=== PATIENT | female | born 1950 | race Caucasian/White ===

== ENCOUNTER 2016-08-08 13:45 | Outpatient (RCR) | payer MEDICARE, BC ==
--- OUTSIDE RECORDS SUMMARY | 2016-07-18 13:26 | XMS REPORT | Continuity of Care Document ---
Author Author [facility] Organization [facility] Address Unknown Phone Unavailable Care Team Providers [facility] Volunteer Name Role Phone MIQUEL WISEMAN DO PCP Insurance Providers Payer Name Policy Number Subscriber Name Relationship [facility] [id number] Ruel Collazo Advance Directives Directive Response Recorded Date/Time Advance Directives Yes 05/20/14 5:57pm Health Care Power of Body Engineer Farshad COLLAZO 05/20/14 5:57pm Organ Donor No 05/20/14 5:57pm Resuscitation Status Full Code 05/20/14 5:57pm Problems No known problems or medical conditions. Medications Medication Dose Route Sig Days/Qty Instructions Order Date Discontinued Date Status Sotalol Hcl 200 Mg PO 05/20/14 Active Digoxin 1 Each PO DAILY 05/20/14 Active Potassium Chloride 10 Meq PO DAILY 05/20/14 Active Diltiazem Hcl 240 Mg PO 05/20/14 Active Metformin HCl (Glucophage Xr) 1 Each PO DAILY WITH MEAL 05/20/14 Active Simvastatin 10 Mg PO DAILY 05/20/14 Active Furosemide (Lasix) 1 Each PO DAILY 05/20/14 Active Enalapril Maleate 20 Mg PO DAILY 05/20/14 Active Hydrocodone Bit/Acetaminophen 1 Tab PO EVERY 6 HOURS PRN PAIN 10 Qty Active Social History Social History Problem Response Recorded Date/Time Alcohol Use Rarely Uses 05/20/2014 5:57pm Recreational Drug Use No 05/20/2014 5:57pm Recent Foreign Travel No 05/20/2014 5:53pm Smoking Status Former Smoker 05/20/2014 5:57pm Query Response Start Date Stop Date Smoking Status Former Smoker Hospital Discharge Instructions No hospital discharge instructions. Plan of Care No plan of care. Functional Status No functional status results. Allergies, Adverse Reactions, Alerts Allergen Type Severity Reaction Status Last Updated Penicillins ([id number]) Allergy Unknown Active 10/15/08 Sulfa (Sulfonamide Antibiotics) ([id number]) Allergy Unknown Active 17/04 Immunizations No immunization records. Vital Signs Acute Vital Signs Vital Response Date/Time Temperature (Fahrenheit) 97.3 degrees F (97.6 - 99.5) Temperature (Calculated Celsius) 36.81413 degrees C (36.4 - 37.5) Pulse Rate (adult) 78 bpm (60 - 90) Respiratory Rate 16 bpm (12 - 24) O2 Sat by Pulse Oximetry 98 % (88 - 100) Blood Pressure 179/80 mm Hg Pain Pain Intensity 3 Height (Feet) 5 feet Height (Inches) 4 inches Height (Calculated Centimeters) 162.405868 cm Weight (Pounds) 155 pounds Weight (Calculated Kilograms) 70.813670 kilograms Calculated BMI 26.60 Results Test Source Date Result Interp. Ref. Range Comments Activated Partial Thromboplast Time October 15, 2008 2:10pm 28 SEC N 24- 35 Comments to Wool Dyer: USE BLOOD IN LAB IF POSSIBLE Alanine Aminotransferase (ALT/SGPT) October 17, 2008 5:18am 24 U/L L 30- 65 Albumin October 17, 2008 5:18am 2.3 G/DL L 3.4-5.0 Alkaline Phosphatase October 17, 2008 5:18am 91 U/L N 50-136 Aspartate Amino Transf (AST/SGOT) October 17, 2008 5:18am 9 U/L L 15-37 B-Type Natriuretic Peptide October 15, 2008 2:10pm 160.0 PG/ML H 5.0- 100.0 Has specimen been collected/obtained? Y BUN/Creatinine Ratio October 17, 2008 5:18am 8 - Basophils # (Auto) October 17, 2008 5:18am 0.0 10^3/uL N 0.0-0.1 Basophils (%) (Auto) October 17, 2008 5:18am 0 % N 0-10 Blood Urea Nitrogen October 17, 2008 5:18am 6 MG/DL L 7-18 Calcium Level October 17, 2008 5:18am 8.0 MG/DL L 8.5-10.1 Carbon Dioxide Level October 17, 2008 5:18am 24 MMOL/L N 21-32 Chloride Level October 17, 2008 5:18am 107 MMOL/L N 101-110 Creatinine October 17, 2008 5:18am 0.8 MG/DL N 0.6-1.3 Digoxin Level October 16, 2008 2:32am 1.1 NG/ML N 0.9-2.0 Direct Bilirubin October 15, 2008 2:10pm 0.2 MG/DL N 0.0-0.30 Has specimen been collected/obtained? Y Eosinophils # (Auto) October 17, 2008 5:18am 0.4 10^3/uL H 0.0-0.3 Eosinophils (%) (Auto) October 17, 2008 5:18am 6 % N 0-10 Glucose Level October 17, 2008 5:18am 100 MG/DL N 70-126 Hematocrit October 17, 2008 5:18am 34 % L 35-52 Hemoglobin October 17, 2008 5:18am 11.4 G/DL DL 11.5-16.0 Indirect Bilirubin October 15, 2008 2:10pm 0.3 MG/DL - Has specimen been collected/obtained? Y Lymphocytes # (Auto) October 17, 2008 5:18am 1.7 X 10^3 N 1.0-4.0 Lymphocytes % (Manual) October 15, 2008 2:10pm 19 % - Has specimen been collected/obtained? Y Lymphocytes (%) (Auto) October 17, 2008 5:18am 21 % N 12-44 Magnesium Level October 15, 2008 2:10pm 1.9 MG/DL N 1.8-2.4 Has specimen been collected/obtained? Y Mean Corpuscular Hemoglobin October 17, 2008 5:18am 32 PG N 25-34 Mean Corpuscular Hemoglobin Concent October 17, 2008 5:18am 33 G/DL N 32- 36 Mean Corpuscular Volume October 17, 2008 5:18am 96 FL N 80-99 Mean Platelet Volume October 17, 2008 5:18am 9.7 FL N 7.4-10.4 Monocytes # (Auto) October 17, 2008 5:18am 0.7 X 10^3 N 0.0-1.0 Monocytes % (Manual) October 15, 2008 2:10pm 14 % - Has specimen been collected/obtained? Y Monocytes (%) (Auto) October 17, 2008 5:18am 8 % N 0-12 Myoglobin October 17, 2008 5:18am 36 UG/L N 10-92 Neutrophils # (Auto) October 17, 2008 5:18am 5.1 X 10^3 N 1.8-7.8 Neutrophils % (Manual) October 15, 2008 2:10pm 67 % - Has specimen been collected/obtained? Y Neutrophils (%) (Auto) October 17, 2008 5:18am 65 % N 42-75 Platelet Count October 17, 2008 5:18am 271 10^3/uL N 130-400 Potassium Level October 17, 2008 5:18am 3.0 MMOL/L L 3.6-5.0 Prothromb Time International Ratio October 15, 2008 2:10pm 1.0 N 0.8-1.4 INTERPRETIVE DATASUGGESTED THERAPEUTIC RANGE FOR INR'S: VENOUS THROMBOSIS, PULMONARY EMBOLISM, OR PREVENTION OF SYSTEMIC EMBOLISM (EG. IN ATRIAL FIBRILLATION): 2.0 - 3.0 MECHANICAL PROSTHETIC HEART VALVES: 2.5 - 3.5* *NOTE: INR'S UP TO 4.5 MAY BE NECESSARY IN SELECTED GROUPS OF HIGH RISK PATIENTS. [employer] CONSENSUS CONFERENCE ON ANTITHROMBOTIC THERAPY (2000). Prothrombin Time October 15, 2008 2:10pm 13.6 SEC N 12.2-14.7 Comments to Wool Dyer: USE BLOOD IN LAB IF POSSIBLE Red Blood Count October 17, 2008 5:18am 3.60 10^6/uL L 4.35-5.85 Red Cell Distribution Width October 17, 2008 5:18am 13.0 % N 10.0-14.5 Sodium Level October 17, 2008 5:18am 138 MMOL/L N 135-145 Thyroid Stimulating Hormone (TSH) October 15, 2008 2:10pm 1.48 UIU/ML N 0.34-5.60 Comments to Wool Dyer: USE BLOOD IN LAB IF POSSIBLE Total Bilirubin October 17, 2008 5:18am 0.4 MG/DL N 0.0-1.0 Total Protein October 17, 2008 5:18am 5.9 G/DL L 6.4-8.2 Troponin I October 17, 2008 5:18am 0.24 NG/ML H 0.00-0.10 Urine Bacteria October 16, 2008 11:50am NEGATIVE - Specimen Description CLEAN CATCH Urine Bilirubin October 16, 2008 11:50am NEGATIVE - Specimen Description CLEAN CATCH Urine Casts October 16, 2008 11:50am NONE - Specimen Description CLEAN CATCH Urine Clarity October 16, 2008 11:50am CLEAR - Specimen Description CLEAN CATCH Urine Color October 16, 2008 11:50am YELLOW - Specimen Description CLEAN CATCH Urine Crystals October 16, 2008 11:50am NONE - Specimen Description CLEAN CATCH Urine Culture Indicated October 16, 2008 11:50am NO - Specimen Description CLEAN CATCH Urine Glucose (UA) October 16, 2008 11:50am NEGATIVE - Specimen Description CLEAN CATCH Urine Ketones October 16, 2008 11:50am NEGATIVE - Specimen Description CLEAN CATCH Urine Leukocyte Esterase October 16, 2008 11:50am NEGATIVE - Specimen Description CLEAN CATCH Urine Mucus October 16, 2008 11:50am NEGATIVE - Specimen Description CLEAN CATCH Urine Nitrite October 16, 2008 11:50am NEGATIVE - Specimen Description CLEAN CATCH Urine Protein October 16, 2008 11:50am NEGATIVE - Specimen Description CLEAN CATCH Urine RBC October 16, 2008 11:50am NONE /HPF - Specimen Description CLEAN CATCH Urine Specific Marshall October 16, 2008 11:50am 1.010 L - Specimen Description CLEAN CATCH Urine Squamous Epithelial Cells October 16, 2008 11:50am 2-5 - Specimen Description CLEAN CATCH Urine Urobilinogen October 16, 2008 11:50am NORMAL MG/DL - Specimen Description CLEAN CATCH Urine WBC October 16, 2008 11:50am NONE /HPF - Specimen Description CLEAN CATCH Urine pH October 16, 2008 11:50am 6.5 - Specimen Description CLEAN CATCH White Blood Count October 17, 2008 5:18am 7.8 10^3/uL N 4.3-11.0 Whole Blood Chloride October 15, 2008 2:30pm 106 MMOL/L N 98-109 Has specimen been collected/obtained? Y Whole Blood Glucose October 15, 2008 2:30pm 166 MG/DL H 70-105 Has specimen been collected/obtained? Y Whole Blood Potassium October 15, 2008 2:30pm 3.1 MMOL/L L 3.5-4.9 Has specimen been collected/obtained? Y Whole Blood Sodium October 15, 2008 2:30pm 140 MMOL/L N 138-146 Has specimen been collected/obtained? Y Whole Blood Ionized Calcium October 15, 2008 2:30pm 1.18 MMOL/L N 1.12- 1.32 Has specimen been collected/obtained? Y Glucometer October 17, 2008 10:52am 114 MG/DL H 70-110 Factor V Leiden Mutation October 15, 2008 8:30pm NEG - FACTOR 5 LEIDEN INTERPNegative study, Normal Wild Type (no mutant alleles detected) for the factor V Leiden gene mutation (see comment). This test is approximately 99% accurate. However, a negative result for any genetic test does not entirely rule out the possibility that this individual could be a carrier of a mutation not detected by this test. Genotypic false negative results may arise from trace contamination of reactions and from rare genetic variants that interfere with analysis. We encourage the physician to consider genetic counseling if deemed clinically necessary. A clincal pathologist has reviewed these results prior to their release. FACTOR 5 LEIDEN INTERPRETIVE DATA The factor V Leiden gene mutation (FVL) is a single base pair G to A missense point mutation involving exon 10 of chromosome 1 at nucleotide 1691 of the factor V gene. Genomic DNA was prepared from submitted whole blood. Using [employer] Exon 10 of the factor V gene localized on chromosome 1 was analyzed using a non-PCR signal amplification method utilizing an enzymatic hybridization mismatch recognition step with a fluorescent allele-specific probe for the point mutation at nucleotide position 1691 in the factor V gene. Analyte-specific reagents (ASRs) are used in certain laboratory tests necessary for standard medical care and generally do not require FDA approval. This test was developed and its performance determined by [facility]. It has not been cleared or approved by the U.S. Food and Drug Administration. It is the responsibility of the ordereing physician to explain the risks, benefits, and implications of this test. [facility]) assume no responsibility in the consenting and counseling of patients before and after testing. Whole Blood Creatinine October 15, 2008 2:30pm 0.9 MG/DL N 0.6-1.3 Has specimen been collected/obtained? Y Total Carbon Dioxide October 15, 2008 2:30pm 25 MMOL/L N 24-29 Has specimen been collected/obtained? Y Blood Morphology Comment October 15, 2008 2:10pm NORMAL - Has specimen been collected/obtained? Y Creatine Kinase October 16, 2008 2:32am 64 mg/dl N 21-140 Cardiac Panel Pathologist Review October 15, 2008 2:10pm SEE CARDIAC PATH REV - Has specimen been collected/obtained? Y Urine RBC (Auto) October 16, 2008 11:50am NEGATIVE - Specimen Description CLEAN CATCH Blood Culture Peripheral-Right Wrist October 16, 2008 11:15am No growth MRSA Screen Nasal October 15, 2008 6:30pm MRSA not isolated Urine Culture Urine-Clean Catch October 16, 2008 11:50am Gram Stain Incision-Back October 16, 2008 11:00am Procedures No known history of procedures. Encounters Encounter Location Date/Time Departed Emergency Room [facility] 05/20/14 5:45pm Recent Diagnosis
[~2016-08-08 13:45] MED LIST: DIGO125T PO; DILT120C PO; ENAL20TA PO; FURO40TA4 PO; HYDR-1231 PO; KCL10CCR PO; METF500T8 PO; SIMV10TA3 PO; SOTA160T16 PO
== END 2016-09-01 13:57 | disposition home or self-care (01) ==
PROVIDERS: ATTEND Otolaryngology Otolaryngology/Facial Plastic Surgery
DX: R49.0 Dysphonia (principal); I10 Essential (primary) hypertension; R12 Heartburn

== ENCOUNTER → 2017-05-11 | Outpatient (CLI) | payer MEDICARE, BC ==
--- NOTE | 2017-05-11 18:41 | Diagnostic Imaging Report ---
Three views of the right foot. INDICATION: Patient stepped on a nail along the base of the second toe. FINDINGS: There is no fracture, dislocation or radiopaque foreign body seen. Joint alignment is satisfactory. Small calcaneal spurs are noted. IMPRESSION: No fracture seen. Dictated by: Dictated on workstation # [id number]
== END ==
LOC: RAD 15:41
PROVIDERS: ATTEND Internal Medicine
DX: S91.331A Puncture wound without foreign body, right foot, initial encounter (principal); W45.0XXA Nail entering through skin, initial encounter; Y99.8 Other external cause status
CPT/HCPCS: 73630

== ENCOUNTER 2018-03-26 10:25 | Inpatient (IN) | payer MEDICARE, BC ==
[~2018-03-26] VITALS: Ht 162.6 cm; Wt 72.8 kg
[2018-03-26 18:45] VITALS: BP 120/68
--- OUTSIDE RECORDS SUMMARY | 2018-03-26 19:09 | XMS REPORT | Continuity of Care Document ---
Author Author [facility] Organization [facility] Address Unknown Phone Unavailable Allergies Active Description Code Type Severity Reaction Onset Reported/Identified Relationship to Patient Clinical Status Yes Penicillins [id number] Drug Allergy Unknown N/A 10/15/2008 Yes Sulfa (Sulfonamide Antibiotics) [id number] Drug Allergy Unknown N/A 2008 Medications There is no data. Problems Date Dx Coded Attending Type Code Diagnosis Diagnosed By 06/18/1356 ISELA JAMIL, SAVITA Dorado Ot I10 ESSENTIAL (PRIMARY) HYPERTENSION 06/18/1356 ISELA JAMIL, SAVITA Dorado Ot R12 HEARTBURN 06/18/1356 ISELA JAMIL, SAVTIA Dorado Ot R49.0 DYSPHONIA 05/20/2014 JENNIFFER CASTRO MEDICAL ASSOCIATE Ot 729.5 PAIN IN LIMB 05/20/2014 JENNIFFER CASTRO MEDICAL ASSOCIATE Ot 825.25 FX METATARSAL-CLOSED 05/20/2014 JENNIFFER CASTRO MEDICAL ASSOCIATE Ot E000.8 OTHER EXTERNAL CAUSE STATUS 05/20/2014 JENNIFFER CASTRO MEDICAL ASSOCIATE Ot E001.0 ACTIVITIES INVOLVING WALKING, MARCHING A 05/20/2014 JENNIFFER CASTRO MEDICAL ASSOCIATE Ot E927.0 OVEREXERTION FROM SUDDEN STRENUOUS MOVEM 06/30/2014 MIQUEL WISEMAN DO Ot V54.19 07/10/2014 MIQUEL WISEMAN DO Ot V54.19 08/02/2014 Ot 401.9 08/02/2014 Ot 427.31 08/02/2014 Ot 427.89 08/02/2014 Ot 722.52 08/02/2014 Ot V49.81 08/02/2014 Ot V82.81 08/02/2014 MIQUEL WISEMAN DO Ot 457.1 08/02/2014 MIQUEL WISEMAN DO Ot V54.19 08/02/2014 Ot 401.9 08/02/2014 Ot 427.31 08/02/2014 Ot 427.89 08/02/2014 Ot 722.52 08/02/2014 Ot V49.81 08/02/2014 Ot V82.81 08/02/2014 MIQUEL WISEMAN DO Ot 457.1 08/02/2014 MIQUEL WISEMAN DO Ot V54.19 02/13/2015 IVONE MARTINEZ MIQUEL Amarilys Ot 240.9 02/15/2015 MIQUEL WISEMAN DO Ot 240.9 05/21/2015 Ot 401.9 05/21/2015 Ot 427.31 05/21/2015 Ot 427.89 05/21/2015 Ot 722.52 05/21/2015 Ot V49.81 05/21/2015 Ot V82.81 05/21/2015 MIQUEL WISEMAN DO Ot 457.1 05/21/2015 MIQUEL WISEMAN DO Ot V54.19 05/21/2015 MIQUEL WISEMAN DO Ot 240.9 06/18/2015 MIQUEL WISEMAN DO Ot E04.1 06/20/2015 MIQUEL WISEMAN DO Ot E04.1 08/22/2015 Ot 401.9 08/22/2015 Ot 427.31 08/22/2015 Ot 427.89 08/22/2015 Ot 722.52 08/22/2015 Ot V49.81 08/22/2015 Ot V82.81 08/22/2015 MIQUEL WISEMAN DO Ot 457.1 08/22/2015 MIQUEL WISEMAN DO Ot V54.19 08/22/2015 MIQUEL WISEMAN DO Ot 240.9 08/22/2015 MIQUEL WISEMAN DO Ot E04.1 10/12/2015 Ot 722.52 10/12/2015 Ot V49.81 10/12/2015 Ot V82.81 10/12/2015 IMQUEL WISEMAN DO Ot 457.1 10/12/2015 MIQUEL WISEMAN DO Ot V54.19 10/12/2015 MIQUEL WISEMAN DO Ot 240.9 10/12/2015 MIQUEL WISEMAN DO Ot E04.1 04/15/2016 Ot 722.52 LUMB/ LUMBOSAC DISC DEGEN 04/15/2016 Ot V49.81 ASYMPT POSTMENOPAUSAL STATUS (AGE-RELATE 04/15/2016 Ot V82.81 SCREENING FOR OSTEOPOROSIS 04/15/2016 MIQUEL WISEMAN DO Ot 457.1 OTHER LYMPHEDEMA 04/15/2016 MIQUEL WISEMAN DO Ot V54.19 AFTERCARE HEALING TRAUMATIC FX OTHER BON 04/15/2016 MIQUEL WISEMAN DO Ot 240.9 GOITER NOS 04/15/2016 MIQUEL WISEMAN DO Ot E04.1 NONTOXIC SINGLE THYROID NODULE 07/10/2016 MIQUEL WISEMAN DO Ot 240.9 GOITER NOS 07/10/2016 MIQUEL WISEMAN DO, Ot E04.1 NONTOXIC SINGLE THYROID NODULE 09/01/2016 SAVITA WEISS MD Ot I10 ESSENTIAL (PRIMARY) HYPERTENSION 09/01/2016 SAVITA WEISS MD Ot R12 HEARTBURN 09/01/2016 SAVITA WEISS MD Ot R49.0 DYSPHONIA 05/13/2017 MIQUEL WISEMAN DO, Ot S91.331A PUNCTURE WOUND WITHOUT FOREIGN BODY, RIG 05/13/2017 MIQUEL WISEMAN DO Ot W45.0XXA NAIL ENTERING THROUGH SKIN, INITIAL ENCO 05/13/2017 MIQUEL WISEMAN DO Ot Y99.8 OTHER EXTERNAL CAUSE STATUS 06/02/2017 MIQUEL WISEMAN DO, Ot S91.331A PUNCTURE WOUND WITHOUT FOREIGN BODY, RIG 06/02/2017 MIQUEL WISEMAN DO, Ot W45.0XXA NAIL ENTERING THROUGH SKIN, INITIAL ENCO 06/02/2017 MIQUEL WISEMAN DO Ot Y99.8 OTHER EXTERNAL CAUSE STATUS 06/03/2017 MIQUEL WISEMAN DO, Ot S91.331A PUNCTURE WOUND WITHOUT FOREIGN BODY, RIG 06/03/2017 MIQUEL WISEMAN DO, Ot W45.0XXA NAIL ENTERING THROUGH SKIN, INITIAL ENCO 06/03/2017 MIQUEL WISEMAN DO, Ot Y99.8 OTHER EXTERNAL CAUSE STATUS Procedures There is no data. Results There is no data. Encounters ACCT No. Visit Date/Time Discharge Status Pt. Type Provider Facility Loc./Unit Complaint [id number] 05/11/2017 15:41:00 05/11/2017 23:59:59 CLS Outpatient MIQUEL WISEMAN DO [facility] RAD PUNCTURE WOUND [id number] 08/08/2016 13:45:00 09/01/2016 13:57:00 DIS Outpatient SAVITA WEISS MD [facility] REHAB HORASENESS; SPASMATIC DYSPHONIA [id number] 05/21/2015 09:23:00 05/21/2015 23:59:59 CLS Outpatient MIQUEL WISEMAN DO [facility] RAD F/U THYROID NODULE [id number] 01/10/2015 09:35:00 01/10/2015 23:59:59 CLS Outpatient MIQUEL WISEMAN DO [facility] RAD THYROIDMEGALLY [id number] 06/19/2014 13:10:00 06/19/2014 23:59:59 CLS Outpatient MIQUEL WISEMAN DO [facility] RAD F/U FX 5TH [id number] 05/20/2014 17:45:00 05/20/2014 18:58:00 DIS Emergency JENNIFFER CASTRO APRN [facility] ER R FOOT PAIN [id number] 11/29/2012 13:47:00 11/29/2012 23:59:59 CLS Outpatient MIQUEL WISEMAN DO [facility] RAD RT UPPER EXTREMITY LYMPHEDEMA [id number] 12/03/2010 13:12:00 Document Registration [id number] 03/06/2010 07:34:00 Document Registration [email or web address] 01/10/2015 09:35:46 ACT Document Registration
[2018-03-26] MEDS ORDERED: chlordiazePOXIDE 25 MG (LIBRIUM) CAP NON-FORMULARY PO PRN (19:15)
--- NOTE | 2018-03-26 19:30 | PM&R Post Admission Assessment ---
Post Admission Physician Asses Date seen by provider: Mar 26, 2018 Time seen by provider: 19:00 The preadmission screen agrees with the post admission assessment that the patient is a good candidate for inpatient rehabilitation. The patient will have a comprehensive program of inpatient rehabilitation with a goal of maximizing level of functional independence prior to discharge home with family and HHC. The patient will have PT/OT ninety minutes per day, each discipline, five days a week for 7 days for gait, strengthening, conditioning, balance, ADLs, any patient/family/caregiver training as necessary. Speech therapy to do cognitive assessment and treat as indicated. Rehabilitation nursing to assist with bowel, bladder, skin, wound care, medication administration, pain management. Long Term to assist with discharge planning, community reentry. SCD's for DVT prophylaxis. She appears to be well motivated to participate in three hours of therapy a day. She should be able to tolerate three hours of therapy a day from a medical and surgical standpoint. She should benefit from the three hours of therapy a day. She has a reasonable discharge plan, reasonable discharge rehabilitation goals and a supportive family. She has various comorbidities that need to be closely monitored with medications and treatments adjusted on a daily basis as needed. These include: DM HTN Cardiac arrhythmia Barriers to discharge for this patient who had been independent prior to this are for her to be modified independent to supervision for ADLs and mobility skills prior to discharge home with family and, so as to lessen the burden of the caregivers. Risks for this patient include: 1. Fall 2. Fracture 3. DVT 4. Pulmonary embolism 5. Wound infection 6. Skin breakdown 7. Contractures 8. Poorly controlled pain 9. Urinary retention 10. UTI 11. Respiratory infection 12. Aspiration 13. poorly controlled Dm 14. Poorly controlled HTN 15. Cardiac arrhythmia Estimated Length of Stay: 7 days Prognosis: Rehab prognosis appears good for goal of discharge home with family and HHC modified independent to supervision for ADLs and mobility skills. General: Alert, Oriented X3, Cooperative, No Acute Distress HEENT: Atraumatic, PERRLA, EOMI, Mucous Memb Moist/[place] Neck: Supple, No JVD Lungs: Other (decreased breath sounds at base) Heart: Regular Rate Abdomen: Normal Bowel Sounds, Soft, No Tenderness Extremities: No Edema Skin: Other (sternotomy site healing well) Neuro: Normal Speech, Other (Generalized weakness) Psych/Mental Status: Mood NL MARY UPTON MD Mar 26, 2018 19:30
--- NOTE | 2018-03-26 20:52 | HISTORY AND PHYSICAL ---
DATE OF SERVICE: CHIEF COMPLAINT: Difficulty with walking. HISTORY OF PRESENT ILLNESS: The patient is a 67-year-old female with coronary artery disease, who underwent a CABG at [facility]. She had a resulting decline in her functional independence and was referred to inpatient rehabilitation unit. Case was discussed by referring physician with Dr. Palomino by phone today. PCP is Dr. Estrella and Hospitalist Service will be consulted for assisting with medical management. The patient has multiple comorbidities, but doing quite well postoperatively. She had been independent prior to this and living with her family in [place]. Her has Parkinson disease and had been a patient on this unit approximately 3 years ago. Currently, she is min assist to contact guard for transfers and gait for short distances. She has sternal precautions. She is utilizing generic Lortab for pain control. She is on metformin b.i.d. and a diabetic diet PAST MEDICAL HISTORY: Coronary artery disease, hypertension, diabetes mellitus, and cardiac arrhythmia. PAST SURGICAL HISTORY: CABG. ALLERGIES: PENICILLIN, SULFA, AND KEFLEX. FAMILY HISTORY: Noncontributory. SOCIAL HISTORY: Essentially as per above. REVIEW OF SYSTEMS: A 10-point review of systems significant for some incisions, no sternal pain. MEDICATIONS: KCl 10 mEq p.o. daily, Zantac 150 mg p.o. b.i.d., simvastatin 10 mg p.o. daily, Betapace mg p.o. q.12 hour, Victoza 2-pack 0.6 mg subcutaneous daily, diltiazem 240 mg p.o. daily, and enalapril 20 mg p.o. daily. Susanne 180 mg p.o. every Thursday, Thursday, Thursday and . Flonase nasal spray 2 sprays each nostril daily at bedtime, furosemide 40 mg p.o. daily, hydrocodone and acetaminophen 5/325 one tablet p.o. q.4 hours as needed for pain, lutein 20 mg p.o. daily, metformin 500 mg p.o. b.i.d. with meals, amiodarone 200 mg p.o. b.i.d., vitamin C 5000 mg p.o. b.i.d., ASA 81 mg p.o. daily, Lipitor 10 mg p.o. each day at bedtime, Librium 10 mg p.o. b.i.d. p.r.n. anxiety, Plavix 75 mg p.o. daily, and digoxin 125 mcg p.o. daily. PHYSICAL EXAMINATION: GENERAL: Significant for a pleasant female, appearing her stated age, alert and oriented, no acute distress. VITAL SIGNS: Blood pressure is 110/60, pulse 78. She is afebrile. Respirations 16, and O2 sat 93% on room air. HEENT: Vision, speech, hearing grossly intact. No oral lesion is noted. NECK: Supple without mass. HEART: Regular rhythm. LUNGS: Decreased breath sounds at base. CHEST: Sternotomy incision site healing well, no drainage noted. ABDOMEN: Soft, nontender, bowel sounds present. EXTREMITIES: No limb edema. No calf tenderness. MUSCULOSKELETAL: The patient has functional active range of motion in all 4 limbs. NEUROLOGIC: Sensation is grossly intact to touch. Cognition grossly intact. Strength generalized weakness. IMPRESSION: 1. General debilitation status post CABG for coronary artery disease Yenny Cardenas. 2. Diabetes mellitus, controlled with medication. 3. Hypertension, controlled with medication. 4. Cardiac arrhythmia controlled with medication. PLAN: The patient will have a comprehensive program of inpatient rehabilitation with a goal of maximizing level of functional independence prior to discharge home with home health care and family. The patient will have PT, OT 90 minutes per day each discipline 5 days a week for 7 days with the above goals in mind. Speech Therapy to do cognitive assessment and treat as indicated. Rehabilitation nursing to assist with bowel, bladder, skin, wound care, medication administration, pain management and social worker assistant with discharge planning, community reentry. Consult hospitalist in lieu of Dr. Estrella for any postoperative medical management. Accu-Cheks b.i.d. Adjust medications as necessary. Sternotomy precautions. Follow up with her cardiac surgeon upon discharge from rehabilitation.Please see PT and OT assessments for Details of current functional status. ESTIMATED LENGTH OF STAY: 7 days. PROGNOSIS: Rehab prognosis appears good for goal of discharging home with home health care and family modified independence tosupervision for ADLs and mobility skills. DIET: Carb consistent. CODE STATUS: Full code. Job ID: [id number] DocumentID: [id number] Dictated Date: 03/26/2018 19:24:06 Bag Printer Date: 03/26/2018 20:51:31 Dictated By: MARY PALOMINO MD [facility]
[2018-03-26] MEDS ORDERED: SIMvastatin 10 MG (ZOCOR) TAB PO SCH (21:00)
[2018-03-26] MEDS ORDERED: ATORVASTATIN 40 MG (LIPITOR) TABLET PO SCH (21:00)
[2018-03-26] MEDS: FAMOTIDINE 20 MG (PEPCID) TABLET PO SCH (21:02)
[2018-03-26] MEDS: ATORVASTATIN 10 MG (LIPITOR) TABLET PO SCH (21:02)
[2018-03-26] MEDS: AMIODARONE 200 MG (CORDARONE) TAB PO SCH (21:02)
[2018-03-26] MEDS: SOTALOL 80 MG (BETAPACE) TAB PO SCH (21:02)
[2018-03-26] MEDS: FLUTICASONE NASAL SPRAY (FLONASE) 16 GM BTL NS SCH (21:02)
[2018-03-26] MEDS: HYDROcodone/APAP 5 MG/325 MG (LORTAB) TAB PO PRN (21:07)
[2018-03-27 05:47] VITALS: BP 136/69
[2018-03-27] MEDS: metFORMIN 500 MG (GLUCOPHAGE) TAB PO SCH ×2 (06:27→16:43)
[2018-03-27] MEDS: ASCORBIC ACID (VIT C) 500 MG TABLET PO SCH ×2 (06:27→16:43)
[2018-03-27] MEDS: KCL 10 MEQ TAB (MICRO K) PO SCH (06:27)
[2018-03-27] MEDS: HYDROcodone/APAP 5 MG/325 MG (LORTAB) TAB PO PRN ×3 (06:28→22:03)
--- NOTE | 2018-03-27 08:02 | PM & R (SOAP) Progress Note ---
Subjective This was a face to face visit with the patient. Date Seen by Provider: Mar 27, 2018 Time Seen by Provider: 07:30 Subjective/Events-last exam Patient was seen in her room this AM Doing quite well and adjusting to unit Cares for at home prior to surgery as he is w/c bound from [facility] noted .Patient min assist for transfers Review of Systems Neurological: Weakness Objective Physician Exam Last Set of Vital Signs Vital Signs Date Time Temp Pulse Resp B/P (MAP) Pulse Ox O2 Delivery O2 Flow Rate FiO2 03/27/18 05:47 98.1 77 18 136/69 (91) 95 Room Air Capillary Refill : I&O Intake and Output 03/27/18 00:00 Daily Weight Change No General: Alert, Oriented X3, Cooperative, No Acute Distress HEENT: Atraumatic, PERRLA, EOMI, Mucous Memb Moist/[place] Neck: Supple, No JVD Lungs: Other (decreased breath sounds at base) Heart: Regular Rate Abdomen: Normal Bowel Sounds, Soft, No Tenderness Extremities: No Edema Skin: Other (sternotomy site healing well) Neuro: Normal Speech, Other (Generalized weakness) Psych/Mental Status: Mood NL Results Lab Data Laboratory Tests 03/26/18 22:04: Glucometer 271H 03/27/18 05:15: Glucometer 139H Assessment/Plan Assessment and Plan general debil s/p CABG for CAD Cardiac arrhythmia controlled with med DM controlled HTN controlled Plan PT/OT/ST evals pending as patient late arrival last evening See if Cardiology available to review current meds teharpise with Sternotomy precautions See orders. Co-Morbidities that are continuing to impact the rehab process: (include details ) MARY UPTON MD Mar 27, 2018 08:02
--- NOTE | 2018-03-27 08:27 | Occupational Therapy Eval ---
OT Evaluation-General/PLF Medical Diagnosis Admission Date Mar 26, 2018 at 18:56 Medical Diagnosis: CABG Onset Date: Mar 23, 2018 Therapy Diagnosis Therapy Diagnosis: decreased self care skills Height/Weight Height (Feet): 5 Height (Inches): 4.00 Weight (Pounds): 158 Weight (Ounces): 0.4 Precautions Precautions/Isolations: Fall Prevention, Standard Precautions Safety Interventions: None Comments Sternal precautions Referral Physician: Candelario Medical History Pertinent Medical History: Atrial Fib, DM, HTN Additional Medical History PE, hyperlipidemia, sinal surgery, IVC filter, lipid disorder, Current History Pt s/p CABGx2 Social History Home: Single Level Entry Into Home: Ramp ADL-Prior Level of Function ADL PLOF Comments Pt reports being independent with self care and mobility. Cares for spouse who has Parkinson's. Pt states she will have assistance providing care for her at d/c. DME/Equipment: Bath Chair, Grab Bars, Shower, Tall Toilet Drive Self: Yes OT Current Status Subjective Pt in bed, agrees to therapy. Pt reports 4/10 pain in right leg and sternal incisions Mental Status/Objective Patient Orientation: Person, Place, Time, Situation Current Glasses/Contacts: Yes Hearing Aids: No Dentures/Partials: No Hand Dominance: Right Upper Extremity Sensation Intact per pt report Upper Extremity Strength Not formally assessed secondary to sternal precautions. ADL-Treatment ADL-Current Pt supine to sit with minimal assistance for trunk. Sit to stand with supervision. Gait to restroom without LOB. Pt stood at sink to wash face, brush teeth, and comb hair with SBA. Transfer to chair with supervision. Care transferred to BETANCOURT at this time. Functional [place] Measure 0=Not Assessed/NA 4=Minimal Assistance 1=Total Assistance 5=Supervision or Setup 2=Maximal Assistance 6=Modified [place] 3=Moderate Assistance 7=Complete IndependenceIRFPAI Quality Coding Scale 6 Independent with activity with or without an assistive device 5 Patient requires set up or clean up by helper. Patient completes activity by themselves 4 Supervision or touching assist (CGA). [place] provide cues , steadying assist 3 The helper provides less than half the effort to complete the activity 2 The helper provides more than half the effort to complete the activity 1 Dependent. The helper does all the effort to complete an activity 7 Patient refused to complete or attempt activity 9 The patient did not perform the activity before the current illness or injury 88 Not attempted due to Medical conditions or safety concerns Eating (FIM): 7 (Pt reports feeding self, managing containers, and cutting food without assistance) Eating (QC): 6 Grooming (FIM): 5 Oral Hygiene (QC): 4 Education OT Patient Education: Rehab process Teaching Recipient: Patient Teaching Methods: Discussion Response to Teaching: Verbalize Understanding OT Short Term Goals Short Term Goals Time Frame: Apr 03, 2018 Bathing(FIM): 5 Upper Body Dressing(FIM): 5 Lower Body Dressing(FIM): 5 Toileting(FIM): 5 Additional Short Term Goals: 1-Demonstrate ADL Tasks, 2-Verbalize Understanding , 3-ImproveStrength/Donald 1=Demonstrate adherence to instructed precautions during ADL tasks. 2=Patient will verbalize/demonstrate understanding of assistive devices/ modifications for ADL. 3=Patient will improve strength/tolerance for activity to enable patient to perform ADL's. OT Diesel Service Journeyman Goals Usp Goals Time Frame: Apr 17, 2018 Eating (FIM): 7 Eating (QC): 6 Groomin Oral Hygiene (QC): 6 Bathing(FIM): 6 Shower/Bathe Self (QC): 6 Upper Body Dressing(FIM): 6 Upper Body Dressing (QC): 6 Lower Body Dressing(FIM): 6 Lower Body Dressing (QC): 6 On/Off Footwear (QC): 6 Toileting(FIM): 6 Toileting Hygiene (QC): 6 Toilet/Commode Transfer(FIM): 6 Toilet/Commode Transfer (QC): 6 Shower Transfer(FIM): 6 Additional Goals: 1-Demonstrate ADL Tasks, 2-Verbalize Understanding, 3- ImproveStrength/Donald 1=Demonstrate adherence to instructed precautions during ADL tasks. 2=Patient will verbalize/demonstrate understanding of assistive devices/ modifications for ADL. 3=Patient will improve strength/tolerance for activity to enable patient to perform ADL's. Goals established to promote increased functional independence and allow safe discharge home. OT Education/Plan Problem List/Assessment Assessment: Decreased Activ Tolerance, Decreased UE Strength, Dependent Transfers, Impaired Self-Care Skills Pt s/p CABG with decreased ADL functioning, mobility, activity tolerance, and strength. Pt to benefit from skilled OT intervention for ADL training, transfers , and home safety education to increase level of independence and allow safe discharge. Discharge Recommendations Plan/Recommendations: Continue POC Treatment Plan/Plan of Care Treatment,Training & Education: Yes Patient would benefit from OT for education, treatment and training to promote independence in ADL's, mobility, safety and/or upper extremity function for ADL' s. Plan of Care: ADL Retraining, Functional Mobility, Group Exercise/Act as Ind, UE Funct Exercise/Act Treatment Duration: Apr 17, 2018 Frequency: At least 5 of 7 days/Wk (IRF) Estimated Hrs Per Day: 1.5 hours per day Agreement: Yes Rehab Potential: Good Time/GCodes Start Time: 07:10 Stop Time: 07:40 Total Time Billed (hr/min): 30 Billed Treatment Time 1 visit, EVM(15minutes), ADL(15minutes) JESS ALEXANDER OT Mar 27, 2018 08:27
--- NOTE | 2018-03-27 08:59 | Occupational Ther Daily Note ---
OT Current Status-Daily Note Subjective Pt alert, standing in bathroom with OTR/L. OTR/L transferred care to BETANCOURT/L. Pt agrees to therapy. Mental Status/Objective Patient Orientation: Person, Place, Time, Situation Functional [place] Measure 0=Not Assessed/NA 4=Minimal Assistance 1=Total Assistance 5=Supervision or Setup 2=Maximal Assistance 6=Modified [place] 3=Moderate Assistance 7=Complete [place] ADL-Treatment Pt took increased time due to intermittent pain at incision site on chest and decreased activity tolerance. Pt sat in chair to shampoo hair. Pt able to comb hair standing at sink. Pt ambulated to room and sat in recliner to complete dressing. Pt able to slip hospital gown over head. Doffed pants/ underwear with CGA. Assist to don pants/underwear over feet then hike over hips. Max A to don/doff socks. Pt able to complete sponge bath prior to donning clothing, assist for lower legs. Unsure if pt is allowed to take shower at this time. Will have older adult social work specialist check with physician on Thursday. Mod A with lower body when transferring back into bed. After therapy, pt lying in bed with call light/phone in reach. All needs met in room. Functional [place] Measure 0=Not Assessed/NA 4=Minimal Assistance 1=Total Assistance 5=Supervision or Setup 2=Maximal Assistance 6=Modified [place] 3=Moderate Assistance 7=Complete IndependenceIRFPAI Quality Coding Scale 6 Independent with activity with or without an assistive device 5 Patient requires set up or clean up by helper. Patient completes activity by themselves 4 Supervision or touching assist (CGA). [place] provide cues , steadying assist 3 The helper provides less than half the effort to complete the activity 2 The helper provides more than half the effort to complete the activity 1 Dependent. The helper does all the effort to complete an activity 7 Patient refused to complete or attempt activity 9 The patient did not perform the activity before the current illness or injury 88 Not attempted due to Medical conditions or safety concerns Bathing (FIM): 4 Bathing Location: L Arm, R Arm, L Upper Leg, R Upper Leg, Chest, Abdomen, Buttocks, Perineal Area Shower/Bathe Self (QC): 3 Lower Body Dressing (FIM): 2 Lower Body Dressing (QC): 2 On/Off Footwear (QC): 2 Transfers (B, C, W/C) (FIM): 4 (CGA for sit to stand then close SBA when ambulating.) OT Short Term Goals Short Term Goals Time Frame: Apr 03, 2018 Bathing(FIM): 5 Upper Body Dressing(FIM): 5 Lower Body Dressing(FIM): 5 Toileting(FIM): 5 Additional Short Term Goals: 1-Demonstrate ADL Tasks, 2-Verbalize Understanding , 3-ImproveStrength/Donald 1=Demonstrate adherence to instructed precautions during ADL tasks. 2=Patient will verbalize/demonstrate understanding of assistive devices/ modifications for ADL. 3=Patient will improve strength/tolerance for activity to enable patient to perform ADL's. OT Penitentiary Goals Penitentiary Goals Time Frame: Apr 17, 2018 Eating (FIM): 7 Eating (QC): 6 Groomin Oral Hygiene (QC): 6 Bathing(FIM): 6 Shower/Bathe Self (QC): 6 Upper Body Dressing(FIM): 6 Upper Body Dressing (QC): 6 Lower Body Dressing(FIM): 6 Lower Body Dressing (QC): 6 On/Off Footwear (QC): 6 Toileting(FIM): 6 Toileting Hygiene (QC): 6 Toilet/Commode Transfer(FIM): 6 Toilet/Commode Transfer (QC): 6 Shower Transfer(FIM): 6 Additional Goals: 1-Demonstrate ADL Tasks, 2-Verbalize Understanding, 3- ImproveStrength/Donald 1=Demonstrate adherence to instructed precautions during ADL tasks. 2=Patient will verbalize/demonstrate understanding of assistive devices/ modifications for ADL. 3=Patient will improve strength/tolerance for activity to enable patient to perform ADL's. OT Education/Plan Problem List/Assessment Pt s/p CABG with decreased ADL functioning, mobility, activity tolerance, and strength. Pt to benefit from skilled OT intervention for ADL training, transfers , and home safety education to increase level of independence and allow safe discharge. Discharge Recommendations Plan/Recommendations: Continue POC Treatment Plan/Plan of Care Patient would benefit from OT for education, treatment and training to promote independence in ADL's, mobility, safety and/or upper extremity function for ADL' s. Plan of Care: ADL Retraining, Functional Mobility, Group Exercise/Act as Ind, UE Funct Exercise/Act Treatment Duration: Apr 17, 2018 Frequency: At least 5 of 7 days/Wk (IRF) Estimated Hrs Per Day: 1.5 hours per day Agreement: Yes Rehab Potential: Good Time/GCodes Start Time: 07:40 Stop Time: 08:40 Total Time Billed (hr/min): 60 Billed Treatment Time 1 visit-ADL 4 (60 min) JHONY MCKEON Mar 27, 2018 08:59
[2018-03-27 09:17] VITALS: BP 110/63
[2018-03-27] MEDS: FAMOTIDINE 20 MG (PEPCID) TABLET PO SCH ×2 (09:32→20:20)
[2018-03-27] MEDS: CLOPIDOGREL 75 MG (PLAVIX) TABLET PO SCH (09:32)
[2018-03-27] MEDS: LORATADINE (CLARITIN) 10 MG TAB PO SCH (09:33)
[2018-03-27] MEDS: AMIODARONE 200 MG (CORDARONE) TAB PO SCH (09:33)
[2018-03-27] MEDS: DILTIAZEM 240 MG (CARDIZEM CD) CAP PO SCH (09:33)
[2018-03-27] MEDS: ASPIRIN E.C. 81 MG (ECOTRIN) TAB PO SCH (09:33)
[2018-03-27] MEDS: ENALAPRIL 10 MG (VASOTEC) TAB PO SCH (09:33)
[2018-03-27] MEDS: DIGOXIN 0.125 MG (LANOXIN) TAB PO SCH (09:33)
[2018-03-27] MEDS: FUROSEMIDE 40 MG (LASIX) TAB PO SCH (09:33)
[2018-03-27] MEDS: SOTALOL 80 MG (BETAPACE) TAB PO SCH (09:39)
--- NOTE | 2018-03-27 10:22 | Consultation-Cardiology ---
HPI-Cardiology Cardiology Consultation Date of Consultation 03/27/18 Date of Admission Time Seen by Provider: 10:17 Indication: coronary artery disease HPI 67-year-old lady with history of coronary artery disease, paroxysmal atrial fibrillation, transferred from [facility] after CABG 2, receiving physical therapy, has been doing well. Denied any chest pain other than the surgical wound pain. No significant dyspnea. No palpitation or syncope. Patient reported having 2 episodes of atrial fibrillation one after her back surgery in the past and recent episode of atrial fibrillation after her bypass surgery. She denied any syncope or near syncopal episodes Home Medications & Allergies Allergies: Coded Allergies: Penicillins (Verified Allergy, Unknown, 10/15/08) Sulfa (Sulfonamide Antibiotics) (Verified Allergy, Unknown, 10/15/08) Home Medication List Reviewed: Yes SHL-[id number]-Clkoyl Hx Patient Social History Marital Status: Employed/Student: retired Alcohol Use: Denies Use Recreational Drug Use: No Smoking Status: Former Smoker Type Used: Cigarettes Recent Foreign Travel: No Recent Infectious Disease Expo: No Recent Hopitalizations: Yes (CABG) Physical Abuse Screen: No Sexual Abuse: No Past Medical History Past medical history as described below Family Medical History Family History: Cardiovascular disease 19 FATHER 19 MOTHER Myocardial infarction 19 FATHER Review of Systems Constitutional: see HPI, malaise EENTM: see HPI, no symptoms reported Respiratory: see HPI; No cough; dyspnea on exertion; No hemoptysis, No orthopnea, No phlegm, No short of breath, No stridor, No wheezing, No other Cardiovascular: see HPI, chest pain; No edema, No Hx of Intervention, No palpitations, No syncope, No vascular heart diseas, No other Gastrointestinal: see HPI Genitourinary: no symptoms reported, see HPI Musculoskeletal: no symptoms reported, see HPI Skin: no symptoms reported, see HPI Psychiatric/Neurological: No Symptoms Reported, See HPI Reviewed Test Results Reviewed Test Results Lab Laboratory Tests Test 03/26/18 22:04 03/27/18 05:15 Range/Units Glucometer 271 H 139 H 70-110 MG/DL Physical Exam Vital Signs Vital Signs - First Documented 03/26/18 18:45 Temp 96.9 Pulse 83 Resp 16 B/P (MAP) 120/68 (85) Pulse Ox 96 O2 Delivery Room Air Capillary Refill : Height, Weight, BMI Height: 5'4.00" Weight: 158lbs. 0.4oz. [id number]; 27.1 BMI Method: General Appearance: No Apparent Distress, WD/WN Eyes: Bilateral Eye Normal Inspection, Bilateral Eye PERRL, Bilateral Eye EOMI HEENT: PERRL/EOMI, TMs Normal, Normal ENT Inspection, Pharynx Normal Neck: Full Range of Motion, Normal Inspection, Non Tender, Supple, Carotid Bruit Respiratory: Chest Non Tender, Lungs Clear, Normal Breath Sounds, No Accessory Muscle Use, No Respiratory Distress Cardiovascular: Regular Rate, Rhythm, No Edema, No Gallop, No JVD, No Murmur, Normal Peripheral Pulses Gastrointestinal: Normal Bowel Sounds, No Organomegaly, No Pulsatile Mass, Non Tender, Soft Back: Normal Inspection, No CVA Tenderness, No Vertebral Tenderness Extremity: Normal Capillary Refill, Normal Inspection, Normal Range of Motion, Non Tender, No Calf Tenderness, No Pedal Edema Neurologic/Psychiatric: Alert, Oriented x3, No Motor/Sensory Deficits, Normal Mood/Affect Skin: Normal Color, Warm/Dry Lymphatic: No Adenopathy A/P-Cardiology Admission Diagnosis Coronary artery disease Paroxysmal atrial fibrillation Hypertension Hyperlipidemia Assessment/Plan Coronary artery disease status post non-ST elevation myocardial infarction, had a cardiac catheterization done at [facility] and reported to have complex lesion in the LAD, had CABG [address] Luther Palmer using HUMPHREYS to LAD and vein graft to the diagonal artery and recovering well. Doing well at this time. Paroxysmal atrial fibrillation, patient reporting history of atrial fibrillation in the past and had another episode of atrial fibrillation, she has been maintained on sotalol 200 mg twice daily as an outpatient and continue on that medication. Not on oral anticoagulation. I will discontinue amiodarone at this time, patient expressed that she has been receiving it since her episode of atrial fibrillation after the bypass surgery. I will evaluate digoxin level and her electrolyte and place the patient on telemetry and monitor her EKG closely and monitor the QT interval Hypertension, continue on current medication and monitor blood pressure Hyperlipidemia, monitor lipids Degenerative joint disease History of back surgery History of pulmonary embolism, not maintained on oral anticoagulation Clinical Quality Measures DVT/VTE Risk/Contraindication: Risk Factor Score Per Nursin RFS Level Per Nursing on Admit: 4+=Very High LAW MELO MD Mar 27, 2018 10:22
--- NOTE | 2018-03-27 11:16 | Physical Therapy Evaluation ---
PT Evaluation-General Medical Diagnosis Admission Date Mar 26, 2018 at 18:56 Medical Diagnosis: CABG Onset Date: Mar 23, 2018 Therapy Diagnosis Therapy Diagnosis: debility Height/Weight Height (Feet): 5 Height (Inches): 4.00 Weight (Pounds): 158 Weight (Ounces): 0.4 Precautions Precautions/Isolations: Fall Prevention, Standard Precautions Weight Bear Status Right Lower Extremity: Right Full Weight Bearing Left Lower Extremity: Left Full Weight Bearing Referral Physician: Candelario Reason for Referral: Evaluation/Treatment Medical History Pertinent Medical History: Atrial Fib, DM, HTN Current History s/p double bypass Reviewed History: Yes Social History Home: Single Level Entry Into Home: Ramp Prior/Core FIM Prior Level of Function Functional Dolores Measure 0=Not Assessed/NA 4=Minimal Assistance 1=Total Assistance 5=Supervision or Setup 2=Maximal Assistance 6=Modified Dolores 3=Moderate Assistance 7=Complete Dolores Bed Mobility: 7 Transfers (B,C,W/C) (FIM): 7 Gait: 7 Locomotion: 7 primary caregiver for spouse with Parkinson's PT Evaluation-Current Subjective Patient agrees to PT. C/o fatigue Pain Numeric Pain Scale: 5-Moderate Pain Location: Anterior Location Body Site: Chest Pain Description: Acute Objective Patient Orientation: Normal For Age Problem Solving: Good ROM/Strength ROM Lower Extremities bilateral LE WNL Strenght Lower Extremities 4+/5 grossly bilaterally Integumentary/Posture Integumentary refer to nursing notes ( noted chest incision) Bowel Incontinence: No Bladder Incontinence: No Posture WFL Neuromuscular (Tone, Coordination, Reflexes) grossly intact Sensory Vision: Wears Glasses Hearing: Functional Hand Dominance: Right Sensation Right Lower Extremit: Intact Sensation Left Lower Extremity: Intact Transfers Functional Dolores Measure 0=Not Assessed/NA 4=Minimal Assistance 1=Total Assistance 5=Supervision or Setup 2=Maximal Assistance 6=Modified [place] 3=Moderate Assistance 7=Complete IndependenceIRFPAI Quality Coding Scale 6 Independent with activity with or without an assistive device 5 Patient requires set up or clean up by helper. Patient completes activity by themselves 4 Supervision or touching assist (CGA). [place] provide cues , steadying assist 3 The helper provides less than half the effort to complete the activity 2 The helper provides more than half the effort to complete the activity 1 Dependent. The helper does all the effort to complete an activity 7 Patient refused to complete or attempt activity 9 The patient did not perform the activity before the current illness or injury 88 Not attempted due to Medical conditions or safety concerns Transfers (B, C, W/C) (FIM): 5 Scootin Rollin Roll Left to Right (QC): 5 Supine to/from Sit: 5 Sit to/from Stand: 5 Sit to Lying (QC): 5 Lying to Sitting/Side of Bed(Q: 5 Sit to Stand (QC): 5 Chair/Xra-dw-Tvfgp Xfer(QC): 5 Car Transfer (QC): 5 Gait Does the Patient Walk?: Yes Mode of Locomotion: Walk Anticipated Mode of Locomotion: Walk Gait (FIM): 5 Distance (FIM): 3=150 ft Walk 10 feet (QC): 5 Walk 50 ft with 2 Turns(QC): 5 Walk 150 ft (QC): 5 Walking 10ft/uneven surface-QC: 5 Distance: 200' x 4 Gait Level of Assist: 5 Gait Assistive Device: None Comments/Gait Description very slow, functional gait sequence Stairs Stairs (FIM): 5 #of Steps: 8 Level of Assist: 5 1 Step (curb) (QC): 5 4 Steps (QC): 5 12 Steps (QC): 88 Balance Sitting Static: Normal Sitting Dynamic: Normal Standing Static: Normal Standing Dynamic: Normal Picking up an Object (QC): 4 Treatment Bilateral LE exercises 15 reps each LAQ, AP, hip flexion (seated)/NuStep 12 min WL 1) all to improve cardiopulmonary function Assessment/Needs 67 y.o. female, will benefit from short term skilled PT to address cardiopulmonary function to ensure safe return to home with spouse. Patient is aware of sternal precautions and is compliant with all. Rehab Potential: Good PT Short Term Goals Short Term Goals Wheelchair Distance: SEE PT GOALS PT Division Roadmaster Goals Division Roadmaster Goals PT Senior Living Goals Time Frame: Apr 10, 2018 Transfers (B,C,W/C) (FIM): 7 Sit to Lying (QC): 6 Lying-Sitting on Side/Bed(QC): 6 Sit to Stand (QC): 6 Rollin Roll Left to Right (QC): 6 Chair/Pht-qb-Huwjz Xfer(QC): 6 Car Transfer (QC): 6 Does the Patient Walk: Yes Gait (FIM): 7 Gait distance (FIM): 3=150 ft Distance: 300' Walk 10 feet (QC): 6 Walk 10ft-Uneven Surface(QC): 6 Walk 50ft with 2 Turns (QC): 6 Walk 150 ft (QC): 6 Gait Level of Assist: 7 Gait Assistive Device: None Stairs (FIM): 7 # of Steps: 12 1 Step (curb) (QC): 6 4 Steps (QC): 6 12 Steps (QC): 6 Stairs Level Of Assist: 7 Picking up an Object (QC): 6 PT Plan Problem List Problem List: Activity Tolerance, Functional Strength, Bed Mobility Treatment/Plan Treatment Plan: Continue Plan of Care Treatment Plan: Bed Mobility, Education, Functional Activity Donald, Functional Strength, Group Therapy, Gait, Safety, Therapeutic Exercise, Transfers Treatment Duration: Apr 10, 2018 Frequency: At least 5 of 7 days/Wk (IRF) Estimated Hrs Per Day: 1.5 hours per day Patient and/or Family Agrees t: Yes Discharge Recommendations Therapy D/C Recommendations: Home w/ Family Support, Physical Therapy Home Care Time/GCodes Time In: 935 Time Out: 1035 Total Billed Treatment Time: 60 Total Billed Treatment 1 visit EVHighC 32 min EX 16 min FA 12 min YEIMI WESTFALL PT Mar 27, 2018 11:16
--- NOTE | 2018-03-27 12:41 | Physical Therapy Daily Note ---
PT Daily Note-Current Subjective Pt. agreeable to Rx. Shares her recent history of CABG etc Pain Numeric Pain Scale: 0-No Pain Mental Status Patient Orientation: Normal For Age Transfers Functional [place] Measure 0=Not Assessed/NA 4=Minimal Assistance 1=Total Assistance 5=Supervision or Setup 2=Maximal Assistance 6=Modified [place] 3=Moderate Assistance 7=Complete IndependenceIRFPAI Quality Coding Scale 6 Independent with activity with or without an assistive device 5 Patient requires set up or clean up by helper. Patient completes activity by themselves 4 Supervision or touching assist (CGA). [place] provide cues , steadying assist 3 The helper provides less than half the effort to complete the activity 2 The helper provides more than half the effort to complete the activity 1 Dependent. The helper does all the effort to complete an activity 7 Patient refused to complete or attempt activity 9 The patient did not perform the activity before the current illness or injury 88 Not attempted due to Medical conditions or safety concerns Rollin Supine to/from Sit: 6 Weight Bearing Right Lower Extremity: Right Full Weight Bearing Left Lower Extremity: Left Full Weight Bearing Exercises Supine Ex: Ankle pumps, Quad Set, Rolling, Glut sets, Heel Slides, Short Arc Quads, Scooting, Straight leg raise, Hip abd/add Supine Reps: 15 Assessment Current Status: Good Progress good progress all phases of Rx PT Short Term Goals Short Term Goals Wheelchair Distance: SEE PT GOALS PT Alf Goals Alf Goals PT Manager Of Radiology Goals Time Frame: Apr 10, 2018 Transfers (B,C,W/C) (FIM): 7 Sit to Lying (QC): 6 Lying-Sitting on Side/Bed(QC): 6 Sit to Stand (QC): 6 Rollin Roll Left to Right (QC): 6 Chair/Csb-jh-Dbjct Xfer(QC): 6 Car Transfer (QC): 6 Does the Patient Walk: Yes Gait (FIM): 7 Gait distance (FIM): 3=150 ft Distance: 300' Walk 10 feet (QC): 6 Walk 10ft-Uneven Surface(QC): 6 Walk 50ft with 2 Turns (QC): 6 Walk 150 ft (QC): 6 Gait Level of Assist: 7 Gait Assistive Device: None Stairs (FIM): 7 # of Steps: 12 1 Step (curb) (QC): 6 4 Steps (QC): 6 12 Steps (QC): 6 Stairs Level Of Assist: 7 Picking up an Object (QC): 6 PT Plan Treatment/Plan Treatment Plan: Continue Plan of Care Treatment Plan: Bed Mobility, Education, Functional Activity Donald, Functional Strength, Group Therapy, Gait, Safety, Therapeutic Exercise, Transfers Treatment Duration: Apr 10, 2018 Frequency: At least 5 of 7 days/Wk (IRF) Estimated Hrs Per Day: 1.5 hours per day Patient and/or Family Agrees t: Yes Safety Risks/Education Patient Education: Transfer Techniques, Correct Positioning, Disease Process, Safety Issues Teaching Recipient: Patient Teaching Methods: Demonstration, Discussion Response to Teaching: Verbalize Understanding, Return Demonstration, Reinforcement Needed Time/GCodes Time In: 1155 Time Out: 1230 Total Billed Treatment Time: 35 Total Billed Treatment 1,FA10m,EX25m G Codes Necessary: BANG Beltran ADDING MACHINE OPERATOR Mar 27, 2018 12:41
[2018-03-27 18:04] VITALS: BP 131/73
[2018-03-27] MEDS: ATORVASTATIN 10 MG (LIPITOR) TABLET PO SCH (20:20)
[2018-03-27] MEDS: SENNA W/DOCUSATE (SENOKOT S) TABLET PO SCH (20:20)
[2018-03-27] MEDS: POLYETHYLENE GLYCOL 17 GM (MIRALAX) PACK PO SCH (20:20)
[2018-03-27] MEDS: FLUTICASONE NASAL SPRAY (FLONASE) 16 GM BTL NS SCH (20:22)
[2018-03-28 05:53] LABS: MEAN PLATELET VOLUME 9.1 FL (7.4-10.4); RED BLOOD COUNT 3.41 10^6/uL (4.35-5.85)
[2018-03-28 06:00] VITALS: BP 150/76
[2018-03-28 06:28] LABS: ALANINE AMINOTRANSFERASE 38 U/L (0-55); ALBUMIN 2.7 GM/DL (3.2-4.5); ALKALINE PHOSPHATASE 83 U/L (40-136); BILIRUBIN,TOTAL 0.4 MG/DL (0.1-1.0); BUN/CREATININE RATIO 17; CALCIUM 8.8 MG/DL (8.5-10.1); CARBON DIOXIDE 20 MMOL/L (21-32); CHLORIDE 111 MMOL/L (98-107); GFR ESTIMATED > 60; GLUCOSE 130 MG/DL (70-105); POTASSIUM 3.8 MMOL/L (3.6-5.0); SODIUM 142 MMOL/L (135-145); TOTAL PROTEIN 5.4 GM/DL (6.4-8.2)
[2018-03-28 06:35] LABS: DIGOXIN < 0.30 NG/ML (0.80-2.00)
[2018-03-28] MEDS: metFORMIN 500 MG (GLUCOPHAGE) TAB PO SCH ×2 (06:52→17:15)
[2018-03-28] MEDS: KCL 10 MEQ TAB (MICRO K) PO SCH (06:52)
[2018-03-28] MEDS: ASCORBIC ACID (VIT C) 500 MG TABLET PO SCH ×2 (06:52→17:15)
--- NOTE | 2018-03-28 08:28 | Cardiology Progress Note ---
Subjective Date Seen by Provider: Mar 28, 2018 Time Seen by Provider: 08:25 Subjective/Events-last exam Patient is laying down in bed, feeling better. Reporting improvement. Denied any palpitation, no dizziness Review of Systems General: No Chills, No Night Sweats, No Fatigue, No Malaise, No Appetite, No Other HEENT: No Head Aches, No Visual Changes, No Eye Pain, No Ear Pain, No Dysphasia , No Sinus Congestion, No Post Nasal Drip, No Sore Throat, No Other Pulmonary: No Dyspnea, No Cough, No Pleuritic Chest Pain, No Other Cardiovascular: Chest Pain; No: Palpitations, Orthopnea, Paroxysmal Noc. Dyspnea, Edema, Lt Headedness, Other Objective-Cardiology Exam Last Set of Vital Signs Vital Signs 03/28/18 03/28/18 06:00 07:00 Temp 98.0 Pulse 79 Resp 16 B/P (MAP) 150/76 (100) Pulse Ox 95 O2 Delivery Room Air Capillary Refill : I&O Intake and Output 03/28/18 00:00 Intake Total 1490 ml Balance 1490 ml Intake Oral 1490 ml # Voids 7 General: Alert, Oriented X3, Cooperative, No Acute Distress HEENT: Atraumatic, PERRLA, EOMI, Mucous Memb Moist/[place] Neck: Supple, No JVD Lungs: Other (decreased breath sounds at base) Heart: Regular Rate, Normal S1, Normal S2 Abdomen: Normal Bowel Sounds, Soft, No Tenderness Extremities: No Clubbing, No Cyanosis, No Edema Skin: No Breakdown, Other (sternotomy site healing well) Neuro: Normal Gait, Normal Speech, Strength at 5/5 X4 Ext, Other (Generalized weakness) Psych/Mental Status: Mental Status NL, Mood NL Results Lab Laboratory Tests 03/28/18 05:44 A/P-Cardiology Admission Diagnosis Coronary artery disease Paroxysmal atrial fibrillation Hypertension Hyperlipidemia Assessment/Plan Coronary artery disease status post non-ST elevation myocardial infarction, had a cardiac catheterization done at [facility] and reported to have complex lesion in the LAD, had CABG [address] Luther Palmer using HUMPHREYS to LAD and vein graft to the diagonal artery and recovering well. Doing well at this time. Paroxysmal atrial fibrillation, patient reporting history of atrial fibrillation in the past and had another episode of atrial fibrillation, she has been maintained on sotalol 200 mg twice daily as an outpatient and continue on that medication. Not on oral anticoagulation. I stopped amiodarone and held sotalol yesterday due to borderline QT prolongation, her EKG today is better. Continue to monitor [id number] score of 4, yearly risk of stroke without oral anticoagulation is 4 percent, patient has been maintained without oral anticoagulation, I will continue monitoring her on telemetry for now and will decide on the oral anticoagulation at a later point Hypertension, continue on current medication and monitor blood pressure Hyperlipidemia, monitor lipids Degenerative joint disease History of back surgery History of pulmonary embolism, not maintained on oral anticoagulation Clinical Quality Measures DVT/VTE Risk/Contraindication: Risk Factor Score Per Nursin RFS Level Per Nursing on Admit: 4+=Very High LAW MELO MD Mar 28, 2018 08:28
[2018-03-28] MEDS: DILTIAZEM 240 MG (CARDIZEM CD) CAP PO SCH (09:52)
[2018-03-28] MEDS: FUROSEMIDE 40 MG (LASIX) TAB PO SCH (09:52)
[2018-03-28] MEDS: LORATADINE (CLARITIN) 10 MG TAB PO SCH (09:52)
[2018-03-28] MEDS: SENNA W/DOCUSATE (SENOKOT S) TABLET PO SCH ×2 (09:52→20:56)
[2018-03-28] MEDS: DIGOXIN 0.125 MG (LANOXIN) TAB PO SCH (09:52)
[2018-03-28] MEDS: ASPIRIN E.C. 81 MG (ECOTRIN) TAB PO SCH (09:52)
[2018-03-28] MEDS: CLOPIDOGREL 75 MG (PLAVIX) TABLET PO SCH (09:52)
[2018-03-28] MEDS: ENALAPRIL 10 MG (VASOTEC) TAB PO SCH (09:52)
[2018-03-28] MEDS: FAMOTIDINE 20 MG (PEPCID) TABLET PO SCH ×2 (09:52→20:51)
[2018-03-28] MEDS: HYDROcodone/APAP 5 MG/325 MG (LORTAB) TAB PO PRN ×2 (09:53→20:55)
[2018-03-28] MEDS: SOTALOL 80 MG (BETAPACE) TAB PO SCH ×2 (09:57→20:51)
[2018-03-28 17:53] VITALS: BP 145/72
[2018-03-28] MEDS: FLUTICASONE NASAL SPRAY (FLONASE) 16 GM BTL NS SCH (20:48)
[2018-03-28] MEDS: ATORVASTATIN 10 MG (LIPITOR) TABLET PO SCH (20:55)
[2018-03-28] MEDS: POLYETHYLENE GLYCOL 17 GM (MIRALAX) PACK PO SCH (20:56)
[2018-03-29] MEDS: HYDROcodone/APAP 5 MG/325 MG (LORTAB) TAB PO PRN ×4 (02:12→21:30)
[2018-03-29 06:00] VITALS: BP 152/78
[2018-03-29] MEDS: KCL 10 MEQ TAB (MICRO K) PO SCH (06:30)
[2018-03-29] MEDS: metFORMIN 500 MG (GLUCOPHAGE) TAB PO SCH ×2 (06:30→16:40)
[2018-03-29] MEDS: ASCORBIC ACID (VIT C) 500 MG TABLET PO SCH ×2 (06:31→16:40)
[2018-03-29] MEDS: DILTIAZEM 240 MG (CARDIZEM CD) CAP PO SCH (08:14)
[2018-03-29] MEDS: ASPIRIN E.C. 81 MG (ECOTRIN) TAB PO SCH (08:14)
[2018-03-29] MEDS: FAMOTIDINE 20 MG (PEPCID) TABLET PO SCH ×2 (08:14→21:29)
[2018-03-29] MEDS: LORATADINE (CLARITIN) 10 MG TAB PO SCH (08:14)
[2018-03-29] MEDS: CLOPIDOGREL 75 MG (PLAVIX) TABLET PO SCH (08:14)
[2018-03-29] MEDS: DIGOXIN 0.125 MG (LANOXIN) TAB PO SCH (08:14)
[2018-03-29] MEDS: ENALAPRIL 10 MG (VASOTEC) TAB PO SCH (08:14)
[2018-03-29] MEDS: SOTALOL 80 MG (BETAPACE) TAB PO SCH ×2 (08:15→21:30)
[2018-03-29] MEDS: FUROSEMIDE 40 MG (LASIX) TAB PO SCH (08:15)
[2018-03-29] MEDS: SENNA W/DOCUSATE (SENOKOT S) TABLET PO SCH ×2 (08:17→21:00)
--- NOTE | 2018-03-29 08:32 | Cardiology Progress Note ---
Subjective Date Seen by Provider: Mar 29, 2018 Time Seen by Provider: 08:10 Subjective/Events-last exam Patient is sitting up in bed, no new complaints. Denies any CP or dyspnea. Review of Systems General: No Night Sweats, No Fatigue, No Malaise HEENT: No Visual Changes, No Dysphasia, No Sore Throat Pulmonary: No Dyspnea, No Cough Cardiovascular: Edema; No: Chest Pain, Palpitations, Paroxysmal Noc. Dyspnea Gastrointestinal: No: Nausea, Vomiting, Abdominal Pain Genitourinary: No Dysuria, No Frequency Musculoskeletal: No: neck pain, back pain Neurological: Weakness; No: Numbness, Change in speech, Confusion Objective-Cardiology Exam Last Set of Vital Signs Vital Signs 03/29/18 03/29/18 06:00 07:00 Temp 97.5 Pulse 72 Resp 18 B/P (MAP) 152/78 (102) Pulse Ox 96 O2 Delivery Room Air Capillary Refill : I&O Intake and Output 03/29/18 00:00 Intake Total 1010 ml Balance 1010 ml Intake Oral 1010 ml # Voids 4 # Bowel Movements 2 General: Alert, Oriented X3, Cooperative, No Acute Distress HEENT: Atraumatic, PERRLA, EOMI, Mucous Memb Moist/[place] Neck: Supple, No JVD Lungs: Other (decreased breath sounds at base) Heart: Regular Rate, Normal S1, Normal S2 Abdomen: Normal Bowel Sounds, Soft, No Tenderness Extremities: No Clubbing, No Cyanosis, No Edema Skin: No Breakdown, Other (sternotomy site healing well) Neuro: Normal Gait, Normal Speech, Strength at 5/5 X4 Ext, Other (Generalized weakness) Psych/Mental Status: Mental Status NL, Mood NL A/P-Cardiology Admission Diagnosis Coronary artery disease Paroxysmal atrial fibrillation Hypertension Hyperlipidemia Assessment/Plan Coronary artery disease status post non-ST elevation myocardial infarction, had a cardiac catheterization done at [facility] and reported to have complex lesion in the LAD, had CABG [address] Luther Palmer using HUMPHREYS to LAD and vein graft to the diagonal artery and recovering well. Doing well at this time. CT sutures and delmy to leg still in place. Plan to d/c later this week. Paroxysmal atrial fibrillation, patient reporting history of atrial fibrillation in the past and had another episode of atrial fibrillation, she has been maintained on sotalol 200 mg twice daily as an outpatient and continue on that medication. Not on oral anticoagulation. Amiodarone was discontinued and held sotalol thursday due to borderline QT prolongation, EKG is improved. Continue to monitor. [id number] score of 4, yearly risk of stroke without oral anticoagulation is 4 percent, patient has been maintained without oral anticoagulation, I will continue monitoring her on telemetry for now and will decide on the oral anticoagulation at a later point Hypertension, continue on current medication and monitor blood pressure Hyperlipidemia, monitor lipids Degenerative joint disease History of back surgery History of pulmonary embolism, not maintained on oral anticoagulation Clinical Quality Measures DVT/VTE Risk/Contraindication: Risk Factor Score Per Nursin RFS Level Per Nursing on Admit: 4+=Very High KATIE PÉREZ Mar 29, 2018 08:32
--- NOTE | 2018-03-29 10:41 | Cardiology Progress Note ---
Subjective Date Seen by Provider: Mar 29, 2018 Time Seen by Provider: 10:37 Subjective/Events-last exam Patient is in bed, feeling well, no new complaint, we discussed her history of atrial fibrillation and the increased risk of stroke and the need for oral anticoagulation Review of Systems General: No Chills, No Night Sweats, No Fatigue, No Malaise, No Appetite, No Other HEENT: No Head Aches, No Visual Changes, No Eye Pain, No Ear Pain, No Dysphasia , No Sinus Congestion, No Post Nasal Drip, No Sore Throat, No Other Pulmonary: Dyspnea; No Cough, No Pleuritic Chest Pain, No Other Cardiovascular: No: Chest Pain, Palpitations, Orthopnea, Paroxysmal Noc. Dyspnea, Edema, Lt Headedness, Other Objective-Cardiology Exam Last Set of Vital Signs Vital Signs 03/29/18 03/29/18 03/29/18 06:00 07:00 08:37 Temp 97.5 Pulse 72 Resp 18 B/P (MAP) 152/78 (102) Pulse Ox 97 O2 Delivery Room Air Capillary Refill : I&O Intake and Output 03/29/18 00:00 Intake Total 1010 ml Balance 1010 ml Intake Oral 1010 ml # Voids 4 # Bowel Movements 2 General: Alert, Oriented X3, Cooperative, No Acute Distress HEENT: Atraumatic, PERRLA, EOMI, Mucous Memb Moist/[place] Neck: Supple, No JVD Lungs: Other (decreased breath sounds at base) Heart: Regular Rate, Normal S1, Normal S2 Abdomen: Normal Bowel Sounds, Soft, No Tenderness Extremities: No Clubbing, No Cyanosis, No Edema Skin: No Breakdown, Other (sternotomy site healing well) Neuro: Normal Gait, Normal Speech, Strength at 5/5 X4 Ext, Other (Generalized weakness) Psych/Mental Status: Mental Status NL, Mood NL Results Lab Laboratory Tests Test 03/28/18 18:02 03/29/18 06:21 Range/Units Glucometer 103 116 H 70-110 MG/DL A/P-Cardiology Admission Diagnosis Coronary artery disease Paroxysmal atrial fibrillation Hypertension Hyperlipidemia Assessment/Plan Coronary artery disease status post non-ST elevation myocardial infarction, had a cardiac catheterization done at [facility] and reported to have complex lesion in the LAD, had CABG [address] Luther Palmer using HUMPHREYS to LAD and vein graft to the diagonal artery and recovering well. Doing well at this time. CT sutures and delmy to leg still in place. Plan to d/c later this week. Paroxysmal atrial fibrillation, patient reporting history of atrial fibrillation in the past and had another episode of atrial fibrillation, she has been maintained on sotalol 200 mg twice daily as an outpatient and continue on that medication. Not on oral anticoagulation. Amiodarone was discontinued and continue on Sotalol and continue to monitor QTc [id number] score of 4, yearly risk of stroke without oral anticoagulation is 4 percent, patient has been maintained without oral anticoagulation, I will continue monitoring her on telemetry, had a long discussion regarding the increased risk of stroke Hypertension, continue on current medication and monitor blood pressure Hyperlipidemia, monitor lipids Degenerative joint disease History of back surgery History of pulmonary embolism, not maintained on oral anticoagulation Clinical Quality Measures DVT/VTE Risk/Contraindication: Risk Factor Score Per Nursin RFS Level Per Nursing on Admit: 4+=Very High LAW MELO MD Mar 29, 2018 10:41
--- NOTE | 2018-03-29 10:43 | ST Cognitive Linguistic Eval ---
Speech Evaluation-General Medical Diagnosis CABG Onset Date: Mar 23, 2018 Therapy Diagnosis Therapy Diagnosis: Cognition Precautions Precautions/Isolations: Fall Prevention, Standard Precautions Referral Referring Physician: Dr. Palomino Reason for Referral: Evaluation/Treatment Medical History Pertinent Medical History: Atrial Fib, DM, HTN Reviewed History: Yes Speech PLF-Current Status Prior Level of Function Independent Subjective Pt in bed. Pleasant and cooperative. Pain Numeric Pain Scale: 0-No Pain Language Eval: Auditory Comprehends Simple Yes/No Ques: Functional Follows 1-Step Commands: Functional Follows Complex Directions: Functional Follows General Conversations: Functional Language Eval: Verbal Language Completes Spontaneous Greeting: Functional Produces Auto, Serial Info: Functional Word Finding: Functional Requests Basic Needs: Functional States Basic Personal Info: Functional Expresses Complex Ideas: Functional Language Evaluation: Reading NT Objective Cognitive Domain Attention: WNL Memory: WNL Problem Solving: Functional Objective Results [facility] Cognitive/Communication Screen was administered to assess cognitive- linguistic functioning. Results are as follows: Memory - 3 word recall for immediate, delayed and remotely delayed was 3/3 for each one. Sequencing - 4/4 correct. Problem Solving - Simple: 4/4; Math 3/3; Abstract 2/2 and Comparisons 3/5. Speech/language - WNL Oral Motor/Speech Production WNL Impression Functional cognitive-linguistic skills. Communication/Social Cognition Comprehension: 7 Expression: 7 Social Interaction: 7 Problem Solvin Memory: 7 Speech Patient Assess Expression of Ideas/Wants: Expression (4) Understanding Verbal Content: Understands (4) Brief Interview-Mental Status: Yes Repetition of Three Words: Three (3) Temporal Orientation: Year: Correct (3) Temporal Orientation: Month: Accurate within 5 days(2) Temporal Orientation: Day: Correct (1) Recall : Wear to say "Sock": Yes, no cue required (2) Recall : Color: Yes, no cue required (2) Recall : Bed: Yes, no cue required (2) Speech Short Term Goals Short Term Goals Short Term Goals no goals established as skilled ST not indicated at this time. Speech Claim Benefit Specialist Goals Senior Living Goals No LTGs established as skilled ST not indicated at this time. Speech-Plan Patient/Family Goals Patient/Family Goals: to return to home Treatment Plan Speech Therapy Treatment Plan: Discontinue ST skilled ST not indicated due to results of the assessment. Frequency: Modified Program (IRF) (0) Estimated Hrs Per Day: Other (0) Rehab Potential: Good Barriers to Learning: None Identified Pt/Family Agrees to Plan: Yes Safety Risks/Education Teaching Recipient: Patient Teaching Methods: Discussion Response to Teaching: Verbalize Understanding Time Speech Therapy Time In: 09:00 Speech Therapy Time Out: 09:30 Total Billed Time: 30 Billed Treatment Time 1, SPSNDCOMP WESLEY Leal Mar 29, 2018 10:43
--- NOTE | 2018-03-29 12:56 | Physical Therapy Daily Note ---
PT Daily Note-Current Subjective Pt. states she feels she is doing better and is anxious to know when she can go home. Pain Numeric Pain Scale: 0-No Pain Appearance pt. clings to heart pillow during activity Mental Status Patient Orientation: Normal For Age Transfers Functional [place] Measure 0=Not Assessed/NA 4=Minimal Assistance 1=Total Assistance 5=Supervision or Setup 2=Maximal Assistance 6=Modified [place] 3=Moderate Assistance 7=Complete IndependenceIRFPAI Quality Coding Scale 6 Independent with activity with or without an assistive device 5 Patient requires set up or clean up by helper. Patient completes activity by themselves 4 Supervision or touching assist (CGA). [place] provide cues , steadying assist 3 The helper provides less than half the effort to complete the activity 2 The helper provides more than half the effort to complete the activity 1 Dependent. The helper does all the effort to complete an activity 7 Patient refused to complete or attempt activity 9 The patient did not perform the activity before the current illness or injury 88 Not attempted due to Medical conditions or safety concerns Transfers (B, C, W/C) (FIM): 5 Scootin Rollin Supine to/from Sit: 5 (needs instruction for sup to side to sit) Sit to/from Stand: 6 Bed to/from Chair: 6 Weight Bearing Right Lower Extremity: Right Full Weight Bearing Left Lower Extremity: Left Full Weight Bearing Gait Training Does the Patient Walk?: Yes Gait (FIM): 6 Distance (FIM): 3=150 ft (175x3) Gait Level of Assist: 6 Gait Persons Needed: 0 Gait Assistive Device: None Stair Training Stair Training: Handrails/: No handrail Stairs (FIM): 5 Stairs: Pattern: Reciprocal Level of Assist: 5 household exception Exercises Supine Ex: Bridging, Ankle pumps, Quad Set, Rolling, Glut sets, Heel Slides, Short Arc Quads, Scooting, Straight leg raise, Hip abd/add Supine Reps: 15 NuStep Minutes: 10 NuStep Workload: 2 Assessment Current Status: Good Progress PT Short Term Goals Short Term Goals Wheelchair Distance: SEE PT GOALS PT Care Home Goals Care Home Goals PT Care Home Goals Time Frame: Apr 10, 2018 Transfers (B,C,W/C) (FIM): 7 Sit to Lying (QC): 6 Lying-Sitting on Side/Bed(QC): 6 Sit to Stand (QC): 6 Rollin Roll Left to Right (QC): 6 Chair/Yfw-fv-Jopic Xfer(QC): 6 Car Transfer (QC): 6 Does the Patient Walk: Yes Gait (FIM): 7 Gait distance (FIM): 3=150 ft Distance: 300' Walk 10 feet (QC): 6 Walk 10ft-Uneven Surface(QC): 6 Walk 50ft with 2 Turns (QC): 6 Walk 150 ft (QC): 6 Gait Level of Assist: 7 Gait Assistive Device: None Stairs (FIM): 7 # of Steps: 12 1 Step (curb) (QC): 6 4 Steps (QC): 6 12 Steps (QC): 6 Stairs Level Of Assist: 7 Picking up an Object (QC): 6 PT Plan Treatment/Plan Treatment Plan: Continue Plan of Care Treatment Plan: Bed Mobility, Education, Functional Activity Donald, Functional Strength, Group Therapy, Gait, Safety, Therapeutic Exercise, Transfers Treatment Duration: Apr 10, 2018 Frequency: At least 5 of 7 days/Wk (IRF) Estimated Hrs Per Day: 1.5 hours per day Patient and/or Family Agrees t: Yes Safety Risks/Education Patient Education: Gait Training, Transfer Techniques, Steps, Correct Positioning, Safety Issues Teaching Recipient: Patient Teaching Methods: Demonstration, Discussion Response to Teaching: Verbalize Understanding, Return Demonstration, Reinforcement Needed Time/GCodes Time In: 1110 Time Out: 1210 Total Billed Treatment Time: 60 Total Billed Treatment 1,EX25m,FA15m,GT20m G Codes Necessary: BANG Beltran PICKER AND PACKER Mar 29, 2018 12:56
[2018-03-29] MEDS ORDERED: FLUT16SP22 NS (13:41)
[2018-03-29] MEDS ORDERED: FURO40TA4 PO (13:41)
[2018-03-29] MEDS ORDERED: ENAL20TA PO (13:41)
[2018-03-29] MEDS ORDERED: DILT240C PO (13:41)
[2018-03-29] MEDS ORDERED: ATOR10TA66 PO (13:41)
[2018-03-29] MEDS ORDERED: ASPI-983 PO (13:41)
[2018-03-29] MEDS ORDERED: SOTA160T PO (13:41)
[2018-03-29] MEDS ORDERED: DIGO125T PO (13:41)
[2018-03-29] MEDS ORDERED: ASCO10006 PO (13:41)
[2018-03-29] MEDS ORDERED: POTA10TA10 PO (13:41)
[2018-03-29] MEDS ORDERED: SOTA80TA PO (13:41)
[2018-03-29] MEDS ORDERED: FEXO-46 PO (13:41)
[2018-03-29] MEDS ORDERED: SIMV10TA3 PO (13:41)
[2018-03-29] MEDS ORDERED: METF-397 PO (13:41)
[2018-03-29] MEDS ORDERED: RANI150T11 PO (13:41)
[2018-03-29] MEDS ORDERED: ONDA4TAB10 PO (13:41)
[2018-03-29] MEDS ORDERED: LIRA0.6P3 SC (13:41)
[2018-03-29] MEDS ORDERED: CHLO10CA6 PO (13:41)
[2018-03-29] MEDS ORDERED: LUTE20CA2 PO (13:41)
--- NOTE | 2018-03-29 14:17 | Occupational Ther Daily Note ---
OT Current Status-Daily Note Subjective No pain reported. Appearance Pt. is up in room. States that she is excited to shower. Mental Status/Objective Patient Orientation: Person, Place, Time, Situation Functional [place] Measure 0=Not Assessed/NA 4=Minimal Assistance 1=Total Assistance 5=Supervision or Setup 2=Maximal Assistance 6=Modified [place] 3=Moderate Assistance 7=Complete [place] ADL-Treatment Functional [place] Measure 0=Not Assessed/NA 4=Minimal Assistance 1=Total Assistance 5=Supervision or Setup 2=Maximal Assistance 6=Modified [place] 3=Moderate Assistance 7=Complete IndependenceIRFPAI Quality Coding Scale 6 Independent with activity with or without an assistive device 5 Patient requires set up or clean up by helper. Patient completes activity by themselves 4 Supervision or touching assist (CGA). [place] provide cues , steadying assist 3 The helper provides less than half the effort to complete the activity 2 The helper provides more than half the effort to complete the activity 1 Dependent. The helper does all the effort to complete an activity 7 Patient refused to complete or attempt activity 9 The patient did not perform the activity before the current illness or injury 88 Not attempted due to Medical conditions or safety concerns Grooming (FIM): 5 (SBA in stance to brush teeth and hair.) Oral Hygiene (QC): 4 Bathing (FIM): 4 (Pt. requires min assist to wash her rear [place] area in stance. ) Shower/Bathe Self (QC): 4 Upper Body (FIM): 5 Upper Body Dressing (QC): 4 Lower Body Dressing (FIM): 5 (SBA to don socks, pants, and underwear.) Lower Body Dressing (QC): 4 On/Off Footwear (QC): 4 Toileting (FIM): 5 Toileting Hygiene (QC): 4 Transfers (B, C, W/C) (FIM): 4 Toilet/Commode Transfer (FIM): 5 Toilet Transfer (QC): 4 Shower Transfer(FIM): 5 Other Treatment Pt. is able to complete most ADLs with SBA, with min assist needed to wash rear [place] area. Pt. is very careful due to sternal precautions. All needs met up in chair after showering task. Education OT Patient Education: Correct positioning, Modified ADL techniques, Progress toward Goal/Update tx plan, Purpose of tx/functional activities, Reviewed precautions, Rehab process, Transfer techniques Teaching Recipient: Patient Teaching Methods: Demonstration, Discussion Response to Teaching: Verbalize Understanding, Return Demonstration OT Short Term Goals Short Term Goals Time Frame: Apr 03, 2018 Bathing(FIM): 5 Upper Body Dressing(FIM): 5 Lower Body Dressing(FIM): 5 Toileting(FIM): 5 Additional Short Term Goals: 1-Demonstrate ADL Tasks, 2-Verbalize Understanding , 3-ImproveStrength/Donald 1=Demonstrate adherence to instructed precautions during ADL tasks. 2=Patient will verbalize/demonstrate understanding of assistive devices/ modifications for ADL. 3=Patient will improve strength/tolerance for activity to enable patient to perform ADL's. OT Flight Crew Time Clerk Goals Flight Crew Time Clerk Goals Time Frame: Apr 17, 2018 Eating (FIM): 7 Eating (QC): 6 Groomin Oral Hygiene (QC): 6 Bathing(FIM): 6 Shower/Bathe Self (QC): 6 Upper Body Dressing(FIM): 6 Upper Body Dressing (QC): 6 Lower Body Dressing(FIM): 6 Lower Body Dressing (QC): 6 On/Off Footwear (QC): 6 Toileting(FIM): 6 Toileting Hygiene (QC): 6 Toilet/Commode Transfer(FIM): 6 Toilet/Commode Transfer (QC): 6 Shower Transfer(FIM): 6 Additional Goals: 1-Demonstrate ADL Tasks, 2-Verbalize Understanding, 3- ImproveStrength/Donald 1=Demonstrate adherence to instructed precautions during ADL tasks. 2=Patient will verbalize/demonstrate understanding of assistive devices/ modifications for ADL. 3=Patient will improve strength/tolerance for activity to enable patient to perform ADL's. OT Education/Plan Problem List/Assessment Assessment: Decreased Activ Tolerance, Decreased UE Strength, Impaired I ADL's , Impaired Self-Care Skills, Restricted Funct UE ROM Pt s/p CABG with decreased ADL functioning, mobility, activity tolerance, and strength. Pt to benefit from skilled OT intervention for ADL training, transfers , and home safety education to increase level of independence and allow safe discharge. Discharge Recommendations Plan/Recommendations: Continue POC Therapy D/C Recommendations: Home w/ Family Support, Occupational Therapy Home Care Treatment Plan/Plan of Care Treatment,Training & Education: Yes Patient would benefit from OT for education, treatment and training to promote independence in ADL's, mobility, safety and/or upper extremity function for ADL' s. Plan of Care: ADL Retraining, Functional Mobility, Group Exercise/Act as Ind, UE Funct Exercise/Act Treatment Duration: Apr 17, 2018 Frequency: At least 5 of 7 days/Wk (IRF) Estimated Hrs Per Day: 1.5 hours per day Agreement: Yes Rehab Potential: Good Time/GCodes Start Time: 10:25 Stop Time: 11:10 Total Time Billed (hr/min): 45 Billed Treatment Time 1, ADL x 3 ERNESTINA ROBERTS OT Mar 29, 2018 14:17
--- NOTE | 2018-03-29 14:27 | Occupational Ther Daily Note ---
OT Current Status-Daily Note Subjective No pain reported. Appearance Pt. up in chair. Agrees to work with OT. Mental Status/Objective Patient Orientation: Person, Place, Time, Situation Functional [place] Measure 0=Not Assessed/NA 4=Minimal Assistance 1=Total Assistance 5=Supervision or Setup 2=Maximal Assistance 6=Modified [place] 3=Moderate Assistance 7=Complete [place] ADL-Treatment Functional [place] Measure 0=Not Assessed/NA 4=Minimal Assistance 1=Total Assistance 5=Supervision or Setup 2=Maximal Assistance 6=Modified [place] 3=Moderate Assistance 7=Complete IndependenceIRFPAI Quality Coding Scale 6 Independent with activity with or without an assistive device 5 Patient requires set up or clean up by helper. Patient completes activity by themselves 4 Supervision or touching assist (CGA). [place] provide cues , steadying assist 3 The helper provides less than half the effort to complete the activity 2 The helper provides more than half the effort to complete the activity 1 Dependent. The helper does all the effort to complete an activity 7 Patient refused to complete or attempt activity 9 The patient did not perform the activity before the current illness or injury 88 Not attempted due to Medical conditions or safety concerns Toileting (FIM): 5 Toileting Hygiene (QC): 5 Transfers (B, C, W/C) (FIM): 5 Toilet/Commode Transfer (FIM): 5 Toilet Transfer (QC): 5 Other Treatment Pt. ambulated to therapy gym after toileting in room. Pt. completed armbike x 5 minutes with several rest breaks, at low endurance and slow pace. Tolerated treatment well. OT monitored oxygen, which stayed at 96%. HR at 70. Pt. then completed therapy clothespins for hand resistance. Pt. is very careful and aware of not lifting arms above 90 degrees, and not pulling/pushing on heavy items. Ambulated back to room with all needs met. Education OT Patient Education: Correct positioning, Exercise program, Modified ADL techniques, Progress toward Goal/Update tx plan, Purpose of tx/functional activities, Reviewed precautions, Rehab process, Transfer techniques Teaching Recipient: Patient Teaching Methods: Demonstration, Discussion Response to Teaching: Verbalize Understanding, Return Demonstration OT Short Term Goals Short Term Goals Time Frame: Apr 03, 2018 Bathing(FIM): 5 Upper Body Dressing(FIM): 5 Lower Body Dressing(FIM): 5 Toileting(FIM): 5 Additional Short Term Goals: 1-Demonstrate ADL Tasks, 2-Verbalize Understanding , 3-ImproveStrength/Donald 1=Demonstrate adherence to instructed precautions during ADL tasks. 2=Patient will verbalize/demonstrate understanding of assistive devices/ modifications for ADL. 3=Patient will improve strength/tolerance for activity to enable patient to perform ADL's. OT Correction Goals Digital Performance Analyst Goals Time Frame: Apr 17, 2018 Eating (FIM): 7 Eating (QC): 6 Groomin Oral Hygiene (QC): 6 Bathing(FIM): 6 Shower/Bathe Self (QC): 6 Upper Body Dressing(FIM): 6 Upper Body Dressing (QC): 6 Lower Body Dressing(FIM): 6 Lower Body Dressing (QC): 6 On/Off Footwear (QC): 6 Toileting(FIM): 6 Toileting Hygiene (QC): 6 Toilet/Commode Transfer(FIM): 6 Toilet/Commode Transfer (QC): 6 Shower Transfer(FIM): 6 Additional Goals: 1-Demonstrate ADL Tasks, 2-Verbalize Understanding, 3- ImproveStrength/Donald 1=Demonstrate adherence to instructed precautions during ADL tasks. 2=Patient will verbalize/demonstrate understanding of assistive devices/ modifications for ADL. 3=Patient will improve strength/tolerance for activity to enable patient to perform ADL's. OT Education/Plan Problem List/Assessment Assessment: Decreased Activ Tolerance, Impaired I ADL's, Impaired Self-Care Skills Pt s/p CABG with decreased ADL functioning, mobility, activity tolerance, and strength. Pt to benefit from skilled OT intervention for ADL training, transfers , and home safety education to increase level of independence and allow safe discharge. Discharge Recommendations Plan/Recommendations: Continue POC Therapy D/C Recommendations: Home w/ Family Support, Occupational Therapy Home Care Treatment Plan/Plan of Care Treatment,Training & Education: Yes Patient would benefit from OT for education, treatment and training to promote independence in ADL's, mobility, safety and/or upper extremity function for ADL' s. Plan of Care: ADL Retraining, Functional Mobility, Group Exercise/Act as Ind, UE Funct Exercise/Act Treatment Duration: Apr 17, 2018 Frequency: At least 5 of 7 days/Wk (IRF) Estimated Hrs Per Day: 1.5 hours per day Agreement: Yes Rehab Potential: Good Time/GCodes Start Time: 13:30 Stop Time: 14:00 Total Time Billed (hr/min): 30 Billed Treatment Time 1, Ex x 15minutes, FA x 15minutes ERNESTINA ROBERTS OT Mar 29, 2018 14:27
--- NOTE | 2018-03-29 14:39 | Physical Therapy Daily Note ---
PT Daily Note-Current Subjective Pt. states she is a little tired. Agrees to Rx. Mental Status Patient Orientation: Normal For Age Transfers Functional [place] Measure 0=Not Assessed/NA 4=Minimal Assistance 1=Total Assistance 5=Supervision or Setup 2=Maximal Assistance 6=Modified [place] 3=Moderate Assistance 7=Complete IndependenceIRFPAI Quality Coding Scale 6 Independent with activity with or without an assistive device 5 Patient requires set up or clean up by helper. Patient completes activity by themselves 4 Supervision or touching assist (CGA). [place] provide cues , steadying assist 3 The helper provides less than half the effort to complete the activity 2 The helper provides more than half the effort to complete the activity 1 Dependent. The helper does all the effort to complete an activity 7 Patient refused to complete or attempt activity 9 The patient did not perform the activity before the current illness or injury 88 Not attempted due to Medical conditions or safety concerns all TRFs mod I except sup to sit and sit to sup needing some assist with LEs Weight Bearing Right Lower Extremity: Right Full Weight Bearing Left Lower Extremity: Left Full Weight Bearing Gait Training 175ft x 3 no AD, clutches heart pillow Exercises Supine Ex: Rolling, Heel Slides, Hip abd/add Supine Reps: 12 Seated Therapy Exercises: Ankle pumps, Sit to stand, Long arc quads, Hip flexion, Hip abd/add Seated Reps: 12 Treatments breathing exercises sitting Assessment Current Status: Good Progress PT Short Term Goals Short Term Goals Wheelchair Distance: SEE PT GOALS PT Long-Term Goals Ton Container Shipper Goals PT Long-Term Goals Time Frame: Apr 10, 2018 Transfers (B,C,W/C) (FIM): 7 Sit to Lying (QC): 6 Lying-Sitting on Side/Bed(QC): 6 Sit to Stand (QC): 6 Rollin Roll Left to Right (QC): 6 Chair/[id number]-[id number] Xfer(QC): 6 Car Transfer (QC): 6 Does the Patient Walk: Yes Gait (FIM): 7 Gait distance (FIM): 3=150 ft Distance: 300' Walk 10 feet (QC): 6 Walk 10ft-Uneven Surface(QC): 6 Walk 50ft with 2 Turns (QC): 6 Walk 150 ft (QC): 6 Gait Level of Assist: 7 Gait Assistive Device: None Stairs (FIM): 7 # of Steps: 12 1 Step (curb) (QC): 6 4 Steps (QC): 6 12 Steps (QC): 6 Stairs Level Of Assist: 7 Picking up an Object (QC): 6 PT Plan Treatment/Plan Treatment Plan: Continue Plan of Care Treatment Plan: Bed Mobility, Education, Functional Activity Donald, Functional Strength, Group Therapy, Gait, Safety, Therapeutic Exercise, Transfers Treatment Duration: Apr 10, 2018 Frequency: At least 5 of 7 days/Wk (IRF) Estimated Hrs Per Day: 1.5 hours per day Patient and/or Family Agrees t: Yes Safety Risks/Education Patient Education: Gait Training, Transfer Techniques, Correct Positioning, Disease Process, Safety Issues Teaching Recipient: Patient Teaching Methods: Demonstration, Discussion Response to Teaching: Verbalize Understanding, Return Demonstration, Reinforcement Needed Time/GCodes Time In: 1405 Time Out: 1435 Total Billed Treatment Time: 30 Total Billed Treatment 1,EX13,GT17 G Codes Necessary: BANG Beltran WINDOWS SECURITY ENGINEER Mar 29, 2018 14:39
[2018-03-29 15:43] VITALS: BP 126/67
--- NOTE | 2018-03-29 18:41 | PM & R (SOAP) Progress Note ---
Subjective This was a face to face visit with the patient. Date Seen by Provider: Mar 29, 2018 Time Seen by Provider: 18:20 Subjective/Events-last exam Patient was seen in her room this evening Patient SBA for transfersProgressing well with therapies Appreciate Cardiology consult and orders Objective Physician Exam Last Set of Vital Signs Vital Signs Date Time Temp Pulse Resp B/P (MAP) Pulse Ox O2 Delivery O2 Flow Rate FiO2 03/29/18 18:07 Room Air 03/29/18 15:43 97.5 72 16 126/67 (86) 94 Capillary Refill : I&O Intake and Output 03/29/18 00:00 Intake Total 1010 ml Balance 1010 ml Intake Oral 1010 ml # Voids 4 # Bowel Movements 2 General: Alert, Oriented X3, Cooperative, No Acute Distress HEENT: Atraumatic, PERRLA, EOMI, Mucous Memb Moist/[place] Neck: Supple, No JVD Lungs: Other (decreased breath sounds at base) Heart: Regular Rate, Normal S1, Normal S2 Abdomen: Normal Bowel Sounds, Soft, No Tenderness Extremities: No Clubbing, No Cyanosis, No Edema Skin: No Breakdown, Other (sternotomy site healing well) Neuro: Normal Gait, Normal Speech, Strength at 5/5 X4 Ext, Other (Generalized weakness) Psych/Mental Status: Mental Status NL, Mood NL Results Lab Data Laboratory Tests 03/26/18 22:04: Glucometer 271H 03/27/18 05:15: Glucometer 139H 03/27/18 15:03: Glucometer 127H 03/28/18 05:44: White Blood Count 7.0, Red Blood Count 3.41L, Hemoglobin 11.0L, Hematocrit 34L, Mean Corpuscular Volume 99, Mean Corpuscular Hemoglobin 32, Mean Corpuscular Hemoglobin Concent 33, Red Cell Distribution Width 14.0, Platelet Count 244, Mean Platelet Volume 9.1, Sodium Level 142, Potassium Level 3.8, Chloride Level 111H, Carbon Dioxide Level 20L, Anion Gap 11, Blood Urea Nitrogen 12, Creatinine 0.70, Estimat Glomerular Filtration Rate > 60, BUN/Creatinine Ratio 17, Glucose Level 130H, Calcium Level 8.8, Corrected Calcium 9.8, Total Bilirubin 0.4, Aspartate Amino Transf (AST/SGOT) 20, Alanine Aminotransferase ( ALT/SGPT) 38, Alkaline Phosphatase 83, Total Protein 5.4L, Albumin 2.7L, Digoxin Level < 0.30L 03/28/18 06:19: Glucometer 122H 03/28/18 18:02: Glucometer 103 03/29/18 06:21: Glucometer 116H 03/29/18 15:48: Glucometer 172H Assessment/Plan Assessment and Plan General debil s/p Cabg for CAD Cardiac arrhythmia controlled with med DM controlled HTN controlled Plan Continue PT/OT F/U with Cardiology Team Conference 03-31-18 Probable discharge by end of week Co-Morbidities that are continuing to impact the rehab process: (include details ) MARY UPTON MD Mar 29, 2018 18:41
[2018-03-29] MEDS: POLYETHYLENE GLYCOL 17 GM (MIRALAX) PACK PO SCH (21:00)
[2018-03-29] MEDS: ATORVASTATIN 10 MG (LIPITOR) TABLET PO SCH (21:29)
[2018-03-29] MEDS: FLUTICASONE NASAL SPRAY (FLONASE) 16 GM BTL NS SCH (21:36)
[2018-03-30 05:29] VITALS: BP 146/75
[2018-03-30] MEDS: KCL 10 MEQ TAB (MICRO K) PO SCH (06:39)
[2018-03-30] MEDS: metFORMIN 500 MG (GLUCOPHAGE) TAB PO SCH ×2 (06:39→16:42)
[2018-03-30] MEDS: ASCORBIC ACID (VIT C) 500 MG TABLET PO SCH ×2 (06:39→16:42)
--- NOTE | 2018-03-30 07:45 | Cardiology Progress Note ---
Subjective Date Seen by Provider: Mar 30, 2018 Time Seen by Provider: 07:44 Subjective/Events-last exam She is having mild chest pain at the incisional site Review of Systems General: No Chills, No Night Sweats, No Fatigue, No Malaise, No Appetite, No Other HEENT: No Head Aches, No Visual Changes, No Eye Pain, No Ear Pain, No Dysphasia , No Sinus Congestion, No Post Nasal Drip, No Sore Throat, No Other Pulmonary: No Dyspnea, No Cough, No Pleuritic Chest Pain, No Other Cardiovascular: No: Chest Pain, Palpitations, Orthopnea, Paroxysmal Noc. Dyspnea, Edema, Lt Headedness, Other Objective-Cardiology Exam Last Set of Vital Signs Vital Signs 03/30/18 05:29 Temp 98.2 Pulse 73 Resp 18 B/P (MAP) 146/75 (98) Pulse Ox 95 O2 Delivery Room Air Capillary Refill : I&O Intake and Output 03/30/18 00:00 Intake Total 1300 ml Balance 1300 ml Intake Oral 1300 ml # Voids 5 # Bowel Movements 1 General: Alert, Oriented X3, Cooperative, No Acute Distress HEENT: Atraumatic, PERRLA, EOMI, Mucous Memb Moist/[place] Neck: Supple, No JVD Lungs: Other (decreased breath sounds at base) Heart: Regular Rate, Normal S1, Normal S2 Abdomen: Normal Bowel Sounds, Soft, No Tenderness Extremities: No Clubbing, No Cyanosis, No Edema Skin: No Breakdown, Other (sternotomy site healing well) Neuro: Normal Gait, Normal Speech, Strength at 5/5 X4 Ext, Other (Generalized weakness) Psych/Mental Status: Mental Status NL, Mood NL Results Lab Laboratory Tests Test 03/29/18 15:48 03/30/18 04:59 Range/Units Glucometer 172 H 133 H 70-110 MG/DL A/P-Cardiology Admission Diagnosis Coronary artery disease Paroxysmal atrial fibrillation Hypertension Hyperlipidemia Assessment/Plan Coronary artery disease status post non-ST elevation myocardial infarction, had a cardiac catheterization done at [facility] and reported to have complex lesion in the LAD, had CABG [address] Luther Palmer using HUMPHREYS to LAD and vein graft to the diagonal artery and recovering well. Doing well at this time. CT sutures and delmy to leg still in place. Plan to d/c later this week. Paroxysmal atrial fibrillation, patient reporting history of atrial fibrillation in the past and had another episode of atrial fibrillation, she has been maintained on sotalol 200 mg twice daily as an outpatient and continue on that medication. Not on oral anticoagulation. Amiodarone was discontinued and continue on Sotalol and continue to monitor QTc, evaluate EKG today [id number] score of 4, yearly risk of stroke without oral anticoagulation is 4 percent, patient has been maintained without oral anticoagulation, I will continue monitoring her on telemetry, had a long discussion regarding the increased risk of stroke Hypertension, continue on current medication and monitor blood pressure Hyperlipidemia, monitor lipids Degenerative joint disease History of back surgery History of pulmonary embolism, not maintained on oral anticoagulation Clinical Quality Measures DVT/VTE Risk/Contraindication: Risk Factor Score Per Nursin RFS Level Per Nursing on Admit: 4+=Very High LAW MELO MD Mar 30, 2018 07:45
--- NOTE | 2018-03-30 08:08 | PM & R (SOAP) Progress Note ---
Subjective This was a face to face visit with the patient. Date Seen by Provider: Mar 30, 2018 Time Seen by Provider: 07:30 Subjective/Events-last exam Patient was seen in her room this AM Patient SBA to [facility] [facility] for transfers Appreciate DR Middleton note Objective Physician Exam Last Set of Vital Signs Vital Signs Date Time Temp Pulse Resp B/P (MAP) Pulse Ox O2 Delivery O2 Flow Rate FiO2 03/30/18 05:29 98.2 73 18 146/75 (98) 95 Room Air Capillary Refill : I&O Intake and Output 03/30/18 00:00 Intake Total 1300 ml Balance 1300 ml Intake Oral 1300 ml # Voids 5 # Bowel Movements 1 General: Alert, Oriented X3, Cooperative, No Acute Distress HEENT: Atraumatic, PERRLA, EOMI, Mucous Memb Moist/[place] Neck: Supple, No JVD Lungs: Other (decreased breath sounds at base) Heart: Regular Rate, Normal S1, Normal S2 Abdomen: Normal Bowel Sounds, Soft, No Tenderness Extremities: No Clubbing, No Cyanosis, No Edema Skin: No Breakdown, Other (sternotomy site healing well) Neuro: Normal Gait, Normal Speech, Strength at 5/5 X4 Ext, Other (Generalized weakness) Psych/Mental Status: Mental Status NL, Mood NL Results Lab Data Laboratory Tests 03/27/18 15:03: Glucometer 127H 03/28/18 05:44: White Blood Count 7.0, Red Blood Count 3.41L, Hemoglobin 11.0L, Hematocrit 34L, Mean Corpuscular Volume 99, Mean Corpuscular Hemoglobin 32, Mean Corpuscular Hemoglobin Concent 33, Red Cell Distribution Width 14.0, Platelet Count 244, Mean Platelet Volume 9.1, Sodium Level 142, Potassium Level 3.8, Chloride Level 111H, Carbon Dioxide Level 20L, Anion Gap 11, Blood Urea Nitrogen 12, Creatinine 0.70, Estimat Glomerular Filtration Rate > 60, BUN/Creatinine Ratio 17, Glucose Level 130H, Calcium Level 8.8, Corrected Calcium 9.8, Total Bilirubin 0.4, Aspartate Amino Transf (AST/SGOT) 20, Alanine Aminotransferase ( ALT/SGPT) 38, Alkaline Phosphatase 83, Total Protein 5.4L, Albumin 2.7L, Digoxin Level < 0.30L 03/28/18 06:19: Glucometer 122H 03/28/18 18:02: Glucometer 103 03/29/18 06:21: Glucometer 116H 03/29/18 15:48: Glucometer 172H 03/30/18 04:59: Glucometer 133H Assessment/Plan Assessment and Plan General debil s/p cabg for CAD Cardiac arrhythmia DM controlled HTN controlled Plan Continue Pt/OT Team Conference tomorrow Probable discharge by end of week Co-Morbidities that are continuing to impact the rehab process: (include details ) MARY UPTON MD Mar 30, 2018 08:08
--- NOTE | 2018-03-30 08:31 | Individualized Plan of Care ---
Individualized Plan of Care Rehab Nursing IPOC Order Admission Date Mar 26, 2018 at 18:56 Current Orders Orders Pt Evaluate/Treat Request (03/26/18 10:25) Request Ot Evaluate & Treat (03/26/18 10:25) Request For Cognitive Services (03/26/18 10:25) Admission Arrival Bed Request (03/26/18 18:56) Admission Order(Inpt,Obs,Sdc) (03/26/18 18:56) Vital Signs: Routine (Order) 08,16,00 (03/26/18 18:56) Sequential Compression Device 08,20 (03/26/18 18:56) Labor Delivery Rn-Inpt Rehab Con (03/26/18 18:56) Rehab Nursing Orders-Ipoc (03/26/18 18:56) Cho 60g/M 1snack (16-2000 Ron) (03/27/18 Breakfast) Turn And Reposition Q2HR (03/26/18 18:56) Intake & Output 06,14,22 (03/26/18 18:56) Accucheck Daily DBID (03/26/18 18:56) Weekly Weight (Lbs) WEEK (03/26/18 18:56) Code/Resuscitation (03/26/18 18:56) Consult Physician (03/26/18 19:00) Amiodarone Tablet (Cordarone Tablet) (03/26/18 21:00) Aspirin Enteric Coated Tablet (Ecotrin T (03/27/18 09:00) Atorvastatin Tablet (Lipitor) (03/26/18 21:00) Chlordiazepoxide Capsule (Nf) (Librium C (03/26/18 19:15) Clopidogrel Tablet (Plavix Tablet) (03/27/18 09:00) Digoxin Tablet (Lanoxin Tablet) (03/27/18 09:00) Diltiazem Cd 24 Hr Capsule (Cardizem Cd (03/27/18 09:00) Enalapril Tablet (Vasotec Tablet) (03/27/18 09:00) Loratadine Tablet (Claritin Tablet) (03/27/18 09:00) Fluticasone Nasal [place] (Flonase Nasal S (03/26/18 21:00) Furosemide Tablet (Lasix Tablet) (03/27/18 09:00) Hydrocodone/Apap 5/325 Tablet (Lortab 5 (03/26/18 19:15) Metformin Tablet (Glucophage Tablet) (03/27/18 07:00) Potassium Chloride (Tablet) (Klor Con Ta (03/27/18 07:00) Famotidine Tablet (Pepcid Tablet) (03/26/18 21:00) Simvastatin Tablet (Zocor Tablet) (03/26/18 21:00) Sotalol Tablet (Betapace Tablet) (03/26/18 21:00) Pharmacy Communication (Pharmacy Communi (03/26/18 19:15) Ascorbic Acid Tablet (Vitamin C Tablet) (03/27/18 07:00) Cho 60g/M 1snack (16-2000 Ron) (03/26/18 Dinner) Atorvastatin Tablet (Lipitor Tablet) (03/26/18 21:00) Ambulate 08,12,20 (03/26/18 22:02) Sequential Compression Device 08,20 (03/26/18 22:02) Dvt/Vte Risk - Notifiy Physici 08 (03/26/18 22:02) Consult Physician (03/27/18 07:55) Ekg Tracing (03/28/18 06:00) Ekg Tracing (03/27/18 10:05) Cbc No Diff (03/28/18 05:00) Comprehensive Metabolic Panel (03/28/18 05:00) Digoxin (03/28/18 05:00) Telemetry (03/27/18 10:05) Telemetry Nursing Assessment ( (03/27/18 10:05) Patient Visit (03/27/18 ) Pt Eval High Complexity (03/27/18 ) Exercise Therap, Ea 15 Min (03/27/18 ) Functional Activities, Ea 15 (03/27/18 ) Patient Visit (03/27/18 12:40) Functional Activities, Ea 15 (03/27/18 12:40) Exercise Therap, Ea 15 Min (03/27/18 12:40) Senna S Tablet (Senokot S Tablet) (03/27/18 21:00) Polyethylene Glycol Powder Pkt (Miralax (03/27/18 21:00) Sotalol Tablet (Betapace Tablet) (03/28/18 09:00) Ekg Tracing (03/29/18 10:15) Patient Visit (03/29/18 ) Exercise Therap, Ea 15 Min (03/29/18 ) Gait Training, Ea 15 Min (03/29/18 ) Functional Activities, Ea 15 (03/29/18 ) Patient Visit (03/29/18 ) Speech Sound Lang Comp (03/29/18 ) Ekg Tracing (03/30/18 08:03) Ekg Tracing (03/31/18 06:00) Rehab Nursing Orders: Ongoing Assess. of Cognitive Status, Ongoing Assess. of Function Status, Disease Management & Educaiton, DVT Prophylaxis, Fall Prevention, Fluid/Electrolyte/Nutrition Mgmt, Infection Prevention, Medication Management & Education, Management of Risks & Complications, Management of Skin Intergrity, Nutrition Management, Pain Management, Patient/Family Support PT IPOC Problem List: Activity Tolerance, Functional Strength, Bed Mobility Treatment Plan: Continue Plan of Care Bed Mobility, Education, Functional Activity Donald, Functional Strength, Group Therapy, Gait, Safety, Therapeutic Exercise, Transfers Treatment Duration: Apr 10, 2018 Frequency: At least 5 of 7 days/Wk (IRF) Estimated Hrs Per Day: 1.5 hours per day OT IPOC Problems: Decreased Activ Tolerance, Impaired I ADL's, Impaired Self-Care Skills OT Treatment, Training and Edu: Yes OT Problems Pt s/p CABG with decreased ADL functioning, mobility, activity tolerance, and strength. Pt to benefit from skilled OT intervention for ADL training, transfers , and home safety education to increase level of independence and allow safe discharge. Plan of Care: ADL Retraining, Functional Mobility, Group Exercise/Act as Ind, UE Funct Exercise/Act Treatment Duration: Apr 17, 2018 Frequency: At least 5 of 7 days/Wk (IRF) Estimated Hrs Per Day: 1.[address] IPOC Speech Therapy Treatment Plan: Discontinue ST Treatment Duration: Mar 30, 2018 Frequency: Modified Program (IRF) (0) Estimated Hrs Per Day: Other (0) Labor Delivery Rn/Case Mgmt Labor Delivery Rn/Case Managemen: Discharge Planning, Patient/Family Counseling Dietitian/Silver Spray Worker Dietitian/Silver Spray Worker to monitor nutritional status and make changes and/or recommendations as needed and work with speech pathology on dietary upgrades as the occur. Physician IPOC Medical Issues being managed closely and that require the 24 hour availability of a physician: DM HTN Cardiac arrhythmia Medical Issues: Bowel/Bladder Function, DVT Prophylaxis, Falls Precautions, Fluid/Electrolyte/Nutrition Balance, Infection Protection, Pain Management, Weight Bearing Precautions, Wound Care, Other (List) Brief Synthesis of Preadmission Screen, Post-Admission Evaluation, and Therapy Evaluations: 67 yo female who had a CABG at OSH for CAD referred to IRU for ongoing care and therapies prior to discharge to home .Had been Independent prior to this and caring for her who is w/c bound due to Parkinsons d PMH HTN DM Cardiac arrhythmia Medical Prognosis: good Anticipated Length of Stay: 7 days Modified Independent for adls and mobility skills Anticipated d/c Destination: Home with family and [facility] MARY UPTON MD Mar 30, 2018 08:31
[2018-03-30] MEDS: SENNA W/DOCUSATE (SENOKOT S) TABLET PO SCH ×2 (09:00→21:00)
--- NOTE | 2018-03-30 09:08 | Physical Therapy Daily Note ---
PT Daily Note-Current Subjective Patient is very agreeable to participate with PT. Patient voices desire to return to home tomorrow. Pain Numeric Pain Scale: 3 Location: Anterior Location Body Site: Chest Pain Description: Acute Mental Status Patient Orientation: Normal For Age Transfers Functional [place] Measure 0=Not Assessed/NA 4=Minimal Assistance 1=Total Assistance 5=Supervision or Setup 2=Maximal Assistance 6=Modified [place] 3=Moderate Assistance 7=Complete IndependenceIRFPAI Quality Coding Scale 6 Independent with activity with or without an assistive device 5 Patient requires set up or clean up by helper. Patient completes activity by themselves 4 Supervision or touching assist (CGA). [place] provide cues , steadying assist 3 The helper provides less than half the effort to complete the activity 2 The helper provides more than half the effort to complete the activity 1 Dependent. The helper does all the effort to complete an activity 7 Patient refused to complete or attempt activity 9 The patient did not perform the activity before the current illness or injury 88 Not attempted due to Medical conditions or safety concerns Transfers (B, C, W/C) (FIM): 6 Scootin Rollin Roll Left to Right (QC): 6 Supine to/from Sit: 6 Sit to/from Stand: 7 Sit to Lying (QC): 6 Sit to Stand (QC): 6 Chair/Rmb-lk-Qrngu Xfer(QC): 6 Bed to/from Chair: 7 Car Transfer (QC): 6 Patient continues to modify bed mobility secondary to sternal precautions. Weight Bearing Right Lower Extremity: Right Full Weight Bearing Left Lower Extremity: Left Full Weight Bearing Gait Training Does the Patient Walk?: Yes Gait (FIM): 7 Distance (FIM): 3=150 ft Distance: 500' x 3/200' x 3 Walk 10 feet (QC): 6 Walk 50 ft with 2 Turns(QC): 6 Walk 150 ft (QC): 6 Walking 10ft/uneven surface-QC: 6 Gait Level of Assist: 7 Gait Assistive Device: None slow, steady, functional Stair Training Stair Training: Handrails/: 1 handrail Stairs (FIM): 6 #of Steps: 12 1 Step (curb) (QC): 6 4 Steps (QC): 6 12 Steps (QC): 6 Stairs: Pattern: Step to Level of Assist: 6 Balance Picking up an Object (QC): 6 Assessment Patient ambulated on all terrains inside and outside without deviation. Patient is currently at OF with all gross motor skills and from a PT standpoint, is safe to return to home. PT Short Term Goals Short Term Goals Wheelchair Distance: SEE PT GOALS PT Handle Machine Operator Goals Handle Machine Operator Goals PT Handle Machine Operator Goals Time Frame: Apr 10, 2018 Transfers (B,C,W/C) (FIM): 7 Sit to Lying (QC): 6 Lying-Sitting on Side/Bed(QC): 6 Sit to Stand (QC): 6 Rollin Roll Left to Right (QC): 6 Chair/Oxl-gy-Bemsy Xfer(QC): 6 Car Transfer (QC): 6 Does the Patient Walk: Yes Gait (FIM): 7 Gait distance (FIM): 3=150 ft Distance: 300' Walk 10 feet (QC): 6 Walk 10ft-Uneven Surface(QC): 6 Walk 50ft with 2 Turns (QC): 6 Walk 150 ft (QC): 6 Gait Level of Assist: 7 Gait Assistive Device: None Stairs (FIM): 7 # of Steps: 12 1 Step (curb) (QC): 6 4 Steps (QC): 6 12 Steps (QC): 6 Stairs Level Of Assist: 7 Picking up an Object (QC): 6 PT Plan Treatment/Plan Treatment Plan: Continue Plan of Care Treatment Plan: Bed Mobility, Education, Functional Activity Donald, Functional Strength, Group Therapy, Gait, Safety, Therapeutic Exercise, Transfers Treatment Duration: Apr 10, 2018 Frequency: At least 5 of 7 days/Wk (IRF) Estimated Hrs Per Day: 1.5 hours per day Patient and/or Family Agrees t: Yes Time/GCodes Time In: 800 Time Out: 900 Total Billed Treatment Time: 60 Total Billed Treatment 1 visit FA x 4 60 min YEIMI WESTFALL PT Mar 30, 2018 09:08
[2018-03-30] MEDS: LORATADINE (CLARITIN) 10 MG TAB PO SCH (09:50)
[2018-03-30] MEDS: ASPIRIN E.C. 81 MG (ECOTRIN) TAB PO SCH (09:51)
[2018-03-30] MEDS: DIGOXIN 0.125 MG (LANOXIN) TAB PO SCH (09:51)
[2018-03-30] MEDS: FAMOTIDINE 20 MG (PEPCID) TABLET PO SCH ×2 (09:51→21:08)
[2018-03-30] MEDS: CLOPIDOGREL 75 MG (PLAVIX) TABLET PO SCH (09:51)
[2018-03-30] MEDS: FUROSEMIDE 40 MG (LASIX) TAB PO SCH (09:51)
[2018-03-30] MEDS: ENALAPRIL 10 MG (VASOTEC) TAB PO SCH (09:51)
[2018-03-30] MEDS: SOTALOL 80 MG (BETAPACE) TAB PO SCH ×2 (09:52→21:05)
[2018-03-30] MEDS: DILTIAZEM 240 MG (CARDIZEM CD) CAP PO SCH (09:53)
--- NOTE | 2018-03-30 13:19 | Physical Therapy Daily Note ---
PT Daily Note-Current Subjective Patient agrees to PT. She c/o fatigue. Pain Numeric Pain Scale: 4 Location: Anterior Location Body Site: Chest Pain Description: Acute Mental Status Patient Orientation: Normal For Age Transfers Functional [place] Measure 0=Not Assessed/NA 4=Minimal Assistance 1=Total Assistance 5=Supervision or Setup 2=Maximal Assistance 6=Modified [place] 3=Moderate Assistance 7=Complete IndependenceIRFPAI Quality Coding Scale 6 Independent with activity with or without an assistive device 5 Patient requires set up or clean up by helper. Patient completes activity by themselves 4 Supervision or touching assist (CGA). [place] provide cues , steadying assist 3 The helper provides less than half the effort to complete the activity 2 The helper provides more than half the effort to complete the activity 1 Dependent. The helper does all the effort to complete an activity 7 Patient refused to complete or attempt activity 9 The patient did not perform the activity before the current illness or injury 88 Not attempted due to Medical conditions or safety concerns Transfers (B, C, W/C) (FIM): 7 Scootin Rollin Roll Left to Right (QC): 6 Supine to/from Sit: 7 Sit to/from Stand: 7 Sit to Lying (QC): 6 Sit to Stand (QC): 6 Chair/Srs-bp-Korge Xfer(QC): 6 Bed to/from Chair: 7 Car Transfer (QC): 6 Weight Bearing Right Lower Extremity: Right Full Weight Bearing Left Lower Extremity: Left Full Weight Bearing Gait Training Does the Patient Walk?: Yes Gait (FIM): 7 Distance (FIM): 3=150 ft Distance: 200' x 2 Walk 10 feet (QC): 6 Walk 50 ft with 2 Turns(QC): 6 Walk 150 ft (QC): 6 Gait Level of Assist: 7 Gait Assistive Device: None normal, reciprocal pattern Exercises NuStep Minutes: 16 (to increase cardiopulmonary function) NuStep Workload: 1 Assessment Patient progressing with will possibly dismiss to home tomorrow with family and home health intervention. PT Short Term Goals Short Term Goals Wheelchair Distance: SEE PT GOALS PT Batterboard Setter Goals Alf Goals PT Batterboard Setter Goals Time Frame: Apr 10, 2018 Transfers (B,C,W/C) (FIM): 7 Sit to Lying (QC): 6 Lying-Sitting on Side/Bed(QC): 6 Sit to Stand (QC): 6 Rollin Roll Left to Right (QC): 6 Chair/Hnj-vc-Sxgbb Xfer(QC): 6 Car Transfer (QC): 6 Does the Patient Walk: Yes Gait (FIM): 7 Gait distance (FIM): 3=150 ft Distance: 300' Walk 10 feet (QC): 6 Walk 10ft-Uneven Surface(QC): 6 Walk 50ft with 2 Turns (QC): 6 Walk 150 ft (QC): 6 Gait Level of Assist: 7 Gait Assistive Device: None Stairs (FIM): 7 # of Steps: 12 1 Step (curb) (QC): 6 4 Steps (QC): 6 12 Steps (QC): 6 Stairs Level Of Assist: 7 Picking up an Object (QC): 6 PT Plan Treatment/Plan Treatment Plan: Continue Plan of Care Treatment Plan: Bed Mobility, Education, Functional Activity Donald, Functional Strength, Group Therapy, Gait, Safety, Therapeutic Exercise, Transfers Treatment Duration: Apr 10, 2018 Frequency: At least 5 of 7 days/Wk (IRF) Estimated Hrs Per Day: 1.5 hours per day Patient and/or Family Agrees t: Yes Time/GCodes Time In: 1225 Time Out: 1255 Total Billed Treatment Time: 30 Total Billed Treatment 1 visit FA 14 min EX 16 min YEIMI WESTFALL PT Mar 30, 2018 13:19
--- NOTE | 2018-03-30 14:10 | Occupational Ther Daily Note ---
OT Current Status-Daily Note Subjective Pt. states that she is sore, but does not report a pain level. Appearance Pt. is in bed. Agrees to shower this a.m. Mental Status/Objective Patient Orientation: Person, Place, Time, Situation Functional [place] Measure 0=Not Assessed/NA 4=Minimal Assistance 1=Total Assistance 5=Supervision or Setup 2=Maximal Assistance 6=Modified [place] 3=Moderate Assistance 7=Complete [place] ADL-Treatment Functional [place] Measure 0=Not Assessed/NA 4=Minimal Assistance 1=Total Assistance 5=Supervision or Setup 2=Maximal Assistance 6=Modified [place] 3=Moderate Assistance 7=Complete IndependenceIRFPAI Quality Coding Scale 6 Independent with activity with or without an assistive device 5 Patient requires set up or clean up by helper. Patient completes activity by themselves 4 Supervision or touching assist (CGA). [place] provide cues , steadying assist 3 The helper provides less than half the effort to complete the activity 2 The helper provides more than half the effort to complete the activity 1 Dependent. The helper does all the effort to complete an activity 7 Patient refused to complete or attempt activity 9 The patient did not perform the activity before the current illness or injury 88 Not attempted due to Medical conditions or safety concerns Grooming (FIM): 7 Oral Hygiene (QC): 6 Bathing (FIM): 6 (With shower seat) Shower/Bathe Self (QC): 6 Upper Body (FIM): 7 Upper Body Dressing (QC): 6 Lower Body Dressing (FIM): 7 Lower Body Dressing (QC): 6 On/Off Footwear (QC): 6 Toileting (FIM): 7 Toileting Hygiene (QC): 6 Transfers (B, C, W/C) (FIM): 7 Toilet/Commode Transfer (FIM): 7 Toilet Transfer (QC): 6 Shower Transfer(FIM): 6 Other Treatment Pt. showered and dressed self with independence. Pt. utilized shower chair in shower, but otherwise completed tasks with independence in room. Pt. states that she feels ready to go home. Pt. is educated about sternal precautions, but also energy conservation techniques. Pt. verbalizes understanding and is eager to regain strength/activity tolerance. Pt. plans to possibly discharge tomorrow. No equipment needs at this time. Education OT Patient Education: Correct positioning, Energy conservation, Modified ADL techniques, Progress toward Goal/Update tx plan, Purpose of tx/functional activities, Reviewed precautions, Rehab process Teaching Recipient: Patient Teaching Methods: Demonstration, Discussion Response to Teaching: Verbalize Understanding, Return Demonstration OT Short Term Goals Short Term Goals Time Frame: Apr 03, 2018 Bathing(FIM): 5 Upper Body Dressing(FIM): 5 Lower Body Dressing(FIM): 5 Toileting(FIM): 5 Additional Short Term Goals: 1-Demonstrate ADL Tasks, 2-Verbalize Understanding , 3-ImproveStrength/Donald 1=Demonstrate adherence to instructed precautions during ADL tasks. 2=Patient will verbalize/demonstrate understanding of assistive devices/ modifications for ADL. 3=Patient will improve strength/tolerance for activity to enable patient to perform ADL's. OT Licensed Practical Nurse Instructor Goals Licensed Practical Nurse Instructor Goals Time Frame: Apr 17, 2018 Eating (FIM): 7 Eating (QC): 6 Groomin Oral Hygiene (QC): 6 Bathing(FIM): 6 Shower/Bathe Self (QC): 6 Upper Body Dressing(FIM): 6 Upper Body Dressing (QC): 6 Lower Body Dressing(FIM): 6 Lower Body Dressing (QC): 6 On/Off Footwear (QC): 6 Toileting(FIM): 6 Toileting Hygiene (QC): 6 Toilet/Commode Transfer(FIM): 6 Toilet/Commode Transfer (QC): 6 Shower Transfer(FIM): 6 Additional Goals: 1-Demonstrate ADL Tasks, 2-Verbalize Understanding, 3- ImproveStrength/Donald 1=Demonstrate adherence to instructed precautions during ADL tasks. 2=Patient will verbalize/demonstrate understanding of assistive devices/ modifications for ADL. 3=Patient will improve strength/tolerance for activity to enable patient to perform ADL's. OT Education/Plan Problem List/Assessment Assessment: Decreased Activ Tolerance Pt s/p CABG with decreased ADL functioning, mobility, activity tolerance, and strength. Pt to benefit from skilled OT intervention for ADL training, transfers , and home safety education to increase level of independence and allow safe discharge. Discharge Recommendations Plan/Recommendations: Continue POC Therapy D/C Recommendations: Home Independently Treatment Plan/Plan of Care Treatment,Training & Education: Yes Patient would benefit from OT for education, treatment and training to promote independence in ADL's, mobility, safety and/or upper extremity function for ADL' s. Plan of Care: ADL Retraining, Functional Mobility, Group Exercise/Act as Ind, UE Funct Exercise/Act Treatment Duration: Apr 17, 2018 Frequency: At least 5 of 7 days/Wk (IRF) Estimated Hrs Per Day: 1.5 hours per day Agreement: Yes Rehab Potential: Good Time/GCodes Start Time: 10:00 Stop Time: 11:00 Total Time Billed (hr/min): 60 Billed Treatment Time 1, ADL x 4 ERNESTINA ROBERTS OT Mar 30, 2018 14:10
--- NOTE | 2018-03-30 14:18 | Occupational Ther Daily Note ---
OT Current Status-Daily Note Subjective No pain reported. Appearance Pt. up in chair. Mental Status/Objective Patient Orientation: Person, Place, Time, Situation Functional [place] Measure 0=Not Assessed/NA 4=Minimal Assistance 1=Total Assistance 5=Supervision or Setup 2=Maximal Assistance 6=Modified [place] 3=Moderate Assistance 7=Complete [place] ADL-Treatment Functional [place] Measure 0=Not Assessed/NA 4=Minimal Assistance 1=Total Assistance 5=Supervision or Setup 2=Maximal Assistance 6=Modified [place] 3=Moderate Assistance 7=Complete IndependenceIRFPAI Quality Coding Scale 6 Independent with activity with or without an assistive device 5 Patient requires set up or clean up by helper. Patient completes activity by themselves 4 Supervision or touching assist (CGA). [place] provide cues , steadying assist 3 The helper provides less than half the effort to complete the activity 2 The helper provides more than half the effort to complete the activity 1 Dependent. The helper does all the effort to complete an activity 7 Patient refused to complete or attempt activity 9 The patient did not perform the activity before the current illness or injury 88 Not attempted due to Medical conditions or safety concerns OT and pt. talked in depth regarding any needs for home, discharge planning, activity tolerance, and equipment needs. Energy conservation and kitchen safety were also discussed. Pt. verbalizes all understanding. Educated on how to make tasks simple in kitchen, such as keeping heavily used items at arm length, using smaller items such as half gallon milk vs. full gallon. Spoke with her about having family look at kitchen and have things prepped for her. Pt. verbalizes understanding of all of this. Pt. does not need OT services at home at this time. lawn maintenance worker came in to discuss pt's discharge goals, and so OT, social security assessor, and pt. all discussed together. Pt. eager to return home and states that due to her spouse's medical needs, she will have 24/7 caregiving assistance for him, (and her if needed) for several weeks. Pt. reports having a good support system in place. Education OT Patient Education: Energy conservation, Reviewed precautions, Rehab process , Safety issues Teaching Recipient: Patient Teaching Methods: Demonstration, Discussion Response to Teaching: Verbalize Understanding OT Short Term Goals Short Term Goals Time Frame: Apr 03, 2018 Bathing(FIM): 5 Upper Body Dressing(FIM): 5 Lower Body Dressing(FIM): 5 Toileting(FIM): 5 Additional Short Term Goals: 1-Demonstrate ADL Tasks, 2-Verbalize Understanding , 3-ImproveStrength/Donald 1=Demonstrate adherence to instructed precautions during ADL tasks. 2=Patient will verbalize/demonstrate understanding of assistive devices/ modifications for ADL. 3=Patient will improve strength/tolerance for activity to enable patient to perform ADL's. OT Guest Services Goals Guest Services Goals Time Frame: Apr 17, 2018 Eating (FIM): 7 Eating (QC): 6 Groomin Oral Hygiene (QC): 6 Bathing(FIM): 6 Shower/Bathe Self (QC): 6 Upper Body Dressing(FIM): 6 Upper Body Dressing (QC): 6 Lower Body Dressing(FIM): 6 Lower Body Dressing (QC): 6 On/Off Footwear (QC): 6 Toileting(FIM): 6 Toileting Hygiene (QC): 6 Toilet/Commode Transfer(FIM): 6 Toilet/Commode Transfer (QC): 6 Shower Transfer(FIM): 6 Additional Goals: 1-Demonstrate ADL Tasks, 2-Verbalize Understanding, 3- ImproveStrength/Donald 1=Demonstrate adherence to instructed precautions during ADL tasks. 2=Patient will verbalize/demonstrate understanding of assistive devices/ modifications for ADL. 3=Patient will improve strength/tolerance for activity to enable patient to perform ADL's. OT Education/Plan Problem List/Assessment Assessment: Decreased Activ Tolerance Pt s/p CABG with decreased ADL functioning, mobility, activity tolerance, and strength. Pt to benefit from skilled OT intervention for ADL training, transfers , and home safety education to increase level of independence and allow safe discharge. Discharge Recommendations Plan/Recommendations: Continue POC Therapy D/C Recommendations: Home w/ Family Support Treatment Plan/Plan of Care Treatment,Training & Education: Yes Patient would benefit from OT for education, treatment and training to promote independence in ADL's, mobility, safety and/or upper extremity function for ADL' s. Plan of Care: ADL Retraining, Functional Mobility, Group Exercise/Act as Ind, UE Funct Exercise/Act Treatment Duration: Apr 17, 2018 Frequency: At least 5 of 7 days/Wk (IRF) Estimated Hrs Per Day: 1.5 hours per day Agreement: Yes Rehab Potential: Good Time/GCodes Start Time: 13:30 Stop Time: 14:00 Total Time Billed (hr/min): 30 Billed Treatment Time 1, FA x 2 ERNESTINA ROBERTS OT Mar 30, 2018 14:18
[2018-03-30] MEDS: HYDROcodone/APAP 5 MG/325 MG (LORTAB) TAB PO PRN ×2 (14:53→21:08)
[2018-03-30 16:19] VITALS: BP 146/73
[2018-03-30] MEDS ORDERED: CLOP75TA28 PO (20:20)
[2018-03-30] MEDS ORDERED: ACHD5005 PO (20:20)
[2018-03-30] MEDS: POLYETHYLENE GLYCOL 17 GM (MIRALAX) PACK PO SCH (21:00)
[2018-03-30] MEDS: FLUTICASONE NASAL SPRAY (FLONASE) 16 GM BTL NS SCH (21:03)
[2018-03-30] MEDS: ATORVASTATIN 10 MG (LIPITOR) TABLET PO SCH (21:08)
[2018-03-31 05:40] VITALS: BP 148/79
[2018-03-31] MEDS: ASCORBIC ACID (VIT C) 500 MG TABLET PO SCH (06:00)
[2018-03-31] MEDS: HYDROcodone/APAP 5 MG/325 MG (LORTAB) TAB PO PRN ×2 (06:01→15:02)
[2018-03-31] MEDS: metFORMIN 500 MG (GLUCOPHAGE) TAB PO SCH (06:01)
[2018-03-31] MEDS: KCL 10 MEQ TAB (MICRO K) PO SCH (06:01)
--- NOTE | 2018-03-31 07:54 | Cardiology Progress Note ---
Subjective Date Seen by Provider: Mar 31, 2018 Time Seen by Provider: 07:52 Subjective/Events-last exam Patient is in bed, feeling well, no new complaint, no chest pain Review of Systems General: No Chills, No Night Sweats, No Fatigue, No Malaise, No Appetite, No Other HEENT: No Head Aches, No Visual Changes, No Eye Pain, No Ear Pain, No Dysphasia , No Sinus Congestion, No Post Nasal Drip, No Sore Throat, No Other Pulmonary: No Dyspnea, No Cough, No Pleuritic Chest Pain, No Other Cardiovascular: No: Chest Pain, Palpitations, Orthopnea, Paroxysmal Noc. Dyspnea, Edema, Lt Headedness, Other Objective-Cardiology Exam Last Set of Vital Signs Vital Signs 03/31/18 05:40 Temp 97.2 Pulse 71 Resp 18 B/P (MAP) 148/79 (102) Pulse Ox 95 O2 Delivery Room Air Capillary Refill : I&O Intake and Output 03/31/18 00:00 Intake Total 1140 ml Balance 1140 ml Intake Oral 1140 ml # Voids 5 General: Alert, Oriented X3, Cooperative, No Acute Distress HEENT: Atraumatic, PERRLA, EOMI, Mucous Memb Moist/[place] Neck: Supple, No JVD Lungs: Other (decreased breath sounds at base) Heart: Regular Rate, Normal S1, Normal S2 Abdomen: Normal Bowel Sounds, Soft, No Tenderness Extremities: No Clubbing, No Cyanosis, No Edema Skin: No Breakdown, Other (sternotomy site healing well) Neuro: Normal Gait, Normal Speech, Strength at 5/5 X4 Ext, Other (Generalized weakness) Psych/Mental Status: Mental Status NL, Mood NL Results Lab Laboratory Tests Test 03/30/18 16:17 03/31/18 05:33 Range/Units Glucometer 128 H 129 H 70-110 MG/DL A/P-Cardiology Admission Diagnosis Coronary artery disease Paroxysmal atrial fibrillation Hypertension Hyperlipidemia Assessment/Plan Coronary artery disease status post non-ST elevation myocardial infarction, had a cardiac catheterization done at [facility] and reported to have complex lesion in the LAD, had CABG [address] Luther Palmer using HUMPHREYS to LAD and vein graft to the diagonal artery and recovering well. Doing well at this time. CT sutures and delmy to leg still in place. Ok for discharge from cardiology standpoint Paroxysmal atrial fibrillation, patient reporting history of atrial fibrillation in the past and had another episode of atrial fibrillation, she has been maintained on sotalol 200 mg twice daily as an outpatient and continue on that medication. Not on oral anticoagulation. Amiodarone was discontinued and continue on Sotalol and continue to monitor QTc. [id number] score of 4, yearly risk of stroke without oral anticoagulation is 4 percent, patient has been maintained without oral anticoagulation, she will discuss it with her primary fence installer upon discharge Hypertension, continue on current medication and monitor blood pressure Hyperlipidemia, monitor lipids Degenerative joint disease History of back surgery History of pulmonary embolism, not maintained on oral anticoagulation Clinical Quality Measures DVT/VTE Risk/Contraindication: Risk Factor Score Per Nursin RFS Level Per Nursing on Admit: 4+=Very High LAW MELO MD Mar 31, 2018 07:54
[2018-03-31] MEDS: CLOPIDOGREL 75 MG (PLAVIX) TABLET PO SCH (08:45)
[2018-03-31] MEDS: SENNA W/DOCUSATE (SENOKOT S) TABLET PO SCH (08:45)
[2018-03-31] MEDS: FAMOTIDINE 20 MG (PEPCID) TABLET PO SCH (08:45)
[2018-03-31] MEDS: DIGOXIN 0.125 MG (LANOXIN) TAB PO SCH (08:45)
[2018-03-31] MEDS: ASPIRIN E.C. 81 MG (ECOTRIN) TAB PO SCH (08:45)
[2018-03-31] MEDS: ENALAPRIL 10 MG (VASOTEC) TAB PO SCH (08:46)
[2018-03-31] MEDS: LORATADINE (CLARITIN) 10 MG TAB PO SCH (08:46)
[2018-03-31] MEDS: DILTIAZEM 240 MG (CARDIZEM CD) CAP PO SCH (08:46)
[2018-03-31] MEDS: FUROSEMIDE 40 MG (LASIX) TAB PO SCH (08:46)
[2018-03-31] MEDS: SOTALOL 80 MG (BETAPACE) TAB PO SCH (08:46)
--- NOTE | 2018-03-31 08:54 | PM & R (SOAP) Progress Note ---
Subjective This was a face to face visit with the patient. Date Seen by Provider: Mar 31, 2018 Time Seen by Provider: 07:40 Subjective/Events-last exam Patient was seen in her room this Am Patient Modified Independent for transfers All set for discharge today to home with family Has progressed well Appreciate Dr padilla note.Current meds reviewed Objective Physician Exam Last Set of Vital Signs Vital Signs Date Time Temp Pulse Resp B/P (MAP) Pulse Ox O2 Delivery O2 Flow Rate FiO2 03/31/18 07:00 74 03/31/18 05:40 97.2 18 148/79 (102) 95 Room Air Capillary Refill : I&O Intake and Output 03/31/18 00:00 Intake Total 1140 ml Balance 1140 ml Intake Oral 1140 ml # Voids 5 General: Alert, Oriented X3, Cooperative, No Acute Distress HEENT: Atraumatic, PERRLA, EOMI, Mucous Memb Moist/[place] Neck: Supple, No JVD Lungs: Other (decreased breath sounds at base) Heart: Regular Rate, Normal S1, Normal S2 Abdomen: Normal Bowel Sounds, Soft, No Tenderness Extremities: No Clubbing, No Cyanosis, No Edema Skin: No Breakdown, Other (sternotomy site healing well) Neuro: Normal Gait, Normal Speech, Strength at 5/5 X4 Ext, Other (Generalized weakness) Psych/Mental Status: Mental Status NL, Mood NL Results Lab Data Laboratory Tests 03/28/18 18:02: Glucometer 103 03/29/18 06:21: Glucometer 116H 03/29/18 15:48: Glucometer 172H 03/30/18 04:59: Glucometer 133H 03/30/18 16:17: Glucometer 128H 03/31/18 05:33: Glucometer 129H Assessment/Plan Assessment and Plan Home today with family F/U with CTS and PCP See orders Current labs noted Co-Morbidities that are continuing to impact the rehab process: (include details ) MARY UPTON MD Mar 31, 2018 08:54
--- NOTE | 2018-03-31 09:17 | Physical Therapy Daily Note ---
PT Daily Note-Current Subjective Pt ready to go home today. Reports she has a caregiver for her that will also care for her. At this time, she has no questions or concerns. Transfers Functional [place] Measure 0=Not Assessed/NA 4=Minimal Assistance 1=Total Assistance 5=Supervision or Setup 2=Maximal Assistance 6=Modified [place] 3=Moderate Assistance 7=Complete IndependenceIRFPAI Quality Coding Scale 6 Independent with activity with or without an assistive device 5 Patient requires set up or clean up by helper. Patient completes activity by themselves 4 Supervision or touching assist (CGA). [place] provide cues , steadying assist 3 The helper provides less than half the effort to complete the activity 2 The helper provides more than half the effort to complete the activity 1 Dependent. The helper does all the effort to complete an activity 7 Patient refused to complete or attempt activity 9 The patient did not perform the activity before the current illness or injury 88 Not attempted due to Medical conditions or safety concerns Weight Bearing Right Lower Extremity: Right Full Weight Bearing Left Lower Extremity: Left Full Weight Bearing Treatments Treatment consisted of education on progression of activity at home and perceived exertion levels to moderate her activity. Instructed her to start activity with supervision and progress as she felt able. Pt voiced understanding. Also discussed post hospital progression of cardiac rehab with transisiton to Wellness. Voiced understanding. Assessment Current Status: Good Progress Pt ready to discharge this date. PT Short Term Goals Short Term Goals Wheelchair Distance: SEE PT GOALS PT Scaler Goals Jail Goals PT Scaler Goals Time Frame: Apr 10, 2018 Transfers (B,C,W/C) (FIM): 7 Sit to Lying (QC): 6 Lying-Sitting on Side/Bed(QC): 6 Sit to Stand (QC): 6 Rollin Roll Left to Right (QC): 6 Chair/Elq-xd-Ocbit Xfer(QC): 6 Car Transfer (QC): 6 Does the Patient Walk: Yes Gait (FIM): 7 Gait distance (FIM): 3=150 ft Distance: 300' Walk 10 feet (QC): 6 Walk 10ft-Uneven Surface(QC): 6 Walk 50ft with 2 Turns (QC): 6 Walk 150 ft (QC): 6 Gait Level of Assist: 7 Gait Assistive Device: None Stairs (FIM): 7 # of Steps: 12 1 Step (curb) (QC): 6 4 Steps (QC): 6 12 Steps (QC): 6 Stairs Level Of Assist: 7 Picking up an Object (QC): 6 PT Plan Problem List Problem List: Activity Tolerance Treatment/Plan Treatment Plan: Discontinue PT Treatment Plan: Bed Mobility, Education, Functional Activity Donald, Functional Strength, Group Therapy, Gait, Safety, Therapeutic Exercise, Transfers Treatment Duration: Apr 10, 2018 Frequency: At least 5 of 7 days/Wk (IRF) Estimated Hrs Per Day: 1.5 hours per day Patient and/or Family Agrees t: Yes Safety Risks/Education Patient Education: Disease Process, Safety Issues Teaching Recipient: Patient Teaching Methods: Discussion Response to Teaching: Verbalize Understanding Time/GCodes Time In: 900 Time Out: 915 Total Billed Treatment Time: 15 Total Billed Treatment visit FA 15 JHONY SAAVEDRA PT Mar 31, 2018 09:17
--- NOTE | 2018-03-31 09:20 | Therapy Team Discharge Summary ---
Therapy Discharge Summary Discharge Recommendations Date of Discharge Therapy D/C Recommendations: Home w/ Family Support Physical Therapy This patient was seen on this unit post acute stay due to CABG x 2. 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 Upon admit to this unit, she was grossly min assit with functional mobility. Treatment has consisted of strengthening for transfers and gait progression with safety education. At ga, she is mod indep with transfers, indep with gait and stairs. She had met all PT goals and is ready to discharge home. Pt has caregiver that will assist as needed. Pt to follow with cardiac rehab as ordered by the physician. DC PT at this time. Occupational Therapy Decreased Activ Tolerance PT Care Home Goals Business Intelligence Etl Developer Goals PT Business Intelligence Etl Developer Goals Time Frame: Apr 10, 2018 Transfers (B,C,W/C) (FIM): 7 (score a 6--uses bedrails) Roll Left to Right (QC): 6 (met) Sit to Lying (QC): 6 (met) Lying-Sitting on Side/Bed(QC): 6 (met) Sit to Stand (QC): 6 (met) Chair/Fbu-ln-Fwkep Xfer(QC): 6 (metmt) Car Transfer (QC): 6 (met) Does the Patient Walk: Yes Gait (FIM): 7 (met) Gait distance (FIM): 3=150 ft Distance: 300' Walk 10 feet (QC): 6 (met) Walk 10ft-Uneven Surface(QC): 6 (met) Walk 50ft with 2 Turns (QC): 6 (met) Walk 150 ft (QC): 6 (met) Gait Level of Assist: 7 Gait Assistive Device: None Stairs (FIM): 7 (met) # of Steps: 12 1 Step (curb) (QC): 6 4 Steps (QC): 6 12 Steps (QC): 6 Stairs Level Of Assist: 7 Picking up an Object (QC): 6 (met) All goals met to a satisfactory level. Pt is mod indep to indep with all functional mobility. OT Business Intelligence Etl Developer Goals Care Home Goals Time Frame: Apr 17, 2018 Eating (FIM): 7 Eating (QC): 6 Oral Hygiene (QC): 6 Grooming(FIM): 6 Bathing(FIM): 6 Shower/Bathe Self (QC): 6 Upper Body Dressing(FIM): 6 Upper Body Dressing (QC): 6 Lower Body Dressing(FIM): 6 Lower Body Dressing (QC): 6 On/Off Footwear (QC): 6 Toileting(FIM): 6 Toileting Hygiene (QC): 6 Toilet/Commode Transfer(FIM): 6 Toilet/Commode Transfer (QC): 6 Shower Transfer(FIM): 6 Additional Goals: 1-Demonstrate ADL Tasks, 2-Verbalize Understanding, 3- ImproveStrength/Donald 1=Demonstrate adherence to instructed precautions during ADL tasks. 2=Patient will verbalize/demonstrate understanding of assistive devices/ modifications for ADL. 3=Patient will improve strength/tolerance for activity to enable patient to perform ADL's. Speech Care Home Goals Business Intelligence Etl Developer Goals No LTGs established as skilled ST not indicated at this time. JHONY SAAVEDRA PT Mar 31, 2018 09:20
--- NOTE | 2018-03-31 12:03 | Therapy Team Discharge Summary ---
Therapy Discharge Summary Discharge Recommendations Date of Discharge 03-31-18 Therapy D/C Recommendations: Home w/ Family Support Occupational Therapy Pt. has met all goals. Pt. is able to complete all ADLs with Mod I and independence. No further OT needed. Decreased Activ Tolerance PT Release Of Information Clerk Goals Release Of Information Clerk Goals PT Usp Goals Time Frame: Apr 10, 2018 Transfers (B,C,W/C) (FIM): 7 (score a 6--uses bedrails) Roll Left to Right (QC): 6 (met) Sit to Lying (QC): 6 (met) Lying-Sitting on Side/Bed(QC): 6 (met) Sit to Stand (QC): 6 (met) Chair/Bol-sr-Emrel Xfer(QC): 6 (metmt) Car Transfer (QC): 6 (met) Does the Patient Walk: Yes Gait (FIM): 7 (met) Gait distance (FIM): 3=150 ft Distance: 300' Walk 10 feet (QC): 6 (met) Walk 10ft-Uneven Surface(QC): 6 (met) Walk 50ft with 2 Turns (QC): 6 (met) Walk 150 ft (QC): 6 (met) Gait Level of Assist: 7 Gait Assistive Device: None Stairs (FIM): 7 (met) # of Steps: 12 1 Step (curb) (QC): 6 4 Steps (QC): 6 12 Steps (QC): 6 Stairs Level Of Assist: 7 Picking up an Object (QC): 6 (met) OT Usp Goals Usp Goals Time Frame: Apr 17, 2018 Eating (FIM): 7 (met) Eating (QC): 6 (met) Oral Hygiene (QC): 6 (met) Grooming(FIM): 6 (met) Bathing(FIM): 6 (met) Shower/Bathe Self (QC): 6 (met) Upper Body Dressing(FIM): 6 (met) Upper Body Dressing (QC): 6 (met) Lower Body Dressing(FIM): 6 (met) Lower Body Dressing (QC): 6 (met) On/Off Footwear (QC): 6 (met) Toileting(FIM): 6 (met) Toileting Hygiene (QC): 6 (met) Toilet/Commode Transfer(FIM): 6 (met) Toilet/Commode Transfer (QC): 6 (met) Shower Transfer(FIM): 6 (met) Additional Goals: 1-Demonstrate ADL Tasks, 2-Verbalize Understanding, 3- ImproveStrength/Donald 1=Demonstrate adherence to instructed precautions during ADL tasks. 2=Patient will verbalize/demonstrate understanding of assistive devices/ modifications for ADL. 3=Patient will improve strength/tolerance for activity to enable patient to perform ADL's. Speech Release Of Information Clerk Goals Release Of Information Clerk Goals No LTGs established as skilled ST not indicated at this time. ERNESTINA ROBERTS OT Mar 31, 2018 12:03
[2018-03-31 16:30] VITALS: BP 148/79
--- NOTE | 2018-04-13 22:45 | DISCHARGE SUMMARY ---
DATE OF SERVICE: 03/31/2018 HISTORY OF PRESENT ILLNESS: The patient is a 67-year-old female with coronary artery disease, underwent a CABG at [facility]. She had a resulting decline in her functional independence and was referred to inpatient rehabilitation unit. Her has Parkinson's disease and has been a patient at this unit approximately 3 years ago and she assists with his care at home. She has sternal precautions. PAST MEDICAL HISTORY: Coronary artery disease, hypertension, diabetes mellitus, cardiac arrhythmia, CABG. MEDICAL COURSE: The patient was followed by Dr. Palomino and Dr. Rick while on rehab unit. Labs including glucometer readings were monitored. She was afebrile during her stay. CBC on 03/28/2018 showed WBC 7.0, H and H 11/, platelet count 244,000. Chemistry on 03/28/2018 showed chloride 111, CO2 of 20, glucose 130, total protein 5.4, albumin 2.7. Glucometer readings from 03/29/2018 to 03/30/2018 were 103 to 172. Digoxin level was less than 0.30 on 03/28/2018. Blood pressure on 03/31/2018 was 148/79, respirations 18, pulse 71, O2 sat 95% on room air. REHABILITATION COURSE: The patient progressed well with therapy. She had increased strength and endurance, decreased pain. Her incision site was healing well. She was assessed by speech therapy, found to be cognitively intact. They signed off. PHYSICAL THERAPY NOTES: She was min assist with functional mobility upon admission. At discharge, she is modified independent with transfers, independent with gait and stairs. OCCUPATIONAL THERAPY NOTES: Upon admission, she was set up for grooming, min assist for oral hygiene and dressing. Upon discharge, she is modified independent to independent for basic ADLs. No further OT needed. DISCHARGE INSTRUCTIONS: The patient will follow up with PCP and her cardiothoracic surgeon. She is discharged to home. Continue current diet. DISCHARGE MEDICATIONS: Plavix 75 mg p.o. daily, hydrocodone/APAP 5/325 one tablet p.o. q.4 hours p.r.n. moderate pain, vitamin C 1000 mg p.o. b.i.d., ASA 81 mg p.o. daily, Lipitor 10 mg p.o. each day at bedtime, digoxin 125 mcg p.o. daily, diltiazem 240 mg p.o. daily, enalapril 20 mg p.o. daily, fexofenadine 180 mg p.o. on Thursday, Thursday, and Thursday, Flonase spray 2 sprays nasally at bedtime, furosemide 40 mg p.o. daily, Lutein 20 mg p.o. daily, metformin 500 mg p.o. b.i.d. with meals, Zofran 4 mg p.o. q.8 hours p.r.n. nausea, vomiting, KCl 10 mEq p.o. daily, Zantac 150 mg p.o. b.i.d., simvastatin 10 mg p.o. each day at bedtime, sotalol 160 mg p.o. q.12 hours and 40 mg p.o. b.i.d. for a total of 200 mg p.o. b.i.d. DISCHARGE DIAGNOSES: 1. Rehabilitation, general debilitation, status post CABG. 2. Coronary artery disease. 3. History and non-ST elevation myocardial infarction. 4. Hypertension. 5. Paroxysmal atrial fibrillation. 6. Diabetes mellitus. 7. Hyperlipidemia. 8. Osteoarthritis. 9. Long-term use of metformin. 10. History of PE. 11. History of smoking. CONDITION AT DISCHARGE: Improved and stable. PROGNOSIS: Rehab prognosis appears good for continued improvement at home and return to independent living. Job ID: [id number] DocumentID: [id number] Dictated Date: 04/13/2018 10:08:30 Physician Office Nurse Date: 04/13/2018 22:44:03 Dictated By: MARY PALOMINO MD
== END 2018-03-31 16:20 | disposition home or self-care (01) | DRG 950 ==
PROVIDERS: ADMIT Physical Medicine & Rehabilitation; ATTEND Physical Medicine & Rehabilitation
DX: Z48.812 Encounter for surgical aftercare following surgery on the circulatory system (principal); I25.10 Atherosclerotic heart disease of native coronary artery without angina pectoris; Z95.1 Presence of aortocoronary bypass graft; I25.2 Old myocardial infarction; I10 Essential (primary) hypertension; I48.0 Paroxysmal atrial fibrillation; E11.9 Type 2 diabetes mellitus without complications; E78.5 Hyperlipidemia, unspecified; M19.90 Unspecified osteoarthritis, unspecified site; Z79.84 Long term (current) use of oral hypoglycemic drugs; Z86.711 Personal history of pulmonary embolism; Z87.891 Personal history of nicotine dependence
CPT/HCPCS: 36415; 80053; 80162; 82962; 85027; 93005

== ENCOUNTER 2018-07-23 13:21 | Outpatient (RCR) | payer MEDICARE, BC ==
[~2018-07-23 13:21] MED LIST changes: +ACHD5005 PO; +ASCO10006 PO; +ASPI-983 PO; +ATOR10TA66 PO; +CHLO10CA6 PO; +CLOP75TA28 PO; +DILT240C PO; +FEXO-46 PO; +FLUT16SP22 NS; +LIRA0.6P3 SC; +LUTE20CA2 PO; +METF-397 PO; +ONDA4TAB10 PO; +POTA10TA10 PO; +RANI150T11 PO; +SOTA160T PO; +SOTA80TA PO
== END 2018-08-04 | disposition home or self-care (01) ==
LOC: CR3 13:21
PROVIDERS: ATTEND Thoracic Surgery (Cardiothoracic Vascular Surgery)
DX: Z29.8 Encounter for other specified prophylactic measures (principal)

== ENCOUNTER 2018-08-30 14:00 | Outpatient (RCR) | payer MEDICARE, BC | END 2018-09-15 | disposition home or self-care (01) | LOC: CR3 14:00 | PROVIDERS: ATTEND Thoracic Surgery (Cardiothoracic Vascular Surgery) | DX: Z29.8 Encounter for other specified prophylactic measures (principal) ==

== ENCOUNTER 2018-10-13 13:15 | Outpatient (RCR) | payer MEDICARE, BC | END 2018-10-17 | disposition home or self-care (01) | LOC: CR3 13:15 | PROVIDERS: ATTEND Thoracic Surgery (Cardiothoracic Vascular Surgery) | DX: Z29.8 Encounter for other specified prophylactic measures (principal) ==

== ENCOUNTER → 2018-11-19 | Outpatient (RCR) | payer MEDICARE, BC ==
[~2018-11-19] MED LIST changes: -SOTA80TA PO; +STL80T PO
== END | disposition home or self-care (01) ==
LOC: CR3 10-20 13:00
PROVIDERS: ATTEND Internal Medicine Interventional Cardiology
DX: Z29.8 Encounter for other specified prophylactic measures (principal)

== ENCOUNTER → 2018-12-22 | Outpatient (RCR) | payer MEDICARE, BC | END | disposition home or self-care (01) | LOC: CR3 11-22 13:00 | PROVIDERS: ATTEND Internal Medicine Interventional Cardiology | DX: Z29.8 Encounter for other specified prophylactic measures (principal) ==

== ENCOUNTER 2019-01-21 06:17 | Outpatient (RCR) | payer MEDICARE, BC | END 2019-01-23 | disposition home or self-care (01) | LOC: CR3 06:17 | PROVIDERS: ATTEND Internal Medicine Interventional Cardiology | DX: Z29.8 Encounter for other specified prophylactic measures (principal) ==

== ENCOUNTER → 2019-02-23 | Outpatient (RCR) | payer MEDICARE, BC | END | disposition home or self-care (01) | LOC: CR3 01-24 06:00 | PROVIDERS: ATTEND Internal Medicine Interventional Cardiology | DX: Z01.818 Encounter for other preprocedural examination (principal) ==

== ENCOUNTER 2019-03-23 07:21 | Outpatient (RCR) | payer MEDICARE, BC | END 2019-03-27 | disposition home or self-care (01) | LOC: CR3 07:21 | PROVIDERS: ATTEND Internal Medicine Interventional Cardiology | DX: Z29.8 Encounter for other specified prophylactic measures (principal) ==

== ENCOUNTER → 2019-05-04 | Outpatient (RCR) | payer MEDICARE, BC | END | disposition home or self-care (01) | LOC: CR3 04-04 06:00 | PROVIDERS: ATTEND Internal Medicine Interventional Cardiology | DX: Z29.8 Encounter for other specified prophylactic measures (principal) ==

== ENCOUNTER 2019-06-03 06:10 | Outpatient (RCR) | payer MEDICARE, BC | END 2019-06-05 | disposition home or self-care (01) | LOC: CR3 06:10 | PROVIDERS: ATTEND Internal Medicine Interventional Cardiology | DX: Z29.8 Encounter for other specified prophylactic measures (principal) ==

== ENCOUNTER → 2019-07-06 | Outpatient (RCR) | payer MEDICARE, BC | END | disposition home or self-care (01) | LOC: CR3 06-06 06:00 | PROVIDERS: ATTEND Internal Medicine Interventional Cardiology | DX: Z29.8 Encounter for other specified prophylactic measures (principal) ==

== ENCOUNTER 2019-08-08 06:22 | Outpatient (RCR) | payer MEDICARE, BC ==
[~2019-08-08 06:22] MED LIST changes: +DIGO125T3 PO; -DILT240C PO; +DILT240C91 PO; +SIMV10TA26 PO
== END 2019-08-10 | disposition home or self-care (01) ==
LOC: CR3 06:22
PROVIDERS: ATTEND Internal Medicine Interventional Cardiology
DX: Z29.8 Encounter for other specified prophylactic measures (principal)

== ENCOUNTER 2019-09-09 06:34 | Outpatient (RCR) | payer MEDICARE, BC | END 2019-09-11 | disposition home or self-care (01) | LOC: CR3 06:34 | PROVIDERS: ATTEND Internal Medicine Interventional Cardiology | DX: Z29.8 Encounter for other specified prophylactic measures (principal) ==

== ENCOUNTER 2019-10-03 06:42 | Outpatient (RCR) | payer MEDICARE, BC ==
[~2019-10-03 06:42] MED LIST changes: +ONDA-105 PO; -ONDA4TAB10 PO
== END 2019-10-12 | disposition home or self-care (01) ==
LOC: CR3 06:42
PROVIDERS: ATTEND Internal Medicine Interventional Cardiology
DX: Z29.8 Encounter for other specified prophylactic measures (principal)

== ENCOUNTER 2020-02-25 05:55 | Inpatient (IN) | payer MEDICARE, BC ==
[2020-02-25] VITALS (15 sets, daily range): BP systolic 90–137; BP diastolic 59–98
[~2020-02-25] VITALS: Ht 162.6 cm; Wt 66.8 kg
[2020-02-25] MEDS ORDERED: NS IV 1000 ML 1,000 ML IV SCH ×3 (06:17→17:30)
[2020-02-25] MEDS ORDERED: ONDANSETRON 4 MG/2 ML (SDV) Z0FRAN IVP ONE (06:30)
[2020-02-25] MEDS ORDERED: ACETAMINOPHEN 500 MG TAB (TYLENOL) PO ONE (06:30)
[2020-02-25 06:36] LABS: BASOPHILS % (AUTO) 0 % (0-10); EOSINOPHILS # (AUTO) 0.1 10^3/uL (0.0-0.3); EOSINOPHILS % (AUTO) 2 % (0-10); HEMATOCRIT 43 % (35-52); HEMOGLOBIN 14.2 G/DL (11.5-16.0); LYMPHOCYTES # (AUTO) 0.5 X 10^3 (1.0-4.0); LYMPHOCYTES % (AUTO) 11 % (12-44); MEAN CORPUSCULAR HEMOGLOBIN 32 PG (25-34); MEAN CORPUSCULAR HGB CONC 33 G/DL (32-36); MEAN CORPUSCULAR VOLUME 96 FL (80-99); MEAN PLATELET VOLUME 9.6 FL (7.4-10.4); MONOCYTES # (AUTO) 0.1 X 10^3 (0.0-1.0); MONOCYTES % (AUTO) 1 % (0-12); NEUTROPHILS # (AUTO) 3.9 X 10^3 (1.8-7.8); NEUTROPHILS % (AUTO) 86 % (42-75); PLATELET COUNT 237 10^3/uL (130-400); RED CELL DISTRIBUTION WIDTH 13.3 % (10.0-14.5); WHITE BLOOD COUNT 4.6 10^3/uL (4.3-11.0)
[2020-02-25 06:44] LABS: BILIRUBIN,URINE NEGATIVE (NEGATIVE); CLARITY,URINE CLEAR; COLOR,URINE YELLOW; GLUCOSE, URINE (UA) 1+ (NEGATIVE); KETONES,URINE 1+ (NEGATIVE); LEUKOCYTE ESTERASE ,URINE 1+ (NEGATIVE); NITRITE,URINE POSITIVE (NEGATIVE); PROTEIN,URINE 1+ (NEGATIVE)
--- NOTE | 2020-02-25 06:49 | ED General ---
General Chief Complaint: Fever-Adult/Adol Stated Complaint: FEVER Nursing Triage Note: PT TO ROOM 10 WITH C/O FEVER, CHILLS, VOMITING SINCE THURSDAY. Nursing Sepsis Screen: Possible Severe Sepsis Risk Source of Information: Patient, EMS Exam Limitations: No Limitations History of Present Illness Date Seen by Provider: Feb 25, 2020 Time Seen by Provider: 06:00 Initial Comments This 69-year-old woman presents to the emergency room via EMS with febrile illness, vomiting, diarrhea, chills, headache, mild cough, and shortness of breath. Symptoms started on February 21 with diarrhea. Nausea soon followed. Over the past few days she has developed fever, chills, vomiting, and headache. Temperature is 100.2 on arrival. Heart rate is 140 and appears to be sinus tachycardia. She has no known exposures to coronavirus, persons under investigation, or ill persons. She has had no travel. She denies any chest pain. She has history of diabetes with recent hyperglycemia with blood sugars in the 200s. She has history of coronary artery disease and bypass. She had two prior episodes of A. fib which were associated with surgeries and have not occurred again since then. Patient also received to the maze procedure. She is not presently anticoagulated. She reports abdominal pain with the diarrhea but no pain now except for headache. Her primary care provider is Dr. Orantes and her set up worker is Dr. Dixon. Allergies and Home Medications Allergies Coded Allergies: Cephalosporins (Verified Allergy, Unknown, 02/25/20) Penicillins (Verified Allergy, Unknown, 10/15/08) Sulfa (Sulfonamide Antibiotics) (Verified Allergy, Unknown, 10/15/08) amlodipine (Verified Allergy, Unknown, 02/25/20) Home Medications Ascorbic Acid 1,000 Mg Tablet, 1,000 MG PO BID, (Reported) Aspirin 81 Mg Tablet.dr, 81 MG PO DAILY, (Reported) Atorvastatin Calcium 10 Mg Tablet, 10 MG PO HS, (Reported) Clopidogrel Bisulfate 75 Mg Tablet, 75 MG PO DAILY Prescribed by: MARY UPTON on 03/30/182019 Digoxin 125 Mcg Tablet, 125 MCG PO DAILY, (Reported) Diltiazem HCl 240 Mg Cap.er.24h, 240 MG PO DAILY, (Reported) Enalapril Maleate 20 Mg Tablet, 20 MG PO DAILY, (Reported) Fexofenadine HCl 180 Mg Tablet, 180 MG PO SuTuThSa, (Reported) Fluticasone Propionate 16 Gm [place].susp, 2 SPRAYS NS HS, (Reported) Furosemide 40 Mg Tablet, 40 MG PO DAILY, (Reported) Hydrocodone Bit/Acetaminophen 1 Tab Tab, 1 TAB PO Q4H PRN for PAIN-MODERATE Prescribed by: MARY UPTON on 03/30/182019 Lutein 20 Mg Capsule, 20 MG PO DAILY, (Reported) Metformin HCl 500 Mg Tablet, 500 MG PO BID WITH MEALS, (Reported) Ondansetron HCl 4 Mg Tablet, 4 MG PO Q8H PRN for NAUSEA/VOMITING-1ST LINE, (Reported) Potassium Chloride 10 Meq Tablet.er, 10 MEQ PO DAILY, (Reported) Ranitidine HCl 150 Mg Tablet, 150 MG PO BID, (Reported) Simvastatin 10 Mg Tablet, 10 MG PO HS, (Reported) Sotalol HCl 160 Mg Tablet, 160 MG PO Q12H, (Reported) Sotalol HCl 80 Mg Tablet, 40 MG PO BID, (Reported) Patient Home Medication List Home Medication List Reviewed: Yes Review of Systems Review of Systems Constitutional: see HPI EENTM: no symptoms reported Respiratory: see HPI Cardiovascular: see HPI Gastrointestinal: see HPI Genitourinary: no symptoms reported : No Musculoskeletal: no symptoms reported Skin: no symptoms reported Psychiatric/Neurological: See HPI Hematologic/Lymphatic: No Symptoms Reported Immunological/Allergic: no symptoms reported Past Vpxrizh-Bpteqy-Zyqbgv Hx Past Med/Social Hx: Reviewed and Corrections made Patient Social History Alcohol Use: Denies Use Recreational Drug Use: No Smoking Status: Former Smoker Type Used: Cigarettes Former Smoker, Quit: Mar 26, 1985 2nd Hand Smoke Exposure: No Recent Foreign Travel: No Contact w/Someone Who Travel: No Recent Infectious Disease Expo: No Recent Hopitalizations: Yes (CABG) Physical Abuse: No Sexual Abuse: No Mistreated: No Fear: No Seasonal Allergies Seasonal Allergies: Yes Past Medical History Surgeries: Yes (D&C) Cardiac (MAZE), CABG, Section, Gallbladder, Orthopedic Respiratory: Yes (PE AT 22YRS) Pulmonary Embolism Currently Using CPAP: No Currently Using BIPAP: No Cardiac: Yes Atrial Fibrillation (one prior episode), Heart Attack, High Cholesterol, Hypertension Neurological: No Reproductive Disorders: Yes (D&C IN EARLY ) Female Reproductive Disorders: Denies Sexually Transmitted Disease: No HIV/AIDS: No Genitourinary: No Gastrointestinal: Yes Gastroesophageal Reflux, Diverticulosis, Pancreatitis, Chronic Diarrhea, Gall Bladder Disease Musculoskeletal: Yes Arthritis, Back Injury, Chronic Back Pain Endocrine: Yes Diabetes, Non-Insulin dep HEENT: No Cancer: No Psychosocial: No Integumentary: Yes Eczema Blood Disorders: No Adverse Reaction/Blood Tranf: No Family Medical History Reviewed Nursing Family Hx Cardiovascular disease 19 FATHER 19 MOTHER Myocardial infarction 19 FATHER Physical Exam-Suspected Sepsis Physical Exam Vital Signs Vital Signs - First Documented 02/25/20 06:04 Temp 39.1 Pulse 138 Resp 20 B/P (MAP) 141/79 (99) O2 Delivery Room Air Capillary Refill : Less Than 3 Seconds Blood Pressure Mean: 99 Height, Weight, BMI Height: 5'4.00" Weight: 160lbs. 6.4oz. [id number]; 23.00 BMI Method: General Appearance: WD/WN, Mild Distress (mildly short of breath, vomiting and ambulance) HEENT: PERRL/EOMI, Normal ENT Inspection, Other (mucous membranes dry) Neck: Normal Inspection Respiratory: Lungs Clear, Normal Breath Sounds, No Accessory Muscle Use, No Respiratory Distress Cardiovascular: No Edema, No Murmur, Tachycardia (regular) Gastrointestinal: Normal Bowel Sounds, Non Tender, Soft Extremity: Normal Inspection, No Pedal Edema Neurologic/Psychiatric: Alert, Oriented x3, No Motor/Sensory Deficits, Normal Mood/Affect, supervisor lamp shades II-XII Norm as Tested Skin: normal color, warm/dry Focused Exam Sepsis Stage: Septic Shock Possible Source: Genitouriary Lactate Level 02/25/20 06:13: Lactic Acid Level 5.64*H Time of Focused Exam: 07:39 Respiratory: Lungs Clear, Normal Breath Sounds, No Respiratory Distress Cardiovascular: No Edema, Tachycardia (regular) Capillary Refill: Less Than 3 Seconds Skin: normal color, warm/dry Lactic Acid Level Laboratory Tests Test 02/25/20 06:13 Lactic Acid Level 5.64 MMOL/L (0.50-2.00) *H Within 3hrs of presentation: Admin fluids, Admin 30ml/kg IBW due to BMI>30, Admin ABX, Blood cultures prior to ABX's, Focus exam, Lactate level Progress/Results/Core Measures Suspected Sepsis Recent Fever Within 48 Hours: Yes Infection Criteria Present: Suspected New Infection New/Unexplained Altered Menta: No Sepsis Screen: Possible Severe Sepsis Risk SIRS Temperature: Pulse: 138 Respiratory Rate: 20 Laboratory Tests 02/25/20 06:13: White Blood Count 4.6 Blood Pressure 141 /79 Mean: 99 02/25/20 06:13: Lactic Acid Level 5.64*H Laboratory Tests 02/25/20 06:13: Creatinine 1.23, INR Comment 0.9, Platelet Count 237, Total Bilirubin 0.6 Results/Orders Lab Results Laboratory Tests Test 02/25/20 06:13 02/25/20 06:35 Range/Units White Blood Count 4.6 4.3-11.0 10^3/uL Red Blood Count 4.49 4.35-5.85 10^6/uL Hemoglobin 14.2 11.5-16.0 G/DL Hematocrit 43 35-52 % Mean Corpuscular Volume 96 80-99 FL Mean Corpuscular Hemoglobin 32 25-34 PG Mean Corpuscular Hemoglobin Concent 33 32-36 G/DL Red Cell Distribution Width 13.3 10.0-14.5 % Platelet Count 237 130-400 10^3/uL Mean Platelet Volume 9.6 7.4-10.4 FL Neutrophils (%) (Auto) 86 H 42-75 % Lymphocytes (%) (Auto) 11 L 12-44 % Monocytes (%) (Auto) 1 0-12 % Eosinophils (%) (Auto) 2 0-10 % Basophils (%) (Auto) 0 0-10 % Neutrophils # (Auto) 3.9 1.8-7.8 X 10^3 Lymphocytes # (Auto) 0.5 L 1.0-4.0 X 10^3 Monocytes # (Auto) 0.1 0.0-1.0 X 10^3 Eosinophils # (Auto) 0.1 0.0-0.3 10^3/uL Basophils # (Auto) 0.0 0.0-0.1 10^3/uL Prothrombin Time 12.9 12.2-14.7 SEC INR Comment 0.9 0.8-1.4 Activated Partial Thromboplast Time 27 24-35 SEC Sodium Level 139 135-145 MMOL/L Potassium Level 4.3 3.6-5.0 MMOL/L Chloride Level 106 98-107 MMOL/L Carbon Dioxide Level 18 L 21-32 MMOL/L Anion Gap 15 H 5-14 MMOL/L Blood Urea Nitrogen 18 7-18 MG/DL Creatinine 1.23 0.60-1.30 MG/DL Estimat Glomerular Filtration Rate 43 BUN/Creatinine Ratio 15 Glucose Level 225 H 70-105 MG/DL Lactic Acid Level 5.64 *H 0.50-2.00 MMOL/L Calcium Level 9.7 8.5-10.1 MG/DL Corrected Calcium 9.9 8.5-10.1 MG/DL Total Bilirubin 0.6 0.1-1.0 MG/DL Aspartate Amino Transf (AST/SGOT) 19 5-34 U/L Alanine Aminotransferase (ALT/SGPT) 29 0-55 U/L Alkaline Phosphatase 101 40-136 U/L Lactate Dehydrogenase 208 125-220 U/L Troponin I < 0.028 <0.028 NG/ML C-Reactive Protein High Sensitivity 4.60 H 0.00-0.50 MG/DL Total Protein 7.3 6.4-8.2 GM/DL Albumin 3.8 3.2-4.5 GM/DL Procalcitonin 0.10 H <0.10 NG/ML Digoxin Level 0.41 L 0.80-2.00 NG/ML Urine Color YELLOW Urine Clarity CLEAR Urine pH 6.0 5-9 Urine Specific [place] 1.020 1.016-1.022 Urine Protein 1+ H NEGATIVE Urine Glucose (UA) 1+ H NEGATIVE Urine Ketones 1+ H NEGATIVE Urine Nitrite POSITIVE H NEGATIVE Urine Bilirubin NEGATIVE NEGATIVE Urine Urobilinogen 0.2 < = 1.0 MG/DL Urine Leukocyte Esterase 1+ H NEGATIVE Urine RBC (Auto) NEGATIVE NEGATIVE Urine RBC NONE /HPF Urine WBC 50-100 H /HPF Urine Squamous Epithelial Cells 2-5 /HPF Urine Crystals NONE /LPF Urine Bacteria LARGE H /HPF Urine Casts NONE /LPF Urine Mucus NEGATIVE /LPF Urine Culture Indicated CULTURE PENDING My Orders Orders - SHAI LAM MD Cbc With Automated Diff (02/25/20 06:17) Comprehensive Metabolic Panel (02/25/20 06:17) Blood Culture (02/25/20 06:17) Sputum Culture (02/25/20 06:17) Urinalysis (02/25/20 06:17) Urine Culture (02/25/20 06:17) Protime With Inr (02/25/20 06:17) Partial Thromboplastin Time (02/25/20 06:17) Chest 1 View, Ap/Pa Only (02/25/20 06:17) Ed Iv/Invasive Line Start (02/25/20 06:17) Ed Iv/Invasive Line Start (02/25/20 06:17) Ekg Tracing (02/25/20 06:17) Vital Signs Adult Sepsis Patie Q15M (02/25/20 06:17) O2 (02/25/20 06:17) Remove Rings In Anticipation O (02/25/20 06:17) Lactic Acid Analyzer (02/25/20 06:17) Hs C Reactive Protein (02/25/20 06:17) Troponin I (02/25/20 06:17) Ns Iv 1000 Ml (Sodium Chloride 0.9%) (02/25/20 06:17) Procalcitonin (Pct) (02/25/20 06:17) LDH (02/25/20 06:17) Coronavirus Sars-Cov-2 So 2018 (02/25/20 06:17) Ondansetron Injection (Zofran Injectio (02/25/20 06:30) Acetaminophen Tablet (Tylenol Tablet) (02/25/20 06:30) Ns Iv 1000 Ml (Sodium Chloride 0.9%) (02/25/20 06:55) Meropenem (Merrem 1000 Mg) (02/25/20 07:00) Digoxin (02/25/20 07:32) Diltiazem Cd 24 Hr Capsule (Cardizem Cd (02/25/20 07:45) Sotalol Tablet (Betapace Tablet) (02/25/20 07:45) Digoxin Tablet (Lanoxin Tablet) (02/25/20 08:15) Aspirin Enteric Coated Tablet (Ecotrin T (02/25/20 08:15) Aspirin Chewable Tablet (Baby Aspirin Ch (02/25/20 08:28) Medications Given in ED Current Medications Medications Dose Ordered Sig/Tanner Route Start Time Stop Time Status Last Admin Dose Admin Acetaminophen 1,000 mg ONCE ONCE PO 02/25/20 06:30 02/25/20 06:31 DC 02/25/20 06:26 1,000 MG Aspirin 81 mg ONCE ONCE PO 02/25/20 08:15 02/25/20 08:16 DC 02/25/20 08:25 81 MG Digoxin 0.125 mg ONCE ONCE PO 02/25/20 08:15 02/25/20 08:16 DC 02/25/20 08:25 0.125 MG Diltiazem HCl 240 mg ONCE ONCE PO 02/25/20 07:45 02/25/20 07:47 DC 02/25/20 08:13 240 MG Meropenem 1000 mg/ Sterile Water 20 ml @ 240 mls/hr ONCE ONCE IV 02/25/20 07:00 02/25/20 07:04 DC 02/25/20 07:28 240 MLS/HR Ondansetron HCl 8 mg ONCE ONCE IVP 02/25/20 06:30 02/25/20 06:31 DC 02/25/20 06:26 8 MG Sotalol HCl 60 mg ONCE ONCE PO 02/25/20 07:45 02/25/20 07:47 DC 02/25/20 08:07 60 MG Vital Signs/I&O 02/25/20 02/25/20 02/25/20 06:04 06:26 08:07 Temp 39.1 39.1 Pulse 138 125 Resp 20 B/P (MAP) 141/79 (99) O2 Delivery Room Air Capillary Refill : Less Than 3 Seconds Blood Pressure Mean: 99 Progress Note #1: Time: 06:51 Progress Note Patient seen and examined. A liter of IV fluids is infusing. Nausea was treated with Zofran. Fevers being treated with Tylenol. COVID-19 nasal swab was obtained. Further treatment is pending lab results. Progress Note #2: Time: 07:41 Progress Note Patient's heart rate is still in the 120s. She is currently receiving her second liter fluid. 2 L satisfies 30 mL/kg bolus requirements for septic shock. Patient does meet criteria for septic shock because of lactic acid greater than 4 and acute kidney injury impaired to baseline. Prior creatinine was 0.7 and current creatinine is 1.23 with a GFR of 43. Meropenem is being administered for treatment of urinary tract infection. I discussed the tachycardia and EKG with Dr. Liz who also reviewed the EKG. EKG likely represents left anterior fascicular block which is chronic compared with prior and changes associated with CABG. ECG Initial ECG Impression Date: Feb 25, 2020 Initial ECG Impression Time: 06:09 Initial ECG Rate: 139 Initial ECG Rhythm: S.Tach Comment Sinus tachycardia with early repolarization. No ischemic ST elevation or depression. Diagnostic Imaging Diagonstic Imaging: Xray Plain Films/CT/US/NM/MRI: chest Comments Chest x-ray viewed by me and report reviewed. See report below: NAME: BAKARI AVILA [facility] REC#: [id number] PT STATUS: REG ER : 1950 PHYSICIAN: HSAI LAM MD ADMIT DATE: 02/25/20/ER Draft Date of Exam:02/25/20 CHEST 1 VIEW, AP/PA ONLY EXAMINATION: Chest 1 view HISTORY: Cough, shortness of breath COMPARISON: 11/29/2012 FINDINGS: Median sternotomy wires are aligned. There are coronary artery bypass graft markers. Vague airspace opacities are seen in the right lung. No pleural effusion or pneumothorax. Heart size is normal. IMPRESSION: 1. Vague airspace opacities in the right lung concerning for pneumonia. Dictated on workstation # [id number] Dict: 02/25/20 0756 Trans: 02/25/20 0757 CV [id number] Interpreted by: URIEL ROJAS MD Departure Communication (Admissions) Time/Spoke to Admitting Phy: 08:20 Dr. Sarabia Time/Spoke to Consulting Phy: 07:30 Dr. Liz Impression Primary Impression: Septic shock Additional Impressions: Urinary tract infection Qualified Codes: N39.0 - Urinary tract infection, site not specified Person under investigation for COVID-19 Tachycardia Opacity of lung on imaging study Nausea vomiting and diarrhea Disposition: ADMITTED INPATIENT Condition: Improved Admissions Decision to Admit Reason: Admit from ER (General) Decision to Admit/Date: Feb 25, 2020 Time/Decision to Admit Time: 06:10 Departure-Patient Inst. Referrals: MIQUEL WISEMAN DO (PCP/Family) Primary Care Physician SHAI LAM MD Feb 25, 2020 06:49
[2020-02-25 06:50] LABS: INR 0.9 (0.8-1.4); PROTHROMBIN TIME PATIENT 12.9 SEC (12.2-14.7)
--- NOTE | 2020-02-25 06:50 | NUR ---
PER PT REQUEST, PT'S FAMILY CALLED AND GIVEN UPDATE ON PT.
[2020-02-25 06:51] LABS: BACTERIA,URINE LARGE /HPF; WBC,URINE 50-100 /HPF
[2020-02-25 06:58] LABS: CARBON DIOXIDE 18 MMOL/L (21-32); CHLORIDE 106 MMOL/L (98-107); CREATININE SERUM 1.23 MG/DL (0.60-1.30); POTASSIUM 4.3 MMOL/L (3.6-5.0); SODIUM 139 MMOL/L (135-145)
[2020-02-25 06:59] LABS: ALANINE AMINOTRANSFERASE 29 U/L (0-55); ALBUMIN 3.8 GM/DL (3.2-4.5); ALKALINE PHOSPHATASE 101 U/L (40-136); BILIRUBIN,TOTAL 0.6 MG/DL (0.1-1.0); BUN/CREATININE RATIO 15; CALCIUM 9.7 MG/DL (8.5-10.1); GFR ESTIMATED 43; GLUCOSE 225 MG/DL (70-105); TOTAL PROTEIN 7.3 GM/DL (6.4-8.2)
[2020-02-25] MEDS ORDERED: MEROPENEM 1,000 MG in WATER (STERILE) FOR INJECTION 20 ML IV ONE (07:00)
[2020-02-25] MEDS ORDERED: SOTALOL 80 MG (BETAPACE) TAB PO ONE (07:45)
--- NOTE | 2020-02-25 07:58 | Diagnostic Imaging Report ---
EXAMINATION: Chest 1 view HISTORY: Cough, shortness of breath COMPARISON: 11/29/2012 FINDINGS: Median sternotomy wires are aligned. There are coronary artery bypass graft markers. Vague airspace opacities are seen in the right lung. No pleural effusion or pneumothorax. Heart size is normal. IMPRESSION: 1. Vague airspace opacities in the right lung concerning for pneumonia. Dictated by: Dictated on workstation # [id number]
[2020-02-25] MEDS ORDERED: ASPIRIN E.C. 81 MG (ECOTRIN) TAB PO ONE (08:15)
[2020-02-25] MEDS ORDERED: DIGOXIN 0.125 MG (LANOXIN) TAB PO ONE (08:15)
[2020-02-25] MEDS ORDERED: ASPIRIN 81 MG CHEW (CHILDREN'S ASA) ONE (08:28)
--- OUTSIDE RECORDS SUMMARY | 2020-02-25 08:53 | XMS REPORT | Encounter Summary ---
Author Author [facility] Organization [facility] Address Unknown Phone Unavailable Care Team Providers Care Wrapping Machine Operator Name Role Phone Eric Alamo PCP Reason for Referral * US Procedures (Routine) Referred By Contact Referred To Contact Status Reason Specialty Diagnoses / Procedures Dany Ramirez MD [address] [place] [address] [facility] [address] [address] Closed Endocrinology Diagnoses Non-toxic multinodular goiter P rocedures Ultrasound Thyroid CHG US, HEAD/NECK TISSUES,REAL TIME Reason for Visit * Reason Onset Date Comments thyroid US 06/09/2019 Encounter Details Care Team Description Date Type Department Tyree Hartman RN thyroid US 06/09/2019 Telephone [facility] [address] [place] [address] Social History Date Tobacco Use Types Packs/Day Years Used Never Assessed Sex Assigned at Date Recorded Not on file documented as of this encounter Miscellaneous Notes * Addendum Note - Delfina Marquis RN - 06/10/2019 9:51 AM CHROME PLATER HELPER Addended by: DELFINA MARQUIS on: 06/10/2019 09:51 AM Modules accepted: Orders ME PLATER HELPER * Telephone Encounter - Delfina Marquis RN - 06/10/2019 9:47 AM CHROME PLATER HELPER Noted in [facility] pt last seen 07/24/17 with recs for f/u US 2-3 years with [facility]. Ne w US order placed for authorization and will schedule. LM advising message was r [email or web address] and new order placed for authorization. Once authorized our office will call to schedule. Advised pt to call office if she hasn't heard from our office in 2 weeks. Megan RN ME PLATER HELPER * Telephone Encounter - Tyree Hartman, LEMUEL - 06/09/2019 3:56 PM CHROME PLATER HELPER Triage Dr. Ramirez Needs thyroid us Spoke to pt and they told her after last thyroid US she could wait 2 years. Pt c alling to schedule. Tyree HDEZ ME PLATER HELPER documented in this encounter Plan of Treatment Care Team Description Date Type Specialty 07/23/2021 Procedure visit Endocrinology Order Schedule Name Type Priority Associated Diag noses Expected: 07/25/2019, Expires: 1 Ultrasound Thyroid Imaging Routine Non-toxic m ultinodular goiter documented as of this encounter Visit Diagnoses Diagnosis Non-toxic multinodular goiter - Primary documented in this encounter
--- OUTSIDE RECORDS SUMMARY | 2020-02-25 08:53 | XMS REPORT | Clinical Summary ---
Author Author Franklin Hernandez Organization [facility] Address Unknown Phone Unavailable Care Team Providers Care Radius Corner Machine Operator Name Role Phone Eric Alamo PP Allergies Not on File Medications Not on file Active Problems Not on file Social History Date Tobacco Use Types Packs/Day Years Used Never Assessed Sex Assigned at Date Recorded Not on file Plan of Treatment Care Team Description Date Type Specialty 07/23/2021 Procedure visit Health Maintenance Due Date Last Done Comments Colon Cancer Screening 1950 Cologuard Colonoscopy 1950 Hemoglobin A1C 1950 Lipid Panel 1950 Mammogram 1950 Medicare Wellness 1950 MMR Vaccines (1 of 1 - 1951 Standard series) Varicella Vaccines (1 of 1950 2 - 2-dose childhood series) Foot Exam 1959 Ophthalmology Exam 1959 Urine Microalbumin 1959 Depression Screening 1961 DTaP,Tdap,and Td Vaccines 1968 (1 - Tdap) Hepatitis B Vaccines (1 1968 of 3 - Risk 3-dose series) Colon Cancer Screening 1999 Annual FOBT/FIT Colon Cancer Screening 1999 Year Sigmoidoscopy Colorectal Cancer 1999 Screening Osteoporosis Screening 1999 Zoster Vaccines (1 of 2) 1999 Glaucoma Screening 65+ Yr 2014 Pneumococcal 65+ Yr (1 of 2014 1 - PPSV23) Influenza Vaccine (#1) 2020 HIB Vaccines Aged Out No longer eligible based on patient's age to complete this topic HPV Vaccines Aged Out No longer eligible based on patient's age to complete this topic Hepatitis A Vaccines Aged Out No longer eligibl e based on patient's age to complete this topic IPV Vaccines Aged Out No longer eligible based on patient's age to complete this topic Meningococcal Vaccine Aged Out No longer eligib le based on patient's age to complete this topic Pneumococcal Aged Out No longer eligible based on patient's age to complete this topic Results Not on filefrom Last 3 Months Insurance Type Payer Benefit Subscriber ID Effective Phone Address Plan / Dates Group MEDICARE MEDICARE [id number] 2014-P PART A AND resent B BCBS BLUE CROSS [id number] 2018-P FEDERAL resent PLAN Advance Directives Patient Acid Changer Explanation Type Date Recorded Advance Directives and Living Will Power of Machine Precision Engraver
--- OUTSIDE RECORDS SUMMARY | 2020-02-25 08:53 | XMS REPORT | Encounter Summary ---
Author Author [facility] Organization [facility] Address Unknown Phone Unavailable Care Team Providers Care Kennel Staff Member Name Role Phone Eric Alamo PCP Reason for Referral * US Procedures (Routine) Referred By Contact Referred To Contact Status Reason Specialty Diagnoses / Procedures Dany Ramirez MD [address] [place] [address] [facility] [address] [address] Authorized Endocrinology Diagnoses Non-toxic multinodular goiter P rocedures Ultrasound Thyroid CHG US, HEAD/NECK TISSUES,REAL TIME Reason for Visit * US Procedures (Routine) Referred By Contact Referred To Contact Status Reason Specialty Diagnoses / Procedures Dany Ramirez MD [address] [place] [address] [facility] [address] [facility] [address] [place] [address] Closed Endocrinology Diagnoses Non-toxic multinodular goiter P rocedures Ultrasound Thyroid CHG US, HEAD/NECK TISSUES,REAL TIME Encounter Details Care Team Description Date Type Department Dany Ramirez MD [address] [place] [address] [phone] Non-toxic multinodular goiter 07/21/2019 Procedure visit [facility] [address] [address] Social History Date Tobacco Use Types Packs/Day Years Used Never Assessed Sex Assigned at Date Recorded Not on file documented as of this encounter Progress Notes * Dany Ramirez MD - 07/21/2019 1:30 PM FORMING PROCESS LINE WORKER THYROID ULTRASOUND [facility] PATIENT ID: Jenae Collazo : 1950 DATE: 07/21/19 PROCEDURE: THYROID ULTRASOUND INDICATION: monitor HISTORY: MNG with benign biopsy of left inferior nodule in 2014 TECHNIQUE: Multiple real time images were obtained of both thyroid lobes and is thmus. FINDINGS: Right lobe dimensions (long x AP x trans): 4.7 x 1.7 x 1.25 cm Left lobe dimensions (long x AP x trans): 4.15 x 1.6 x 1.15 cm Isthmus (depth): 1.1 mm Echogenicity: Homogeneous and isoechoic Nodules: #1 The right lobe contained multiple small colloid cysts from the superior to i nferior pole numbering up to 4 the largest was in the upper pole less than 4 mm #2 In the left upper and midpole there a couple small colloid cyst appearing no dules less than 3.5 mm #3 Left midpole posterior primarily cystic nodule 7.7 x 5.3 x 6.5 mm #4 Left inferior pole solid mildly hypoechoic nodule with smooth margins 13.2 x 9.3 x 10.8 mm. IMPRESSION: Multinodular goiter stable with past benign biopsy of the left infer ior nodule in 2014 PLAN: Follow-up ultrasound in 2 years with our microbiology quality control technician follow-up in clinic ab out 1 week later. If stable at that time we will likely extend interval follow- up to 3 years. ING PROCESS LINE WORKER documented in this encounter Plan of Treatment Care Team Description Date Type Specialty 07/23/2021 Procedure visit Endocrinology Order Schedule Name Type Priority Associated Diag noses Expected: 07/21/2021 (Approximate), Expi res: 06/22/2022 Ultrasound Thyroid Imaging Routine Non-toxic m ultinodular goiter documented as of this encounter Visit Diagnoses Diagnosis Non-toxic multinodular goiter documented in this encounter
--- OUTSIDE RECORDS SUMMARY | 2020-02-25 08:54 | XMS REPORT | Continuity of Care Document ---
Author Organization Unknown Address Unknown Phone Unavailable Allergies Active Description Code Type Severity Reaction Onset Reported/Identified Relationship to Patient Clinical Status Yes Penicillins [id number] Drug Aller gy Unknown N/A 10/15/2008 Yes Sulfa (Sulfonamide Antibiotics) [id number] Drug Allergy Unknown N/A 009 Medications There is no data. Problems Date Dx Coded Attending Type Code Diagnosis Diagnosed By 06/18/1356 ISELA JAMIL, SAVITA Dorado Ot I10 ESSENTIAL (PRIMARY) HYPERTENSION 06/18/1356 ISELA JAMIL, SAVITA Dorado Ot R12 HEARTBURN 06/18/1356 ISELA JAMIL, SAVITA Dorado Ot R49 .0 DYSPHONIA 05/20/2014 JENNIFFER CASTRO APRN Ot 729 .5 PAIN IN LIMB 05/20/2014 JENNIFFER CASTRO APRN Ot 825.25 FX METATARSAL-CLOSED 05/20/2014 JENNIFFER CASTRO UNIVERSITY LIBRARIAN Ot E000.8 OTHER EXTERNAL CAUSE STATUS 05/20/2014 JENNIFFER CASTRO UNIVERSITY LIBRARIAN Ot E001.0 ACTIVITIES INVOLVING WALKING, MARCHING A 05/20/2014 JENNIFFER CASTRO UNIVERSITY LIBRARIAN Ot E927.0 OVEREXERTION FROM SUDDEN STRENUOUS MOVEM [...] 08/02/2014 Ot V49.81 08/02/2014 Ot V82.81 08/02/2014 IVONE MATRINEZ MIQUEL Amarilys Ot 457.1 08/02/2014 IVONE MARTINEZ MIQUEL Amarilys Ot V54.19 02/13/2015 IVONE MARTINEZ MIQUEL Amarilys Ot 240.9 02/15/2015 IVONE MARTINEZ MIQUEL Amarilys Ot 240.9 05/21/2015 Ot 401.9 05/21/2015 Ot 427.31 05/21/2015 Ot 427.89 05/21/2015 Ot 722.52 05/21/2015 Ot V49.81 05/21/2015 Ot V82.81 05/21/2015 IVONE MARTINEZ MIQUEL Amarilys Ot 457.1 05/21/2015 IVONE MARTINEZ MIQUEL Amarilys Ot V54.19 05/21/2015 IVONE MARTINEZ MIQUEL Amarilys Ot 240.9 06/18/2015 IVONE MARTINEZ MIQUEL Amarilys Ot E04.1 06/20/2015 IVONE MARTINEZ MIQUEL Amarilys Ot E04.1 08/22/2015 Ot 401.9 08/22/2015 Ot 427.31 08/22/2015 Ot 427.89 08/22/2015 Ot 722.52 08/22/2015 Ot V49.81 08/22/2015 Ot V82.81 08/22/2015 IVONE MARTINEZ MIQUEL Amarilys Ot 457.1 08/22/2015 MIQUEL WISEMAN DO Ot V54.19 08/22/2015 IVONE MARTINEZ MIQUEL Amarilys Ot 240.9 08/22/2015 IVONE MARTINEZ MIQUEL Amarilys Ot E04.1 10/12/2015 Ot 722.52 10/12/2015 Ot V49.81 10/12/2015 Ot V82.81 10/12/2015 IVONE MARTINEZ MIQUEL Amarilys Ot 457.1 10/12/2015 IVONE MARTINEZ MIQUEL Amarilys Ot V54.19 10/12/2015 IVONE MARTINEZ MIQUEL Amarilsy Ot 240.9 10/12/2015 MIQUEL WISEMAN DO Ot E04.1 04/15/2016 Ot 722.52 LUM B/LUMBOSAC DISC DEGEN 04/15/2016 Ot V49.81 ASY MPT POSTMENOPAUSAL STATUS (AGE-RELATE 04/15/2016 Ot V82.81 SCR EENING FOR OSTEOPOROSIS 04/15/2016 MIQUEL WISEMAN DO Ot 457.1 OTHER LYMPHEDEMA 04/15/2016 MIQUEL WISEMAN DO, Ot V54.19 AFTERCARE HEALING TRAUMATIC FX OTHER BON 04/15/2016 MIQUEL WISEMAN DO Ot 240.9 GOITER NOS 04/15/2016 MIQUEL WISEMAN DO, Ot E04.1 NONTOXIC SINGLE THYROID NODULE 07/10/2016 MIQUEL WISEMAN DO Ot 240.9 GOITER NOS 07/10/2016 MIQUEL WISEMAN DO, Ot E04.1 NONTOXIC SINGLE THYROID NODULE 09/01/2016 SAVITA WEISS MD, Ot I10 ESSENTIAL (PRIMARY) HYPERTENSION 09/01/2016 SAVITA WEISS MD Ot R12 HEARTBURN 09/01/2016 SAVITA WEISS MD, Ot R49 .0 DYSPHONIA 05/13/2017 MIQUEL WISEMAN DO, Ot S91.331A PUNCTURE WOUND WITHOUT FOREIGN BODY, RIG 05/13/2017 MIQUEL WISEMAN DO, Ot W45.0XXA NAIL ENTERING THROUGH SKIN, INITIAL ENCO 05/13/2017 MIQUEL WISEMAN DO Ot Y99.8 OTHER EXTERNAL CAUSE STATUS 06/02/2017 MIQUEL WISEMAN DO, Ot S91.331A PUNCTURE WOUND WITHOUT FOREIGN BODY, RIG 06/02/2017 MIQUEL WISEMAN DO, Ot W45.0XXA NAIL ENTERING THROUGH SKIN, INITIAL ENCO 06/02/2017 MIQUEL WISEMAN DO, Ot Y99.8 OTHER EXTERNAL CAUSE STATUS 06/03/2017 MIQUEL WISEMAN DO, Ot S91.331A PUNCTURE WOUND WITHOUT FOREIGN BODY, RIG 06/03/2017 MIQUEL WISEMAN DO, Ot W45.0XXA NAIL ENTERING THROUGH SKIN, INITIAL ENCO 06/03/2017 MIQUEL WISEMAN DO, Ot Y99.8 OTHER EXTERNAL CAUSE STATUS 03/31/2018 MARY UPTON MD Ot E11.9 TYPE 2 DIABETES MELLITUS WITHOUT COMPLIC 03/31/2018 MARY UPTON MD Ot E78.5 HYPERLIPIDEMIA, UNSPECIFIED 03/31/2018 MARY UPTON MD Ot I10 ESSENTIAL (PRIMARY) HYPERTENSION 03/31/2018 MARY UPTON MD Ot I25.1 0 ATHSCL HEART DISEASE OF [place] CORONARY 03/31/2018 MARY UPTON MD Ot I25.2 OLD MYOCARDIAL INFARCTION 03/31/2018 MARY UPTON MD Ot I48.0 PAROXYSMAL ATRIAL FIBRILLATION 03/31/2018 MARY UPTON MD, Ot M19.9 0 UNSPECIFIED OSTEOARTHRITIS, UNSPECIFIED 03/31/2018 MARY UPTON MD, Ot Z48.8 12 ENCNTR FOR SURGICAL AFTCR FOLLOWING SURG 03/31/2018 MARY UPTON MD Ot 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 03/31/2018 MARY UPTON MD Ot Z86.7 11 PERSONAL HISTORY OF PULMONARY EMBOLISM 03/31/2018 MARY UPTON MD Ot Z87.8 91 PERSONAL HISTORY OF NICOTINE DEPENDENCE 03/31/2018 MARY UPTON MD, Ot Z95.1 PRESENCE OF AORTOCORONARY BYPASS GRAFT 04/26/2018 MIQUEL WISEMAN DO Ot 240.9 GOITER NOS 04/26/2018 MIQUEL WISEMAN DO Ot E04.1 NONTOXIC SINGLE THYROID NODULE 04/26/2018 MIQUEL WISEMAN DO Ot S91.331A PUNCTURE WOUND WITHOUT FOREIGN BODY, RIG 04/26/2018 MIQUEL WISEMAN DO Ot W45.0XXA NAIL ENTERING THROUGH SKIN, INITIAL ENCO 04/26/2018 MIQUEL WISEMAN DO Ot Y99.8 OTHER EXTERNAL CAUSE STATUS 04/27/2018 STEPHON KRISHNA MD Ot Z48.812 ENCNTR FOR SURGICAL AFTCR FOLLOWING SURG 04/27/2018 STEPHON KRISHNA MD Ot Z95 .1 PRESENCE OF AORTOCORONARY BYPASS GRAFT 06/14/2018 STEPHON KRISHNA MD Ot Z48.812 ENCNTR FOR SURGICAL AFTCR FOLLOWING SURG 06/14/2018 STEPHON KRISHNA MD Ot Z95 .1 PRESENCE OF AORTOCORONARY BYPASS GRAFT 06/17/2018 STEPHON KRISHNA MD Ot Z48.812 ENCNTR FOR SURGICAL AFTCR FOLLOWING SURG 06/17/2018 STEPHON KRISHNA MD Ot Z95 .1 PRESENCE OF AORTOCORONARY BYPASS GRAFT 07/05/2018 STEPHON KRISHNA MD Ot Z48.812 ENCNTR FOR SURGICAL AFTCR FOLLOWING SURG 07/05/2018 STEPHON KRISHNA MD Ot Z95 .1 PRESENCE OF AORTOCORONARY BYPASS GRAFT 07/25/2018 STEPHON KRISHNA MD Ot Z48.812 ENCNTR FOR SURGICAL AFTCR FOLLOWING SURG 07/25/2018 STEPHON KRISHNA MD Ot Z95 .1 PRESENCE OF AORTOCORONARY BYPASS GRAFT 07/26/2018 TOMI JAMIL, STEPHON Nguyen Ot Z48.812 ENCNTR FOR SURGICAL AFTCR FOLLOWING SURG 07/26/2018 STEPHON KRISHNA MD Ot Z95 .1 PRESENCE OF AORTOCORONARY BYPASS GRAFT 08/04/2018 STEPHON KRISHNA MD Ot Z29 .8 ENCOUNTER FOR OTHER SPECIFIED PROPHYLACT 09/15/2018 STEPHON KRISHNA MD Ot Z29 .8 ENCOUNTER FOR OTHER SPECIFIED PROPHYLACT 09/20/2018 STEPHON KRISHNA MD Ot Z29 .8 ENCOUNTER FOR OTHER SPECIFIED PROPHYLACT 10/17/2018 STEPHON KRISHNA MD Ot Z29 .8 ENCOUNTER FOR OTHER SPECIFIED PROPHYLACT 10/18/2018 STEPHON KRISHNA MD Ot Z29 .8 ENCOUNTER FOR OTHER SPECIFIED PROPHYLACT 11/19/2018 PERICO EPPERSON MD Ot Z01.818 ENCOUNTER FOR OTHER PREPROCEDURAL EXAMIN 11/19/2018 PERICO EPPERSON MD Ot Z29 .8 ENCOUNTER FOR OTHER SPECIFIED PROPHYLACT 11/22/2018 PERICO EPPERSON MD Ot Z29 .8 ENCOUNTER FOR OTHER SPECIFIED PROPHYLACT 12/22/2018 PERICO EPPERSON MD Ot Z29 .8 ENCOUNTER FOR OTHER SPECIFIED PROPHYLACT 12/23/2018 PERICO EPPERSON MD Ot Z29 .8 ENCOUNTER FOR OTHER SPECIFIED PROPHYLACT 01/23/2019 PERICO EPPERSON MD Ot Z29 .8 ENCOUNTER FOR OTHER SPECIFIED PROPHYLACT 01/25/2019 PERICO EPPERSON MD Ot Z29 .8 ENCOUNTER FOR OTHER SPECIFIED PROPHYLACT 02/23/2019 PERICO EPPERSON MD Ot Z01.818 ENCOUNTER FOR OTHER PREPROCEDURAL EXAMIN 02/24/2019 PERICO EPPERSON MD Ot Z01.818 ENCOUNTER FOR OTHER PREPROCEDURAL EXAMIN 03/27/2019 PERICO EPPERSON MD Ot Z29 .8 ENCOUNTER FOR OTHER SPECIFIED PROPHYLACT 03/28/2019 PERICO EPPERSON MD Ot Z29 .8 ENCOUNTER FOR OTHER SPECIFIED PROPHYLACT 05/04/2019 PERICO EPPERSON MD Ot Z29 .8 ENCOUNTER FOR OTHER SPECIFIED PROPHYLACT 05/06/2019 PERICO EPPERSON MD Ot Z29 .8 ENCOUNTER FOR OTHER SPECIFIED PROPHYLACT 05/27/2019 PERICO EPPERSON MD Ot Z29 .8 ENCOUNTER FOR OTHER SPECIFIED PROPHYLACT 06/05/2019 ZHOUPERICO SANDOVAL MD Ot Z29 .8 ENCOUNTER FOR OTHER SPECIFIED PROPHYLACT 06/24/2019 ZHOUPERICO SANDOVAL MD Ot Z29 .8 ENCOUNTER FOR OTHER SPECIFIED PROPHYLACT 07/06/2019 ZHOUPERICO SANDOVAL MD Ot Z29 .8 ENCOUNTER FOR OTHER SPECIFIED PROPHYLACT 07/07/2019 ZHOUPERICO SANDOVAL MD Ot Z29 .8 ENCOUNTER FOR OTHER SPECIFIED PROPHYLACT 07/27/2019 ZHOUPERICO SANDOVAL MD Ot Z29 .8 ENCOUNTER FOR OTHER SPECIFIED PROPHYLACT 08/10/2019 ZHOUPERICO SANDOVAL MD Ot Z29 .8 ENCOUNTER FOR OTHER SPECIFIED PROPHYLACT 08/11/2019 ZHOUPERICO SANDOVAL MD Ot Z29 .8 ENCOUNTER FOR OTHER SPECIFIED PROPHYLACT 08/26/2019 ZHOUPERICO SANDOVAL MD Ot Z29 .8 ENCOUNTER FOR OTHER SPECIFIED PROPHYLACT 09/11/2019 ZHOUPERICO SANDOVAL MD Ot Z29 .8 ENCOUNTER FOR OTHER SPECIFIED PROPHYLACT 09/12/2019 ZHOUPERICO SANDOVAL MD Ot Z29 .8 ENCOUNTER FOR OTHER SPECIFIED PROPHYLACT 09/12/2019 ZHOUPERICO SANDOVAL MD Ot Z29 .8 ENCOUNTER FOR OTHER SPECIFIED PROPHYLACT 09/17/2019 ZHOUPERICO SANDOVAL MD Ot Z29 .8 ENCOUNTER FOR OTHER SPECIFIED PROPHYLACT 10/03/2019 ZHOUPERICO SANDOVAL MD Ot Z29 .8 ENCOUNTER FOR OTHER SPECIFIED PROPHYLACT 10/12/2019 ZHOUPERICO SANDOVAL MD Ot Z29 .8 ENCOUNTER FOR OTHER SPECIFIED PROPHYLACT 10/18/2019 PERICO EPPERSON MD Ot Z29 .8 ENCOUNTER FOR OTHER SPECIFIED PROPHYLACT 02/25/2020 MIQEUL WISEMAN DO Ot 240.9 GOITER NOS 02/25/2020 MIQUEL WISEMAN DO Ot E04.1 NONTOXIC SINGLE THYROID NODULE 02/25/2020 MIQUEL WISEMAN DO Ot S91.331A PUNCTURE WOUND WITHOUT FOREIGN BODY, RIG 02/25/2020 MIQUEL WISEMAN DO Ot W45.0XXA NAIL ENTERING THROUGH SKIN, INITIAL ENCO 02/25/2020 MIQUEL WISEMAN DO Ot Y99.8 OTHER EXTERNAL CAUSE STATUS 02/25/2020 STEPHON KRISHNA MD Ot Z48.812 ENCNTR FOR SURGICAL AFTCR FOLLOWING SURG 02/25/2020 STEPHON KRISHNA MD Ot Z95 .1 PRESENCE OF AORTOCORONARY BYPASS GRAFT 02/25/2020 Ot Z29.8 ENCO UNTER FOR OTHER SPECIFIED PROPHYLACT 02/25/2020 STEPHON KRISHNA MD Ot Z48.812 ENCNTR FOR SURGICAL AFTCR FOLLOWING SURG 02/25/2020 STEPHON KRISHNA MD Ot Z95 .1 PRESENCE OF AORTOCORONARY BYPASS GRAFT 02/25/2020 Ot Z29.8 ENCO UNTER FOR OTHER SPECIFIED PROPHYLACT Procedures There is no data. Results Test Result Range Capillary blood glucose measurement by g lucometer (mass/volume) - 03/26/18 22:04 Capillary blood glucose measurement by glucometer (mas s/volume) 271 mg/dL 70-110 Capillary blood glucose measurement by g lucometer (mass/volume) - 03/27/18 05:15 Capillary blood glucose measurement by glucometer (mas s/volume) 139 mg/dL 70-110 Capillary blood glucose measurement by g lucometer (mass/volume) - 03/27/18 15:03 Capillary blood glucose measurement by glucometer (mas s/volume) 127 mg/dL 70-110 Automated blood complete blood count (he mogram) panel - 03/28/18 05:44 Blood leukocytes automated count (number/volume) 7.0 10*3/uL 4.3-11.0 Blood erythrocytes automated count (number/volume) 3.41 10*6/uL 4.35-5.85 Venous blood hemoglobin measurement (mass/volume) 11.0 g/dL 11.5-16.0 Blood hematocrit (volume fraction) 34 % 35-52 Automated erythrocyte mean corpuscular volume 99 [ foz_us] 80-99 Automated erythrocyte mean corpuscular h emoglobin (mass per erythrocyte) 32 pg 25-34 Automated erythrocyte mean corpuscular h emoglobin concentration measurement (mass/volume) 33 g/dL 32-36 Automated erythrocyte distribution width ratio 14. 0 % 10.0- 14.5 Automated blood platelet count (count/volume) 244 10*3/uL 130-400 Automated blood platelet mean volume measurement 9.1 [foz_us] 7.4-10.4 Comprehensive metabolic panel - 03/28/18 05:44 Serum or plasma sodium measurement (moles/volume) 142 mmol/L 135-145 Serum or plasma potassium measurement (moles/volume) 3.8 mmol/L 3.6-5.0 Serum or plasma chloride measurement (moles/volume) 111 mmol/L 98-107 Carbon dioxide 20 mmol/L 21-32 Serum or plasma anion gap determination (moles/volume) 11 mmol/L 5-14 Serum or plasma urea nitrogen measurement (mass/volume ) 12 mg/dL 7-18 Serum or plasma creatinine measurement (mass/volume) 0.70 mg/dL 0.60-1.30 Serum or plasma urea nitrogen/creatinine mass ratio 17 NRG Serum or plasma creatinine measurement w ith calculation of estimated glomerular filtration rate > NRG Serum or plasma glucose measurement (mass/volume) 130 mg/dL 70-105 Serum or plasma calcium measurement (mass/volume) 8.8 mg/dL 8.5-10.1 Serum or plasma total bilirubin measurement (mass/volu me) 0.4 mg/dL 0.1-1.0 Serum or plasma alkaline phosphatase henna surement (enzymatic activity/volume) 83 U/L 40-136 Serum or plasma aspartate aminotransfera se measurement (enzymatic activity/volume) 20 U/L 5-34 Serum or plasma alanine aminotransferase measurement (enzymatic activity/volume) 38 U/L 0-55 Serum or plasma protein measurement (mass/volume) 5.4 g/dL 6.4-8.2 Serum or plasma albumin measurement (mass/volume) 2.7 g/dL 3.2-4.5 CALCIUM CORRECTED 9.8 mg/dL 8.5-10.1 Digoxin - 03/28/18 05:44 Digoxin < ng/mL 0.80-2.00 Capillary blood glucose measurement by g lucometer (mass/volume) - 03/28/18 06:19 Capillary blood glucose measurement by glucometer (mas s/volume) 122 mg/dL 70-110 Capillary blood glucose measurement by g lucometer (mass/volume) - 03/28/18 18:02 Capillary blood glucose measurement by glucometer (mas s/volume) 103 mg/dL 70-110 Capillary blood glucose measurement by g lucometer (mass/volume) - 03/29/18 06:21 Capillary blood glucose measurement by glucometer (mas s/volume) 116 mg/dL 70-110 Capillary blood glucose measurement by g lucometer (mass/volume) - 03/29/18 15:48 Capillary blood glucose measurement by glucometer (mas s/volume) 172 mg/dL 70-110 Capillary blood glucose measurement by g lucometer (mass/volume) - 03/30/18 04:59 Capillary blood glucose measurement by glucometer (mas s/volume) 133 mg/dL 70-110 Capillary blood glucose measurement by g lucometer (mass/volume) - 03/30/18 16:17 Capillary blood glucose measurement by glucometer (mas s/volume) 128 mg/dL 70-110 Capillary blood glucose measurement by g lucometer (mass/volume) - 03/31/18 05:33 Capillary blood glucose measurement by glucometer (mas s/volume) 129 mg/dL 70-110 Complete blood count (CBC) with automate d white blood cell (WBC) differential - 02/25/20 06:13 Blood leukocytes automated count (number/volume) 4.6 10*3/uL 4.3-11.0 Blood erythrocytes automated count (number/volume) 4.49 10*6/uL 4.35-5.85 Venous blood hemoglobin measurement (mass/volume) 14.2 g/dL 11.5-16.0 Blood hematocrit (volume fraction) 43 % 35-52 Automated erythrocyte mean corpuscular volume 96 [ foz_us] 80-99 Automated erythrocyte mean corpuscular h emoglobin (mass per erythrocyte) 32 pg 25-34 Automated erythrocyte mean corpuscular h emoglobin concentration measurement (mass/volume) 33 g/dL 32-36 Automated erythrocyte distribution width ratio 13. 3 % 10.0- 14.5 Automated blood platelet count (count/volume) 237 10*3/uL 130-400 Automated blood platelet mean volume measurement 9.6 [foz_us] 7.4-10.4 Automated blood neutrophils/100 leukocytes 86 % 42-75 Automated blood lymphocytes/100 leukocytes 11 % 12-44 Blood monocytes/100 leukocytes 1 % 0-12 Automated blood eosinophils/100 leukocytes 2 % 0-10 Automated blood basophils/100 leukocytes 0 % 0-10 Blood neutrophils automated count (number/volume) 3.9 10*3 1.8-7.8 Blood lymphocytes automated count (number/volume) 0.5 10*3 1.0-4.0 Blood monocytes automated count (number/volume) 0. 1 10*3 0.0-1.0 Automated eosinophil count 0.1 10*3/uL 0 .0-0.3 Automated blood basophil count (count/volume) 0.0 10*3/uL 0.0-0.1 PT panel in platelet poor plasma by coag ulation assay - 02/25/20 06:13 Prothrombin time (PT) in platelet poor plasma by coagu lation assay 12.9 s 12.2-14.7 INR in platelet poor plasma or blood by coagulation as say 0.9 0.8-1.4 Activated partial thromboplastin time (a PTT) in platelet poor plasma bycoagulation assay - 02/25/20 06:13 Activated partial thromboplastin time (a PTT) in platelet poor plasma bycoagulation assay 27 s 24-35 Comprehensive metabolic panel - 02/25/20 06:13 Serum or plasma sodium measurement (moles/volume) 139 mmol/L 135-145 Serum or plasma potassium measurement (moles/volume) 4.3 mmol/L 3.6-5.0 Serum or plasma chloride measurement (moles/volume) 106 mmol/L 98-107 Carbon dioxide 18 mmol/L 21-32 Serum or plasma anion gap determination (moles/volume) 15 mmol/L 5-14 Serum or plasma urea nitrogen measurement (mass/volume ) 18 mg/dL 7-18 Serum or plasma creatinine measurement (mass/volume) 1.23 mg/dL 0.60-1.30 Serum or plasma urea nitrogen/creatinine mass ratio 15 NRG Serum or plasma creatinine measurement w ith calculation of estimated glomerular filtration rate 43 NRG Serum or plasma glucose measurement (mass/volume) 225 mg/dL 70-105 Serum or plasma calcium measurement (mass/volume) 9.7 mg/dL 8.5-10.1 Serum or plasma total bilirubin measurement (mass/volu me) 0.6 mg/dL 0.1-1.0 Serum or plasma alkaline phosphatase henna surement (enzymatic activity/volume) 101 U/L 40-136 Serum or plasma aspartate aminotransfera se measurement (enzymatic activity/volume) 19 U/L 5-34 Serum or plasma alanine aminotransferase measurement (enzymatic activity/volume) 29 U/L 0-55 Serum or plasma protein measurement (mass/volume) 7.3 g/dL 6.4-8.2 Serum or plasma albumin measurement (mass/volume) 3.8 g/dL 3.2-4.5 CALCIUM CORRECTED 9.9 mg/dL 8.5-10.1 Serum ragweed IgE antibody assay - 02/24 06:13 Serum ragweed IgE antibody assay 208 U/L 125-220 PROCALCITONIN (PCT) - 02/25/20 06:13 PROCALCITONIN (PCT) 0.10 ng/mL <0.10 Blood lactic acid measurement (moles/vol ume) - 02/25/20 06:13 Blood lactic acid measurement (moles/volume) 5.64 mmol/L 0.50-2.00 Serum or plasma troponin i.cardiac measu rement (mass/volume) - 02/25/20 06:13 Serum or plasma troponin i.cardiac measurement (mass/v olume) < ng/mL <0.028 Serum or plasma C reactive protein measu rement (mass/volume) - 02/25/20 06:13 Serum or plasma C reactive protein measurement (mass/v olume) 4.60 mg/dL 0.00-0.50 [id number] - 02/25/20 06:13 [id number] 0.41 ng/mL 0.80-2.00 Complete urinalysis with reflex to cultu re - 02/25/20 06:35 Urine color determination YELLOW NRG Urine clarity determination CLEAR NR G Urine pH measurement by test strip 6.0 5-9 Specific gravity of urine by test strip 1.020 1.016-1.022 Urine protein assay by test strip, semi-quantitative 1+ NEGATIVE Urine glucose detection by automated test strip 1+ NEGATIVE Erythrocytes detection in urine sediment by light micr oscopy NEGATIVE NEGATIVE Urine ketones detection by automated test strip 1+ NEGATIVE Urine nitrite detection by test strip POSITIVE NEGATIVE Urine total bilirubin detection by test strip NEGA TIVE NEGATIVE Urine urobilinogen measurement by automated test strip (mass/volume) 0.2 mg/dL < = 1.0 Urine leukocyte esterase detection by dipstick 1+ NEGATIVE Automated urine sediment erythrocyte cou nt by microscopy (number/high power field) NONE NRG Automated urine sediment leukocyte count by microscopy (number/high power field) [HPF] NRG Bacteria detection in urine sediment by light microsco py LARGE NRG Squamous epithelial cells detection in u rine sediment by light microscopy 2-5 NRG Crystals detection in urine sediment by light microsco py NONE NRG Casts detection in urine sediment by light microscopy NONE NRG Mucus detection in urine sediment by light microscopy NEGATIVE NRG Complete urinalysis with reflex to culture CULTURE PENDING NRG Encounters ACCT No. Visit Date/Time Discharge Status Pt. Type Provider Facility Loc./Unit Complaint [id number] 01/10/2015 09:35:46 ACT Document Registration [id number] 10/03/2019 06:42:00 00:01:00 DIS Outpatient PERICO EPPERSON MD [facility] [place] [address] CARDIAC REHAB PHASE III [id number] 09/09/2019 06:34:00 00:01:00 DIS Outpatient PERICO EPPERSON MD [facility] [place] [address] CARDIAC REHAB PHASE III [id number] 08/08/2019 06:22:00 00:01:00 DIS Outpatient PERICO EPPERSON MD [facility] [place] [address] CARDIAC REHAB PHASE III [id number] 07/06/2019 14:53:00 00:01:00 DIS Outpatient PERICO EPPERSON MD [facility] [place] [address] CARDIAC REHAB PHASE III [id number] 06/03/2019 06:10:00 00:01:00 DIS Outpatient PERICO EPPERSON MD [facility] [place] [address] CARDIAC REHAB PHASE III [id number] 05/04/2019 06:36:00 00:01:00 DIS Outpatient PERICO EPPERSON MD [facility] [place] [address] CARDIAC REHAB PHASE III [id number] 03/23/2019 07:21:00 00:01:00 DIS Outpatient PERICO EPPERSON MD [facility] [place] [address] CARDIAC REHAB PHASE III [id number] 02/23/2019 06:25:00 019 00:01:00 DIS Outpatient PERICO EPPERSON MD [facility] [place] [address] CARDIAC REHAB PHASE III [id number] 01/21/2019 06:17:00 00:01:00 DIS Outpatient PERICO EPPERSON MD [facility] [place] [address] CARDIAC REHAB PHASE III [id number] 12/22/2018 13:14:00 00:01:00 DIS Outpatient PERICO EPPERSON MD [facility] [place] [address] CARDIAC REHAB PHASE III [id number] 11/19/2018 13:22:00 00:01:00 DIS Outpatient PERICO EPPERSON MD [facility] [place] [address] CARDIAC REHAB PHASE III [id number] 10/13/2018 13:15:00 00:01:00 DIS Outpatient STEPHON KRISHNA MD [facility] [place] [address] CARDIAC REHAB PHASE III [id number] 08/30/2018 14:00:00 00:01:00 DIS Outpatient STEPHON KRISHNA MD [facility] [place] [address] CARDIAC REHAB PHASE III [id number] 07/23/2018 13:21:00 00:01:00 DIS Outpatient STEPHON KRISHNA MD [facility] [place] [address] CARDIAC REHAB [facility] III [id number] 07/26/2018 11:00:00 23:59:59 CLS Preadmit STEPHON KRISHNA MD [facility] CR POST ACB [id number] 06/25/2018 10:22:00 00:01:00 DIS Outpatient STEPHON KRISHNA MD [facility] CR POST ACB [id number] 05/11/2017 15:41:00 23:59:59 CLS Outpatient MIQUEL WISEMAN DO [facility] RAD PUNCTURE WOUND [id number] 08/08/2016 13:45:00 13:57:00 DIS Outpatient SAVITA WEISS MD [facility] REHAB HORASENESS; SPASMATIC D YSPHONIA [id number] 05/21/2015 09:23:00 11/02/2 015 23:59:59 CLS Outpatient MIQUEL WISEMAN DO [facility] RAD F/U THYROID NOD ULE [id number] 01/10/2015 09:35:00 015 23:59:59 CLS Outpatient MIQUEL WISEMAN DO [facility] RAD THYROIDMEGALLY [id number] 06/19/2014 13:10:00 014 23:59:59 CLS Outpatient MIQUEL WISEMAN DO [facility] RAD F/U FX 5TH [id number] 05/20/2014 17:45:00 014 18:58:00 DIS Emergency JENNIFFER CASTRO [employer] [facility] ER R FOOT PAIN [id number] 11/29/2012 13:47:00 013 23:59:59 CLS Outpatient MIQUEL WISEMAN DO [facility] RAD RT UPPER EXTREM ITY LYMPHEDEMA [id number] 02/25/2020 08:20:[address] Inpatient TOOTIE JAMIL, AMAIRANI Luther [facility] ICU SEPTIC SHOCK [id number] 10/13/2019 00:00:00 Document Registration [id number] 03/26/2018 18:56:[address] Inpatient MARY UPTON MD [facility] IRF [place]G, [place] [id number] 12/03/2010 13:12:00 Document Registration [id number] 03/06/2010 07:34:00 Document Registration
--- OUTSIDE RECORDS SUMMARY | 2020-02-25 08:54 | XMS REPORT ---
Author Author [employer] [facility] Relive [facility] [employer] [place] [facility] Address [address] [place] [address] Care Team Providers Care Patient Account Liaison Name Role Phone SAVITA WEISS Unavailable MIQUEL WISEMAN Unavailable MIQUEL WISEMAN Unavailable SAVITA WEISS MD Unavailable Unavailable MIQUEL WISEMAN Unavailable MIQUEL WISEMAN PCP PERICO EPPERSON MD Unavailable Unavailable MIQUEL WISEMAN PCP LORENA JAMIL, PEPE Sandy Unavailable Unavailable PERICO EPPERSON MD Unavailable Unavailable STEPHON PALMER MD Unavailable Unavailable MARY UPTON MD Unavailable Unavailable MARY UPTON MD Unavailable Unavailable MIQUEL WISEMAN DO Unavailable Unavailable SAVITA WEISS MD Unavailable Unavailable Unavailable Unavailable Unavailable Unavailable Unavailable Unavailable Unavailable Unavailable Allergies Allergy Reported Allergen(s) Allergy Type Date of Reaction(s) Care Facility Classificati Onset Provider on amLODIPine amLODIPine Drug Allergy 02-25-2020 [facility] Vi a (2 sources) TOMI JAMIL [facility] ([id number]) Cephalospori Cephalosporins Drug Allergy 02-25-2020 [facility] Via (Antibiotic) TOMI JAMIL [facility] (antibiotic) [facility] (2 sources) [facility] ([id number]) Encounters Encounter Date Encounter Type Encounter Diagnosis Care Provider Facility Start: Emergency department PEPE CARRILLO MD [facility] Via [facility] 02-25-2020 patient visit [facility] Start: Patient encounter PERICO EPPERSON MD [facility] Via [facility] 10-13-2019 procedure [facility] Start: Patient encounter PERICO EPPERSON MD [facility] Via [facility] 10-03-2019 [facility] End: 10-11-2019 Start: Patient encounter PERICO EPPERSON MD [facility] 09-28-2019 [facility] Start: Patient encounter PERICO EPPERSON MD [facility] 09-23-2019 [facility] Start: Patient encounter PERICO EPPERSON MD [facility] 09-21-2019 [facility] Start: Patient encounter PERICO EPPERSON MD [facility] 09-19-2019 [facility] Start: Patient encounter PERICO EPPERSON MD [facility] 09-16-2019 [facility] Start: Patient encounter PERICO EPPERSON MD [facility] 09-12-2019 [facility] Start: Patient encounter PERICO EPPERSON MD [facility] 09-09-2019 [facility] End: 09-10-2019 Start: Patient encounter PERICO EPPERSON MD [facility] 09-07-2019 [facility] Start: Patient encounter PERICO EPPERSON MD [facility] 09-05-2019 [facility] Start: Patient encounter PERICO EPPERSON MD [facility] 08-31-2019 [facility] Start: Patient encounter PERICO EPPERSON MD [facility] 08-29-2019 [facility] Start: Patient encounter PERICO EPPERSON MD [facility] 08-26-2019 [facility] Start: Patient encounter PERICO EPPERSON MD [facility] 08-19-2019 [facility] ([id number]) Start: Patient encounter PERICO EPPERSON MD [facility] 08-17-2019 [facility] ([id number]) Start: Patient encounter PERICO EPPERSON MD [facility] 08-15-2019 [facility] ([id number]) Start: Patient encounter PERICO EPPERSON MD [facility] 08-12-2019 [facility] ([id number]) Start: Patient encounter PERICO EPPERSON MD [facility] 08-08-2019 [facility] ([id number]) End: 08-09-2019 Start: Patient encounter PERICO EPPERSON MD [facility] 08-03-2019 [facility] ([id number]) Start: Patient encounter PERICO EPPERSON MD [facility] 08-01-2019 [facility] ([id number]) Start: Patient encounter PERICO EPPERSON MD [facility] 07-29-2019 [facility] ([id number]) Start: Patient encounter PERICO EPPERSON MD [facility] 07-25-2019 [facility] ([id number]) Start: Patient encounter PERICO EPPERSON MD [facility] 07-22-2019 [facility] ([id number]) Start: Patient encounter PERICO EPPERSON MD [facility] 07-18-2019 [facility] ([id number]) Start: Patient encounter PERICO EPPERSON MD [facility] 07-15-2019 [facility] ([id number]) Start: Patient encounter PERICO EPPERSON MD [facility] 07-11-2019 [facility] ([id number]) Start: Patient encounter PERICO EPPERSON MD [facility] 07-06-2019 [facility] End: 07-05-2019 Start: Patient encounter PERICO EPPERSON MD [facility] 07-01-2019 [facility] ([id number]) Start: Patient encounter PERICO EPPERSON MD [facility] 06-29-2019 [facility] ([id number]) Start: Patient encounter PERICO EPPERSON MD [facility] 06-27-2019 [facility] ([id number]) Start: Patient encounter PERICO EPPERSON MD [facility] 06-24-2019 [facility] ([id number]) Start: Patient encounter PERICO EPPERSON MD [facility] 06-20-2019 [facility] ([id number]) Start: Patient encounter PERICO EPPERSON MD [facility] 06-15-2019 [facility] ([id number]) Start: Patient encounter PERICO EPEPRSON MD [facility] 06-10-2019 [facility] ([id number]) Start: Patient encounter PERICO EPPERSON MD [facility] 06-08-2019 [facility] ([id number]) Start: Patient encounter PERICO EPPERSON MD [facility] 06-05-2019 [facility] ([id number]) Start: Discharged Recurring MIQUEL Dillard ion Via [facility] 06-03-2019 Hospital End: 06-06-2019 Start: Patient encounter PERICO EPPERSON MD [facility] 06-03-2019 [facility] End: 06-04-2019 Start: Patient encounter PERICO EPPERSON MD [facility] 06-01-2019 [facility] ([id number]) Start: Patient encounter PERICO EPPERSON MD [facility] 05-30-2019 [facility] ([id number]) Start: Patient encounter PERICO EPPERSON MD [facility] 05-27-2019 [facility] ([id number]) Start: Patient encounter PERICO EPPERSON MD [facility] 05-25-2019 [facility] ([id number]) Start: Patient encounter PERICO EPPERSON MD [facility] 05-23-2019 [facility] ([id number]) Start: Patient encounter PERICO EPPERSON MD [facility] 05-20-2019 [facility] ([id number]) Start: Patient encounter PERICO EPPERSON MD [facility] 05-18-2019 [facility] ([id number]) Start: Patient encounter PERICO EPPERSON MD [facility] 05-11-2019 [facility] ([id number]) Start: Patient encounter PERICO EPPERSON MD [facility] 05-06-2019 [facility] ([id number]) Start: Patient encounter PERICO EPPERSON MD [facility] 05-04-2019 [facility] ([id number]) Start: Discharged Recurring MIQUEL Dillard ion [facility] 05-04-2019 Hospital End: 05-05-2019 Start: Patient encounter PERICO EPPERSON MD [facility] 05-04-2019 [facility] End: 05-03-2019 Start: Patient encounter PERICO EPPERSON MD [facility] 05-02-2019 [facility] ([id number]) Start: Patient encounter PERICO EPPERSON MD [facility] 04-29-2019 [facility] ([id number]) Start: Patient encounter PERICO EPPERSON MD [facility] 04-22-2019 [facility] ([id number]) Start: Patient encounter PERICO EPPERSON MD [facility] 04-20-2019 [facility] ([id number]) Start: Patient encounter PERICO EPPERSON MD [facility] 04-13-2019 [facility] ([id number]) Start: Patient encounter PERICO EPPERSON MD [facility] 04-11-2019 [facility] ([id number]) Start: Patient encounter PERICO EPPERSON MD [facility] 04-08-2019 [facility] ([id number]) Start: Patient encounter PERICO EPPERSON MD [facility] 04-06-2019 [facility] ([id number]) Start: Patient encounter PERICO EPPERSON MD [facility] 04-04-2019 [facility] ([id number]) Start: Discharged Recurring PERICO Ocampo on [address] 03-23-2019 Work Phone: [facility] [phone]) End: 03-28-2019 Start: Patient encounter PERICO EPPERSON MD [facility] 03-23-2019 [facility] ([id number]) End: 03-26-2019 Start: Patient encounter PERICO EPPERSON MD [facility] 03-16-2019 [facility] ([id number]) Start: Patient encounter PERICO EPPERSON MD [facility] 03-11-2019 [facility] ([id number]) Start: Patient encounter PERICO EPPERSON MD [facility] 03-09-2019 [facility] ([id number]) Start: Patient encounter PERICO EPPERSON MD [facility] 03-07-2019 [facility] ([id number]) Start: Patient encounter PERICO EPPERSON MD [facility] 03-02-2019 [facility] ([id number]) Start: Patient encounter PERICO EPPERSON MD [facility] 02-28-2019 [facility] ([id number]) Start: Patient encounter PERICO EPPERSON MD [facility] 02-25-2019 [facility] ([id number]) Start: Patient encounter PERICO EPPERSON MD [facility] 02-23-2019 [facility] ([id number]) End: 02-23-2019 Start: Patient encounter PERICO EPPERSON MD [facility] 02-23-2019 [facility] End: 02-22-2019 Start: Patient encounter PERICO EPPERSON MD [facility] 02-21-2019 [facility] ([id number]) Start: Patient encounter PERICO EPPERSON MD [facility] 02-18-2019 [facility] ([id number]) Start: Patient encounter PERICO EPPERSON MD [facility] 02-16-2019 [facility] ([id number]) Start: Patient encounter PERICO EPPERSON MD [facility] 02-14-2019 [facility] ([id number]) Start: Patient encounter PERICO EPPERSON MD [facility] 02-11-2019 [facility] ([id number]) Start: Patient encounter PERICO EPPERSON MD [facility] 02-09-2019 [facility] ([id number]) Start: Patient encounter PERICO EPPERSON MD [facility] 02-07-2019 [facility] ([id number]) Start: Patient encounter PERICO EPPERSON MD [facility] 02-04-2019 [facility] ([id number]) Start: Patient encounter PERICO EPPERSON MD [facility] 02-02-2019 [facility] ([id number]) Start: Patient encounter PERICO EPPERSON MD [facility] 01-31-2019 [facility] ([id number]) Start: Patient encounter PERICO EPPERSON MD [facility] 01-28-2019 [facility] ([id number]) Start: Patient encounter PERICO EPPERSON MD [facility] 01-26-2019 [facility] ([id number]) Start: Patient encounter PERICO EPPERSON MD [facility] 01-24-2019 [facility] ([id number]) Start: Patient encounter PERICO EPPERSON MD [facility] 01-21-2019 [facility] ([id number]) End: 01-23-2019 Start: Patient encounter PERICO EPPERSON MD [facility] 01-21-2019 [facility] End: 01-22-2019 Start: Patient encounter PERICO EPPERSON MD [facility] 01-19-2019 [facility] ([id number]) Start: Patient encounter PERICO EPPERSON MD [facility] 01-14-2019 [facility] ([id number]) Start: Patient encounter PERICO EPPERSON MD [facility] 01-10-2019 [facility] ([id number]) Start: Patient encounter PERICO EPPERSON MD [facility] 01-07-2019 [facility] ([id number]) Start: Patient encounter PERICO EPPERSON MD [facility] 01-03-2019 [facility] ([id number]) Start: Patient encounter PERICO EPPERSON MD [facility] 12-31-2018 [facility] ([id number]) Start: Patient encounter PERICO EPPERSON MD [facility] 12-29-2018 [facility] ([id number]) Start: Patient encounter PERICO EPPERSON MD [facility] 12-27-2018 [facility] ([id number]) Start: Patient encounter PERICO EPPERSON MD [facility] 12-24-2018 [facility] ([id number]) Start: Patient encounter PERICO EPPERSON MD [facility] [address] 12-22-2018 [facility] End: 12-21-2018 Start: Patient encounter PERICO EPPERSON MD [facility] 12-20-2018 [facility] ([id number]) Start: Patient encounter PERICO EPPERSON MD [facility] 12-17-2018 [facility] ([id number]) Start: Patient encounter PERICO EPPERSON MD [facility] [address] [facility] 12-10-2018 [facility] ([id number]) Start: Patient encounter PERICO EPPERSON MD [facility] 12-08-2018 [facility] ([id number]) Start: Patient encounter PERICO EPPERSON MD [facility] [address] [facility] 12-03-2018 [facility] ([id number]) Start: Patient encounter PERICO EPPERSON MD [facility] [address] [facility] 11-29-2018 [facility] ([id number]) Start: Patient encounter PERICO EPPERSON MD [facility] 11-26-2018 [facility] ([id number]) Start: Patient encounter PERICO EPPERSON MD [facility] [address] [facility] 11-24-2018 [facility] ([id number]) Start: Patient encounter PERICO EPPERSON MD [facility] 11-22-2018 [facility] ([id number]) Start: Discharged Recurring PERICO Ocampo on Via 11-19-2018 Work Phone: [facility] [phone]) End: 11-20-2018 Start: Patient encounter PERICO EPPERSON MD [facility] 11-19-2018 [facility] ([id number]) End: 11-19-2018 Start: Patient encounter PERICO EPPERSON MD [facility] [address] 11-19-2018 [facility] End: 11-18-2018 Start: Patient encounter PERICO EPPERSON MD [facility] 11-17-2018 [facility] ([id number]) Start: Patient encounter PERICO EPPERSON MD [facility] [address] [facility] 11-15-2018 [facility] ([id number]) Start: Patient encounter PERICO EPPERSON MD [facility] [address] [facility] 11-12-2018 [facility] ([id number]) Start: Patient encounter PERICO EPPERSON MD Not Avail able ([id number]) 11-10-2018 procedure Start: Patient encounter PERICO EPPERSON MD Not Avail able ([id number]) 11-03-2018 procedure Start: Patient encounter PERICO EPPERSON MD Not Avail able ([id number]) 11-01-2018 procedure Start: Patient encounter PERICO EPPERSON MD Not Avail able ([id number]) 10-29-2018 procedure Start: Patient encounter PERICO EPPERSON MD Not Avail able ([id number]) 10-22-2018 procedure Start: Patient encounter PERICO EPPERSON MD Not Avail able ([id number]) 10-20-2018 procedure Start: Discharged Recurring SETPHON Dillardi on [address] 10-13-2018 Work Phone: [facility] [phone]) End: 10-18-2018 Start: Patient encounter STEPHON PALMER MD Not Avail able ([id number]) 10-13-2018 procedure Start: Patient encounter STEPHON PALMER MD Not Avail able ([id number]) 10-11-2018 procedure Start: Patient encounter STEPHON PALMER MD Not Avail able ([id number]) 10-08-2018 procedure Start: Patient encounter STEPHON PALMER MD Not Avail able ([id number]) 10-06-2018 procedure Start: Patient encounter STEPHON PALMER MD Not Avail able ([id number]) 10-01-2018 procedure Start: Patient encounter STEPHON PALMER MD Not Avail able ([id number]) 09-29-2018 procedure Start: Patient encounter STEPHON PALMER MD Not Avail able ([id number]) 09-24-2018 procedure Start: Patient encounter STEPHON PALMER MD Not Avail able ([id number]) 09-22-2018 procedure Start: Patient encounter STEPHON PALMER MD Not Avail able ([id number]) 09-17-2018 procedure Start: Discharged Recurring STEPHON PALMER Alvinoi on Via 08-30-2018 Work Phone: [facility] [phone]) End: 09-16-2018 Start: Patient encounter STEPHON PALMER MD [facility] Via 08-30-2018 procedure [facility] End: 09-15-2018 Start: Patient encounter STEPHON PALMER MD Not Avail able ([id number]) 08-27-2018 procedure Start: Patient encounter STEPHON PALMER MD Not Avail able ([id number]) 08-25-2018 procedure Start: Patient encounter STEPHON PALMER MD Not Avail able ([id number]) 08-25-2018 procedure Start: Patient encounter STEPHON PALMER MD Not Avail able ([id number]) 08-23-2018 procedure Start: Patient encounter STEPHON PALMER MD Not Avail able ([id number]) 08-18-2018 procedure Start: Patient encounter STEPHON PALMER MD Not Avail able ([id number]) 08-16-2018 procedure Start: Patient encounter STEPHON PALMER MD Not Avail able ([id number]) 08-16-2018 procedure Start: Patient encounter STEPHON PALMER MD [facility] [address] 07-26-2018 procedure [facility] Start: Discharged Recurring STEPHON PALMER Gilmai on [address] 07-23-2018 Work Phone: [facility] ([phone]) End: 08-05-2018 Start: Patient encounter STEPHON PALMER MD Not Avail able ([id number]) 07-23-2018 procedure End: 08-04-2018 Start: Registered Recurring STEPHON PALMER Gilmai on [address] 07-23-2018 Work Phone: [facility] [phone]) Start: Patient encounter STEPHON PALMER MD [facility] [address] 07-23-2018 procedure [facility] End: 08-03-2018 Start: Patient encounter STEPHON PALMER MD Not Avail able ([id number]) 07-21-2018 procedure Start: Patient encounter STEPHON PALMER MD Not Avail able ([id number]) 07-09-2018 procedure Start: Patient encounter STEPHON PALMER MD Not Avail able ([id number]) 07-07-2018 procedure Start: Patient encounter STEPHON PALMER MD Not Avail able ([id number]) 07-05-2018 procedure Start: Discharged Recurring STEPHON PALMER Alvinoi on [address] 06-25-2018 Work Phone: [facility] ([phone]) End: 07-26-2018 Start: Patient encounter STEPHON PALMER MD Not Avail able ([id number]) 06-25-2018 procedure End: 07-25-2018 Start: Patient encounter STEPHON PALMER MD [facility] [address] 06-25-2018 procedure [facility] End: 07-24-2018 Start: Patient encounter STEPHON PALMER MD Not Avail able ([id number]) 06-23-2018 procedure Start: Patient encounter STEPHON PALMER MD Not Avail able ([id number]) 06-21-2018 procedure Start: Patient encounter STEPHON PALMER MD Not Avail able ([id number]) 06-14-2018 procedure Start: Patient encounter STEPHON PALMER MD Not Avail able ([id number]) 06-09-2018 procedure Start: Patient encounter STEPHON PALMER MD Not Avail able ([id number]) 06-07-2018 procedure Start: Patient encounter STEPHON PALMER MD Not Avail able ([id number]) 06-04-2018 procedure Start: Patient encounter STEPHON PALMER MD Not Avail able ([id number]) 05-26-2018 Start: Patient encounter STEPHON PALMER MD Not Avail able ([id number]) 05-24-2018 Start: Patient encounter STEPHON PALMER MD Not Avail able ([id number]) 05-21-2018 Start: Patient encounter STEPHONROSE PALMER MD Not Avail able ([id number]) 05-19-2018 Start: Patient encounter STEPHON PALMER MD Not Avail able ([id number]) 05-17-2018 Start: Patient encounter STEPHON PALMER MD Not Avail able ([id number]) 05-14-2018 Start: Patient encounter STEPHON PALMER MD Not Avail able ([id number]) 05-12-2018 Start: Patient encounter STEPHON PALMER MD Not Avail able ([id number]) 05-05-2018 Start: Patient encounter STEPHON PALMER MD Not Avail able ([id number]) 05-03-2018 Start: Patient encounter STEPHON PALMER MD Not Avail able ([id number]) 04-30-2018 Start: Patient encounter STEPHON PALMER MD Not Avail able ([id number]) 04-28-2018 Start: Discharged Recurring STEPHON Nguyen TOMI Ellington on [address] 04-26-2018 Work Phone: [facility] ([phone]) End: 07-26-2018 Start: Patient encounter 04-26-2018 Start: Evaluation and MARY UPTON [address] Randall bush 03-26-2018 management of Work Phone: [facility] ([phone]) inpatient End: 03-31-2018 Start: Patient encounter 03-26-2018 End: 03-31-2018 Start: Evaluation and MARY UPTON MD [facility] Via [facility] 03-26-2018 management of [facility] inpatient End: 03-31-2018 Start: Patient encounter MIQUEL WISEMAN DO Not Av ailable ([id number]) 05-11-2017 Start: Patient encounter SAVITA WEISS MD Not Avail able ([id number]) 08-08-2016 End: 09-01-2016 Start: Patient encounter SAVITA WEISS MD [facility] [address] 08-08-2016 procedure [facility] End: 09-01-2016 Start: Patient encounter SAVITA WEISS MD Not Avail able ([id number]) 07-25-2016 procedure Start: Patient encounter MIQUEL WISEMAN DO Not Av ailable ([id number]) 05-21-2015 Start: Patient encounter MIQUEL WISEMAN DO Not Av ailable ([id number]) 01-10-2015 Start: Patient encounter MIQUEL WISEMAN DO [facility] Via [facility] 01-10-2015 procedure [facility] Encounter for other PERICO EPPERSON MD [facility] Via [facility] preprocedural [facility] examination ([id number]) Medical Equipment The data below is from unstructured sourcesNo Medical Equipment Information availableNo Medical Equipment Information availableNo Medical Equipment Information available Goals Date Patient Goal Desired Activity/St ate Immunizations Immunizatio Immunization Notes Care Provider Facility n Date vaccine ; MIQUEL FRAGOSOVAN [facility] Translations: [facility] ([id number]) [vaccine] Interventions No Information Medications Medication Drug Dates Sig Sig (Original) Class(es) (Normalized) ascorbic acid 1000 mg Ascorbic Acid Active 1000 O RAL Twice A oral tablet Day (9 sources) aspirin 81 mg delayed Nonsteroid Aspirin Active 8 1 ORAL Daily release oral tablet al (9 sources) Anti-infla mmatory Drug atorvastatin 10 mg oral HMG-CoA Atorvastatin C alcium Active 10 ORAL tablet Reductase Bedtime (9 sources) Inhibitor take 1 Atorvastatin tablet by Calcium 10 Mg mouth at Tablet 10 Mg bedtime ORAL Bedtime chlordiazePOXIDE Benzodiaze End: Chlordiazepox dedrick Hcl Discontinued 10 hydrochloride 10 mg oral pine 03-30-2018 ORAL Twice A Day as needed for Anxiety capsule March 30, 2018 (9 sources) clopidogrel 75 mg oral P2Y12 Start: Clopido grel Bisulfate Discontinued 75 tablet Platelet 03-30-2018 ORAL Daily 30 3 0 March 30, 2018 (9 sources) Inhibitor 8:20pm April 29, 2018 End: 04-29-2018 fexofenadine Histamine- Fexofenadine Hcl Ac tive 180 ORAL Every hydrochloride 180 mg 1 Receptor Thursday, Thursday, , And Thursday oral tablet Antagonist (9 sources) take 1 Fexofenadine tablet by Hcl 180 Mg mouth once Tablet 180 Mg ORAL Every Thursday, Thursday, , And Thursday fluticasone propionate Corticoste Fluticasone Pro pionate Active 2 NOT 0.05 mg/actuat metered roid APPLICABLE Bedt salvador dose nasal spray (9 sources) Fluticasone Propionate [address] [place].susp 2 Sprays NOT APPLICABLE Bedtime Hydrocodone Start: Hydrocodone Bit/Hernan taminophen Bit/Acetaminophen 05-20-2014 Discontinued 1 ORAL Every 6 Hours as (2 sources) needed for Pain May 20, 2014 End: 6:21pm March 29, 2018 03-29-2018 Start: 05-20-2014 Hydrocodone End: 03-29-2018 Bit/Acetaminop hen Discontinued 1 ORAL Every 6 Hours as needed for Pain May 20, 2014 6:21pm March 29, 2018 3 ml liraglutide 6 mg/ml GLP-1 End: Lirag lutide Discontinued 0.6 pen injector Receptor 03-30-2018 SUBCUTANEOUS Da maco March 30, 2018 (9 sources) Agonist lutein Lutein Active 20 ORAL Daily (9 sources) take 1 Lutein 20 Mg capsule by Capsule 20 Mg mouth once ORAL Daily daily take 1 Lutein 20 Mg capsule by Capsule 20 Mg mouth once ORAL Daily daily ondansetron 4 mg oral Serotonin- Ondansetron Hcl Active 4 ORAL Every 8HRS tablet 3 Receptor as needed for Nause a/Vomiting-1ST Line (9 sources) Antagonist raNITIdine 150 mg oral Histamine- Ranitidine Hcl Active 150 ORAL Twice A tablet 2 Receptor Day (9 sources) Antagonist Payers Date Payer Normalized Payer [id number] Plan of Treatment The data below is from unstructured sources Prescriptions See Medication Section Discharge Date 03/31/18 4:20pm Disposition 01 HOME, SELF-CARE Instructions/Education Provided Ster nal Precautions After Heart Bypass Surgery Forms Provided Rehab Team Conference Summary Prescriptions See Medication Section Additional Instructions/Education Dr Jordyn Palmer-04/14 at 2pm ([place] office) Care Plan and Goals F/U with PCP and CTS Problems Active Problems Problem Problem Date Last Documented Episodic/Chr Provider Classificati Recorded Date onic on Cardiac Paroxysmal atrial fibrillation 02-25-2020 Chronic MARY UPTON dysrhythmias (7 sources) Coronary Coronary arteriosclerosis ; 02-25-2020 Chronic MARY UPTON atherosclero Translations: [Atherosclerotic MD sis and heart disease of [place] cor onary other heart artery without angina pecto ris] disease (4 sources) 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 ; Translations: [Old sis and myocardial infarction] other heart disease (6 sources) Coronary Presence of aortocoronary bypass 02-25-2020 Episod ic STEPHON atherosclero graft TOMI JAMIL sis and other heart disease (20 sources) Diabetes Type 2 diabetes mellitus without 02-25-2020 Chroni c MARY UPTON mellitus complications MD without complication (7 sources) Disorders of Hyperlipidemia, unspecified 02-25-2020 Chronic MARY ALEXSANDRA lipid metabolism (7 sources) Essential Essential (primary) hypertension 02-25-2020 Chronfede BARNEY hypertension ISELA JAMIL (15 sources) Open wounds Puncture wound without foreign Episodic MIQUEL of body, right foot, initial encounter WISEMAN DO extremities (3 sources) Osteoarthrit Unspecified osteoarthritis, 02-25-2020 Chronic MARY UPTON is unspecified site (7 sources) Other Encounter for surgical aftercare 02-25-2020 Episodic aftercare following surgery on the (20 sources) circulatory system 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-25-2020 Episodi c MARY UPTON aftercare hypoglycemic drugs (1 source) Other Heartburn 02-25-2020 Episodic SAVITA gastrointest ISELA JAMIL inal disorders (8 sources) Other upper Dysphonia 02-25-2020 Episodic SAVITA respiratory ISELA JAMIL disease (8 sources) Pulmonary Personal history of pulmonary 02-25-2020 Episodic MARY UPTON heart embolism disease (7 sources) Residual Encounter for other specified 02-25-2020 Episodic PERICO DE codes; prophylactic measures JAIME JAMIL unclassified (21 sources) Screening Personal history of nicotine 02-25-2020 Episodic MARY UPTON and history dependence MD of mental health and substance abuse codes (7 sources) Thyroid Nontoxic single thyroid nodule ; 02-25-2020 Chronfede nguyen MIQUEL disorders Translations: [Goiter, unspecified] WISEMAN DO (3 sources) Past or Other Problems Problem Problem Date Last Documented Episodic/Chr Provider Classificati Recorded Date onic on External Nail entering through skin, initial MIQUEL Injury - Cut encounter WISEMAN DO / Rao (3 sources) External Other external cause status MIQUEL Injury - WISEMAN DO Unspecified (3 sources) Residual Encounter for other specified STARLA EN codes; prophylactic measures TOMI JAMIL unclassified (6 sources) NEGATED shelter (current) use of oral RONNIE UPTON (6 sources) hypoglycemic drugs MD Procedures Date Procedure Procedure Detail Performing Cl inician Start: Electrocardiograph LAW Panda [facility] 03-31-2018 ic procedure Work Phone: Start: Electrocardiograph LAW Panda [facility] 03-30-2018 ic procedure Work Phone: Start: Electrocardiograph LAW Panda [facility] 03-29-2018 ic procedure Work Phone: Start: Electrocardiograph LAW Panda [facility] 03-28-2018 ic procedure Work Phone: Start: Electrocardiograph LAW Panda [facility] 03-27-2018 ic procedure Work Phone: Results Test Name Value Interpreta Reference Facilit Date tion Range y Time not yet categorized on 2020-02-25 PROCALCITONIN (PCT) 0.10 High <0.10 PENDING 02-18 ng/mL [address] 02:13-0 ([id number]) 400 laboratory on 2020-02-25 Albumin [Mass/Vol] 3.8 g/dL Negative 3.2-4.5 PENDING 08- 8-2 g/dL [facility] [address] [place] [address] 02:13-0 ([id number]) 400 ALP [Catalytic 101 U/L Negative 40-136 U/L PENDING activity/Vol] [facility] [address] [place] [address] 02:13-0 ([id number]) 400 ALT [Catalytic 29 U/L Negative 0-55 U/L PENDING activity/Vol] [facility] [address] [place] [address] 02:13-0 ([id number]) 400 Anion gap 15 mmol/L High 5-14 PENDING [Moles/Vol] mmol/L [facility] [address] [place] [address] 02:13-0 ([id number]) 400 aPTT Coag (PPP) 27 s Negative 24-35 s PENDING [Time] [facility] [address] [place] [address] 02:13-0 ([id number]) 400 AST [Catalytic 19 U/L Negative 5-34 U/L PENDING activity/Vol] [facility] [address] [place] [address] 02:13-0 ([id number]) 400 Bacteria LM Ql LARGE Abnormal PENDING (Urine sed) [facility] 02:35-0 ([id number]) 400 Basophils (Bld) 0.0 10*3/uL Negative 0.0-0.1 PENDING 02-24 [#/Vol] 10*3/uL [facility] 02:13-0 ([id number]) 400 Basophils/100 WBC 0 % Negative 0-10 % PENDING 02-24 (Bld) [facility] 02:13-0 ([id number]) 400 Bilirubin [Mass/Vol] 0.6 mg/dL Negative 0.1-1.0 PENDING -2 mg/dL [facility] 02:13-0 ([id number]) 400 Bilirubin Ql (U) Negative Invalid NEGATIVE PENDING Interpreta [facility] 020 tion Code N [facility] 02:35-0 ([id number]) 400 Calcium [Mass/Vol] 9.7 mg/dL Negative 8.5-10.1 PENDING 08-0 8-2 mg/dL [facility] 02:13-0 ([id number]) 400 Calcium [Mass/Vol] 9.9 mg/dL Negative 8.5-10.1 PENDING 08-0 8-2 mg/dL [facility] 02:13-0 ([id number]) 400 Casts LM Ql (Urine NONE Invalid PENDING sed) Interpreta [facility] 020 tion Code N [facility] 02:35-0 ([id number]) 400 Chloride [Moles/Vol] 106 mmol/L Negative 98-107 PENDING 0 8-08-2 mmol/L [facility] 02:13-0 ([id number]) 400 Clarity (U) CLEAR Invalid PENDING Interpreta [facility] 020 tion Code [facility] 02:35-0 ([id number]) 400 CO2 [Moles/Vol] 18 mmol/L Low 21-32 PENDING 02-24-2 mmol/L [facility] 02:13-0 ([id number]) 400 Color (U) YELLOW Invalid PENDING Interpreta [facility] 020 tion Code [facility] 02:35-0 ([id number]) 400 Creatinine 1.23 mg/dL Negative 0.60-1.30 PENDING [Mass/Vol] mg/dL [facility] 02:13-0 ([id number]) 400 Creatinine and 43 Invalid PENDING Glomerular Interpreta [facility] 020 filtration tion Code N [facility] 02:13-0 rate.predicted panel ([id number]) 400 - Serum, Plasma or Blood CRP [Mass/Vol] 4.60 High 0.00-0.50 PENDING mg/dL [facility] 02:13-0 ([id number]) 400 Crystals LM Ql NONE Invalid PENDING (Urine sed) Interpreta [facility] 020 tion Code N [facility] 02:35-0 ([id number]) 400 Digoxin [Mass/Vol] 0.41 ng/mL Low 0.80-2.00 PENDING 02-18 ng/mL [facility] 02:13-0 ([id number]) 400 Eosinophils (Bld) 0.1 10*3/uL Negative 0.0-0.3 PENDING 02-18 [#/Vol] 10*3/uL [facility] 02:13-0 ([id number]) 400 Eosinophils/100 WBC 2 % Negative 0-10 % PENDING 02-18 (Bld) [facility] 02:13-0 ([id number]) 400 Epithelial 2-5 Invalid PENDING cells.squamous LM Ql Interpreta [facility] 020 (Urine sed) tion Code N [facility] 02:35-0 ([id number]) 400 Erythrocyte 13.3 % Negative 10.0-14.5 PENDING distribution width % [facility] 020 (RBC) [Ratio] [facility] 02:13-0 ([id number]) 400 Glucose [Mass/Vol] 225 mg/dL High 70-105 PENDING 08-0 8-2 mg/dL [facility] 02:13-0 ([id number]) 400 Glucose Auto test 1+ Abnormal NEGATIVE PENDING 02-24 strip Ql (U) [facility] 02:35-0 ([id number]) 400 Hematocrit (Bld) 43 % Negative 35-52 % PENDING [Volume fraction] [facility] [address] [place] [address] 02:13-0 ([id number]) 400 Hemoglobin (Bld) 14.2 g/dL Negative 11.5-16.0 PENDING [Mass/Vol] g/dL [address] 02:13-0 ([id number]) 400 INR Coag (Platelet 0.9 Negative 0.8-1.4 PENDING 2 poor plasma or [facility] 020 blood) [Relative N [facility] 02:13-0 time] ([id number]) 400 Ketones Auto test 1+ Abnormal NEGATIVE PENDING 02-24 strip Ql (U) [address] 02:35-0 ([id number]) 400 Lactate [Moles/Vol] 5.64 mmol/L Critically 0.50-2.00 PENDING high mmol/L [address] 02:13-0 (12963) 400 LDH [Catalytic 208 U/L Negative 125-220 PENDING activity/Vol] U/L [address] 02:13-0 ([id number]) 400 Leukocyte esterase 1+ Abnormal NEGATIVE PENDING 02-18 Test strip Ql (U) [address] 02:35-0 (03570) 400 Lymphocytes (Bld) 0.5 10*3/uL Low 1.0-4.0 PENDING 02-18 [#/Vol] 10*[address] 02:13-0 ([id number]) 400 Lymphocytes/100 WBC 11 % Low 12-44 % PENDING 02-18 (Bld) [address] 02:13-0 ([id number]) 400 MCH (RBC) [Entitic 32 pg Negative 25-34 pg PENDING 8-2 mass] [address] 02:13-0 ([id number]) 400 MCHC (RBC) 33 g/dL Negative 32-36 g/dL PENDING [Mass/Vol] [address] 02:13-0 (50434) 400 MCV (RBC) [Entitic 96 Negative 80-99 PENDING 8-2 vol] [foz_us] [facility] 02:13-0 ([id number]) 400 Monocytes (Bld) 0.1 10*3/uL Negative 0.0-1.0 PENDING 02-24 [#/Vol] 10*3 [facility] 02:13-0 ([id number]) 400 Monocytes/100 WBC 1 % Negative 0-12 % PENDING 02-24 (Bld) [facility] 020 [facility] 02:13-0 ([id number]) 400 Mucus Ql (Urine sed) Negative Invalid PENDING 02-24 Interpreta [facility] 020 tion Code N [facility] 02:35-0 ([id number]) 400 Neutrophils (Bld) 3.9 10*3/uL Negative 1.8-7.8 PENDING 02-18 [#/Vol] 10*3 [facility] 020 [facility] 02:13-0 ([id number]) 400 Neutrophils/100 WBC 86 % High 42-75 % PENDING 02-18 (Bld) [facility] 020 [facility] 02:13-0 ([id number]) 400 Nitrite Ql (U) Positive Abnormal NEGATIVE PENDING [facility] 020 [facility] 02:35-0 ([id number]) 400 pH (U) 6.0 [pH] Invalid 5-9 PENDING Interpreta [facility] 020 tion Code N [facility] 02:35-0 (18089) 400 Platelet mean volume 9.6 Negative 7.4-10.4 PENDING (Bld) [Entitic vol] [foz_us] [facility] 020 [facility] 02:13-0 (25902) 400 Platelets (Bld) 237 10*3/uL Negative 130-400 PENDING 02-24 [#/Vol] 10*3/uL [facility] 020 [facility] 02:13-0 (40498) 400 Potassium 4.3 mmol/L Negative 3.6-5.0 PENDING [Moles/Vol] mmol/L [facility] 020 [facility] 02:13-0 ([id number]) 400 Protein [Mass/Vol] 7.3 g/dL Negative 6.4-8.2 PENDING 08- 8-2 g/dL [facility] 020 [facility] 02:13-0 (65962) 400 Protein Ql (U) 1+ Abnormal NEGATIVE PENDING [facility] 020 [facility] 02:35-0 ([id number]) 400 PT Coag (PPP) [Time] 12.9 s Negative 12.2-14.7 PENDING s [facility] 020 [facility] 02:13-0 ([id number]) 400 RBC (Bld) [#/Vol] 4.49 10*6/uL Negative 4.35-5.85 PENDING 10*6/uL [facility] 020 [facility] 02:13-0 (35817) 400 RBC LM.HPF (Urine NONE Invalid PENDING sed) [#/Area] Interpreta [facility] 020 tion Code [facility] 02:35-0 (76802) 400 RBC Ql (U) Negative Invalid NEGATIVE PENDING Interpreta [facility] 020 tion Code [facility] 02:35-0 (89315) 400 Sodium [Moles/Vol] 139 mmol/L Negative 135-145 PENDING 02-18 mmol/L [facility] 020 [facility] 02:13-0 ([id number]) 400 Specific gravity (U) 1.020 Invalid 1.016-1.02 PENDING 0 [Rel density] Interpreta 2 [facility] 020 tion Code [facility] 02:35-0 ([id number]) 400 Troponin I.cardiac ng/mL Negative <0.028 PENDING 08-0 8-2 [Mass/Vol] ng/mL [facility] 020 [facility] 02:13-0 (41885) 400 Urea nitrogen 18 mg/dL Negative 7-18 mg/dL PENDING [Mass/Vol] [facility] 020 [facility] 02:13-0 (02580) 400 Urea 15 mg/mg Invalid PENDING nitrogen/Creatinine Interpreta [facility] 020 [Mass ratio] tion Code [facility] 02:13-0 (77029) 400 Urobilinogen (U) 0.2 mg/dL Invalid < = 1.0 PENDING [Mass/Vol] Interpreta mg/dL [facility] 020 tion Code [facility] 02:35-0 (90063) 400 WBC (Bld) [#/Vol] 4.6 10*3/uL Negative 4.3-11.0 PENDING 02-18 10*3/uL [facility] 02:13-0 ([id number]) 400 WBC LM.HPF (Urine Abnormal [HPF] PENDING sed) [#/Area] [facility] 020 N S 02:35-0 ([id number]) 400 capillary blood glucose measurement by glucometer (mass/volume) on 2018-03-31 Glucose mass conc 129 mg/dL High 70-110 [facility] [place] [facility] (57950) venous blood hemoglobin measurement (mass/volume) on 2018-03-28 Hemoglobin mass conc 11.0 g/dL Low 11.5-16.0 Via (Bld) [facility] (69911) serum or plasma urea nitrogen/creatinine mass ratio on 2018-03-28 Urea 17 mg/mg Invalid Via nitrogen/Creatinine Interpreta Kala mass ratio tion Code [facility] (92373) serum or plasma urea nitrogen measurement (mass/volume) on 2018-03-28 Urea nitrogen mass 12 mg/dL Invalid 7-18 Via conc Interpreta Kala tion Code [facility] [place] (72385) serum or plasma total bilirubin measurement (mass/volume) on 2018-03-28 Bilirubin mass conc 0.4 mg/dL Invalid 0.1-1.0 Via Interpreta Kala tion Code [facility] [place] (71757) serum or plasma sodium measurement (moles/volume) on 2018-03-28 Sodium molar conc 142 mmol/L Invalid 135-145 Via Interpreta Kala tion Code [facility] [place] (24351) serum or plasma protein measurement (mass/volume) on 2018-03-28 Protein mass conc 5.4 g/dL Low 6.4-8.2 [facility] [place] (20182) serum or plasma potassium measurement (moles/volume) on 2018-03-28 Potassium molar conc 3.8 mmol/L Invalid 3.6-5.0 Via Interpreta Kala tion Code [facility] [place] (49136) serum or plasma glucose measurement (mass/volume) on 2018-03-28 Glucose mass conc 130 mg/dL High 70-105 Via [facility] (70387) serum or plasma creatinine measurement with calculation of estimated glomerular filtration rate on 2018-03-28 GFR/1.73 sq M Invalid Via predicted among Interpreta Kala non-blacks MDRD vol tion Code [facility] rate/area (S/P/Bld) [facility] (04257) serum or plasma creatinine measurement (mass/volume) on 2018-03-28 Creatinine mass conc 0.70 mg/dL Invalid 0.60-1.30 Via Interpreta [facility]ala tion [facility] (23995) serum or plasma chloride measurement (moles/volume) on 2018-03-28 Chloride molar conc 111 mmol/L High 98-107 Via [facility] (44662) serum or plasma calcium measurement (mass/volume) on 2018-03-28 Calcium mass conc 8.8 mg/dL Invalid 8.5-10.1 Via Interpreta Kala tion [facility] (62838) serum or plasma aspartate aminotransferase measurement (enzymatic activity/volume) on 2018-03-28 AST enzyme act/vol 20 U/L Invalid 5-34 Via Interpreta Kala tion [facility] (87030) serum or plasma anion gap determination (moles/volume) on 2018-03-28 Anion gap 3 molar 11 mmol/L Invalid 5-14 Via conc Interpreta Kala tion Code [facility] (95945) serum or plasma alkaline phosphatase measurement (enzymatic activity/volume) on 2018-03-28 ALP enzyme act/vol 83 U/L Invalid 40-136 Via Interpreta Kala tion Code [facility] (23297) serum or plasma albumin measurement (mass/volume) on 2018-03-28 Albumin mass conc 2.7 g/dL Low 3.2-4.5 Via Kala [facility] (24751) serum or plasma alanine aminotransferase measurement (enzymatic activity/volume) on 2018-03-28 ALT enzyme act/vol 38 U/L Invalid 0-55 Via Interpreta Kala tion Code [facility] (70601) digoxin on 2018-03-28 Digoxin mass conc Low 0.80-2.00 Via Kala [facility] (89729) carbon dioxide on 2018-03-28 CO2 molar conc 20 mmol/L Low 21-32 Via Kala [facility] (16944) calcium measurement corrected for albumin on 2018-03-28 Calcium mass conc 9.8 mg/dL Invalid 8.5-10.1 Via Interpreta Kala tion Code [facility] (09146) blood leukocytes automated count (number/volume) on 2018-03-28 WBC Auto #/vol (Bld) 7.0 10*3/uL Invalid 4.3-11.0 Via Interpreta Kala tion Code [facility] (91661) blood hematocrit (volume fraction) on 2018-03-28 Hematocrit Auto 34 % Low 35-52 Via Volume Fraction Kala (Bld) [facility] (22768) blood erythrocytes automated count (number/volume) on 2018-03-28 RBC Auto #/vol (Bld) 3.41 10*6/uL Low 4.35-5.85 Via Kala [facility] (89747) automated erythrocyte mean corpuscular volume on 2018-03-28 MCV Auto Entitic 99 fL Invalid 80-99 Via volume (RBC) Interpreta Kala tion Code [facility] (16941) automated erythrocyte mean corpuscular hemoglobin concentration measurement (mass/volume) on 2018-03-28 MCHC Auto mass conc 33 g/dL Invalid 32-36 Via (RBC) Interpreta Kala tion Code [facility] (77764) automated erythrocyte mean corpuscular hemoglobin (mass per erythrocyte) on 2018-03-28 MCH Auto Entitic 32 pg Invalid 25-34 Via mass (RBC) Interpreta Kala tion Code [facility] (27518) automated erythrocyte distribution width ratio on 2018-03-28 Erythrocyte 14.0 % Invalid 10.0-14.5 Via distribution width Interpreta Kala Auto Ratio (RBC) tion Code [facility] (63917) automated blood platelet mean volume measurement on 2018-03-28 Platelet mean volume 9.1 fL Invalid 7.4-10.4 Via Auto Entitic volume Interpreta Kala (Bld) tion Code [facility] (63317) automated blood platelet count (count/volume) on 2018-03-28 Platelets Auto #/vol 244 10*3/uL Invalid 130-400 Via (Bld) Interpreta [facility] Code [facility] ([id number]) Social History Date Type Detail Facility Start: Cigarettes [place] [facility] 03-27-2018 [facility] ([id number]) Start: Y - CABG [place] [facility] 03-27-2018 [facility] (77605) Start: Rarely Uses [place] [facility] 05-20-2014 [facility] ([id number]) Start: No [place] [facility] 05-20-2014 [facility] ([id number]) Start: Sex Assigned At Female [facility] 1950 [facility] (95902) End: 1950 Vital Signs The data below is from unstructured sources Vital Response Date/Time Temperature (Fahrenheit) 97.3 degree s F (97.6 - 99.5) Temperature (Calculated Celsius) 36. 59148 degrees C (36.4 - 37.5) Pulse Rate (adult) 78 bpm (60 - 90) Respiratory Rate 16 bpm (12 - 24) O2 Sat by Pulse Oximetry 98 % (88 - 100) Blood Pressure 179/80 mm Hg Pain Pain Intensity 3 Height (Feet) 5 feet Height (Inches) 4 inches Height (Calculated Centimeters) 162. 827216 cm Weight (Pounds) 155 pounds Weight (Calculated Kilograms) 70.306 818 kilograms Calculated BMI 26.60 Vital Response Date/Time Temperature (Fahrenheit) 97.2 degree s F (97.6 - 99.5) 03/31/2018 4:30pm Temperature (Calculated Celsius) 36. 42267 degrees C (36.4 - 37.5) 03/31/2018 5:40am Temperature Source Temporal 03/31/2018 4:30pm Pulse Rate (adult) 71 bpm (60 - 90) 03/31/2018 4:30pm Respiratory Rate 18 bpm (12 - 24) 03/31/2018 4:30pm O2 Sat by Pulse Oximetry 95 % (88 - 100) 03/31/2018 4:30pm Blood Pressure 148/79 mm Hg 03/31/2018 4:30pm Blood Pressure Mean 102 mm Hg (65 - 110) 03/31/2018 5:40am Pain Numeric Pain Scale 2 4:30pm Height (Feet) 5 feet 01/2018 10:21pm Height (Inches) 4.00 inches 03/26/2018 10:21pm Height (Calculated Centimeters) 162. 406375 cm 03/26/2018 10:21pm Weight (Pounds) 160 pounds 03/30/2018 6:14am Weight (Ounces) 6.4 oz 0 03/30/2018 6:14am Weight (Calculated Grams) 32449.217 gm 03/30/2018 6:14am Weight (Calculated Kilograms) 72.756 217 kilograms 03/30/2018 6:14am Calculated BMI 27.1 01/2018 10:21pm Weight Measurement Method Built in [employer] e 03/30/2018 6:14am No vital signs result information available. Functional Status The data below is from unstructured sources Query Response Date Eyad rded Patient Orientation Person Place Time Situation March 30, 2018 2:19pm Comprehension Ability Understands Co ncepts March 31, 2018 9:00am No Functional Status information available Mental Status The data below is from unstructured sourcesNo Mental Status Information AvailableNo Mental Status Information AvailableNo Mental Status Information Available Urinalysis complete W Reflex Culture panel (U) 2020-02-25 Note Date & Note Facility Type 02-25-2020 CULTURE PENDING (L) culture already in progress PENDING LOCATION [facility] Urinalysis ([id number]) complete W Reflex Culture panel (U) Evaluation note Note Date & Note Facility Type Evaluation No Assessments Information Available A scension Via note [facility] ([id number]) Advance Directives Directive Response Recor ded Date/Time Advance Directives Yes 1 07/20/13 5:57pm Health Care Power of It Technical Architect Y KEDAR AVILA 05/20/14 5:57pm Organ Donor No 05/20/14 5:57pm Directive Response Recor ded Date/Time Advance Directives Yes 1 07/20/13 5:57pm Health Care Power of It Technical Architect Farshad AVILA 05/20/14 5:57pm Organ Donor No 05/20/14 5:57pm Resuscitation Status Full Code 05/20/14 5:57pm Directive Response Recor ded Date/Time Advance Directives No 9:08pm Health Care Power of It Technical Architect Y Polina AVILA 03/26/18 9:08pm Organ Donor No 03/26/18 9:08pm Resuscitation Status Full Code 03/26/18 9:08pm Directive Response Recor ded Date/Time Advance Directives No 9:08pm Health Care Power of It Technical Architect Y Polina [facility] 03/26/18 9:08pm Organ Donor No 03/26/18 9:08pm Advance Directive Response Recorded Date/Time Advance Directives No Se 2017 9:08pm Health Care Power of It Technical Architect Y - TANIA FF [facility] March 26, 2018 9:08pm Organ Donor No March 26, 2018 9:08pm Discharge Instructions No hospital discharge instructions.No hospital discharge instructions.No hospital discharge instruction information available.Current inpatient/outpatient. Discharge instructions are currently unavailable.No hospital discharge instruction information available.No hospital discharge instruction information available.No hospital discharge instruction information available.No hospital discharge instruction information available.No hospital discharge instruction information available. Assessments No Assessments Information Available Additional Source Comments This clinical document has been generated using [employer]ise software that has been certified by the Office of the National Coordinator for Health Information Technology (ONC 15.99.04.3023.Diam.31.00.0.767712) and the National Committee for Game [employer]eding Farm Manager (NCQA, as an eMeasure certified technology). FOR RECORDS PERTAINING TO PATIENTS WHO ARE OR HAVE BEEN ENROLLED IN A CHEMICAL D EPENDENCY/SUBSTANCE ABUSE PROGRAM, SOME INFORMATION MAY BE OMITTED. This clinica l summary was aggregated from multiple sources. Caution should be exercised in using it in the provision of clinical care. This summary normalizes information from multiple sources, and as a consequence, information in this document may ma terially change the coding, format and clinical context of patient data. In myrtle tion, data may be omitted in some cases. CLINICAL DECISIONS SHOULD BE BASED ON T HE PRIMARY CLINICAL RECORDS. [employer] provides no warranty or guara ntee of the accuracy or completeness of information in this document.The followi ng information is based on time limited clinical information
[2020-02-25] MEDS ORDERED: ACETAMINOPHEN 500 MG TAB (TYLENOL) PO PRN (09:30)
[2020-02-25] MEDS ORDERED: ONDANSETRON 4 MG/2 ML (SDV) Z0FRAN IV PRN (09:30)
[2020-02-25] MEDS ORDERED: FAMO-132 PO (09:45)
[2020-02-25] MEDS: NS IV 1000 ML 1,000 ML IV SCH ×2 (09:58→13:33)
--- NOTE | 2020-02-25 12:51 | History & Physical-Hospitalist ---
History of Present Illness HPI/Chief Complaint Jenae Collazo is a 69-year-old female with past medical history of hypertension, hyperlipidemia, coronary artery disease, GERD, atrial fibrillation, who presented with fevers. She reports that it started on Thursday when she was having rigors. She said that she nearly broke her thermometer because she was shaking so badly. Her temperature was 100.4 at that time. She started taking Tylenol and Aleve and she defervesced. She was also having lower abdominal pain. She had some diarrhea. She reports dysuria. She denies any chest pain. She denies any shortness of breath or cough. She had a headache. She denies any neck stiffness. She denies any rash. She had planned to go see her doctor but she had been feeling better. This morning she started having fevers again. Source: patient Exam Limitations: no limitations Date Seen 02/25/20 Time Seen by a Provider: 10:05 Attending Physician Amairani Sommers MD PCP Donato Estrella DO Referring Physician Date of Admission Feb 25, 2020 at 08:20 Home Medications & Allergies Home Medications Reviewed patient Home Medication Reconciliation performed by pharmacy medication reconciliations residential pest control technician and/or nursing. Patients Allergies have been reviewed. Allergies Allergies Coded Allergies Cephalosporins (Verified Allergy, Unknown, 02/25/20) Penicillins (Verified Allergy, Unknown, 10/15/08) Sulfa (Sulfonamide Antibiotics) (Verified Allergy, Unknown, 10/15/08) amlodipine (Verified Allergy, Unknown, 02/25/20) Past Zohbnlm-Cphgtg-Lyzzjg Hx Past Med/Social Hx: Reviewed Nursing Past Med/Soc Hx Patient Social History Alcohol Use: Denies Use Recreational Drug Use: No Smoking Status: Former Smoker Former Smoker, Quit: Mar 26, 1985 Type Used: Cigarettes 2nd Hand Smoke Exposure: No Recent Foreign Travel: No Contact w/other who traveled: No Recent Hopitalizations: Yes (CABG) Recent Infectious Disease Expo: No Immunizations Up To Date Date of Pneumonia Vaccine: Apr 28, 2013 Seasonal Allergies Seasonal Allergies: Yes Past Medical History Surgeries: Cardiac (MAZE), CABG, Section, Gallbladder, Orthopedic Currently Using CPAP: No Currently Using BIPAP: No Cardiac: Atrial Fibrillation (one prior episode), Heart Attack, High Cholesterol, Hypertension Reproductive: Yes (D&C IN EARLY ) Sexually Transmitted Disease: No HIV/AIDS: No Female Reproductive Disorders: Denies Gastrointestinal: Gastroesophageal Reflux, Diverticulosis, Pancreatitis, Chronic Diarrhea, Gall Bladder Disease Musculoskeletal: Arthritis, Back Injury, Chronic Back Pain Endocrine: Diabetes, Non-Insulin dep Skin/Integumentary: Eczema History of Blood Disorders: No Adverse Reaction to Blood Spangler: No Family History Reviewed Nursing Family Hx Cardiovascular disease 19 FATHER 19 MOTHER Myocardial infarction 19 FATHER Review of Systems Constitutional: chills, fever, malaise EENTM: no symptoms reported Respiratory: no symptoms reported Cardiovascular: no symptoms reported Gastrointestinal: abdominal pain, diarrhea, nausea Genitourinary: dysuria Musculoskeletal: no symptoms reported Skin: no symptoms reported Psychiatric/Neurological: No Symptoms Reported Physical Exam Physical Exam Vital Signs Vital Signs - First Documented 02/25/20 02/25/20 06:04 08:51 Temp 39.1 Pulse 138 Resp 20 B/P (MAP) 141/79 (99) Pulse Ox 95 O2 Delivery Room Air Capillary Refill : Less Than 3 Seconds Height, Weight, BMI Height: 5'4.00" Weight: 160lbs. 6.4oz. 72.239696mn; 23.00 BMI Method: General Appearance: No Apparent Distress, WD/WN HEENT: PERRL/EOMI, Pharynx Normal Neck: Normal Inspection, Supple Respiratory: Lungs Clear, Normal Breath Sounds, No Respiratory Distress Cardiovascular: No Edema, No Murmur, Tachycardia (Regular rhythm) Gastrointestinal: Normal Bowel Sounds, Soft, Tenderness (Suprapubic) Back: No CVA Tenderness Extremity: Normal Inspection, Non Tender Neurologic/Psychiatric: Alert, Oriented x3, No Motor/Sensory Deficits, Normal Mood/Affect Skin: Normal Color, Warm/Dry Results Results/Procedures Labs Laboratory Tests 02/25/20 06:13 Patient resulted labs reviewed. Imaging: Reviewed Imaging Report Assessment/Plan Admission Diagnosis Septic shock Admission Status: Inpatient Order (span 2 midnights) Reason for Inpatient Admission: Septic shock her requiring IV fluids, monitoring, and antibiotics Assessment and Plan Septic shock Urinary tract infection Acute kidney injury Lactic acidosis SIRS+ with fever and tachycardia Lactic acid elevated at 5.64 Urinalysis consistent with UTI Creatinine 1.2, up from baseline 0.7 Procalcitonin 0.10, will repeat this afternoon Blood cultures drawn Started on meropenem Closely monitor blood pressures, may require central line and vasopressor support Hypertension Hold home meds with hypotension Coronary artery disease Hyperlipidemia GERD Atrial fibrillation Continue home meds Not on anticoagulation for unknown reasons DVT prophylaxis: Lovenox Diagnosis/Problems Diagnosis/Problems (1) Septic shock Status: Acute (2) Urinary tract infection Status: Acute Qualifiers: Urinary tract infection type: site unspecified Hematuria presence: without hematuria Qualified Codes: N39.0 - Urinary tract infection, site not specified (3) Acute kidney injury Status: Acute (4) Lactic acidosis Status: Acute Clinical Quality Measures DVT/VTE Risk/Contraindication: Risk Factor Score Per Nursin RFS Level Per Nursing on Admit: 4+=Very High AMAIRANI SOMMERS MD Feb 25, 2020 12:51
[2020-02-25] MEDS: MEROPENEM 500 MG/SWFI 10 ML IV PUSH IV SCH ×4 (13:33→20:07)
[2020-02-25] MEDS: inSUlin ASPART (NovoLOG) 1 UNIT/0.01 ML (CHARGE PER UNIT) SC SCH ×3 (14:59→20:05)
[2020-02-25 15:22] LABS: BUN/CREATININE RATIO 17; CARBON DIOXIDE 18 MMOL/L (21-32); CHLORIDE 113 MMOL/L (98-107); CREATININE SERUM 0.86 MG/DL (0.60-1.30); GFR ESTIMATED > 60; GLUCOSE 216 MG/DL (70-105); POTASSIUM 4.1 MMOL/L (3.6-5.0); SODIUM 140 MMOL/L (135-145)
[2020-02-25] MEDS: FLUTICASONE NASAL SPRAY (FLONASE) 16 GM BTL NS SCH (20:06)
[2020-02-25] MEDS: SOTALOL 80 MG (BETAPACE) TAB PO SCH (20:06)
[2020-02-25] MEDS: ACETAMINOPHEN 325 MG TABLET PO PRN (20:08)
--- NOTE | 2020-02-25 22:07 | NUR ---
E-ICU CALLED AND UPDATED ON PTS CURRENT VITALS SIGNS AND NEED FOR 2L NC D/T O2 SAT BEING 89-90% ON ROOM AIR. E-ICU INFORMED PT TAKES 40 MG LASIX DAILY AT HOME AND HAD NOT HAD HER DAILY DOSE, BUT HAD A TOTAL OF 4 L OF IVF THROUGHOUT THE DAY PER SEPSIS PROTOCOL. E-ICU UPDATED ON PT CURRENT IVF OF NS AT 100ML/HR AND LUNG SOUNDS BEING COARSE AND PT COMPLAINING OF FEELING LIKE SHE WAS STARTING TO GET FLUID OVERLOADED. AWAITING ORDERS AT THIS TIME. WILL CONTINUE TO MONITOR.
[2020-02-25] MEDS ORDERED: FUROSEMIDE 40 MG/4 ML INJ (LASIX) IVP ONE (22:30)
[2020-02-26] VITALS (18 sets, daily range): BP systolic 97–146; BP diastolic 43–78
[2020-02-26 03:04] LABS: BASOPHILS % (AUTO) 0 % (0-10); EOSINOPHILS # (AUTO) 0.1 10^3/uL (0.0-0.3); EOSINOPHILS % (AUTO) 1 % (0-10); HEMATOCRIT 36 % (35-52); HEMOGLOBIN 11.7 G/DL (11.5-16.0); LYMPHOCYTES # (AUTO) 1.1 X 10^3 (1.0-4.0); LYMPHOCYTES % (AUTO) 10 % (12-44); MEAN CORPUSCULAR HEMOGLOBIN 32 PG (25-34); MEAN CORPUSCULAR HGB CONC 33 G/DL (32-36); MEAN CORPUSCULAR VOLUME 98 FL (80-99); MEAN PLATELET VOLUME 9.1 FL (7.4-10.4); MONOCYTES # (AUTO) 0.7 X 10^3 (0.0-1.0); MONOCYTES % (AUTO) 7 % (0-12); NEUTROPHILS # (AUTO) 9.1 X 10^3 (1.8-7.8); NEUTROPHILS % (AUTO) 83 % (42-75); PLATELET COUNT 191 10^3/uL (130-400); RED CELL DISTRIBUTION WIDTH 13.7 % (10.0-14.5)
[2020-02-26 03:41] LABS: BUN/CREATININE RATIO 19; CARBON DIOXIDE 19 MMOL/L (21-32); CHLORIDE 115 MMOL/L (98-107); CREATININE SERUM 0.77 MG/DL (0.60-1.30); GFR ESTIMATED > 60; GLUCOSE 175 MG/DL (70-105); MAGNESIUM 1.8 MG/DL (1.6-2.4); PHOSPHORUS 2.4 MG/DL (2.3-4.7); POTASSIUM 3.9 MMOL/L (3.6-5.0); SODIUM 140 MMOL/L (135-145)
[2020-02-26] MEDS: inSUlin ASPART (NovoLOG) 1 UNIT/0.01 ML (CHARGE PER UNIT) SC SCH ×4 (04:38→21:00)
[2020-02-26] MEDS: MEROPENEM 500 MG/SWFI 10 ML IV PUSH IV SCH ×6 (05:22→21:34)
[2020-02-26] MEDS: SOTALOL 80 MG (BETAPACE) TAB PO SCH ×2 (07:29→20:13)
[2020-02-26] MEDS: CLOPIDOGREL 75 MG (PLAVIX) TABLET PO SCH (07:30)
[2020-02-26] MEDS: DIGOXIN 0.125 MG (LANOXIN) TAB PO SCH (07:30)
[2020-02-26] MEDS: FAMOTIDINE 20 MG (PEPCID) TABLET PO SCH (07:30)
[2020-02-26] MEDS: ASPIRIN E.C. 81 MG (ECOTRIN) TAB PO SCH (07:30)
--- NOTE | 2020-02-26 10:58 | Diagnostic Imaging Report ---
INDICATION: Hypoxia. Comparison made with prior examination of 02/25/2020. FINDINGS: Heart size is stable. There has been a previous median sternotomy. Some mild venous congestion. No pleural effusion or pneumothorax. Mediastinum is unremarkable. IMPRESSION: Mild central pulmonary venous congestion. Dictated by: Dictated on workstation # [id number]
[2020-02-26] MEDS ORDERED: FUROSEMIDE 40 MG (LASIX) TAB PO ONE (11:30)
--- NOTE | 2020-02-26 11:30 | Progress Note - Hospitalist ---
Subjective HPI/CC On Admission Date Seen by Provider: Feb 26, 2020 Time Seen by Provider: 09:40 Jenae Collazo is a 69-year-old female with past medical history of hypertension, hyperlipidemia, coronary artery disease, GERD, atrial fibrillation, who presented with fevers. She reports that it started on Thursday when she was having rigors. She said that she nearly broke her thermometer because she was shaking so badly. Her temperature was 100.4 at that time. She started taking Tylenol and Aleve and she defervesced. She was also having lower abdominal pain. She had some diarrhea. She reports dysuria. She denies any chest pain. She denies any shortness of breath or cough. She had a headache. She denies any neck stiffness. She denies any rash. She had planned to go see her doctor but she had been feeling better. This morning she started having fevers again. Subjective/Events-last exam She reports feeling better today. She says she had a rough night. She had some fevers and chills. She also had some shortness of breath. She says this improved after receiving Lasix. She denies any abdominal pain. She is not having any back pain. She has no other complaints. Focused Exam Lactate Level 02/25/20 12:10: Lactic Acid Level 3.68*H 02/25/20 14:50: Lactic Acid Level 2.20*H 02/25/20 17:05: Lactic Acid Level 1.73 Time of Focused Exam: 07:39 Objective Exam Vital Signs Vital Signs Date Time Temp Pulse Resp B/P (MAP) Pulse Ox O2 Delivery O2 Flow Rate FiO2 02/26/20 11:00 89 18 115/64 (81) 95 Room Air 02/26/20 07:21 36.9 02/26/20 04:00 2.00 Capillary Refill : Less Than 3 Seconds General Appearance: No Apparent Distress, WD/WN HEENT: PERRL/EOMI, Pharynx Normal Neck: Normal Inspection, Supple Respiratory: Lungs Clear, Normal Breath Sounds, No Respiratory Distress Cardiovascular: No Edema, No Murmur, Tachycardia (Regular rhythm) Gastrointestinal: Normal Bowel Sounds, Non Tender, Soft Back: No CVA Tenderness Extremity: Normal Inspection, Non Tender, No Pedal Edema Neurologic/Psychiatric: Alert, Oriented x3, No Motor/Sensory Deficits, Normal Mood/Affect Skin: Normal Color, Warm/Dry Results/Procedures Lab Laboratory Tests 02/25/20 14:50 02/26/20 02:51 Patient resulted labs reviewed. Imaging: Reviewed Imaging Report Assessment/Plan Assessment and Plan Assess & Plan/Chief Complaint Septic shock Urinary tract infection Urinalysis consistent with UTI, awaiting culture results Creatinine returned to baseline 0.7 Procalcitonin jumped from 0.1 on arrival yesterday morning to 19 in the afternoon Blood cultures pending Continue meropenem Congestive heart failure Developed pulmonary edema due to fluid resuscitation Briefly required supplemental oxygen Received one dose of Lasix last night BNP elevated at 1100 this morning Chest x-ray with pulmonary congestion Hold IV fluids Resume home Lasix dose Obtain echocardiogram Hypertension Coronary artery disease Hyperlipidemia GERD Atrial fibrillation Continue sotalol and diltiazem Not on anticoagulation for unknown reasons DVT prophylaxis: Lovenox Acute kidney injury, resolved Lactic acidosis, resolved Diagnosis/Problems Diagnosis/Problems (1) Septic shock Status: Acute (2) Urinary tract infection Status: Acute Qualifiers: Urinary tract infection type: site unspecified Hematuria presence: without hematuria Qualified Codes: N39.0 - Urinary tract infection, site not specified (3) Acute kidney injury Status: Resolved Resolution Date/Time: 02/26/20 @ 11:30 (4) Lactic acidosis Status: Resolved Resolution Date/Time: 02/26/20 @ 11:30 (5) Pulmonary edema Status: Acute Qualifiers: Chronicity: acute Qualified Codes: J81.0 - Acute pulmonary edema Clinical Quality Measures DVT/VTE Risk/Contraindication: Risk Factor Score Per Nursin RFS Level Per Nursing on Admit: 4+=Very High AMAIRANI SOMMERS MD Feb 26, 2020 11:30
[2020-02-26] MEDS ORDERED: FUROSEMIDE 20 MG (LASIX) TAB ONE (11:31)
--- NOTE | 2020-02-26 16:52 | Consultation-Cardiology ---
HPI-Cardiology Cardiology Consultation: Date of Consultation 02/26/20 Time Seen by a Provider: 16:20 Date of Admission Attending Physician Toya Sarabia MD Admitting Physician Donato Estrella DO Consulting Physician BACILIO QUIROZ MD, MA, FACP, FACC, FSCAI, CCDS Primary schedule planning manager: Dr Powers ([place], [place]) HPI: Chief Complaint: Reason for Cardiology consultation: H/o CAD and PAF HPI 69 yo woman admitted rigors and low grade fever and some diarrhea on 02/25/[address] Sarabia's service. No shortness of breath. No cp or palp or syncope. No cough. No leg swelling Review of Systems-Cardiology Review of Systems Constitutional: malaise; No weight loss, No weight gain Eyes: No vision change Ears/Nose/Throat: No ear discharge, No nasal drainage, No recent hearing loss Respiratory: As described under HPI Cardiovascular: As described under HPI Gastrointestinal: As described under HPI Genitourinary: No dysuria, No hematuria, No urine frequency changes : No Musculoskeletal: No back pain, No joint pain Skin: No rash, No ulcerations Psychiatric/Neurological: No seizure, No focal weakness, No syncope Hematologic: No bleeding abnormalities YJS-Ymbsud-Lhhrim Hx Patient Social History Alcohol Use: Denies Use Recreational Drug Use: No Smoking Status: Former Smoker Type Used: Cigarettes 2nd Hand Smoke Exposure: No Recent Foreign Travel: No Recent Infectious Disease Expo: No Hospitalization with Isolation: Denies Immunizations Up To Date Date of Pneumonia Vaccine: Apr 28, 2013 Past Medical History PMH As described under Assessment. Family Medical History Family History: Cardiovascular disease 19 FATHER 19 MOTHER Myocardial infarction 19 FATHER Allergies and Home Medications Allergies Coded Allergies: Cephalosporins (Verified Allergy, Unknown, 02/25/20) Penicillins (Verified Allergy, Unknown, 10/15/08) Sulfa (Sulfonamide Antibiotics) (Verified Allergy, Unknown, 10/15/08) amlodipine (Verified Allergy, Unknown, 02/25/20) Home Medications Ascorbic Acid 1,000 Mg Tablet, 1,000 MG PO BID, (Reported) Aspirin 81 Mg Tablet., 81 MG PO DAILY, (Reported) Atorvastatin Calcium 10 Mg Tablet, 10 MG PO HS, (Reported) Clopidogrel Bisulfate 75 Mg Tablet, 75 MG PO DAILY Prescribed by: MARY UPTON on 03/30/182019 Digoxin 125 Mcg Tablet, 125 MCG PO DAILY, (Reported) Diltiazem HCl 240 Mg Cap.er.24h, 240 MG PO DAILY, (Reported) Enalapril Maleate 20 Mg Tablet, 20 MG PO DAILY, (Reported) Famotidine 20 Mg Tablet, 20 MG PO DAILY, (Reported) Fexofenadine HCl 180 Mg Tablet, 180 MG PO SuTuThSa, (Reported) Fluticasone Propionate 16 Gm Stephenson.susp, 2 SPRAYS NS HS, (Reported) Furosemide 40 Mg Tablet, 40 MG PO DAILY, (Reported) Hydrocodone Bit/Acetaminophen 1 Tab Tab, 1 TAB PO Q4H PRN for PAIN-MODERATE Prescribed by: MARY UPTON on 03/30/18 2020 Lutein 20 Mg Capsule, 20 MG PO DAILY, (Reported) Metformin HCl 500 Mg Tablet, 500 MG PO BID WITH MEALS, (Reported) Ondansetron HCl 4 Mg Tablet, 4 MG PO Q8H PRN for NAUSEA/VOMITING-1ST LINE, (Reported) Potassium Chloride 10 Meq Tablet.er, 10 MEQ PO DAILY, (Reported) Ranitidine HCl 150 Mg Tablet, 150 MG PO BID, (Reported) Simvastatin 10 Mg Tablet, 10 MG PO HS, (Reported) Sotalol HCl 160 Mg Tablet, 160 MG PO Q12H, (Reported) Sotalol HCl 80 Mg Tablet, 40 MG PO BID, (Reported) Patient Home Medication List Home Medication List Reviewed: Yes Physical Exam-Cardiology Physical Exam Vital Signs/I&O 02/26/20 02/26/20 02/26/20 02/26/20 05:00 06:00 07:00 07:00 Pulse 95 106 107 110 Resp 17 19 20 B/P (MAP) 121/78 (92) 120/63 (82) 108/73 (85) Pulse Ox 91 92 91 O2 Delivery Room Air Room Air 02/26/20 02/26/20 02/26/20 02/26/20 07:21 07:44 08:00 09:00 Temp 36.9 Pulse 106 101 Resp 16 21 B/P (MAP) 109/57 (74) 104/53 (70) Pulse Ox 93 94 O2 Delivery Room Air Room Air Room Air Room Air 02/26/20 02/26/20 02/26/20 02/26/20 10:00 11:00 12:00 13:00 Pulse 96 89 89 87 Resp 31 18 18 B/P (MAP) 102/43 (62) 115/64 (81) 112/66 (81) Pulse Ox 94 95 95 O2 Delivery Room Air Room Air Room Air 02/26/20 02/26/20 02/26/20 02/26/20 13:00 14:00 15:00 16:00 Pulse 93 98 94 95 Resp 19 21 18 24 B/P (MAP) 103/62 (76) 110/58 (75) 114/57 (76) 115/64 (81) Pulse Ox 94 95 93 O2 Delivery Room Air Room Air Room Air Room Air 02/26/20 00:00 Intake Total 1400 ml Output Total 2050 ml Balance -650 ml Capillary Refill : Less Than 3 Seconds Constitutional: AAO x 3, well-developed, well-nourished HEENT: EOMI, hearing is well preserved; No xanthelasmas are seen Neck: carotid pulses are 2 + bilaterally, with good upstrokes Respiratory: No accessory muscle use; other (good bilat air entry) Cardiovascular: regular rate-rhythm, S1 and S2, systolic murmur (faint TIN at card base) Gastrointestinal: No tender; soft; No guarding, No rebound; audible bowel sounds Extremities: No clubbing, No cyanosis Neurologic/Psychiatric: oriented x 3, other (moves all limbs equally) Skin: normal color, warm/dry; No rash on exposed areas, No ulcerations on exposed areas Data Review Labs Laboratory Tests 02/25/20 17:05: Lactic Acid Level 1.73 02/25/20 20:03: Glucometer 181H 02/26/20 02:51: White Blood Count 11.0, Red Blood Count 3.63L, Hemoglobin 11.7, Hematocrit 36, Mean Corpuscular Volume 98, Mean Corpuscular Hemoglobin 32, Mean Corpuscular Hemoglobin Concent 33, Red Cell Distribution Width 13.7, Platelet Count 191, Mean Platelet Volume 9.1, Neutrophils (%) (Auto) 83H, Lymphocytes (%) (Auto) 10L , Monocytes (%) (Auto) 7, Eosinophils (%) (Auto) 1, Basophils (%) (Auto) 0, Loren trophils # (Auto) 9.1H, Lymphocytes # (Auto) 1.1, Monocytes # (Auto) 0.7, Eosinophils # (Auto) 0.1, Basophils # (Auto) 0.0, Sodium Level 140, Potassium Level 3.9, Chloride Level 115H, Carbon Dioxide Level 19L, Anion Gap 6, Blood Urea Nitrogen 15, Creatinine 0.77, Estimat Glomerular Filtration Rate > 60, BUN/Creatinine Ratio 19, Glucose Level 175H, Calcium Level 8.0L, Phosphorus Level 2.4, Magnesium Level 1.8, B-Type Natriuretic Peptide 1116.8H 02/26/20 10:39: Glucometer 183H Microbiology 02/25/20 MRSA Screen - Final, Complete MRSA not isolated 02/25/20 Urine Culture - Preliminary, Resulted Probable Klebsiella/Enterobact 02/25/20 Blood Culture - Preliminary, Resulted No growth Laboratory Tests 02/25/20 06:13 02/25/20 14:50 02/26/20 02:51 A/P-Cardiology Assessment/Admission Diagnosis UTI with sepsis and septic shock DEE DEE 2, likely due to septic shock Coronary artery disease: CABG 2 at [facility] several years ago using HUMPHREYS to LAD and vein graft to the diagonal artery Paroxysmal atrial fibrillation, perioperative (at time of CABG). She reports no recurrence since CABG. Has been on sotalol, but no oral anticoag, per instructions of her schedule planning manager Dr Powers H/o hypertension H/o hyperlipidemia History of back surgery Discussion and Recomendations * Continue antiplatelet therapy because of h/o CAD * Does not wish to be on oral anticoag. Says has not had any A Fib since the periop episode at time of CABG many years ago. Says has maintained normal rhythm on sotalol (except h/o isolated PACs) and this is monitored by her schedule planning manager * Continue previous cardiac regimen * Monitor labs Clinical Quality Measures DVT/VTE Risk/Contraindication: Risk Factor Score Per Nursin RFS Level Per Nursing on Admit: 4+=Very High BACILIO QUIROZ MD [facility] CCDS Feb 26, 2020 16:52
[2020-02-26] MEDS ORDERED: chlordiazePOXIDE 10 MG (LIBRIUM) NON-FORMULARY PO PRN (17:00)
--- NOTE | 2020-02-26 18:16 | NUR ---
REPORT REC'D FROM SHORER.
--- NOTE | 2020-02-26 18:21 | NUR ---
LAB CALLED AND RESULTED COVID "NOT DETECTED".
--- NOTE | 2020-02-26 18:21 | NUR ---
NOTIFIED DR. SOMMERS OF NEGATIVE COVID RESULT. OK TO REMOVE FROM ISOLATION.
--- NOTE | 2020-02-26 18:30 | NUR ---
PATIENT TRANSFERRED VIA WC TO ROOM 412 AT THIS TIME BY THIS RN WITHOUT INCIDENT. PATIENT PERSONAL BELONGINGS SENT WITH PATIENT. REPORT GIVEN TO GEORGE HDEZ, TO ASSUME CARE OF PATIENT AT THIS TIME.
--- NOTE | 2020-02-26 18:34 | NUR ---
REC'D PER WC FROM ICU. ALERT AND ORIENTED. AMBULATING INDEPENDENTLY AROUND ROOM. TELEMETRY ON. HL PATENT LT AC. REQUESTING TO SHOWER. SIEVE REPAIRER AT BEDSIDE AND GETTING PT INTO SHOWER. ASSESSMENT TO BE DONE BY ONCOMING SHIFT.
[2020-02-26] MEDS: FLUTICASONE NASAL SPRAY (FLONASE) 16 GM BTL NS SCH (20:14)
[2020-02-26] MEDS ORDERED: MEROPENEM 500 MG VIAL (MERREM) IV ONE ×2 (21:22→21:23)
[2020-02-26] MEDS ORDERED: WATER (STERILE) FOR INJECTION 10 ML ONE (21:23)
[2020-02-27 00:07] VITALS: BP 132/63
[2020-02-27] MEDS: ALPRAZolam 0.25 MG (XANAX) TAB PO PRN ×2 (00:13→20:17)
[2020-02-27] MEDS: ACETAMINOPHEN 325 MG TABLET PO PRN ×2 (03:49→10:01)
[2020-02-27 04:00] VITALS: BP 130/68
[2020-02-27 05:18] LABS: BASOPHILS % (AUTO) 0 % (0-10); EOSINOPHILS # (AUTO) 0.2 10^3/uL (0.0-0.3); EOSINOPHILS % (AUTO) 2 % (0-10); HEMATOCRIT 34 % (35-52); HEMOGLOBIN 11.1 G/DL (11.5-16.0); LYMPHOCYTES # (AUTO) 1.3 X 10^3 (1.0-4.0); LYMPHOCYTES % (AUTO) 14 % (12-44); MEAN CORPUSCULAR HEMOGLOBIN 32 PG (25-34); MEAN CORPUSCULAR HGB CONC 33 G/DL (32-36); MEAN CORPUSCULAR VOLUME 96 FL (80-99); MEAN PLATELET VOLUME 9.7 FL (7.4-10.4); MONOCYTES # (AUTO) 1.2 X 10^3 (0.0-1.0); MONOCYTES % (AUTO) 13 % (0-12); NEUTROPHILS # (AUTO) 6.6 X 10^3 (1.8-7.8); NEUTROPHILS % (AUTO) 71 % (42-75); PLATELET COUNT 202 10^3/uL (130-400); RED CELL DISTRIBUTION WIDTH 13.3 % (10.0-14.5); WHITE BLOOD COUNT 9.3 10^3/uL (4.3-11.0)
[2020-02-27 05:34] LABS: CHLORIDE 110 MMOL/L (98-107); POTASSIUM 3.3 MMOL/L (3.6-5.0); SODIUM 139 MMOL/L (135-145)
[2020-02-27 05:35] LABS: CALCIUM 8.1 MG/DL (8.5-10.1); GLUCOSE 158 MG/DL (70-105)
[2020-02-27 05:37] LABS: CARBON DIOXIDE 21 MMOL/L (21-32)
[2020-02-27 05:39] LABS: CREATININE SERUM 0.73 MG/DL (0.60-1.30); GFR ESTIMATED > 60
[2020-02-27 05:40] LABS: BUN/CREATININE RATIO 16
[2020-02-27] MEDS: inSUlin ASPART (NovoLOG) 1 UNIT/0.01 ML (CHARGE PER UNIT) SC SCH ×4 (05:41→20:27)
[2020-02-27] MEDS ORDERED: WATER (STERILE) FOR INJECTION 10 ML ONE (05:41)
[2020-02-27] MEDS ORDERED: MEROPENEM 500 MG VIAL (MERREM) IV ONE (05:41)
[2020-02-27] MEDS: MEROPENEM 500 MG/SWFI 10 ML IV PUSH IV SCH ×6 (05:53→22:41)
[2020-02-27 08:00] VITALS: BP 112/69
[2020-02-27] MEDS: ASPIRIN E.C. 81 MG (ECOTRIN) TAB PO SCH (08:38)
[2020-02-27] MEDS: DIGOXIN 0.125 MG (LANOXIN) TAB PO SCH (08:38)
[2020-02-27] MEDS: SOTALOL 80 MG (BETAPACE) TAB PO SCH ×2 (08:38→20:17)
[2020-02-27] MEDS: CLOPIDOGREL 75 MG (PLAVIX) TABLET PO SCH (08:38)
[2020-02-27] MEDS: FUROSEMIDE 40 MG (LASIX) TAB PO SCH (08:39)
[2020-02-27] MEDS: FAMOTIDINE 20 MG (PEPCID) TABLET PO SCH (08:39)
[2020-02-27] MEDS ORDERED: KCL 20 MEQ TAB (K-DUR) PO NR ×2 (08:45→12:00)
[2020-02-27] MEDS ORDERED: LORATADINE (CLARITIN) 10 MG TAB PO NR (10:00)
[2020-02-27] MEDS ORDERED: POTA10TA6 PO (10:47)
[2020-02-27] MEDS ORDERED: DIPH25TA65 PO (10:47)
[2020-02-27] MEDS ORDERED: SOTA120T PO (10:47)
[2020-02-27] MEDS ORDERED: FAMO-144 PO (10:47)
[2020-02-27] MEDS ORDERED: LIRA0.6P3 INJ (10:47)
[2020-02-27] MEDS ORDERED: CALC-694 PO (10:47)
[2020-02-27] MEDS ORDERED: CHLO10CA6 PO (10:48)
--- NOTE | 2020-02-27 10:48 | Progress Note - Hospitalist ---
Subjective HPI/CC On Admission Date Seen by Provider: Feb 27, 2020 Time Seen by Provider: 10:45 eJnae Collazo is a 69-year-old female with past medical history of hypertension, hyperlipidemia, coronary artery disease, GERD, atrial fibrillation, who presented with fevers. She reports that it started on Thursday when she was having rigors. She said that she nearly broke her thermometer because she was shaking so badly. Her temperature was 100.4 at that time. She started taking Tylenol and Aleve and she defervesced. She was also having lower abdominal pain. She had some diarrhea. She reports dysuria. She denies any chest pain. She denies any shortness of breath or cough. She had a headache. She denies any neck stiffness. She denies any rash. She had planned to go see her doctor but she had been feeling better. This morning she started having fevers again. Subjective/Events-last exam Pt reports feeling much better today. No complaints. Awaiting echo results but was told by Dr Liz that her EF is 50%. Focused Exam Lactate Level 02/25/20 12:10: Lactic Acid Level 3.68*H 02/25/20 14:50: Lactic Acid Level 2.20*H 02/25/20 17:05: Lactic Acid Level 1.73 Time of Focused Exam: 07:39 Objective Exam Vital Signs Vital Signs Date Time Temp Pulse Resp B/P (MAP) Pulse Ox O2 Delivery O2 Flow Rate FiO2 02/27/20 08:04 Room Air 02/27/20 08:00 36.6 89 19 112/69 (83) 94 1.50 Capillary Refill : Less Than 3 Seconds General Appearance: No Apparent Distress, WD/WN Respiratory: Lungs Clear, No Respiratory Distress Cardiovascular: Regular Rate, Rhythm, No Murmur Neurologic/Psychiatric: Alert, Oriented x3 Results/Procedures Lab Laboratory Tests 02/27/20 04:40 Patient resulted labs reviewed. Imaging: Reviewed Imaging Report Assessment/Plan Assessment and Plan Assess & Plan/Chief Complaint Septic shock Urinary tract infection Urinalysis consistent with UTI, culture reveals enterobacter aerogenes Creatinine returned to baseline 0.7 Procalcitonin trending down today Blood cultures negative Continue meropenem Congestive heart failure Developed pulmonary edema due to fluid resuscitation Briefly required supplemental oxygen BNP elevated at 1100 this morning Chest x-ray with pulmonary congestion Cont home Lasix dose, replace potassium Echo ordered Hypertension Coronary artery disease Hyperlipidemia GERD Atrial fibrillation Continue sotalol and diltiazem Not on anticoagulation as she has declined DVT prophylaxis: Lovenox Acute kidney injury, resolved Lactic acidosis, resolved Clinical Quality Measures DVT/VTE Risk/Contraindication: Risk Factor Score Per Nursin RFS Level Per Nursing on Admit: 4+=Very High FREDO WHYTE MD Feb 27, 2020 10:48
--- NOTE | 2020-02-27 10:52 | NUR ---
SPOKE WITH THE PT (SHE HAD A MED LIST THAT I PUT ON HER CHART) AND WENT THRU THE EXT MED HISTORY TO COMPLETE THE MED REC THE PT AND I WENT OVER EACH OF THE MEDICATIONS ON THE EXT MED HISTORY AND USING HER MED LIST SHE WAS ABLE TO TELL ME WHEN AND HOW SHE TAKES EACH MED. ALL INFORMATION SHE GAVE MATCHES THE EXT MED HISTORY OTC MEDS: VIT C CALCIUM W/ VIT D ASPIRIN 81 FLONASE FAMOTIDINE 10MG LUTEIN EL BENADRYL
--- NOTE | 2020-02-27 11:15 | Diagnostic Imaging Report ---
PROCEDURE: US Renal Bilateral. TECHNIQUE: Multiple Real-time grayscale images were obtained over the kidneys in various projections bilaterally. INDICATION: Pyelonephritis. FINDINGS: The right kidney measures 10.5 x 5.3 x 6.4 cm and the left kidney measures 10.5 x 5.3 x 6.0 cm. The cortical thickness and echogenicity appear normal. There are some shadowing echogenic foci within the right kidney, likely small nonobstructing calculi. No hydronephrosis is identified. Bilateral ureteral jets are visualized within the bladder. IMPRESSION: Probable nonobstructing right renal calculi. No hydronephrosis is identified. Dictated by: Dictated on workstation # [id number]
--- NOTE | 2020-02-27 11:15 | NUR ---
Pt is Orthodoxy. Sunglass Clip Attacher provided prayer and Communion.
--- NOTE | 2020-02-27 11:28 | Progress Note - Cardiology ---
Cardiology SOAP Progress Note Subjective: Some gen malaise and weakness, but better than at time of admission No rigors or chills No cp or palp or syncope No shortness of breath at rest No n/v/d Objective: I&O/Vital Signs 02/27/20 02/27/20 02/27/20 02/27/20 00:07 01:00 03:43 03:49 Temp 37.7 37.9 37.9 Pulse 95 93 97 Resp 20 20 B/P (MAP) 132/63 (86) Pulse Ox 93 O2 Delivery Room Air Room Air 02/27/20 02/27/20 02/27/20 02/27/20 04:00 07:00 07:34 08:00 Temp 36.8 36.6 Pulse 91 90 100 89 Resp 20 19 B/P (MAP) 130/68 (88) 112/69 (83) Pulse Ox 95 94 O2 Delivery Nasal Cannula Nasal Cannula O2 Flow Rate 1.50 1.50 02/27/20 08:04 O2 Delivery Room Air 02/27/20 00:00 Intake Total 1460 ml Output Total 1300 ml Balance 160 ml Weight (Pounds): 160 Weight (Ounces): 6.4 Weight (Calculated Kilograms): 72.668869 Constitutional: AAO x 3, well-developed, well-nourished Respiratory: No accessory muscle use; other (good bilat air entry) Cardiovascular: regular rate-rhythm, S1 and S2, systolic murmur (faint TIN at card base) Gastrointestional: No tender; soft; No guarding, No rebound; audible bowel sounds Extremities: No clubbing, No cyanosis Neurologic/Psychiatric: oriented x 3, other (moves all limbs equally) Skin: normal color, warm/dry; No rash on exposed areas, No ulcerations on exposed areas Results/Procedures: Labs Laboratory Tests 02/27/20 04:40: White Blood Count 9.3, Red Blood Count 3.49L, Hemoglobin 11.1L, Hematocrit 34L, Mean Corpuscular Volume 96, Mean Corpuscular Hemoglobin 32, Mean Corpuscular Hemoglobin Concent 33, Red Cell Distribution Width 13.3, Platelet Count 202, Mean Platelet Volume 9.7, Neutrophils (%) (Auto) 71, Lymphocytes (%) (Auto) 14, Monocytes (%) (Auto) 13H, Eosinophils (%) (Auto) 2, Basophils (%) (Auto) 0, Neutrophils # (Auto) 6.6, Lymphocytes # (Auto) 1.3, Monocytes # (Auto) 1.2H, Eosinophils # (Auto) 0.2, Basophils # (Auto) 0.0, Sodium Level 139, Potassium Level 3.3L, Chloride Level 110H, Carbon Dioxide Level 21, Anion Gap 8, Blood Urea Nitrogen 12, Creatinine 0.73, Estimat Glomerular Filtration Rate > 60, BUN/Creatinine Ratio 16, Glucose Level 158H, Calcium Level 8.1L, Procalcitonin 11.84H Microbiology 02/25/20 MRSA Screen - Final, Complete MRSA not isolated 02/25/20 Urine Culture - Final, Complete Enterobacter aerogenes 02/25/20 Blood Culture - Preliminary, Resulted No growth Laboratory Tests 02/25/20 14:50 02/26/20 02:51 02/27/20 04:40 A/P: Assessment: UTI with sepsis and septic shock DEE DEE 2, likely due to septic shock Coronary artery disease: CABG 2 at [facility] several years ago using HUMPHREYS to LAD and vein graft to the diagonal artery Echo of 02/27/20: LVEF 50%, mid-septal hypokinesis, grade 3 malone dysfunction, mod MR, mod to sev TR, mild enlargement of LA, pulmonary hypertension (PASP 55-60 mmHg) Pulm htn probably due to ac diastolic CHF and volume load from hydration for septic shock Paroxysmal atrial fibrillation, perioperative (at time of CABG). She reports no recurrence since CABG. Has been on sotalol, but no oral anticoag, per instructions of her mural artist Dr Powers H/o hypertension H/o hyperlipidemia History of back surgery Hypokalemia, likely due to diuretics Plan: * Continue current regimen, including diuretics * Replenish K * Monitor labs * We discussed her CV issues and the findings of echo BACILIO QUIROZ MD FACP FAC CCDS Feb 27, 2020 11:28
[2020-02-27 12:00] VITALS: BP 118/55
[2020-02-27 15:46] VITALS: BP 125/59
[2020-02-27 19:28] VITALS: BP 151/68
[2020-02-27] MEDS: FLUTICASONE NASAL SPRAY (FLONASE) 16 GM BTL NS SCH (20:16)
[2020-02-28 01:48] VITALS: BP 145/68
[2020-02-28 04:00] VITALS: BP 133/73
[2020-02-28 04:20] VITALS: BP 133/73
[2020-02-28 06:08] LABS: CHLORIDE 110 MMOL/L (98-107); POTASSIUM 3.8 MMOL/L (3.6-5.0); SODIUM 140 MMOL/L (135-145)
[2020-02-28 06:09] LABS: CALCIUM 8.6 MG/DL (8.5-10.1); GLUCOSE 146 MG/DL (70-105)
[2020-02-28 06:11] LABS: CARBON DIOXIDE 22 MMOL/L (21-32)
[2020-02-28] MEDS: inSUlin ASPART (NovoLOG) 1 UNIT/0.01 ML (CHARGE PER UNIT) SC SCH ×2 (06:11→12:33)
[2020-02-28 06:13] LABS: CREATININE SERUM 0.74 MG/DL (0.60-1.30); GFR ESTIMATED > 60
[2020-02-28 06:14] LABS: BUN/CREATININE RATIO 16
[2020-02-28] MEDS: KCL 20 MEQ TAB (K-DUR) PO SCH ×3 (06:14→08:33)
[2020-02-28 06:16] LABS: MAGNESIUM 2.3 MG/DL (1.6-2.4)
[2020-02-28] MEDS: MEROPENEM 500 MG/SWFI 10 ML IV PUSH IV SCH ×2 (06:18)
[2020-02-28 08:00] VITALS: BP 148/66
[2020-02-28] MEDS: DIGOXIN 0.125 MG (LANOXIN) TAB PO SCH (08:28)
[2020-02-28] MEDS: ASPIRIN E.C. 81 MG (ECOTRIN) TAB PO SCH (08:28)
[2020-02-28] MEDS: FAMOTIDINE 20 MG (PEPCID) TABLET PO SCH (08:29)
[2020-02-28] MEDS: FUROSEMIDE 40 MG (LASIX) TAB PO SCH (08:29)
[2020-02-28] MEDS: CLOPIDOGREL 75 MG (PLAVIX) TABLET PO SCH (08:29)
[2020-02-28] MEDS: SOTALOL 80 MG (BETAPACE) TAB PO SCH (08:41)
[2020-02-28] MEDS ORDERED: LORATADINE (CLARITIN) 10 MG TAB PO SCH (09:00)
--- NOTE | 2020-02-28 10:30 | Discharge Inst-Simple/Standard ---
Discharge Inst-Standard Discharge Medications New, Converted or Re-Newed RX: Transmitted to Pharmacy Patient Instructions/Follow Up Plan of Care/Instructions/FU: Please continue to take your medications as written. Please follow up with your primary care doctor, Dr Estrella as scheduled next week. Activity as Tolerated: Yes Discharge Diet: Cardiac Diet Return to The Hospital For: Chest pain, shortness of breath, worsening fever, abdominal pain, if you feel you are getting worse. FREDO WHYTE MD Feb 28, 2020 10:30
--- NOTE | 2020-02-28 10:31 | NUR ---
provided prayer and Communion.
[2020-02-28] MEDS ORDERED: LEVO750T9 PO (10:40)
[2020-02-28] MEDS ORDERED: CLOP75TA28 PO (10:40)
[2020-02-28 12:00] VITALS: BP 128/60
--- NOTE | 2020-02-28 14:00 | NUR ---
discharge instructions given, verbalized understanding, telemetry dc, iv dc, site without redness or swelling
--- NOTE | 2020-02-28 14:06 | Cardiology Progress Note ---
Cardiology SOAP Progress Note Subjective: No cardiac complaints. Objective: I&O/Vital Signs 02/28/20 02/28/20 02/28/20 02/28/20 04:00 04:20 06:44 08:00 Temp 37.1 37.1 36.6 Pulse 88 88 87 91 Resp 16 16 20 B/P (MAP) 133/73 (93) 133/73 (93) 148/66 (93) Pulse Ox 92 92 92 O2 Delivery Room Air Room Air Room Air 02/28/20 09:00 Pulse Ox 92 O2 Delivery Room Air 02/28/20 00:00 Intake Total 1300 ml Balance 1300 ml Weight (Pounds): 160 Weight (Ounces): 6.4 Weight (Calculated Kilograms): 72.166127 Constitutional: AAO x 3, well-developed, well-nourished Respiratory: No accessory muscle use; other (good bilat air entry) Cardiovascular: regular rate-rhythm, S1 and S2, systolic murmur (faint TIN at card base) Gastrointestional: No tender; soft; No guarding, No rebound; audible bowel sounds Extremities: No clubbing, No cyanosis; no lower extremity edema bilateral Neurologic/Psychiatric: no motor/sensory deficits, alert, normal mood/affect, oriented x 3, other (moves all limbs equally) Skin: normal color, warm/dry; No rash on exposed areas, No ulcerations on exposed areas Results/Procedures: Labs Laboratory Tests 02/28/20 05:04: Sodium Level 140, Potassium Level 3.8, Chloride Level 110H, Carbon Dioxide Level 22, Anion Gap 8, Blood Urea Nitrogen 12, Creatinine 0.74, Estimat Glomerular Filtration Rate > 60, BUN/Creatinine Ratio 16, Glucose Level 146H, Calcium Level 8.6, Magnesium Level 2.3 Microbiology 02/25/20 MRSA Screen - Final, Complete MRSA not isolated 02/25/20 Urine Culture - Final, Complete Enterobacter aerogenes 02/25/20 Blood Culture - Preliminary, Resulted No growth A/P: Assessment/Dx: UTI with sepsis and septic shock DEE DEE 2, likely due to septic shock Coronary artery disease: CABG 2 at [facility] several years ago using HUMPHREYS to LAD and vein graft to the diagonal artery Echo of 02/27/20: LVEF 50%, mid-septal hypokinesis, grade 3 malone dysfunction, mod MR, mod to sev TR, mild enlargement of LA, pulmonary hypertension (PASP 55-60 mmHg) Pulm htn probably due to ac diastolic CHF and volume load from hydration for septic shock Paroxysmal atrial fibrillation, perioperative (at time of CABG). She reports no recurrence since CABG. Has been on sotalol, but no oral anticoag, per instructions of her platform power technician Dr Powers H/o hypertension H/o hyperlipidemia History of back surgery Hypokalemia, likely due to diuretics Plan: Plan: * Continue current regimen, including diuretics * Replenish K * Monitor labs * Okay to discharge and follow-up with outpatient platform power technician. Thank you for your consultation. Please call me if you have any questions. Von John MD, FACP, FACC, FSCAI, FHRS, CCDS Interventional Cardiology Cardiac Electrophysiology Vascular Medicine and Endovascular Interventions Focused Exam Lactate Level 02/25/20 14:50: Lactic Acid Level 2.20*H 02/25/20 17:05: Lactic Acid Level 1.73 Time of Focused Exam: 07:39 Ashkan JOHN MD Feb 28, 2020 14:06
[2020-02-28 14:15] VITALS: BP 128/60
--- NOTE | 2020-02-28 14:15 | NUR ---
DISMISSED PER W/C, ACCOMPANIED BY STAFF, DENIES PAIN OR SOB
== END 2020-02-28 14:15 | disposition home or self-care (01) | DRG 871 ==
LOC: EDUNIT# 05:55 → ER 05:57 → ICU 08:20 → 4TH 02-26 18:25
PROVIDERS: ADMIT Internal Medicine; ATTEND Internal Medicine
DX: A41.9 Sepsis, unspecified organism (principal); R65.21 Severe sepsis with septic shock; I50.31 Acute diastolic (congestive) heart failure; N39.0 Urinary tract infection, site not specified; N17.9 Acute kidney failure, unspecified; E87.2 Acidosis; I11.0 Hypertensive heart disease with heart failure; I48.0 Paroxysmal atrial fibrillation; E11.9 Type 2 diabetes mellitus without complications; I25.10 Atherosclerotic heart disease of native coronary artery without angina pectoris; I27.20 Pulmonary hypertension, unspecified; E87.6 Hypokalemia; I08.1 Rheumatic disorders of both mitral and tricuspid valves; K21.9 Gastro-esophageal reflux disease without esophagitis; J30.2 Other seasonal allergic rhinitis; M19.91 Primary osteoarthritis, unspecified site; Z95.1 Presence of aortocoronary bypass graft; M54.9 Dorsalgia, unspecified; K57.90 Diverticulosis of intestine, part unspecified, without perforation or abscess without bleeding; R11.2 Nausea with vomiting, unspecified; E78.5 Hyperlipidemia, unspecified; R19.7 Diarrhea, unspecified; I25.2 Old myocardial infarction; Z20.828 Contact with and (suspected) exposure to other viral communicable diseases; Z87.891 Personal history of nicotine dependence; Z86.711 Personal history of pulmonary embolism; Z87.19 Personal history of other diseases of the digestive system; T50.2X5A Adverse effect of carbonic-anhydrase inhibitors, benzothiadiazides and other diuretics, initial encounter; Z79.84 Long term (current) use of oral hypoglycemic drugs
CPT/HCPCS: 36415; 71045; 76770; 80048; 80053; 80162; 81000; 82962; 83605; 83615; 83735; 83880; 84100; 84145; 84484; 85025; 85379; 85610; 85730; 86141; 87040; 87077; 87081; 87088; 87186; 87635; 93005; 93306

== ENCOUNTER 2020-03-02 01:55 | Emergency (ER) | payer MEDICARE, BC ==
[~2020-03-02] VITALS: Ht 157 cm; Wt 62.0 kg
[~2020-03-02 01:55] MED LIST changes: +CALC-694 PO; +DIPH25TA65 PO; +FAMO-132 PO; +FAMO-144 PO; +LEVO750T9 PO; +LIRA0.6P3 INJ; +POTA10TA6 PO; +SOTA120T PO
[2020-03-02] MEDS ORDERED: NS IV 1000 ML 1,000 ML IV SCH (02:23)
[2020-03-02 02:43] LABS: BASOPHILS % (AUTO) 0 % (0-10); EOSINOPHILS # (AUTO) 0.3 10^3/uL (0.0-0.3); EOSINOPHILS % (AUTO) 2 % (0-10); HEMATOCRIT 39 % (35-52); HEMOGLOBIN 13.2 G/DL (11.5-16.0); LYMPHOCYTES # (AUTO) 1.3 X 10^3 (1.0-4.0); LYMPHOCYTES % (AUTO) 10 % (12-44); MEAN CORPUSCULAR HEMOGLOBIN 32 PG (25-34); MEAN CORPUSCULAR HGB CONC 34 G/DL (32-36); MEAN CORPUSCULAR VOLUME 94 FL (80-99); MONOCYTES % (AUTO) 7 % (0-12); NEUTROPHILS % (AUTO) 81 % (42-75); PLATELET COUNT 351 10^3/uL (130-400); RED CELL DISTRIBUTION WIDTH 13.5 % (10.0-14.5); WHITE BLOOD COUNT 13.6 10^3/uL (4.3-11.0)
[2020-03-02 02:43] LABS: BILIRUBIN,URINE NEGATIVE (NEGATIVE); CLARITY,URINE CLEAR; COLOR,URINE YELLOW; GLUCOSE, URINE (UA) NEGATIVE (NEGATIVE); KETONES,URINE NEGATIVE (NEGATIVE); LEUKOCYTE ESTERASE ,URINE NEGATIVE (NEGATIVE); NITRITE,URINE NEGATIVE (NEGATIVE); PH,URINE 5.5 (5-9); PROTEIN,URINE NEGATIVE (NEGATIVE)
[2020-03-02 02:54] LABS: BACTERIA,URINE NEGATIVE /HPF; SQUAMOUS EPITHELIAL CELL,UR 0-2 /HPF; WBC,URINE 0-2 /HPF
[2020-03-02 02:55] LABS: HYALINE CASTS, URINE RARE /LPF
[2020-03-02 02:56] LABS: ALBUMIN 3.6 GM/DL (3.2-4.5); CHLORIDE 103 MMOL/L (98-107); POTASSIUM 3.7 MMOL/L (3.6-5.0); SODIUM 136 MMOL/L (135-145)
[2020-03-02 02:58] LABS: CALCIUM 10.1 MG/DL (8.5-10.1)
[2020-03-02 02:59] LABS: GLUCOSE 138 MG/DL (70-105); TOTAL PROTEIN 7.4 GM/DL (6.4-8.2)
[2020-03-02 03:00] LABS: CARBON DIOXIDE 22 MMOL/L (21-32)
[2020-03-02 03:01] LABS: BILIRUBIN,TOTAL 0.5 MG/DL (0.1-1.0)
[2020-03-02 03:02] LABS: ALKALINE PHOSPHATASE 105 U/L (40-136)
[2020-03-02 03:03] LABS: CREATININE SERUM 0.82 MG/DL (0.60-1.30); GFR ESTIMATED > 60
[2020-03-02 03:04] LABS: BUN/CREATININE RATIO 17
[2020-03-02 03:05] LABS: ALANINE AMINOTRANSFERASE 29 U/L (0-55)
--- NOTE | 2020-03-02 03:24 | ED Abdominal Pain ---
General Chief Complaint: Abdominal/GI Problems Stated Complaint: ABD PAIN,DIARRHEA,FEVER 100.4 Nursing Triage Note: TO ED VIA POV AND AMBULATORY TO ROOM 5 WITH C/O ABD ACHE/PAIN, DIARRHEA, FEVER SINCE DC'D FROM HOSPITAL LAST THURSDAY. Sepsis Screen: Possible Severe Sepsis Risk Source of Information: Patient Exam Limitations: No Limitations History of Present Illness Date Seen by Provider: Mar 02, 2020 Time Seen by Provider: 02:19 Initial Comments This 69-year-old woman presents to the emergency room with generalized abdominal pain and diarrhea for the past 3 days after being dismissed from the hospital. She was admitted about a week ago with septic shock and urinary tract infection. She has been treated with Levaquin. She denies any blood in her stools. She has had temperatures up to 100.4. She is afebrile at present. No vomiting. Allergies and Home Medications Allergies Coded Allergies: Cephalosporins (Verified Allergy, Unknown, 02/25/20) Penicillins (Verified Allergy, Unknown, 10/15/08) Sulfa (Sulfonamide Antibiotics) (Verified Allergy, Unknown, 10/15/08) amlodipine (Verified Allergy, Unknown, 02/25/20) Home Medications Ascorbic Acid 1,000 Mg Tablet, 1,000 MG PO BID, (Reported) Aspirin 81 Mg Tablet.dr, 81 MG PO DAILY, (Reported) Atorvastatin Calcium 10 Mg Tablet, 10 MG PO HS, (Reported) Calcium Carbonate/Vitamin D3 1 Each Tablet, 1 EACH PO DAILY, (Reported) Chlordiazepoxide HCl 10 Mg Capsule, 10 MG PO Q6H PRN for ANXIETY, (Reported) Clopidogrel Bisulfate 75 Mg Tablet, 75 MG PO DAILY Prescribed by: FREDO WHYTE on 02/28/20 1040 Digoxin 125 Mcg Tablet, 125 MCG PO DAILY, (Reported) Diltiazem HCl 240 Mg Cap.er.24h, 240 MG PO DAILY, (Reported) Diphenhydramine HCl 25 Mg Tablet, 25-50 MG PO HS PRN for ALLERGY SYMPTOMS, (Reported) Enalapril Maleate 20 Mg Tablet, 20 MG PO HS, (Reported) Famotidine 10 Mg Tablet, 10 MG PO HS, (Reported) Fexofenadine HCl 180 Mg Tablet, 180 MG PO DAILY PRN for ALLERGY SYMPTOMS, (Reported) Fluticasone Propionate 16 Gm [place].susp, 1 SPRAYS NS HS, (Reported) Furosemide 40 Mg Tablet, 40 MG PO DAILY, (Reported) Lactobacillus Combination No.4 1 Each Capsule, 1 EACH PO QID Prescribed by: SHAI LAWSON on 03/02/20 0327 Levofloxacin 750 Mg Tablet, 750 MG PO DAILY Prescribed by: FREDO WHYTE on 02/28/20 1040 Liraglutide 0.6 Mg/0.1 Ml Pen.injctr, 1.8 MG INJ DAILY, (Reported) Lutein 20 Mg Capsule, 20 MG PO HS, (Reported) Metformin HCl 500 Mg Tablet, 500 MG PO BID WITH MEALS, (Reported) Potassium Chloride 10 Meq Tablet.er, 10 MEQ PO DAILY, (Reported) Sotalol HCl 120 Mg Tablet, 60 MG PO BID, (Reported) TAKES OF A 120MG TAB Patient Home Medication List Home Medication List Reviewed: Yes Review of Systems Review of Systems Constitutional: see HPI EENTM: No Symptoms Reported Respiratory: No Symptoms Reported Cardiovascular: No Symptoms Reported Gastrointestinal: See HPI Genitourinary: See HPI Musculoskeletal: no symptoms reported Skin: no symptoms reported Psychiatric/Neurological: No Symptoms Reported Endocrine: No Symptoms Reported Hematologic/Lymphatic: No Symptoms Reported Past Kuoszls-Ssaxmd-Fxxjxr Hx Past Med/Social Hx: Reviewed Nursing Past Med/Soc Hx Patient Social History Alcohol Use: Denies Use Recreational Drug Use: No Smoking Status: Former Smoker Type Used: Cigarettes Former Smoker, Quit: Mar 26, 1985 2nd Hand Smoke Exposure: No Recent Foreign Travel: No Contact w/Someone Who Travel: No Recent Infectious Disease Expo: No Recent Hopitalizations: Yes Physical Abuse: No Sexual Abuse: No Mistreated: No Fear: No Immunizations Up To Date Date of Pneumonia Vaccine: Apr 28, 2013 Seasonal Allergies Seasonal Allergies: Yes Past Medical History Surgeries: Yes (D&C) Cardiac, CABG, Section, Gallbladder, Orthopedic Respiratory: Yes (PE AT 22YRS) Pulmonary Embolism Currently Using CPAP: No Currently Using BIPAP: No Cardiac: Yes Atrial Fibrillation, Heart Attack, High Cholesterol, Hypertension Neurological: No Reproductive Disorders: Yes (D&C IN EARLY ) Female Reproductive Disorders: Denies Sexually Transmitted Disease: No HIV/AIDS: No Genitourinary: No Gastrointestinal: Yes Gastroesophageal Reflux, Diverticulosis, Pancreatitis, Chronic Diarrhea, Gall Bladder Disease Musculoskeletal: Yes Arthritis, Back Injury, Chronic Back Pain Endocrine: Yes Diabetes, Non-Insulin dep HEENT: No Cancer: No Psychosocial: No Integumentary: Yes Eczema Blood Disorders: No Adverse Reaction/Blood Tranf: No Family Medical History Cardiovascular disease 19 FATHER 19 MOTHER Myocardial infarction 19 FATHER Physical Exam Vital Signs Vital Signs - First Documented 03/02/20 03/02/20 02:19 03:43 Temp 37.0 Pulse 104 Resp 20 B/P (MAP) 145/82 (103) Pulse Ox 95 O2 Delivery Room Air Capillary Refill : Less Than 3 Seconds Height/Weight/BMI Height: 5'4.00" Weight: 160lbs. 6.4oz. 72.825672jb; 25.00 BMI Method: General Appearance: WD/WN, no apparent distress HEENT: PERRL/EOMI Progress/Results/Core Measures Results/Orders Lab Results Laboratory Tests Test 03/02/20 02:25 03/02/20 02:30 Range/Units Urine Color YELLOW Urine Clarity CLEAR Urine pH 5.5 5-9 Urine Specific [place] 1.025 H 1.016-1.022 Urine Protein NEGATIVE NEGATIVE Urine Glucose (UA) NEGATIVE NEGATIVE Urine Ketones NEGATIVE NEGATIVE Urine Nitrite NEGATIVE NEGATIVE Urine Bilirubin NEGATIVE NEGATIVE Urine Urobilinogen 0.2 < = 1.0 MG/DL Urine Leukocyte Esterase NEGATIVE NEGATIVE Urine RBC (Auto) NEGATIVE NEGATIVE Urine RBC NONE /HPF Urine WBC 0-2 /HPF Urine Squamous Epithelial Cells 0-2 /HPF Urine Crystals NONE /LPF Urine Bacteria NEGATIVE /HPF Urine Casts PRESENT /LPF Urine Hyaline Casts RARE /LPF Urine Mucus NEGATIVE /LPF Urine Culture Indicated NO White Blood Count 13.6 H 4.3-11.0 10^3/uL Red Blood Count 4.19 L 4.35-5.85 10^6/uL Hemoglobin 13.2 11.5-16.0 G/DL Hematocrit 39 35-52 % Mean Corpuscular Volume 94 80-99 FL Mean Corpuscular Hemoglobin 32 25-34 PG Mean Corpuscular Hemoglobin Concent 34 32-36 G/DL Red Cell Distribution Width 13.5 10.0-14.5 % Platelet Count 351 130-400 10^3/uL Mean Platelet Volume 9.0 7.4-10.4 FL Neutrophils (%) (Auto) 81 H 42-75 % Lymphocytes (%) (Auto) 10 L 12-44 % Monocytes (%) (Auto) 7 0-12 % Eosinophils (%) (Auto) 2 0-10 % Basophils (%) (Auto) 0 0-10 % Neutrophils # (Auto) 11.0 H 1.8-7.8 X 10^3 Lymphocytes # (Auto) 1.3 1.0-4.0 X 10^3 Monocytes # (Auto) 1.0 0.0-1.0 X 10^3 Eosinophils # (Auto) 0.3 0.0-0.3 10^3/uL Basophils # (Auto) 0.0 0.0-0.1 10^3/uL Sodium Level 136 135-145 MMOL/L Potassium Level 3.7 3.6-5.0 MMOL/L Chloride Level 103 98-107 MMOL/L Carbon Dioxide Level 22 21-32 MMOL/L Anion Gap 11 5-14 MMOL/L Blood Urea Nitrogen 14 7-18 MG/DL Creatinine 0.82 0.60-1.30 MG/DL Estimat Glomerular Filtration Rate > 60 BUN/Creatinine Ratio 17 Glucose Level 138 H 70-105 MG/DL Calcium Level 10.1 8.5-10.1 MG/DL Corrected Calcium 10.4 H 8.5-10.1 MG/DL Total Bilirubin 0.5 0.1-1.0 MG/DL Aspartate Amino Transf (AST/SGOT) 21 5-34 U/L Alanine Aminotransferase (ALT/SGPT) 29 0-55 U/L Alkaline Phosphatase 105 40-136 U/L C-Reactive Protein High Sensitivity 6.15 H 0.00-0.50 MG/DL Total Protein 7.4 6.4-8.2 GM/DL Albumin 3.6 3.2-4.5 GM/DL My Orders Orders - SHAI LAM MD Cbc With Automated Diff (03/02/20 02:08) Comprehensive Metabolic Panel (03/02/20 02:08) Hs C Reactive Protein (03/02/20 02:08) Ua Culture If Indicated (03/02/20 02:08) Ed Iv/Invasive Line Start (03/02/20 02:08) Stool Culture (03/02/20 02:23) Fecal Wbc (03/02/20 02:23) C Difficile Ag + Toxin A/B. (03/02/20 02:23) Isolation Central Supply Req (03/02/20 02:23) Ns Iv 1000 Ml (Sodium Chloride 0.9%) (03/02/20 02:23) Vancomycin Oral Solution (Firvanq Oral S (03/02/20 03:30) Medications Given in ED Current Medications Medications Dose Ordered Sig/Tanner Route Start Time Stop Time Status Last Admin Dose Admin Vancomycin HCl 125 MG = 2.5 ML ONCE ONCE PO 03/02/20 03:30 03/02/20 03:31 DC 03/02/20 03:42 7,500 MG Vital Signs/I&O 03/02/20 03/02/20 02:19 03:43 Temp 37.0 37.0 Pulse 104 94 Resp 20 16 B/P (MAP) 145/82 (103) 155/72 (103) Pulse Ox 95 O2 Delivery Room Air Room Air Blood Pressure Mean: 103 Progress Progress Note : Progress Note C. difficile for antibiotic-induced diarrhea was suspicious. Patient was treated with vancomycin in the ER and the bottle of oral vancomycin was dispensed. In order and supplies were given to collect a stool specimen at home. Departure Impression Primary Impression: Abdominal pain Qualified Codes: R10.84 - Generalized abdominal pain Additional Impression: Acute diarrhea Disposition: HOME, SELF-CARE Condition: Improved Departure-Patient Inst. Decision time for Depature: 03:22 Referrals: MIQUEL WISEMAN DO (PCP/Family) Primary Care Physician Patient Instructions: Clostridioides difficile, Severe Abdominal Pain Add. Discharge Instructions: Drink plenty of clear liquids. Gradually advance your diet with small quantities of bland food as tolerated. Avoid dairy and fatty or greasy foods until diarrhea resolves. Complete 10 days of probiotics and vancomycin. Take 2.5 ML of vancomycin 4 times a day. Bring a stool sample in with your order form when possible. All discharge instructions reviewed with patient and/or family. Voiced understanding. Scripts Lactobacillus Combination No.4 (Probiotic) 1 Each Capsule 1 EACH PO QID, #40 CAP Prov: SHAI LAM MD 03/02/20 Copy Copies To 1: MIQUEL WISEMAN JOSHUA T MD Mar 02, 2020 03:24
[2020-03-02] MEDS ORDERED: LACT1CAP74 PO (03:27)
[2020-03-02] MEDS ORDERED: VANCOMYCIN 50 MG/ML ORAL SOLN 150 ML PO ONE (03:30)
[2020-03-02 03:43] VITALS: BP 155/72
== END 2020-03-02 03:52 | disposition home or self-care (01) ==
LOC: EDUNIT# 01:55 → ER 01:57
DX: R19.7 Diarrhea, unspecified (principal); I10 Essential (primary) hypertension; E11.9 Type 2 diabetes mellitus without complications; I48.91 Unspecified atrial fibrillation; I25.2 Old myocardial infarction; E78.00 Pure hypercholesterolemia, unspecified; K21.9 Gastro-esophageal reflux disease without esophagitis; Z88.8 Allergy status to other drugs, medicaments and biological substances; Z88.0 Allergy status to penicillin; Z88.2 Allergy status to sulfonamides; Z88.1 Allergy status to other antibiotic agents; Z79.82 Long term (current) use of aspirin; Z79.02 Long term (current) use of antithrombotics/antiplatelets; Z79.51 Long term (current) use of inhaled steroids; Z79.84 Long term (current) use of oral hypoglycemic drugs; Z87.891 Personal history of nicotine dependence; Z95.1 Presence of aortocoronary bypass graft; Z86.711 Personal history of pulmonary embolism; Z82.49 Family history of ischemic heart disease and other diseases of the circulatory system
CPT/HCPCS: 36415; 80053; 81000; 82274; 85025; 86141; 87015; 87045; 87046; 87324; 87449; 87899

== ENCOUNTER → 2020-03-21 | Outpatient (CLI) | payer MEDICARE, BC ==
[~2020-03-21] MED LIST changes: +ASCO100024 PO; -ASCO10006 PO; +ASPI-1238 PO; -ASPI-983 PO; +LACT1CAP74 PO
--- NOTE | 2020-03-21 13:00 | Diagnostic Imaging Report ---
INDICATION: Hematuria and abdominal pain, history of right renal stone. TECHNIQUE: Multiple contiguous axial images were obtained through the abdomen and pelvis without the use of intravenous contrast. Auto Exposure Controls were utilized during the CT exam to meet ALARA standards for radiation dose reduction. COMPARISON: There is no prior CT for comparison. FINDINGS: Visualized portions of the lung bases were clear. There were no pleural fluid collections. There is no free intraperitoneal air. The liver shows diffuse low-density change, compatible with fatty infiltration. There is no focal lesion in the liver seen without contrast. Gallbladder is surgically absent. Spleen, adrenals, and pancreas appear unremarkable. The left kidney appears normal. The right kidney shows moderate hydronephrosis with a stone at the UPJ measuring about 5 mm. There appear to be a couple of additional calcifications along the right midureter, it is not clear if these are within the ureter or small calcified nodes adjacent to the aorta. There is a partially calcified mass in the mesentery measuring 4.1 x 2.7 cm. There is no pelvic mass or lymphadenopathy. There is no free fluid. Visualized bowel loops show moderate stool throughout the colon with no sign of bowel obstruction. There is an IVC clip device overlying the IVC. IMPRESSION: 1. Moderate right hydronephrosis. There is a 5 mm stone in the right UPJ. There are some additional calcifications along the midportion of the right ureter, it is not clear if these are within the ureter or are small calcified nodes adjacent to the aorta. Patient has had prior cholecystectomy. There is fatty infiltration of the liver. 2. There is a partially calcified mass in the mesentery measuring 4.1 x 2.7 cm. Differential diagnosis would include a carcinoid tumor, sclerosing mesenteritis, or desmoid tumor. Dictated by: Dictated on workstation # [id number]
== END ==
LOC: RAD 11:04
PROVIDERS: ATTEND Urology
DX: N13.30 Unspecified hydronephrosis (principal); N20.1 Calculus of ureter; K66.8 Other specified disorders of peritoneum; N28.89 Other specified disorders of kidney and ureter; N39.0 Urinary tract infection, site not specified; Z90.49 Acquired absence of other specified parts of digestive tract; Z87.442 Personal history of urinary calculi; Z20.828 Contact with and (suspected) exposure to other viral communicable diseases
CPT/HCPCS: 74176

== ENCOUNTER 2020-03-27 13:09 | Outpatient (CLI) | payer MEDICARE, BC ==
[~2020-03-27] VITALS: Ht 162 cm; Wt 59.5 kg
[~2020-03-27 13:09] MED LIST changes: -NITR-65 PO; -TMSL.4C PO; -TRAM50TA3 PO
[2020-03-27] MEDS ORDERED: CHLO10CA6 PO (14:19)
[2020-03-28] MEDS ORDERED: TRAM50TA3 PO (12:35)
[2020-03-28] MEDS ORDERED: NITR-65 PO (12:35)
[2020-03-28] MEDS ORDERED: TMSL.4C PO (12:35)
== END 2020-03-27 14:39 ==
LOC: PREOP 13:09
PROVIDERS: ATTEND Urology
DX: Z01.818 Encounter for other preprocedural examination (principal)

== ENCOUNTER → 2020-03-27 | Outpatient (CLI) | payer MEDICARE, BC ==
[~2020-03-27] MED LIST changes: +NITR-65 PO; +TMSL.4C PO; +TRAM50TA3 PO
--- NOTE | 2020-03-27 14:08 | Diagnostic Imaging Report ---
INDICATION: Nephrolithiasis. FINDINGS: There is a persistent calcification near the right UPJ, suspect for an obstructing renal stone. There are somewhat more heterogeneous calcifications in the mid abdomen correlating with the previously described mass. The bowel gas pattern is nonspecific. There is a radiopaque ovoid density overlying the left iliac bone which is of uncertain clinical significance. IMPRESSION: The 5 mm stone in the region of the right UPJ appears to be unchanged in position. Unchanged heterogeneous calcifications within a soft tissue mass in the mid abdomen. Dictated by: Dictated on workstation # [id number]
== END ==
LOC: RAD 12:12
PROVIDERS: ATTEND Urology
DX: N20.2 Calculus of kidney with calculus of ureter (principal)
CPT/HCPCS: 74018

== ENCOUNTER 2020-03-28 07:55 | Day surgery (SDC) | payer MEDICARE, BC ==
[2020-03-28] VITALS (9 sets, daily range): BP systolic 111–194; BP diastolic 59–91
[~2020-03-28] VITALS: Ht 162 cm; Wt 59.5 kg
--- NOTE | 2020-03-28 07:17 | Progress Note-Pre Operative ---
Pre-Operative Progress Note H&P Reviewed The H&P was reviewed, patient examined and no changes noted. Date Seen by Provider: Mar 28, 2020 Time Seen by Provider: 09:15 Date H&P Reviewed: Mar 28, 2020 Time H&P Reviewed: 09:15 Pre-Operative Diagnosis: RT URETERAL STONES HERB MEJIA MD Mar 28, 2020 07:17
[2020-03-28] MEDS ORDERED: LACTATED RINGERS 1,000 ML IV PRN (08:03)
[2020-03-28] MEDS ORDERED: LEVOFLOXACIN 250 MG/50 ML IVPB 50 ML IV ONE (08:15)
--- NOTE | 2020-03-28 08:29 | Diagnostic Imaging Report ---
INDICATION: Right ureteral stone, pre-lithotripsy. Time of exam 8:15 AM Correlation is made with prior radiograph from one day earlier. Calcific densities in the region of the proximal right ureter as well as the right ureter at the level of the 4th transverse process again noted and appears similar to one day earlier. The bowel gas pattern is unremarkable. There are surgical clips in the right upper quadrant. IMPRESSION: Right-sided ureteric calculi, similar to examination from one day earlier. Dictated by: Dictated on workstation # [id number]
[2020-03-28] MEDS ORDERED: CATHETER FLUSH 10 ML SYR IV PRN (08:30)
[2020-03-28] MEDS ORDERED: ONDANSETRON 4 MG/2 ML (SDV) Z0FRAN ONE ×2 (08:36→09:50)
[2020-03-28] MEDS ORDERED: FAMOTIDINE 20MG/2ML IV (PEPCID) ONE (08:37)
[2020-03-28] MEDS ORDERED: ONDANSETRON 4 MG/2 ML (SDV) Z0FRAN IVP ONE (08:45)
[2020-03-28] MEDS ORDERED: FAMOTIDINE 20MG/2ML IV (PEPCID) IVP ONE (08:45)
--- NOTE | 2020-03-28 09:32 | Progress Note-Post Operative ---
Post-Operative Progess Note Surgeon (s)/Straw Hat Brim Cutter Operator (s) Surgeon HREB MEJIA MD Straw Hat Brim Cutter Operator: NONE Pre-Operative Diagnosis RT URETERAL STONES Post-Operative Diagnosis SAME Procedure & Operative Findings Date of Procedure 03/28/20 Procedure Performed/Findings RT ESWL Anesthesia Type GENERAL Estimated Blood Loss Estimated blood loss (mL): NONE Specimens/Packing Specimens Removed NONE Packing: NONE HERB MEJIA MD Mar 28, 2020 09:32
--- NOTE | 2020-03-28 09:35 | Discharge Inst-Urology ---
Discharge Inst-Urology Reconcile Patient Problems Problems Reviewed?: Yes Final Diagnosis RT URETERAL STONES Patient Instructions/Follow Up Plan/Assessment/Instructions Please make appointment to been seen in office Monday 04/09, KUB prior to it KUB on way home Post ESWL instructions Off ASA and Plavix Increase oral fluids for 48 hours and then as needed. Diet and Activity as tolerated. If questions or concerns contact your physician Or seek help at emergency department. HERB MEJIA MD Mar 28, 2020 09:35
[2020-03-28] MEDS ORDERED: KETOROLAC 30 MG/ML VIAL ONE (09:50)
[2020-03-28] MEDS ORDERED: LIDOCAINE PF 2% 5 ML (XYLOCAINE) VIAL ONE (09:50)
[2020-03-28] MEDS ORDERED: MIDAZOLAM 2 MG/2 ML (VERSED) VIAL ONE (09:50)
[2020-03-28] MEDS ORDERED: proPOfol 200 MG/20 ML (DIPRIVAN) VIAL IV ONE (09:50)
[2020-03-28] MEDS ORDERED: FUROSEMIDE 40 MG/4 ML INJ (LASIX) ONE (09:50)
[2020-03-28] MEDS ORDERED: fentaNYL INJECTION 100 MCG/2 ML AMP ONE (09:51)
[2020-03-28] MEDS ORDERED: SEVOFLURANE (ULTANE) 15 ML INHAL SOLN ONE (11:31)
[2020-03-28] MEDS ORDERED: morphine INJ 10 MG/ML 1ML (SYR OR VIAL) IVP ONE (12:00)
[2020-03-28] MEDS ORDERED: ONDANSETRON 4 MG/2 ML (SDV) Z0FRAN IVP PRN (12:00)
[2020-03-28] MEDS ORDERED: NITR-65 PO (12:35)
[2020-03-28] MEDS ORDERED: TMSL.4C PO (12:35)
[2020-03-28] MEDS ORDERED: TRAM50TA3 PO (12:35)
--- NOTE | 2020-03-28 12:45 | Anesthesia-General Post-Op ---
General Patient Condition Mental Status/LOC: Same as Preop Cardiovascular: Satisfactory Nausea/Vomiting: Absent Respiratory: Satisfactory Pain: Controlled Complications: Absent Post Op Complications Complications None Follow Up Care/Instructions Patient Instructions None needed. Anesthesia/Patient Condition Patient Condition Patient is doing well, no complaints, stable vital signs, no apparent adverse anesthesia problems. NICOLASA COLLINS DO Mar 28, 2020 12:45
--- NOTE | 2020-03-28 13:25 | OPERATIVE REPORT ---
DATE OF SERVICE: 03/28/2020 PREOPERATIVE DIAGNOSIS: Right proximal ureteral stone. POSTOPERATIVE DIAGNOSIS: Right proximal ureteral stone. OPERATION PERFORMED: Right ESWL. SURGEON: Jeremías Mejia MD. ANESTHESIA: General. COMPLICATIONS: None. DESCRIPTION OF PROCEDURE: Under satisfactory general anesthesia, the patient in supine position on the ESWL table, we first localized the proximal ureteral stone. Delivered shocks at kV of 6. After 1500 shocks, we could not visualize the stone anymore. Then, we moved down to the more distal stone and delivered 2000 shocks at kV of 6 for a total of 3500 shocks for both. Again, we could not visualize the stone anymore. The patient received 40 mg of Lasix and 30 mg of Toradol IV at the end of the procedure. She tolerated the procedure and anesthesia well and was sent to recovery room in stable condition. Job ID: [id number] DocumentID: [id number] Dictated Date: 03/28/2020 11:32:19 Fabrication Supervisor Date: 03/28/2020 13:24:34 Dictated By: JEERMÍAS MEJIA MD
--- NOTE | 2020-03-28 16:02 | Diagnostic Imaging Report ---
INDICATION: Status post ESWL. History of nephrolithiasis. COMPARISON: 03/27/2020 and earlier same day. FINDINGS: Single frontal radiograph view of the abdomen was obtained. Small extraosseous calcification is again identified overlying the right psoas muscle at the level of the superior endplate of L4. This is stable in appearance. The additional proximal ureteral calculus seen projecting at the level of the L2-L3 intervertebral disc space is now much less conspicuous likely on the basis of partial interval fragmentation. Small bowel loops are nondistended. No unexpected radiopaque foreign bodies are seen. Osseous structures are stable. IMPRESSION: 1. Favorable interval change in regards to larger calculus seen in the high right ureter on prior exam. 2. Smaller more inferior right ureteral calculus has a stable appearance. Dictated by: Dictated on workstation # [id number]
== END 2020-03-28 13:35 | disposition home or self-care (01) ==
LOC: SDC 07:55
PROVIDERS: ATTEND Urology
DX: N20.1 Calculus of ureter (principal); I10 Essential (primary) hypertension; I25.10 Atherosclerotic heart disease of native coronary artery without angina pectoris; E78.5 Hyperlipidemia, unspecified; I48.0 Paroxysmal atrial fibrillation; M19.91 Primary osteoarthritis, unspecified site; M54.5 Low back pain; E11.9 Type 2 diabetes mellitus without complications; K21.9 Gastro-esophageal reflux disease without esophagitis; Z87.891 Personal history of nicotine dependence; Z86.711 Personal history of pulmonary embolism; Z79.84 Long term (current) use of oral hypoglycemic drugs; Z79.02 Long term (current) use of antithrombotics/antiplatelets; Z79.899 Other long term (current) drug therapy; Z95.1 Presence of aortocoronary bypass graft; Z87.440 Personal history of urinary (tract) infections; Z88.2 Allergy status to sulfonamides; Z88.8 Allergy status to other drugs, medicaments and biological substances; Z88.0 Allergy status to penicillin; Z88.1 Allergy status to other antibiotic agents; Z11.2 Encounter for screening for other bacterial diseases
CPT/HCPCS: 74018; 82962; 87081

== ENCOUNTER → 2020-04-09 | Outpatient (CLI) | payer MEDICARE, BC ==
[~2020-04-09] MED LIST changes: +ENAL20TA16 PO; +NITR-65 PO; +TMSL.4C PO; +TRAM50TA3 PO
--- NOTE | 2020-04-09 13:17 | Diagnostic Imaging Report ---
INDICATION: Status post ESWL. COMPARISON: 03/28/2020. FINDINGS: A single frontal radiographic view of the abdomen was obtained and again demonstrates a 3 to 4 mm calculus projecting over the right transverse process. This may correlate to the gonadal vein phlebolith seen on the prior CT. There are also 6 and 4 mm calculi projecting over the left psoas muscle interposed between the left L4 and L5 transverse processes. This may correlate to bulky omental calcification seen on the prior CT as well. Multiple pelvic phleboliths are also noted. The small bowel loops are nondistended. Moderate colonic air and stool are noted. IMPRESSION: Extraosseous calcifications as above. Dictated by: Dictated on workstation # [id number]
== END ==
LOC: RAD 12:42
PROVIDERS: ATTEND Urology
DX: N20.1 Calculus of ureter (principal)
CPT/HCPCS: 74018

== ENCOUNTER → 2020-05-07 | Outpatient (CLI) | payer MEDICARE, BC ==
--- NOTE | 2020-05-07 13:31 | Diagnostic Imaging Report ---
EXAMINATION: Supine abdomen at 1:13 PM. INDICATION: Ureteral stone. FINDINGS: The prior abdomen exam of 04/09/2020 noted a 3-4 mm calculus projected over the right transverse processes of L4 and two other calculi measuring 4 and 6 mm lying just superior to the left transverse process of L5. Those calcifications are again evident on this study and do not appear to have changed significantly in size or position. The calcifications low in the pelvis seen previously are also no different than on the prior exam. No other pathological calcifications are evident. The remainder of the abdomen and pelvis has not changed significantly otherwise. IMPRESSION: The calcifications overlying the expected paths of the ureters seen on the prior study are again evident and essentially no different. No new abnormality has developed otherwise. Dictated by: Dictated on workstation # [id number]
== END ==
LOC: RAD 13:03
PROVIDERS: ATTEND Urology
DX: N20.1 Calculus of ureter (principal); N28.89 Other specified disorders of kidney and ureter; Z20.828 Contact with and (suspected) exposure to other viral communicable diseases
CPT/HCPCS: 74018

== ENCOUNTER → 2020-08-01 | Outpatient (CLI) | payer MEDICARE, BC ==
--- NOTE | 2020-08-01 17:26 | Diagnostic Imaging Report ---
INDICATION: Right ureteral stone follow-up. Abdominal film obtained at 0512 p.m. and is compared to 05/07/2020. The small calcification projecting adjacent to the transverse process of L4 on the right side is unchanged compared to the prior study. There are a couple of small calcifications to the left of the L4-L5 level, which also appear unchanged. Calcifications in the right side of the pelvis are also stable. Bowel gas pattern is unremarkable. There are surgical clips in the right upper quadrant. IMPRESSION: Lower abdominal calcifications remain present and unchanged compared to the prior study. Right-sided pelvic calcifications also present and unchanged. Bowel gas pattern is unremarkable. Dictated by: Dictated on workstation # [id number]
== END ==
LOC: RAD 16:43
PROVIDERS: ATTEND Urology
DX: N20.1 Calculus of ureter (principal)
CPT/HCPCS: 74018

== ENCOUNTER → 2020-10-31 | Outpatient (RCR) | payer MEDICARE, BC | END | disposition home or self-care (01) | LOC: CR3 10-01 10:04 | PROVIDERS: ATTEND Internal Medicine Interventional Cardiology | DX: Z29.8 Encounter for other specified prophylactic measures (principal) ==

== ENCOUNTER 2020-11-30 10:16 | Outpatient (RCR) | payer MEDICARE, BC | END 2020-12-02 | disposition home or self-care (01) | LOC: CR3 10:16 | PROVIDERS: ATTEND Internal Medicine Interventional Cardiology | DX: Z29.8 Encounter for other specified prophylactic measures (principal) ==

== ENCOUNTER → 2021-01-02 | Outpatient (RCR) | payer MEDICARE, BC | END | disposition home or self-care (01) | LOC: CR3 12-03 08:39 | PROVIDERS: ATTEND Internal Medicine Interventional Cardiology | DX: Z29.8 Encounter for other specified prophylactic measures (principal) ==

== ENCOUNTER 2021-02-01 10:46 | Outpatient (RCR) | payer MEDICARE, BC | END 2021-02-03 | disposition home or self-care (01) | LOC: CR3 10:46 | PROVIDERS: ATTEND Internal Medicine Interventional Cardiology | DX: Z29.8 Encounter for other specified prophylactic measures (principal) ==

== ENCOUNTER → 2021-02-21 | Outpatient (CLI) | payer MEDICARE, BC ==
--- NOTE | 2021-02-21 10:14 | Diagnostic Imaging Report ---
INDICATION: Right flank pain. FINDINGS: The bowel gas pattern is normal. The gallbladder is surgically absent. There is a 2 cm irregular shaped amorphous calcification projecting over the L4 transverse process on the right. IMPRESSION: Large amorphous calcification as described. This is new since 08/01/2020. Etiology is indeterminate. Dictated by: Dictated on workstation # [id number]
--- NOTE | 2021-02-21 11:00 | Diagnostic Imaging Report ---
PROCEDURE: CT abdomen and pelvis without contrast. TECHNIQUE: Multiple contiguous axial images were obtained through the abdomen and pelvis without the use of intravenous contrast. Auto Exposure Controls were utilized during the CT exam to meet ALARA standards for radiation dose reduction. INDICATION: Right-sided pain and hematuria. Patient does have history of kidney stones. COMPARISON: Prior CT from 03/21/2020. FINDINGS: The lung bases are clear. The liver is unremarkable. No mass is detected. The gallbladder is surgically absent. There is no biliary ductal dilatation. The pancreas and spleen are unremarkable. No adrenal mass is detected. There is a small approximately 3 mm calculus in the lower pole of the left kidney. No ureteral or bladder calculi are seen. There is no hydronephrosis. The aorta and iliac vessels are heavily calcified but nonaneurysmal. A calcified lesion in the central mesentery appears similar to the prior exam. The small and large bowel loops are of normal caliber. There is no free fluid or fluid collection. The bladder and uterus are unremarkable. The bony structures are nonacute. IMPRESSION: 1. There is a 3 mm left lower pole renal calculus. No ureteral calculus or hydronephrosis is detected. 2. Stable calcified mesenteric mass when compared with the exam from 03/21/2020. 3. No other significant abnormality is detected. Dictated by: Dictated on workstation # [id number]
== END ==
LOC: RAD 10:15
PROVIDERS: ATTEND Urology
DX: N20.0 Calculus of kidney (principal); M61.9 Calcification and ossification of muscle, unspecified; N28.89 Other specified disorders of kidney and ureter; Z90.49 Acquired absence of other specified parts of digestive tract
CPT/HCPCS: 74018; 74176

== ENCOUNTER → 2021-03-06 | Outpatient (RCR) | payer MEDICARE, BC | END | disposition home or self-care (01) | LOC: CR3 02-04 07:16 | PROVIDERS: ATTEND Internal Medicine Interventional Cardiology | DX: Z29.8 Encounter for other specified prophylactic measures (principal) ==

== ENCOUNTER 2021-04-05 10:01 | Outpatient (RCR) | payer MEDICARE, BC | END 2021-04-07 | disposition home or self-care (01) | LOC: CR3 10:01 | PROVIDERS: ATTEND Internal Medicine Interventional Cardiology | DX: Z29.8 Encounter for other specified prophylactic measures (principal) ==

== ENCOUNTER → 2021-05-08 | Outpatient (RCR) | payer MEDICARE, BC | END | disposition home or self-care (01) | LOC: CR3 04-08 10:46 | PROVIDERS: ATTEND Internal Medicine Interventional Cardiology | DX: Z29.8 Encounter for other specified prophylactic measures (principal) ==

== ENCOUNTER 2021-06-10 09:51 | Outpatient (RCR) | payer MEDICARE, BC ==
[~2021-06-10 09:51] MED LIST changes: +POTA-160 PO; -POTA10TA6 PO
== END 2021-06-12 | disposition home or self-care (01) ==
LOC: CR3 09:51
PROVIDERS: ATTEND Internal Medicine Interventional Cardiology
DX: Z29.8 Encounter for other specified prophylactic measures (principal)

== ENCOUNTER 2021-08-16 10:41 | Outpatient (RCR) | payer MEDICARE, BC | END 2021-08-18 | disposition home or self-care (01) | LOC: CR3 10:41 | PROVIDERS: ATTEND Internal Medicine Interventional Cardiology | DX: Z29.8 Encounter for other specified prophylactic measures (principal) ==

== ENCOUNTER → 2021-09-18 | Outpatient (RCR) | payer MEDICARE, BC | END | disposition home or self-care (01) | LOC: CR3 08-19 10:38 | PROVIDERS: ATTEND Internal Medicine Interventional Cardiology | DX: Z29.8 Encounter for other specified prophylactic measures (principal) ==

== ENCOUNTER 2021-11-15 09:58 | Outpatient (RCR) | payer MEDICARE, BC ==
[~2021-11-15 09:58] MED LIST changes: -FEXO-46 PO; +NF-ALLE180 PO
== END 2021-11-16 | disposition home or self-care (01) ==
LOC: CR3 09:58
PROVIDERS: ATTEND Internal Medicine Interventional Cardiology
DX: Z29.8 Encounter for other specified prophylactic measures (principal)

== ENCOUNTER 2021-11-29 10:46 | Outpatient (RCR) | payer MEDICARE, BC ==
[2021-12-20] MEDS ORDERED: TETRACAINESUCKERS MT (08:54)
[2021-12-20] MEDS ORDERED: DEXAINTSOL PO (08:54)
[2021-12-20] MEDS ORDERED: AMOX250S5 PO (08:54)
[2021-12-20] MEDS ORDERED: HYDR15SO8 PO (08:54)
== END 2022-01-16 | disposition home or self-care (01) ==
LOC: CR3 10:46
PROVIDERS: ATTEND Internal Medicine Interventional Cardiology
DX: Z29.8 Encounter for other specified prophylactic measures (principal)

== ENCOUNTER → 2021-12-09 | Outpatient (CLI) | payer MEDICARE, BC ==
--- NOTE | 2021-12-09 16:15 | Diagnostic Imaging Report ---
INDICATION: Hematuria x1 week. TECHNIQUE: Multiple contiguous axial images were obtained through the abdomen and pelvis without the use of intravenous contrast. Auto Exposure Controls were utilized during the CT exam to meet ALARA standards for radiation dose reduction. Comparison made with 02/21/2021 The visualized portions of the lung bases are clear. There were no pleural fluid collections. There is no free intraperitoneal air The liver shows diffuse low-density change compatible with fatty infiltration. There is a hypodense area of mass effect in the medial portion of the right lobe, which extends to and may involve the IVC. This measured about 4.8 cm in the prior study. Would recommend a contrast study, either CT or MRI, for further characterization. The spleen, adrenals, and pancreas are normal.. The kidneys bilaterally show no focal mass lesion or hydronephrosis. There is a nonocclusive stone in the right renal pelvis measuring about 4 to 5 mm. There is a nonocclusive stone in the left renal pelvis measuring about 9 mm. There is no retroperitoneal mass or adenopathy. There is no ascites. There are calcified masses in the mesentery which appear stable compared to the prior study. There is an IVC clip in place. IMPRESSION: There is a suspicious mass in the right lobe of the liver medially, abutting and possibly extending into the IVC. Neoplasm is not excluded. Recommend further characterization with a contrast study, either CT or MRI. There is diffuse fatty infiltration of the liver. There are nonocclusive stones in the renal pelvis on both sides. There are calcified masses in the mesentery that are stable compared to the prior study. Dictated by: Dictated on workstation # [id number]
== END ==
LOC: RAD 14:15
PROVIDERS: ATTEND Urology
DX: K76.0 Fatty (change of) liver, not elsewhere classified (principal); N20.0 Calculus of kidney; R19.00 Intra-abdominal and pelvic swelling, mass and lump, unspecified site
CPT/HCPCS: 74176

== ENCOUNTER → 2021-12-11 | Outpatient (CLI) | payer MEDICARE, BC ==
[~2021-12-11] MED LIST changes: +CATHETER FLUSH 10 ML SYR IV PRN; +HOLD METFORMIN - RECEIVED CONTRAST 20 ML VIAL IV SCH; +IOHEXOL 350 MG/ML 100 ML (OMNIPAQUE 350) VIAL IV ONE; +NS 100 ML (IVPB) BAG IV ONE
--- NOTE | 2021-12-11 11:22 | Diagnostic Imaging Report ---
PROCEDURE: CT abdomen and pelvis with contrast. TECHNIQUE: Multiple contiguous axial images were obtained through the abdomen and pelvis after administration of intravenous contrast. Auto Exposure Controls were utilized during the CT exam to meet ALARA standards for radiation dose reduction. All CT scans use one or more of the following dose optimizing techniques: automated exposure control, MA and/or KvP adjustment based on patient size and exam type or iterative reconstruction. INDICATION: Hematuria and liver mass. COMPARISON: Noncontrasted abdominal/pelvic CT performed on 12/09/2021. FINDINGS: There is a mass in the right hepatic lobe posteromedially in segment 7 which may be extending partly into segment 8. It is hypodense on the precontrast enhanced images and shows heterogeneous enhancement on the delayed images. The right middle and left hepatic veins are all patent. The intra and suprahepatic segments of the cava are all widely patent and well opacified. The lesion measures approximately 4.6 x 3.6 cm in axial plane with a background of diffuse mild hepatic steatosis. No other focal liver lesion is found. There are no findings suggestive of underlying cirrhosis or portal venous hypertension. The spleen is within normal limits and nonfocal. There is no pathological biliary ductal dilatation in this patient with previous cholecystectomy. The pancreas and adrenals are unremarkable. There are renal hilar vascular calcifications. There is a stone (nonobstructing) layering dependently within the left-sided extrarenal pelvis measuring 9 mm long. A tiny stone in the right renal pelvis is about 3 mm and also nonobstructing. No hydronephrosis. No perinephric or periureteric stranding or edema. There is a presumed stent in the distal right renal vein which is patent. The cava is patent. There is a tiny cyst off the lower pole of the right kidney which is simple, benign, and Bosniak 1. There are some chronic mesenteric calcifications with no noncalcified mesenteric or retroperitoneal adenopathy identified. The atherosclerotic aorta is nonaneurysmal. There is no ascites. There is no suspicious lytic or sclerotic bony lesion and the lung bases appear nonacute. IMPRESSION: 1. Mass in segment 7 of the right hepatic lobe. No vascular obstruction or vascular invasion. Background fatty liver and previous cholecystectomy. This does not have characteristically benign features and malignancy cannot be excluded. 2. Some chronic mesenteric calcifications are stable from remote priors. No ascites. Patent hepatic and portal veins. No evidence of cirrhosis or portal hypertension. 3. Nonobstructing stones in the bilateral renal pelves, greater left. Benign renal cyst. Dictated by: Dictated on workstation # [id number]
== END ==
LOC: RAD 09:46
PROVIDERS: ATTEND Urology
DX: N28.1 Cyst of kidney, acquired (principal); N20.0 Calculus of kidney; K76.0 Fatty (change of) liver, not elsewhere classified
CPT/HCPCS: 74177

== ENCOUNTER 2021-12-20 07:06 | Outpatient (CLI) | payer MEDICARE, BC ==
[2021-12-20] VITALS (9 sets, daily range): BP systolic 125–182; BP diastolic 62–93
[~2021-12-20 07:06] MED LIST changes: -CATHETER FLUSH 10 ML SYR IV PRN; -HOLD METFORMIN - RECEIVED CONTRAST 20 ML VIAL IV SCH; -IOHEXOL 350 MG/ML 100 ML (OMNIPAQUE 350) VIAL IV ONE; -NS 100 ML (IVPB) BAG IV ONE
[2021-12-20 08:01] LABS: HEMATOCRIT 41 % (35-52); HEMOGLOBIN 13.5 g/dL (11.5-16.0); MEAN CORPUSCULAR HEMOGLOBIN 32 pg (25-34); MEAN CORPUSCULAR HGB CONC 33 g/dL (32-36); MEAN CORPUSCULAR VOLUME 97 fL (80-99); MEAN PLATELET VOLUME 9.7 fL (9.0-12.2); PLATELET COUNT 225 10^3/uL (130-400); WHITE BLOOD COUNT 7.6 10^3/uL (4.3-11.0)
[2021-12-20] MEDS ORDERED: NS IV 1000 ML 1,000 ML IV STA (08:13)
[2021-12-20] MEDS ORDERED: MIDAZOLAM 2 MG/2 ML (VERSED) VIAL IVP ONE (08:15)
[2021-12-20] MEDS ORDERED: fentaNYL INJ 100 MCG/2 ML AMP IVP ONE (08:15)
[2021-12-20] MEDS ORDERED: LIDOCAINE 1% INJ 20 ML VIAL INJ ONE (08:15)
[2021-12-20 08:17] LABS: INR 0.9 (0.8-1.4); PROTHROMBIN TIME PATIENT 12.8 SEC (12.2-14.7)
[2021-12-20] MEDS ORDERED: LIDOCAINE 1% INJ 20 ML VIAL ONE (08:33)
[2021-12-20] MEDS ORDERED: MIDAZOLAM 2 MG/2 ML (VERSED) VIAL ONE (08:33)
[2021-12-20] MEDS ORDERED: fentaNYL INJ 100 MCG/2 ML AMP ONE (08:33)
[2021-12-20] MEDS ORDERED: NS IV 1000 ML 1,000 ML ONE (08:33)
[2021-12-20] MEDS ORDERED: TETRACAINESUCKERS MT (08:54)
[2021-12-20] MEDS ORDERED: DEXAINTSOL PO (08:54)
[2021-12-20] MEDS ORDERED: HYDR15SO8 PO (08:54)
[2021-12-20] MEDS ORDERED: AMOX250S5 PO (08:54)
[2021-12-20] MEDS ORDERED: HYDROcodone/APAP 5 MG/325 MG (LORTAB) TAB PO PRN (10:00)
--- NOTE | 2021-12-20 10:08 | Diagnostic Imaging Report ---
INDICATION: Liver mass. The patient presents for CT-guided biopsy. TECHNIQUE: All CT scans use one or more of the following dose optimizing techniques: automated exposure control, MA and/or KvP adjustment based on patient size and exam type or iterative reconstruction. Patient brought to the CT suite placed on table in the supine position. Axial imaging through the abdomen was performed to evaluate appropriate entry site. The procedure was performed utilizing conscious sedation with radiology nursing and constant patient monitoring. Patient was given a total of 100 mcg of fentanyl intravenously and 1 mg of Versed intravenously. Total procedure time is approximately 11 minutes. The right upper quadrant was prepped and draped in usual sterile fashion. A small amount of 1% lidocaine was utilized for local anesthesia. 18-gauge coaxial Temno needle was advanced and placed with its tip along the margin of the mass in the right lobe of the liver. Multiple core biopsies were obtained. Needle was removed and hemostasis was obtained. Followup imaging shows no complicating features. Patient tolerated the procedure well and left the department in stable condition. IMPRESSION: Successful CT-guided right lobe liver mass biopsy utilizing conscious sedation. Pathology results are currently pending. Dictated by: Dictated on workstation # [id number]
--- NOTE | 2021-12-20 10:14 | Pre-Op Note & Conscious Sedat ---
Pre-Operative Progress Note H&P Reviewed The H&P was reviewed, patient examined and no changes noted. Date H&P Reviewed: Dec 20, 2021 Time H&P Reviewed: 08:00 Pre-Op Diagnosis: Liver mass Conscious Sedation Pre-Proced Time 08:00 ASA Score 2 For ASA 3 and 4: Consider anesthesia and medical clearance. Also, for patients with a history of failed moderate sedation consider anesthesia. Airway Lungs Heart ASA score ASA 1: a normal healthy patient ASA 2: a patient with a mild systemic disease (mid diabetes, controlled hypertension, obesity ASA 3: a patient with a severe systemic disease that limits activity (angina, COPD, prior Myocardial infarction) ASA 4: a patient with an incapacitating disease that is a constant threat to life (CHF, renal failure) ASA 5: a moribund patient not expected to survive 24 hrs. (ruptured aneurysm) ASA 6: a declared brain- patient whose organs are being harvested. For emergent operations, add the letter E after the classification Mallampati Classification Grade 2 Sedation Plan Analgesia, Amnesia, Plan communicated to team members, Discussed options with patient/fam, Discussed risks with patient/fam The patient is an appropriate candidate to undergo the planned procedure, sedation, and anesthesia. The patient immediately re-assessed prior to indication. STEPHON SHORT MD Dec 20, 2021 10:14
== END 2021-12-20 11:35 | disposition home or self-care (01) ==
LOC: SDC 07:06
PROVIDERS: ATTEND Internal Medicine
DX: R16.0 Hepatomegaly, not elsewhere classified (principal)
CPT/HCPCS: 36415; 77012; 85027; 85610; 85730; 99156

== ENCOUNTER → 2022-02-05 | Outpatient (CLI) | payer MEDICARE, BC ==
[~2022-02-05] MED LIST changes: +AMOX250S5 PO; +ASPI-999 PO; +CYAN1TAB26 PO; +DEXAINTSOL PO; +DILT300C36 PO; +FEXO-14 PO; +HYDR15SO8 PO; +HYDR50TA76 PO; +METF-399 PO; +PRAZ1CAP PO; +TETRACAINESUCKERS MT
--- NOTE | 2022-02-05 13:38 | Diagnostic Imaging Report ---
INDICATION: Bilateral kidney stones. TIME OF EXAM: 1:14 PM. FINDINGS: The previously noted amorphous calcific density projected over the transverse process of L4 is no longer visualized. There is a calcific density projected just medial to the left renal shadow. Calcific densities in the pelvis appear stable. The bowel gas pattern is unremarkable. There are surgical clips in the right upper quadrant. IMPRESSION: The 2 cm amorphous calcific density superimposed over the right L4 transverse process is no longer visualized. There does appear to be a questionable left renal calculus or proximal left ureteric calculus. Dictated by: Dictated on workstation # [id number]
== END ==
LOC: RAD 12:37
PROVIDERS: ATTEND Urology
DX: N20.2 Calculus of kidney with calculus of ureter (principal)
CPT/HCPCS: 74018

== ENCOUNTER 2022-02-06 05:33 | Outpatient (CLI) | payer MEDICARE, BC ==
[~2022-02-06] VITALS: Ht 162.6 cm; Wt 60.0 kg
[~2022-02-06 05:33] MED LIST changes: -ASPI-999 PO; -CYAN1TAB26 PO; -DILT300C36 PO; -FEXO-14 PO; -HYDR50TA76 PO; -METF-399 PO; -PRAZ1CAP PO
[2022-02-06] MEDS ORDERED: PRAZ1CAP PO (15:46)
[2022-02-06] MEDS ORDERED: HYDR50TA76 PO (15:46)
[2022-02-06] MEDS ORDERED: METF-399 PO (15:46)
[2022-02-06] MEDS ORDERED: CYAN1TAB26 PO (15:46)
[2022-02-06] MEDS ORDERED: FEXO-14 PO (15:46)
[2022-02-06] MEDS ORDERED: DILT300C36 PO (15:46)
[2022-02-06] MEDS ORDERED: ASPI-999 PO (15:46)
[2022-02-11] MEDS ORDERED: TMSL.4C PO (11:46)
[2022-02-11] MEDS ORDERED: NITR-65 PO (11:46)
[2022-02-11] MEDS ORDERED: KETO10TA PO (11:46)
== END 2022-02-06 15:47 ==
LOC: PREOP 05:33
PROVIDERS: ATTEND Urology
DX: Z01.818 Encounter for other preprocedural examination (principal); N20.1 Calculus of ureter

== ENCOUNTER → 2022-02-10 | Outpatient (CLI) | payer MEDICARE, BC ==
[~2022-02-10] MED LIST changes: +ASPI-999 PO; +CYAN1TAB26 PO; +DILT300C36 PO; +FEXO-14 PO; +HYDR50TA76 PO; +KETO10TA PO; +METF-399 PO; +PRAZ1CAP PO
--- NOTE | 2022-02-10 12:57 | Diagnostic Imaging Report ---
EXAM: CT abdomen and pelvis without contrast. TECHNIQUE: Axial CT images of the abdomen and pelvis are obtained without contrast. Coronal and sagittal reformats were obtained and provided. All CT scans use one or more of the following dose optimizing techniques: automated exposure control, MA and/or KvP adjustment based on patient size and exam type or iterative reconstruction. DATE: February 10, 2022. COMPARISON: CT abdomen and pelvis December 11, 2021. KUB February 05, 2022. INDICATION: 71-year-old female, bilateral renal stones. Flank pain. Shock wave lithotripsy tomorrow. FINDINGS: There are limitations for evaluation of the abdominal organs, neoplastic processes, abscess, and limited evaluation of the vasculature relating to the lack of intravenous contrast. There are bilateral breast prostheses. The visualized portions of the lung bases are clear. The heart is not enlarged. Is no pericardial effusion. The liver is unremarkable in size and contour. The gallbladder is surgically absent. There is a low-attenuation lesion involving the right lobe of the liver and caudate which measures approximately 5.3 x 4.6 cm in axial extent as measured on axial image 32. This is also present on the prior CT and previously measured roughly 3.6 x 4.6 cm in size. This does appear to be increased in size. There is no identified intrahepatic or extrahepatic bile duct dilation. The main pancreatic duct is not grossly dilated. Limited noncontrast assessment of the pancreatic parenchyma is unremarkable. The spleen is normal in size. The adrenal glands are unremarkable. There is a stone in the right proximal ureter on axial image 82 which measures 4.0 mm in size. There is an additional 4 mm stone in the right proximal ureter 93 and immediately adjacent smaller right ureteral stones. There are pelvic calcifications compatible with phleboliths. There is a stone in the left urinary collecting system near the ureteropelvic junction on axial image 72 which measures 7.8 mm in size. There is mild hydronephrosis bilaterally. Additional noncontrast evaluation of the renal parenchyma is unremarkable. The urinary bladder is grossly unremarkable in appearance. There is a small calcification in the uterus which may relate to a small degenerating uterine leiomyoma. There is minimal free pelvic fluid. The intestinal tract is not distended. There is no evidence of acute appendicitis. There is no free intraperitoneal air. There is no drainable fluid collection. There are atherosclerotic calcifications. There is a partially calcified mass in the mesentery with areas of soft tissue attenuation. This is possibly vascular related related although a neoplastic etiology is also considered. This measures approximately 1.8 x 4.2 cm in size and is essentially unchanged since March 21, 2020. There are multilevel degenerative changes of the spine. There is a large posterior disc osteophyte complex at L5-S1. There is no identified bone lesion concerning for a bone metastasis or otherwise identified acute osseous abnormality. IMPRESSION: 1. 8 mm stone in the region of the left ureteropelvic junction and multiple right ureteral stones measuring up to maximally 4 mm in size. Mild bilateral hydronephrosis. 2. Low-attenuation lesion in the right lobe of the liver and caudate which appears new since March 21, 2020 and is increased in size since prior postcontrast exam on December 11, 2021. This previously did not have an enhancement pattern specific for a benign lesion. Particularly given these findings and the interval increase in size, this is highly concerning for malignancy. A metastatic lesion would be the favored differential diagnosis, especially given absence of imaging findings to suggest cirrhosis. Biopsy and workup for definitive diagnosis is recommended if not already performed. 3. Minimal free pelvic fluid without focal drainable fluid collection. 4. Partially calcified mesenteric mass is unchanged in size since March 21, 2020. Dictated by: Dictated on workstation # [id number]
--- NOTE | 2022-02-10 12:59 | Diagnostic Imaging Report ---
INDICATION: Followup stones. COMPARISON: Radiographs of 02/06/2020. FINDINGS: A calculus projecting along the course of the right ureter at the L4 level is unchanged. A larger stone at the level of the left renal pelvis is unchanged. No new abnormality. The pelvic extra-ureteral phleboliths are stable. IMPRESSION: Left pelvic calculus and probable right ureteral stones, unchanged in appearance. Dictated by: Dictated on workstation # [id number]
== END ==
LOC: RAD 12:23
PROVIDERS: ATTEND Urology
DX: N13.2 Hydronephrosis with renal and ureteral calculous obstruction (principal); K76.89 Other specified diseases of liver
CPT/HCPCS: 74018; 74176

== ENCOUNTER 2022-02-11 06:28 | Day surgery (SDC) | payer MEDICARE, BC ==
[~2022-02-11] VITALS: Ht 162 cm; Wt 60.0 kg
[2022-02-11] VITALS (11 sets, daily range): BP systolic 96–165; BP diastolic 49–82
[~2022-02-11 06:28] MED LIST changes: -KETO10TA PO
--- NOTE | 2022-02-11 07:11 | Progress Note-Pre Operative ---
Pre-Operative Progress Note H&P Reviewed The H&P was reviewed, patient examined and no changes noted. Date Seen by Provider: Feb 11, 2022 Time Seen by Provider: 07:10 Date H&P Reviewed: Feb 11, 2022 Time H&P Reviewed: 07:10 Pre-Operative Diagnosis: BILATERAL PROXIMAL URETERAL STONES HERB MEJIA MD Feb 11, 2022 07:11
[2022-02-11] MEDS: LACTATED RINGERS 1,000 ML IV PRN ×2 (07:12→09:26)
--- NOTE | 2022-02-11 08:12 | Diagnostic Imaging Report ---
INDICATION: Lithotripsy, renal stones COMPARISON: 02/10/2022 TECHNIQUE: Single radiograph of the abdomen dated 02/11/2022 FINDINGS: Previously noted 9 mm calcification overlying the left renal shadow is again identified and not significantly changed. Additional 4 mm calcifications adjacent to the right L4 transverse process are noted, which may relate to additional calculi. Previously noted calcifications in the left of the L4/L5 disc level are no longer visualized. Nonobstructive bowel gas pattern. No free air. Surgical clips overlying the right upper abdomen with additional surgical clip overlying the left upper abdomen/lower chest. Scattered osseous degenerative changes without acute osseous abnormality. IMPRESSION: Persistent 9 mm calcification within the left abdomen, felt to relate to previously noted ureteropelvic junction calculus, not significantly changed from the prior exam. Calcifications to the right of L4 vertebral body likely relates to additional ureteroliths, having progressed inferiorly since the prior examination. Additional calcifications in the left of L4/L5 noted on prior exam are not definitely identified. Dictated by: Dictated on workstation # [id number]
[2022-02-11] MEDS ORDERED: fentaNYL INJ 100 MCG/2 ML AMP ONE (09:52)
[2022-02-11] MEDS ORDERED: ONDANSETRON 4 MG/2 ML (SDV) Z0FRAN ONE (09:58)
[2022-02-11] MEDS ORDERED: LIDOCAINE PF 2% 5 ML (XYLOCAINE) VIAL ONE (09:58)
[2022-02-11] MEDS ORDERED: proPOfol 200 MG/20 ML (DIPRIVAN) VIAL IV ONE (09:58)
[2022-02-11] MEDS ORDERED: FUROSEMIDE 40 MG/4 ML INJ (LASIX) ONE (09:58)
[2022-02-11] MEDS ORDERED: KETOROLAC 30 MG/ML VIAL ONE (09:58)
--- NOTE | 2022-02-11 10:05 | Progress Note-Post Operative ---
Post-Operative Progess Note Surgeon (s)/Middleware Administrator (s) Surgeon HERB MEJIA MD Middleware Administrator: NONE Pre-Operative Diagnosis BILATERAL PROXIMAL URETERAL STONES Post-Operative Diagnosis SAME Procedure & Operative Findings Date of Procedure 02/11/22 Procedure Performed/Findings BILATERAL ESWL Anesthesia Type GENERAL Estimated Blood Loss Estimated blood loss (mL): NONE Specimens/Packing Specimens Removed NONE Packing: NONE HERB MEJIA MD Feb 11, 2022 10:05
--- NOTE | 2022-02-11 10:07 | Discharge Inst-Urology ---
Discharge Inst-Urology Reconcile Patient Problems Problems Reviewed?: Yes Final Diagnosis BILATERAL PROXIMAL URETERAL STONES Patient Instructions/Follow Up Plan/Assessment/Instructions Please make appointment to been seen in office Saturday 02/24, KUB prior to it. KUB on way home Post ESWL instructions Stay off ASA Increase oral fluids for 48 hours and then as needed. Diet and Activity as tolerated. If questions or concerns contact your physician Or seek help at emergency department. HERB MEJIA MD Feb 11, 2022 10:07
[2022-02-11] MEDS ORDERED: SEVOFLURANE (ULTANE) 15 ML INHAL SOLN ONE (10:55)
[2022-02-11] MEDS ORDERED: TMSL.4C PO ×2 (11:46)
[2022-02-11] MEDS ORDERED: NITR-65 PO ×2 (11:46)
[2022-02-11] MEDS ORDERED: KETO10TA PO ×2 (11:46)
--- NOTE | 2022-02-11 12:33 | Anesthesia-General Post-Op ---
General Patient Condition Mental Status/LOC: Same as Preop Cardiovascular: Satisfactory Nausea/Vomiting: Absent Respiratory: Satisfactory Pain: Controlled Complications: Absent Post Op Complications Complications None Follow Up Care/Instructions Patient Instructions None needed. Anesthesia/Patient Condition Patient Condition Patient is doing well, no complaints, stable vital signs, no apparent adverse anesthesia problems. No complications reported per nursing. ARSLAN SANDOVAL CRNA Feb 11, 2022 12:33
--- NOTE | 2022-02-11 13:17 | Diagnostic Imaging Report ---
INDICATION: Nephrolithiasis, POST ESWL. TECHNIQUE: Single view of the abdomen, 1:10 p.m. CORRELATION STUDY: 02/11/2022. FINDINGS: Approximately 4 mm calcification projecting just superior to the right L4 transverse process, generally stable. Smaller calcification is also suggested over the right renal pelvis. There has been change in position and development of what appears to be some fragmentation of the previously noted calcification over the left renal pelvis. Now located over the L3 transverse process. In aggregate, this fragment collection measures approximately 8 mm with the largest fragment at approximately 6 mm in size. Small calcifications in the pelvis, likely phleboliths, unchanged. Prominent gas-filled loops of bowel are noted with mild stool retention. IMPRESSION: 1. No appreciable change in positioning and/or appearance of right-sided calcifications. 2. Change in position and slightly more fragmented appearance about the dominant calcification over the left renal silhouette. Now may be over the region of the renal pelvis or more likely proximal ureter. Dictated by: Dictated on workstation # [id number]
--- NOTE | 2022-02-11 17:25 | OPERATIVE REPORT ---
DATE OF SERVICE: 02/11/2022 PREOPERATIVE DIAGNOSIS: Bilateral proximal ureteral stone. POSTOPERATIVE DIAGNOSIS: Bilateral proximal ureteral stone. OPERATION PERFORMED: Bilateral ESWL. SURGEON: Jeremías Mejia MD ANESTHESIA: General. COMPLICATIONS: None. DESCRIPTION OF PROCEDURE: Under satisfactory general anesthesia, the patient in supine position on the ESWL table. The left proximal ureteral stone was localized. Shocks were delivered at kV of 6. Total of 2000 shocks completely fragmented the stone that was not visualized anymore. Then, we moved the machine to the right side, localized the right proximal ureteral stone. Delivered shocks similarly. A total of 2500 shocks fragmented the stone, but not as well as the side. The patient received 40 mg of Lasix and 15 mg of Toradol IV at the end of the procedure. She tolerated the procedure and anesthesia well and was sent to recovery room in stable condition. Job ID: [id number] DocumentID: [id number] Dictated Date: 02/11/2022 10:51:57 Lap Cutter Date: 02/11/2022 17:23:54 Dictated By: JEREMÍAS MEJIA MD
== END 2022-02-11 13:15 | disposition home or self-care (01) ==
LOC: SDC 06:28
PROVIDERS: ATTEND Urology
DX: N20.1 Calculus of ureter (principal); E11.9 Type 2 diabetes mellitus without complications; K21.9 Gastro-esophageal reflux disease without esophagitis; Z95.1 Presence of aortocoronary bypass graft; Z87.891 Personal history of nicotine dependence; Z79.82 Long term (current) use of aspirin; Z79.899 Other long term (current) drug therapy; Z79.84 Long term (current) use of oral hypoglycemic drugs; Z88.1 Allergy status to other antibiotic agents; Z88.2 Allergy status to sulfonamides; Z88.0 Allergy status to penicillin; Z88.8 Allergy status to other drugs, medicaments and biological substances
CPT/HCPCS: 74018; 82947; 87081

== ENCOUNTER → 2022-02-24 | Outpatient (CLI) | payer MEDICARE, BC ==
[~2022-02-24] MED LIST changes: +KETO10TA PO
--- NOTE | 2022-02-24 15:37 | Diagnostic Imaging Report ---
INDICATION: Kidney stones, followup. TIME OF EXAM: 2:46 PM. COMPARISON: Correlation is made with the prior radiograph from 02/11/2022. FINDINGS: A calcific density adjacent to the right transverse process of L4 is noted, slightly more distal in position when compared with the prior exam. A calcific density projected between the right L1 and L2 transverse process is noted. Fragmented calculi on the left at the level of L4 is slightly more distal in position than on the prior exam. Pelvic calcifications are unchanged. The bowel gas pattern is unremarkable. There are surgical clips in the right upper quadrant. IMPRESSION: Bilateral urinary tract calculi, as described. Dictated by: Dictated on workstation # [id number]
== END ==
LOC: RAD 14:34
PROVIDERS: ATTEND Urology
DX: N20.2 Calculus of kidney with calculus of ureter (principal)
CPT/HCPCS: 74018

== ENCOUNTER 2022-02-25 05:31 | Outpatient (CLI) | payer MEDICARE, BC ==
[~2022-02-25] VITALS: Ht 162.6 cm; Wt 59.8 kg
== END 2022-02-26 08:36 | disposition home or self-care (01) ==
LOC: PREOP 05:31
PROVIDERS: ATTEND Surgery
DX: Z01.818 Encounter for other preprocedural examination (principal)

== ENCOUNTER 2022-02-27 09:26 | Day surgery (SDC) | payer MEDICARE, BC ==
[~2022-02-27] VITALS: Ht 162 cm; Wt 59.8 kg
[2022-02-27] VITALS (8 sets, daily range): BP systolic 110–160; BP diastolic 59–74
[2022-02-27] MEDS ORDERED: ceFAZolin 2 GM IV Premixed 50 ML IV ONE (09:30)
[2022-02-27] MEDS ORDERED: LACTATED RINGERS 1,000 ML IV PRN (09:30)
--- NOTE | 2022-02-27 09:59 | Progress Note-Pre Operative ---
Pre-Operative Progress Note Date of Available H&P: Feb 24, 2022 Date H&P Reviewed: Feb 27, 2022 Time H&P Reviewed: 09:58 History & Physical: H&P Reviewed, Patient Examed, No changes noted Pre-Operative Diagnosis: cholangiocarcinoma RGEGIE CERVANTES DO Feb 27, 2022 09:59
[2022-02-27] MEDS ORDERED: PROPOFOL INJECTION 50 ML IV ONE (10:11)
[2022-02-27] MEDS ORDERED: MIDAZOLAM 2 MG/2 ML (VERSED) VIAL ONE (10:12)
[2022-02-27] MEDS ORDERED: LIDOCAINE/EPI 2% 1:200,00 (XYLOCAINE) 20 ML VIAL ONE (10:12)
[2022-02-27] MEDS ORDERED: 0.9% SODIUM CHLORIDE PF INJ 20 ML VIAL ONE (10:12)
[2022-02-27] MEDS ORDERED: fentaNYL INJ 100 MCG/2 ML AMP ONE (10:12)
[2022-02-27] MEDS ORDERED: HEParin (CENTRAL IV FLUSH) 500 UNIT/5 ML SYR ONE (10:13)
[2022-02-27] MEDS ORDERED: CLINDAMYCIN 600 MG/50 ML IVPB 50 ML IV ONE ×2 (10:50)
--- NOTE | 2022-02-27 11:27 | Discharge Inst-Simple/Standard ---
Discharge Inst-Standard Patient Instructions/Follow Up Plan of Care/Instructions/FU: 2 weeks Enrique Activity as Tolerated: No Discharge Diet: Regular Diet Other Inst to Patient Follow up Appt: Make appointment for 2 week. Instructions: No lifting greater than 10 pounds. No strenuous activity. May shower in 24 hours, no tub bath or soaking. Use incentive spirometer at home as directed. No Smoking Skin/Wound Care: You have special glue over your incision that will fall off on it's own. Ice pack on 15 min and off 30 min and repeat for discomfort. Symptoms to Report: Appetite Changes, Extremity Discoloration, Numbness/Tingling, Swelling Increased, Bleeding Excessive, Eyesight Changes, Pain Increased, Urine Color Change, Constipation(Persistent), Fever over 101 degree F, Pain/Pressure in chest, Urinating Difficulty, Cough Up/Vomit Blood, Heart Beat Irreg/Pounding, Pain/Pressure in jaw, Vaginal Bleeding Increase, Cramps in feet or legs, Lightheadedness, Pain/Pressure in shoulder, Diarrhea(Persistent), Memory Changes Suddenly, Questions/Concerns, Weight gain consecutive days, Dizziness/Fainting, Nausea/Vomiting, Shortness of Breath, Weight gain over 2 pounds If questions or concerns contact your physician Or seek help at emergency department. REGGIE CERVANTES DO Feb 27, 2022 11:27
--- NOTE | 2022-02-27 11:29 | Progress Note-Post Operative ---
Post-Operative Progess Note Surgeon (s)/Cardiac Catheterization Technician (s) Surgeon REGGIE CERVANTES DO Cardiac Catheterization Technician: na Pre-Operative Diagnosis cholangiocarcinoma Post-Operative Diagnosis same Procedure & Operative Findings Date of Procedure 02/27/22 Procedure Performed/Findings PROCEDURE: Right internal jugular port placement using ultrasound guidance. COMPLICATIONS: None. INDICATIONS: The patient is a 71 year old female with cholangiocarcinoma. Patient understands the risks and benefits of port placement and wished to proceed with the procedure. Consent was signed on the chart. PROCEDURE: The patient was taken to the operating suite, was prepped and draped in the sterile fashion. A surgical pause was performed. Ultrasound was used to locate the internal jugular vein. Once located anesthetic was infiltrated above it. Using micro-access kit, the right internal vein was accessed. Dark nonpulsatile blood was withdrawn. The wire was inserted. Fluoroscopy assured proper placement. The needle was removed. The micro-access dilator was advanced over the wire and the wire was removed. The regular wire was inserted and fluoroscopy assured proper placement. The wire was then secured. Local anesthetic was used to anesthetize from the neck for tunneling down to the right chest and for pocket creation. A 15 blade scalpel was used to make an incision over the right chest. Cautery was used to dissect down to the pectoral fascia. A pocket was created with blunt dissection. The dilator sheath was then advanced over the wire under fluoroscopy and the dilator and wire were removed. The Groshong catheter was inserted through the sheath and the sheath was then removed. The Groshong wire was removed. The catheter was then tunneled to the right chest pocket. Fluoroscopy was used to cut to length and this was then attached to the port which was then placed within the pocket. The port was then accessed without difficulty. It was then flushed with saline and then heparin. The subcutaneous tissues were then reapproximated using 3-0 Vicryl. The areas were then washed and dried. Skin Affix was placed over incision. The insertion point of the neck Skin Affix was placed over the incision. The patient tolerated the procedure well without complication and was taken to recovery room in stable condition. Chest x-ray is pending. Anesthesia Type mac c local Estimated Blood Loss Estimated blood loss (mL): min Specimens/Packing Specimens Removed REGGIE Levine DO Feb 27, 2022 11:29
[2022-02-27] MEDS ORDERED: morphine INJ 10 MG/ML 1ML (SYR OR VIAL) IVP ONE (11:30)
[2022-02-27] MEDS ORDERED: ONDANSETRON 4 MG/2 ML (SDV) Z0FRAN IVP PRN (11:30)
--- NOTE | 2022-02-27 12:01 | Diagnostic Imaging Report ---
INDICATION: Post Port-A-Cath placement. COMPARISON: 02/26/2020. TECHNIQUE: Single radiograph of the chest dated 02/27/2022. FINDINGS: Interval placement of right-sided Port-A-Cath with the distal tip overlying the cavoatrial junction. No pneumothorax. Postsurgical changes of a CABG are again identified. Surgical clips overlying the right upper abdomen are again noted. The cardiac silhouette is within normal limits in size. No significant pulmonary vascular congestion. The lungs are clear. No pleural effusion. No pneumothorax. No acute osseous abnormality. IMPRESSION: Interval placement of a right-sided Port-A-Cath with the distal tip overlying the cavoatrial junction without pneumothorax or additional superimposed acute cardiopulmonary abnormality. Dictated by: Dictated on workstation # [id number]
--- NOTE | 2022-02-27 12:16 | Anesthesia-General Post-Op ---
MAC Patient Condition Mental Status/LOC: Same as Preop Cardiovascular: Satisfactory Nausea/Vomiting: Absent Respiratory: Satisfactory Pain: Controlled Complications: Absent Post Op Complications Complications None Follow Up Care/Instructions Patient Instructions None needed. Anesthesiology Discharge Order Discharge Order Patient is doing well, no complaints, stable vital signs, no apparent adverse anesthesia problems. No complications reported per nursing. NICOLASA COLLINS DO Feb 27, 2022 12:16
--- NOTE | 2022-02-27 14:54 | Diagnostic Imaging Report ---
INDICATION: Fluoroscopy during port placement. FINDINGS: Fluoroscopy was provided in the OR during port placement. 10 seconds of fluoroscopic time was utilized. A single image was obtained demonstrating a right chest wall port with tip overlying the right atrium. IMPRESSION: Fluoroscopy during port placement. Dictated by: Dictated on workstation # [id number]
== END 2022-02-27 12:30 | disposition home or self-care (01) ==
LOC: SDC 09:26
PROVIDERS: ATTEND Surgery
DX: C24.9 Malignant neoplasm of biliary tract, unspecified (principal); Z79.899 Other long term (current) drug therapy; I87.2 Venous insufficiency (chronic) (peripheral); Z87.891 Personal history of nicotine dependence
CPT/HCPCS: 36561; 71045; 76000; 82947; 87081; C1788

== ENCOUNTER → 2022-03-10 | Outpatient (CLI) | payer MEDICARE, BC ==
--- NOTE | 2022-03-10 16:03 | Diagnostic Imaging Report ---
INDICATION: Followup renal calculi. Status post ESWL. COMPARISON: 02/24/2022. FINDINGS: A single frontal radiographic view of the abdomen was obtained. Again identified is a 4 mm calculus projecting over the lateral tip of the right transverse process of L4. This may correspond to the previously described ureteral calculus. Bulky calcification is identified inferior to this but is felt to correspond to a calcified mesenteric mass seen on the previous CT. The left-sided ureteral calcification is no longer identified. The radiopaque foreign body projecting over left upper abdominal quadrant is also again identified and corresponds to a known foreign body seen within the abdomen on previous CT. Small bowel loops are nondistended. There is no large collection of free intraperitoneal air. IMPRESSION: 1. Previously described left ureteral calculus is no longer identified. 2. Persistent 4 mm calculus is again identified on the right. 3. Redemonstration of a partially calcified mesenteric mass as above. 4. Foreign body within the stomach. 5. Nonobstructed small bowel gas pattern. Dictated by: Dictated on workstation # [id number]
== END ==
LOC: RAD 13:45
PROVIDERS: ATTEND Urology
DX: N20.2 Calculus of kidney with calculus of ureter (principal)
CPT/HCPCS: 74018

== ENCOUNTER 2022-06-12 20:15 | Emergency (ER) | payer MEDICARE, BC ==
[~2022-06-12] VITALS: Ht 163 cm; Wt 59.0 kg
[2022-06-12 21:00] LABS: BILIRUBIN,URINE NEGATIVE (NEGATIVE); CLARITY,URINE CLOUDY; COLOR,URINE RED; GLUCOSE, URINE (UA) TRACE (NEGATIVE); KETONES,URINE TRACE (NEGATIVE); LEUKOCYTE ESTERASE ,URINE 1+ (NEGATIVE); NITRITE,URINE POSITIVE (NEGATIVE); PH,URINE 6.5 (5-9); PROTEIN,URINE 2+ (NEGATIVE)
[2022-06-12] MEDS ORDERED: NS IV 1000 ML 1,000 ML IV ONE (21:00)
[2022-06-12 21:01] LABS: BACTERIA,URINE NEGATIVE /HPF; RBC,URINE 50-100 /HPF
--- NOTE | 2022-06-12 21:01 | ED General ---
General Chief Complaint: - Reproductive Stated Complaint: HEMATURIA,FEVER Nursing Triage Note: C/O RIGHT FLANK PAIN, HEMATURIA, FEVER TODAY. CHEMO LAST WEEK. Source of Information: Patient Exam Limitations: No Limitations (PEPE CARRILLO MD) History of Present Illness Date Seen by Provider: Jun 12, 2022 Time Seen by Provider: 20:50 Initial Comments Here with report of fever today as well as bloody urine. She is on chemotherapy for cholangiocarcinoma with last dose last week. Has known history of low platelets as of yesterday. She has been having that problem but they rebounded nicely with time between chemotherapy. She has tolerated her chemotherapy well since February and was noted to have decreased tumor size on her last check a few weeks ago. Denies nausea, vomiting, chest pain or breathing problems. No cough or upper respiratory symptoms. Does report some right flank pain. Timing/Duration: 4-6 Hours Severity: Moderate Associated Systoms: No Cough; Fever/Chills; No Nausea/Vomiting, No Shortness of Air, No Weakness; Other (Hematuria) (PEPE CARRILLO MD) Allergies and Home Medications Allergies Coded Allergies: amlodipine (Verified Allergy, Severe, EDEMA LOWER EXTREMITIES, 02/26/22) Cephalosporins (Verified Allergy, Mild, ITCHING, 02/26/22) Penicillins (Verified Allergy, Mild, HIVES, 02/26/22) Sulfa (Sulfonamide Antibiotics) (Verified Allergy, Mild, ITCHING, 02/26/22) Patient Home Medication List Home Medication List Reviewed: Yes (PEPE CARRILLO MD) Home Medication List Reviewed: Yes (JHON GASTELUM MD) Ascorbic Acid (Vitamin C) 1,000 Mg Tablet, 1,000 MG PO DAILY, (Reported) Entered as Reported by: JO OH on 03/29/18 1341 Atorvastatin Calcium (Atorvastatin Calcium) 10 Mg Tablet, 10 MG PO HS, (Reported) Entered as Reported by: JO OH on 03/29/18 1341 Calcium Carbonate/Vitamin D3 (Calcium 600 + Vit D Caplet) 1 Each Tablet, 1 EACH PO DAILY, (Reported) Entered as Reported by: ANTONY OSBORNE on 02/27/20 1047 Chlordiazepoxide HCl (Chlordiazepoxide HCl) 10 Mg Capsule, 10 MG PO Q6H PRN for ANXIETY, (Reported) Entered as Reported by: JONNY PRYOR on 03/27/20 1419 Cyanocobalamin/Folic Acid (Vitamin T41-Zmrhg Acid Tablet) 500 Mcg-400 Mcg Tablet, 1 EACH PO, (Reported) Entered as Reported by: OSIEL LAZARO on 02/06/22 154 Digoxin (Digoxin) 125 Mcg Tablet, 125 MCG PO DAILY, (Reported) Entered as Reported by: JO OH on 03/29/18 134 Diltiazem HCl (Cardizem Cd) 300 Mg Cap.er.24h, 300 MG PO DAILY, (Reported) Entered as Reported by: OSIEL LAZARO on 02/06/22 154 Diphenhydramine HCl (Benadryl Allergy) 25 Mg Tablet, 25-50 MG PO HS PRN for ALLERGY SYMPTOMS, (Reported) Entered as Reported by: ANTONY OSBORNE on 02/27/20 1047 Enalapril Maleate (Enalapril Maleate) 20 Mg Tablet, 20 MG PO BID, (Reported) Entered as Reported by: JO OH on 03/29/18 134 Famotidine (Acid Photography Assistant (FAMOTIDINE)) 10 Mg Tablet, 20 MG PO EVENING, (Reported) Entered as Reported by: ANTONY OSBORNE on 02/27/20 1047 Fexofenadine HCl (Fexofenadine HCl) 180 Mg Tablet, 180 MG PO DAILY PRN for ALLERGY SYMPTOMS, (Reported) Entered as Reported by: JO OH on 03/29/18 134 Fexofenadine HCl (Susanne Allergy) Unknown Strength Tablet, Unknown Dose PO, (Reported) Entered as Reported by: OSIEL LAZARO on 02/06/22 154 Fluticasone Propionate (Fluticasone Propionate) 16 Gm [place].susp, 1 SPRAYS NS HS, (Reported) Entered as Reported by: JO OH on 03/29/18 1341 Furosemide (Furosemide) 40 Mg Tablet, 40 MG PO DAILY, (Reported) Entered as Reported by: JO OH on 03/29/18 134 Hydroxyzine HCl (Hydroxyzine HCl) 50 Mg Tablet, 50 MG PO UD, (Reported) Entered as Reported by: OSIEL LAZARO on 02/06/22 154 Ketorolac Tromethamine (Ketorolac Tromethamine) 10 Mg Tablet, 10 MG PO Q6H Prescribed by: SALOME DAMIAN on 02/11/22 1146 Liraglutide (Victoza 3-Kendall) 0.6 Mg/0.1 Ml Pen.injctr, 1.8 MG INJ DAILY, (Reported) Entered as Reported by: ANTONY OSBORNE on 02/27/20 1047 Lutein (Lutein) 20 Mg Capsule, 20 MG PO HS, (Reported) Entered as Reported by: JO OH on 03/29/18 1341 Metformin HCl (Metformin HCl) 500 Mg Tablet, 500 MG PO BID WITH MEALS, (Reported) Entered as Reported by: JO OH on 03/29/18 1341 Metformin HCl (Metformin HCl) 1,000 Mg Tablet, PO DAILY, (Reported) Entered as Reported by: OSIEL LAZARO on 02/06/22 1546 Nitrofurantoin Monohyd/M-Cryst (Macrobid 100 mg Capsule) 100 Mg Capsule, 1 TAB PO BID WITH MEALS Prescribed by: SALOME DAMIAN on 02/11/22 1146 Potassium Chloride (Klor-Con 10) 10 Meq Tablet.er, 10 MEQ PO DAILY, (Reported) Entered as Reported by: ANTONY OSBORNE on 02/27/20 1047 Prazosin HCl (Minipress) 1 Mg Capsule, 1 MG PO HS, (Reported) Entered as Reported by: OSIEL LAZARO on 02/06/22 1546 Sotalol HCl (Sotalol) 120 Mg Tablet, 60 MG PO BID, (Reported) Entered as Reported by: ANTONY OSBORNE on 02/27/20 1047 Tamsulosin HCl (Flomax) 0.4 Mg Cap, 0.4 MG PO DAILY Prescribed by: MAITE MATA on 03/28/20 1235 Tamsulosin HCl (Flomax) 0.4 Mg Cap, 0.4 MG PO DAILY Prescribed by: SALOME DAMIAN on 02/11/22 1146 Review of Systems Review of Systems Constitutional: fever; No weakness EENTM: No nose congestion, No throat pain Respiratory: No cough, No short of breath Cardiovascular: No chest pain, No edema Gastrointestinal: No nausea, No vomiting Genitourinary: hematuria, pain : No Musculoskeletal: back pain (Right flank); No muscle pain (PEPE CARRILLO MD) All Other Systems Reviewed Negative Unless Noted: Yes (PEPE CARRILLO MD) Past Avycrsi-Ywbxbx-Oqdtjf Hx Patient Social History Tobacco Use?: No Substance use?: No Alcohol Use?: No Pt feels they are or have been: No (PEPE CARRILLO MD) Immunizations Up To Date First/Initial COVID19 Vaccinat: 08/24/2020 Second COVID19 Vaccination [place]: 09/21/2020 Third COVID19 Vaccination Date: 06/19/2021 (PEPE CARRILLO MD) Seasonal Allergies Seasonal Allergies: Yes (PEPE CARRILLO MD) Past Medical History Surgery/Hospitalization HX: CABG, CHOLECYSTECTOMY, C-SECT, LAMINECTOMY, DISKECTOMY, LIVER BX, HEART CATH, ESWL X2 NIDDM, CAD, HTN, P.E., AFIB, RENAL STONES, 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 Surgeries: Yes (D&C, DISCECTOMY, MARSHALL L5-S1, ESWL,LIVER BX) Cardiac, CABG, Section, Gallbladder, Orthopedic Respiratory: Yes (PE AT 22YRS OLD CLIP ON VENA CAVA) Pulmonary Embolism Currently Using CPAP: No Currently Using BIPAP: No Cardiac: Yes (BROKEN HEART SYNDROME, 2018 [place] THEN CABG) Atrial Fibrillation, Heart Attack, High Cholesterol, Hypertension Neurological: No Reproductive Disorders: Yes (D&C IN EARLY S) Female Reproductive Disorders: Denies Sexually Transmitted Disease: No HIV/AIDS: No Genitourinary: Yes Kidney Stones, UTI-Chronic Gastrointestinal: Yes Gastroesophageal Reflux, Diverticulosis, Pancreatitis, Gall Bladder Disease Musculoskeletal: Yes (5TH METATARSAL) Degenerate Disk Disease, Arthritis, Chronic Back Pain, Fractures Endocrine: Yes Diabetes, Non-Insulin dep HEENT: Yes Cataract Cancer: Yes (LIVER ) Did You Recieve Any Treatments: No Psychosocial: No Integumentary: Yes Eczema Blood Disorders: No Adverse Reaction/Blood Tranf: No (N/A) (PEPE CARRILLO MD) Family Medical History Reviewed Nursing Family Hx (PEPE CARRILLO MD) Cardiovascular disease 19 FATHER 19 MOTHER Myocardial infarction 19 FATHER Physical Exam-Suspected Sepsis Physical Exam Vital Signs Vital Signs - First Documented 06/12/22 20:26 Temp 36.2 Pulse 97 Resp 16 B/P (MAP) 172/82 (112) Pulse Ox 97 O2 Delivery Room Air (JHON GASTELUM MD) Vital Signs Capillary Refill : Less Than 3 Seconds (PEPE CARRILLO MD) Blood Pressure Mean: 112 Height, Weight, BMI Height: 5'4.00" Weight: 160lbs. 6.4oz. [id number]; 22.00 BMI Method: General Appearance: No Apparent Distress, WD/WN HEENT: PERRL/EOMI, Pharynx Normal Neck: Non Tender, Supple Respiratory: Lungs Clear, Normal Breath Sounds Cardiovascular: Regular Rate, Rhythm, No Murmur Gastrointestinal: Non Tender, Soft Back: No Vertebral Tenderness; No CVA Tenderness (L); CVA Tenderness (R) Extremity: Normal Range of Motion, Non Tender Neurologic/Psychiatric: Alert, Oriented x3 Skin: normal color, warm/dry (PEPE CARRILLO MD) Focused Exam Sepsis Stage: Sepsis Possible Source: Genitouriary Lactate Level 06/12/22 21:15: Lactic Acid Level 3.40*H 06/12/22 23:30: Lactic Acid Level 2.66*H (JHON GASTELUM MD) Time of Focused Exam: 23:00 Respiratory: Lungs Clear, Normal Breath Sounds, No Accessory Muscle Use, No Respiratory Distress Cardiovascular: Regular Rate, Rhythm, Normal Peripheral Pulses Capillary Refill: Less Than 3 Seconds Peripheral Pulses: 2+ Radial Pulses (R), 2+ Radial Pulses (L) Skin: normal color, warm/dry Lactic Acid Level Laboratory Tests Test 06/12/22 21:15 06/12/22 23:30 Lactic Acid Level 3.40 MMOL/L (0.50-2.00) *H 2.66 MMOL/L (0.50-2.00) *H (JHON GASTELUM MD) Within 3hrs of presentation: Admin fluids, Admin ABX, Blood cultures prior to ABX's, Focus exam, Lactate level (JHON GASTELUM MD) Progress/Results/Core Measures Suspected Sepsis SIRS Temperature: Pulse: 97 Respiratory Rate: 16 Laboratory Tests 06/12/22 21:15: White Blood Count 5.0 Blood Pressure 172 /82 Mean: 112 06/12/22 21:15: Laboratory Tests 06/12/22 21:15: Platelet Count 18*L (PEPE CARRILLO MD) Results/Orders Lab Results Laboratory Tests Test 06/12/22 20:45 06/12/22 21:15 06/12/22 23:30 Range/Units Urine Color RED H Urine Clarity CLOUDY Urine pH 6.5 5-9 Urine Specific [place] 1.015 L 1.016-1.022 Urine Protein 2+ H NEGATIVE Urine Glucose (UA) TRACE H NEGATIVE Urine Ketones TRACE H NEGATIVE Urine Nitrite POSITIVE H NEGATIVE Urine Bilirubin NEGATIVE NEGATIVE Urine Urobilinogen 1.0 < = 1.0 MG/DL Urine Leukocyte Esterase 1+ H NEGATIVE Urine RBC (Auto) 3+ H NEGATIVE Urine RBC 50-100 H /HPF Urine WBC NONE /HPF Urine Squamous Epithelial Cells NONE /HPF Urine Renal Epithelial Cells NONE /HPF Urine Crystals NONE /LPF Urine Bacteria NEGATIVE /HPF Urine Casts NONE /LPF Urine Mucus NEGATIVE /LPF Urine Culture Indicated YES White Blood Count 5.0 4.3-11.0 10^3/uL Red Blood Count 2.73 L 3.80-5.11 10^6/uL Hemoglobin 9.6 L 11.5-16.0 g/dL Hematocrit 28 L 35-52 % Mean Corpuscular Volume 104 H 80-99 fL Mean Corpuscular Hemoglobin 35 H 25-34 pg Mean Corpuscular Hemoglobin Concent 34 32-36 g/dL Red Cell Distribution Width 16.6 H 10.0-14.5 % Platelet Count 18 *L 130-400 10^3/uL Mean Platelet Volume 11.3 9.0-12.2 fL Immature Granulocyte % (Auto) 1 % Neutrophils (%) (Auto) 48 42-75 % Lymphocytes (%) (Auto) 41 12-44 % Monocytes (%) (Auto) 10 0-12 % Eosinophils (%) (Auto) 1 0-10 % Basophils (%) (Auto) 0 0-10 % Neutrophils # (Auto) 2.4 1.8-7.8 10^3/uL Lymphocytes # (Auto) 2.0 1.0-4.0 10^3/uL Monocytes # (Auto) 0.5 0.0-1.0 10^3/uL Eosinophils # (Auto) 0.0 0.0-0.3 10^3/uL Basophils # (Auto) 0.0 0.0-0.1 10^3/uL Immature Granulocyte # (Auto) 0.1 0.0-0.1 10^3/uL Percent Immature Platelet Fraction 3.5 0.0-7.6 % Prothrombin Time 12.1 L 12.2-14.7 SEC INR Comment 0.9 0.8-1.4 Activated Partial Thromboplast Time 25 24-35 SEC Sodium Level 140 135-145 MMOL/L Potassium Level 4.0 3.6-5.0 MMOL/L Chloride Level 104 98-107 MMOL/L Carbon Dioxide Level 19 L 21-32 MMOL/L Anion Gap 17 H 5-14 MMOL/L Blood Urea Nitrogen 22 H 7-18 MG/DL Creatinine 0.83 0.60-1.30 MG/DL Estimat Glomerular Filtration Rate 75 BUN/Creatinine Ratio 27 Glucose Level 118 H 70-105 MG/DL Lactic Acid Level 3.40 *H 2.66 *H 0.50-2.00 MMOL/L Calcium Level 9.1 8.5-10.1 MG/DL Corrected Calcium 9.3 8.5-10.1 MG/DL Total Bilirubin 0.3 0.1-1.0 MG/DL Aspartate Amino Transf (AST/SGOT) 30 5-34 U/L Alanine Aminotransferase (ALT/SGPT) 35 0-55 U/L Alkaline Phosphatase 79 40-136 U/L Total Protein 6.9 6.4-8.2 GM/DL Albumin 3.7 3.2-4.5 GM/DL (JHON GASTELUM MD) My Orders Orders - JHON GASTELUM MD Meropenem (Merrem 500 Mg) (06/12/22 21:45) Abdomen/Kub [place] (06/12/22 21:57) Ns Iv 1000 Ml (Sodium Chloride 0.9%) (06/12/22 22:45) Ns Iv 1000 Ml (Sodium Chloride 0.9%) (06/13/22 00:30) (JHON GASTELUM MD) Medications Given in ED Current Medications Medications Dose Ordered Sig/Tanner Route Start Time Stop Time Status Last Admin Dose Admin Al Hydrox/Mg Hydrox/Simethicone 30 ml ONCE ONCE PO 06/12/22 21:15 06/12/22 21:16 DC 06/12/22 21:36 30 ML Meropenem 500 mg/ Sodium Chloride 100 ml @ 200 mls/hr ONCE ONCE IV 06/12/22 21:45 06/12/22 22:14 DC 06/12/22 21:54 200 MLS/HR Sodium Chloride 1,000 ml @ 0 mls/hr Q0M ONCE IV 06/12/22 21:00 06/12/22 21:01 DC 06/12/22 21:35 1,000 MLS/HR (JHON GASTELUM MD) Vital Signs/I&O 06/12/22 20:26 Temp 36.2 Pulse 97 Resp 16 B/P (MAP) 172/82 (112) Pulse Ox 97 O2 Delivery Room Air 06/13/22 00:00 Intake Total 1100 ml Balance 1100 ml (JHON GASTELUM MD) Vital Signs/I&O Capillary Refill : Less Than 3 Seconds (PEPE CARRILLO MD) Blood Pressure Mean: 112 Progress Note : Progress Note Seen and evaluated. Given her chemo therapy history and reported fever today, we will go ahead and initiate sepsis protocol related to likely urinary tract infection. Does have history of kidney stones as well and hematuria may be related to that especially in light of obviously bloody urine. She does have low platelet count which is complicating this as well. We will go ahead and initiate 1 L of normal saline to keep urine flow positive especially with blood in the urine. IV via port access, labs, blood culture, lactic acid, urine and urine culture ordered. CT abdomen and pelvis kidney stone protocol ordered. She is complaining of indigestion after eating high this evening so we will give Maalox 30 mL p.o. Monitor patient. 2138: Care transferred to Dr. Gastelum. Bedside checkup performed. CT scan does show a proximal ureteral stone. Dr. Gastelum will evaluate for potential transfer due to stone as we do not have urology. (PEPE CARRILLO MD) Progress Note #1: Time: 00:39 Progress Note Serial reevaluations of the patient reveal continued stable vital signs. She complains of a mild ache to the right flank. Is not requesting pain medication. She has been up and ambulatory to the bathroom several times and continues to have hematuria. She has developed petechia over the dorsum of the right wrist and hand during her stay here in the emergency department. She has been treated with IV fluids 2 L on meropenem 500 mg. I discussed the case with the hospitalist on-call, Dr. Sarabia. He advised that due to her infected stone and our lack of urologic services this weekend that the patient would be best served at an outlying facility that has these capabilities. I communicated this information to the patient, we attempted to find transfer to a more local facility however both [facility] in [place] and [facility] are at capacity. Case was discussed with [facility] at midnight. Misty, performance improvement coordinator called back at 00 28 to let us know that Dr. Lopez would be the accepting provider. Will need to fly the patient to as we do not have local ground transportation availability. Patient remains comfortable. Findings and plan of care communicated with both the patient and her son Progress Note #2: Time: 01:05 Progress Note Discussed with transfer center about need for possible platelet transfusion. Misty the coordinator reached out to Dr Lopez and he stated he did not want the patient to have platelets at this time. (JHON GASTELUM MD) Diagnostic Imaging Diagonstic Imaging: CT Plain Films/CT/US/NM/MRI: abdomen, pelvis Comments NAME: BAKARI AVILA [facility] REC#: [id number] PT STATUS: REG ER : 1950 PHYSICIAN: PEPE CARRILLO MD ADMIT DATE: 06/12/22/ER Draft Date of Exam:06/12/22 CT ABD/PELVIS WO(KIDNEY STONE) PROCEDURE: CT urinary tract, rule out kidney stone. TECHNIQUE: Multiple contiguous axial images were obtained through the abdomen and pelvis without the use of intravenous contrast. Auto Exposure Controls were utilized during the CT exam to meet ALARA standards for radiation dose reduction. INDICATION: Flank pain. FINDINGS: Lung bases are clear. Liver has a mass extending from the caudate lobe into the right lobe unchanged from exam done on 02/10/2022. Gallbladder is surgically absent. Common duct is not dilated. Pancreas appears normal. Spleen is not enlarged. Adrenals are normal. Left kidney is normal. There is a 5 mm stone in the right proximal ureter causing mild hydronephrosis in the right kidney. There is aortic atherosclerosis but no aneurysm. Intestines are unremarkable. There is no intraperitoneal free air or free fluid. Urinary bladder is normal. Uterus and adnexa are unremarkable. IMPRESSION: 5 mm obstructing calculus in right proximal ureter. Dictated on workstation # [id number] Dict: 06/12/222127 Trans: 06/12/222131 [facility] [id number] Interpreted by: PEPE SAN MD Electronically signed by: (PEPE CARRILLO MD) Diagonstic Imaging: Xray Comments KUB: interpreted by me; stone in the right ureter is visualized at possibly L4, (JHON GASTELUM MD) Departure Impression Primary Impression: Hematuria Qualified Codes: R31.0 - Gross hematuria Additional Impressions: Kidney stone on right side Thrombocytopenia Urinary tract infection Qualified Codes: N39.0 - Urinary tract infection, site not specified; R31.9 - Hematuria, unspecified Cholangiocarcinoma Disposition: XFER SHT-TRM HOSP Condition: Stable Transfer Transfer Reason: Exceeds level of care Time Spoke to Accepting Phy: 00:28 Transfer Progress Notes Discussed with photography coordinator, who accepts on behalf of Dr Lopez Transfer Facility: Method of Transfer: Air (JHON GASTELUM MD) Departure-Patient Inst. Referrals: MIQUEL WISEMAN DO (PCP) Primary Care Physician HERB MEJIA MD (Family) Primary Care Physician Copy Copies To 1: JASON MIGUEL TIMOTHY D MD Jun 12, 2022 21:00 JHON GASTELUM MD Jun 13, 2022 00:44
[2022-06-12] MEDS ORDERED: ANTACID SUSP 30 ML UDC (MYLANTA) PO ONE (21:15)
[2022-06-12 21:30] LABS: BASOPHILS % (AUTO) 0 % (0-10); HEMOGLOBIN 9.6 g/dL (11.5-16.0)
[2022-06-12 21:32] LABS: EOSINOPHILS % (AUTO) 1 % (0-10); HEMATOCRIT 28 % (35-52); LYMPHOCYTES % (AUTO) 41 % (12-44); MEAN CORPUSCULAR HEMOGLOBIN 35 pg (25-34); MEAN CORPUSCULAR HGB CONC 34 g/dL (32-36); MEAN CORPUSCULAR VOLUME 104 fL (80-99); MEAN PLATELET VOLUME 11.3 fL (9.0-12.2); MONOCYTES # (AUTO) 0.5 10^3/uL (0.0-1.0); MONOCYTES % (AUTO) 10 % (0-12); NEUTROPHILS # (AUTO) 2.4 10^3/uL (1.8-7.8); NEUTROPHILS % (AUTO) 48 % (42-75)
[2022-06-12 21:33] LABS: PLATELET COUNT 18 10^3/uL (130-400)
--- NOTE | 2022-06-12 21:33 | Diagnostic Imaging Report ---
PROCEDURE: CT urinary tract, rule out kidney stone. TECHNIQUE: Multiple contiguous axial images were obtained through the abdomen and pelvis without the use of intravenous contrast. Auto Exposure Controls were utilized during the CT exam to meet ALARA standards for radiation dose reduction. INDICATION: Flank pain. FINDINGS: Lung bases are clear. Liver has a mass extending from the caudate lobe into the right lobe unchanged from exam done on 02/10/2022. Gallbladder is surgically absent. Common duct is not dilated. Pancreas appears normal. Spleen is not enlarged. Adrenals are normal. Left kidney is normal. There is a 5 mm stone in the right proximal ureter causing mild hydronephrosis in the right kidney. There is aortic atherosclerosis but no aneurysm. Intestines are unremarkable. There is no intraperitoneal free air or free fluid. Urinary bladder is normal. Uterus and adnexa are unremarkable. IMPRESSION: 5 mm obstructing calculus in right proximal ureter. Dictated by: Dictated on workstation # [id number]
[2022-06-12 21:41] LABS: INR 0.9 (0.8-1.4); PROTHROMBIN TIME PATIENT 12.1 SEC (12.2-14.7)
[2022-06-12] MEDS ORDERED: MEROPENEM 500 MG in NS (IVPB) 100 ML IV ONE (21:45)
[2022-06-12 21:50] LABS: ALBUMIN 3.7 GM/DL (3.2-4.5); BILIRUBIN,TOTAL 0.3 MG/DL (0.1-1.0); CALCIUM 9.1 MG/DL (8.5-10.1); CREATININE SERUM 0.83 MG/DL (0.60-1.30); TOTAL PROTEIN 6.9 GM/DL (6.4-8.2)
[2022-06-12] MEDS ORDERED: NS IV 1000 ML 1,000 ML IV SCH (22:45)
[2022-06-13] MEDS ORDERED: NS IV 1000 ML 1,000 ML IV SCH (00:30)
[2022-06-13 01:51] VITALS: BP 178/84
--- NOTE | 2022-06-13 08:39 | Diagnostic Imaging Report ---
INDICATION: Right-sided kidney stone. Time of Exam: 10:20 PM Correlation is made with prior radiograph from 03/10/2022. The calculi noted on recent CT within the proximal right ureter are noted on abdominal radiograph. Proximal calculus is located at the level of L2 and a slightly more distal calculus within the proximal right ureter is located at L3-L4. No left-sided urinary tract calculi are seen. Bowel gas pattern is nonobstructed. There are surgical clips in the upper abdomen on the right. IMPRESSION: Two proximal right ureteric calculi, as described. No other significant abnormality is seen. Dictated by: Dictated on workstation # [id number]
== END 2022-06-13 02:02 | disposition short-term general hospital (02) ==
LOC: EDUNIT# 20:15 → ER 20:18
DX: N20.2 Calculus of kidney with calculus of ureter (principal); D69.6 Thrombocytopenia, unspecified; C24.0 Malignant neoplasm of extrahepatic bile duct; C78.7 Secondary malignant neoplasm of liver and intrahepatic bile duct; Z92.21 Personal history of antineoplastic chemotherapy; Z87.19 Personal history of other diseases of the digestive system; Z90.49 Acquired absence of other specified parts of digestive tract
CPT/HCPCS: 36415; 74018; 74176; 80053; 81000; 83605; 85025; 85610; 85730; 87040; 87077; 87088; 87186

== ENCOUNTER → 2022-06-16 | Outpatient (CLI) | payer MEDICARE, BC ==
--- NOTE | 2022-06-16 20:09 | Diagnostic Imaging Report ---
INDICATION: Right ureteral stone Abdominal film obtained at 1222 p.m. and compared with 06/12/2022. There is a new right ureteral stent in place with superior tip overlying the renal pelvis and distal tip overlying the bladder. Calcifications along the expected course of the right ureter are unchanged. Calcifications overlying the right renal shadow are unchanged. Bowel gas pattern is unremarkable. There are surgical clips in the right upper quadrant. IMPRESSION: New right ureteral stent in place compared to the prior study with no other significant change. Dictated by: Dictated on workstation # [id number]
== END ==
LOC: RAD 12:06
PROVIDERS: ATTEND Urology
DX: N20.1 Calculus of ureter (principal); Z96.0 Presence of urogenital implants
CPT/HCPCS: 74018

== ENCOUNTER 2022-07-14 18:52 | Emergency (ER) | payer MEDICARE, BC ==
[~2022-07-14] VITALS: Ht 162 cm; Wt 59.0 kg
[2022-07-14 19:22] LABS: BILIRUBIN,URINE NEGATIVE (NEGATIVE); CLARITY,URINE SL CLOUDY; COLOR,URINE YELLOW; GLUCOSE, URINE (UA) NEGATIVE (NEGATIVE); KETONES,URINE NEGATIVE (NEGATIVE); LEUKOCYTE ESTERASE ,URINE TRACE (NEGATIVE); NITRITE,URINE NEGATIVE (NEGATIVE); PROTEIN,URINE NEGATIVE (NEGATIVE)
[2022-07-14 19:30] LABS: BACTERIA,URINE MODERATE /HPF
--- NOTE | 2022-07-14 19:38 | ED General ---
General Chief Complaint: Post OP Complications/Pain Stated Complaint: POST OP FEVER Nursing Triage Note: PT STATES SHE HAD RT SIDE LITHOTRIPSY LAST THURSDAY AT , CC TODAY OF TEMP OF 101.2 AT 1800 THIS EVENING. TEMP AT TRIAGE 36.7 ORAL. 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 Pt reports that on she got a right sided flexible ureteroscopic lithotripsy done at . Procedure was without complications. During procedure stone was removed and temporary stent was plac ed. Pt removed stent as indicated today at 1000am. Pt denies any blood upon removal of stent. Denies any pain, burning upon urination. Pt noticed fever of 101.2 today at 1800 but upon arrive to ED pt is afebrile. Pt was given 4 tablets of Levoquine and pt has taken as indicated. Denies any CP, SOB, extremity swelling. Pt recently received radiation therapy for bile duct ca from Jun 30- . No other complaints. Timing/Duration: 1-3 Hours Associated Systoms: No Chest Pain, No Cough, No Nausea/Vomiting (GINI PAYNE) Allergies and Home Medications Allergies Coded Allergies: amlodipine (Verified Allergy, Severe, EDEMA LOWER EXTREMITIES, 02/26/22) Cephalosporins (Verified Allergy, Mild, ITCHING, 02/26/22) Penicillins (Verified Allergy, Mild, HIVES, 02/26/22) Sulfa (Sulfonamide Antibiotics) (Verified Allergy, Mild, ITCHING, 02/26/22) Patient Home Medication List Home Medication List Reviewed: Yes (GINI PAYNE) Ascorbic Acid (Vitamin C) 1,000 Mg Tablet, 1,000 MG PO DAILY, (Reported) Entered as Reported by: JO OH on 03/29/18 1341 Atorvastatin Calcium (Atorvastatin Calcium) 10 Mg Tablet, 10 MG PO HS, (Reported) Entered as Reported by: JO OH on 03/29/18 1341 Calcium Carbonate/Vitamin D3 (Calcium 600 + Vit D Caplet) 1 Each Tablet, 1 EACH PO DAILY, (Reported) Entered as Reported by: ANTONY OSBORNE on 02/27/20 1047 Chlordiazepoxide HCl (Chlordiazepoxide HCl) 10 Mg Capsule, 10 MG PO Q6H PRN for ANXIETY, (Reported) Entered as Reported by: JONNY PRYOR on 03/27/20 1419 Cyanocobalamin/Folic Acid (Vitamin C66-Rytsb Acid Tablet) 500 Mcg-400 Mcg Tablet, 1 EACH PO, (Reported) Entered as Reported by: OSIEL LAZARO on 02/06/22 1546 Digoxin (Digoxin) 125 Mcg Tablet, 125 MCG PO DAILY, (Reported) Entered as Reported by: JO OH on 03/29/18 1341 Diltiazem HCl (Cardizem Cd) 300 Mg Cap.er.24h, 300 MG PO DAILY, (Reported) Entered as Reported by: OSIEL LAZARO on 02/06/22 1546 Diphenhydramine HCl (Benadryl Allergy) 25 Mg Tablet, 25-50 MG PO HS PRN for ALLERGY SYMPTOMS, (Reported) Entered as Reported by: ANTONY OSBORNE on 02/27/20 1047 Enalapril Maleate (Enalapril Maleate) 20 Mg Tablet, 20 MG PO BID, (Reported) Entered as Reported by: JO OH on 03/29/18 1341 Famotidine (Acid Marketing Proposal Specialist (FAMOTIDINE)) 10 Mg Tablet, 20 MG PO EVENING, (Reported) Entered as Reported by: ANTONY OSBORNE on 02/27/20 1047 Fexofenadine HCl (Fexofenadine HCl) 180 Mg Tablet, 180 MG PO DAILY PRN for ALLERGY SYMPTOMS, (Reported) Entered as Reported by: JO OH on 03/29/18 1341 Fexofenadine HCl (Susanne Allergy) Unknown Strength Tablet, Unknown Dose PO, (Reported) Entered as Reported by: OSIEL LAZARO on 02/06/22 1546 Fluticasone Propionate (Fluticasone Propionate) 16 Gm [place].susp, 1 SPRAYS NS H S, (Reported) Entered as Reported by: JO OH on 03/29/18 1341 Furosemide (Furosemide) 40 Mg Tablet, 40 MG PO DAILY, (Reported) Entered as Reported by: JO OH on 03/29/18 1341 Hydroxyzine HCl (Hydroxyzine HCl) 50 Mg Tablet, 50 MG PO UD, (Reported) Entered as Reported by: OSIEL LAZARO on 02/06/22 1546 Ketorolac Tromethamine (Ketorolac Tromethamine) 10 Mg Tablet, 10 MG PO Q6H Prescribed by: SALOME DAMIAN on 02/11/22 1146 Liraglutide (Victoza 3-Kendall) 0.6 Mg/0.1 Ml Pen.injctr, 1.8 MG INJ DAILY, (Reported) Entered as Reported by: ANTONY OSBORNE on 02/27/20 1047 Lutein (Lutein) 20 Mg Capsule, 20 MG PO HS, (Reported) Entered as Reported by: JO OH on 03/29/18 1341 Metformin HCl (Metformin HCl) 500 Mg Tablet, 500 MG PO BID WITH MEALS, (Reported) Entered as Reported by: JO OH on 03/29/18 1341 Metformin HCl (Metformin HCl) 1,000 Mg Tablet, PO DAILY, (Reported) Entered as Reported by: OSIEL LAZARO on 02/06/22 154 Nitrofurantoin Monohyd/M-Cryst (Macrobid 100 mg Capsule) 100 Mg Capsule, 1 TAB PO BID WITH MEALS Prescribed by: SALOME DAMIAN on 02/11/22 114 Potassium Chloride (Klor-Con 10) 10 Meq Tablet.er, 10 MEQ PO DAILY, (Reported) Entered as Reported by: ANTONY OSBORNE on 02/27/20 104 Prazosin HCl (Minipress) 1 Mg Capsule, 1 MG PO HS, (Reported) Entered as Reported by: OSIEL LAZARO on 02/06/22 154 Sotalol HCl (Sotalol) 120 Mg Tablet, 60 MG PO BID, (Reported) Entered as Reported by: ANTONY OSBORNE on 02/27/20 1047 Tamsulosin HCl (Flomax) 0.4 Mg Cap, 0.4 MG PO DAILY Prescribed by: MAITE MATA on 03/28/20 1235 Tamsulosin HCl (Flomax) 0.4 Mg Cap, 0.4 MG PO DAILY Prescribed by: SALOME DAMIAN on 02/11/22 1146 Review of Systems Review of Systems Constitutional: No chills, No diaphoresis; fever EENTM: no symptoms reported Respiratory: no symptoms reported Cardiovascular: no symptoms reported Gastrointestinal: no symptoms reported Genitourinary: no symptoms reported Musculoskeletal: no symptoms reported Skin: no symptoms reported Psychiatric/Neurological: No Symptoms Reported Hematologic/Lymphatic: No Symptoms Reported Immunological/Allergic: no symptoms reported (GINI PAYNE) Past Armkblp-Kaioqh-Ekgidu Hx Patient Social History Tobacco Use?: Yes Smoking Status: Former Smoker Substance use?: No Alcohol Use?: No (GINI PAYNE) Immunizations Up To Date First/Initial COVID19 Vaccinat: 08/24/2020 Second COVID19 Vaccination Italo: 09/21/2020 Third COVID19 Vaccination Date: 06/19/2021 (GINI PAYNE) Seasonal Allergies Seasonal Allergies: Yes (GINI PAYNE) Past Medical History Surgery/Hospitalization HX: CABG, CHOLECYSTECTOMY, C-SECT, LAMINECTOMY, DISKECTOMY, LIVER BX, HEART CATH, ESWL X2 NIDDM, CAD, HTN, P.E., AFIB, RENAL STONES, 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, RT SIDE LITHOTRIPSY Surgeries: Yes (D&C, DISCECTOMY, MARSHALL L5-S1, ESWL,LIVER BX) Cardiac, CABG, Section, Gallbladder, Orthopedic Respiratory: Yes (PE AT 22YRS OLD CLIP ON VENA CAVA) Pulmonary Embolism Currently Using CPAP: No Currently Using BIPAP: No Cardiac: Yes (BROKEN HEART SYNDROME, 2018 [place] THEN CABG) Atrial Fibrillation, Heart Attack, High Cholesterol, Hypertension Neurological: No Reproductive Disorders: Yes (D&C IN EARLY ) Female Reproductive Disorders: Denies Sexually Transmitted Disease: No HIV/AIDS: No Genitourinary: Yes Kidney Stones, UTI-Chronic Gastrointestinal: Yes Gastroesophageal Reflux, Diverticulosis, Pancreatitis, Gall Bladder Disease Musculoskeletal: Yes (5TH METATARSAL) Degenerate Disk Disease, Arthritis, Chronic Back Pain, Fractures Endocrine: Yes Diabetes, Non-Insulin dep HEENT: Yes Cataract Cancer: Yes (LIVER ) Did You Recieve Any Treatments: No Psychosocial: No Integumentary: Yes Eczema Blood Disorders: No Adverse Reaction/Blood Tranf: No (N/A) (GINI PAYNE) Family Medical History Cardiovascular disease 19 FATHER 19 MOTHER Myocardial infarction 19 FATHER Physical Exam Vital Signs Vital Signs - First Documented 07/14/22 19:00 Temp 36.7 Pulse 108 Resp 18 B/P (MAP) 161/88 (112) Pulse Ox 97 O2 Delivery Room Air (BRUEGGEMANN,SHAI T MD) Vital Signs Capillary Refill : Less Than 3 Seconds (GINI PAYNE) Height, Weight, BMI Height: 5'4.00" Weight: 160lbs. 6.4oz. [id number]; 22.00 BMI Method: General Appearance: No Apparent Distress, WD/WN Eyes: Bilateral Eye Normal Inspection, Bilateral Eye PERRL, Bilateral Eye EOMI HEENT: TMs Normal, Normal ENT Inspection, Pharynx Normal Neck: Full Range of Motion, Normal Inspection, Non Tender Respiratory: Chest Non Tender, Lungs Clear, Normal Breath Sounds, No Accessory Muscle Use, No Respiratory Distress Cardiovascular: Regular Rate, Rhythm, No Edema, No Gallop, No JVD, No Murmur, Normal Peripheral Pulses Gastrointestinal: Normal Bowel Sounds, No Organomegaly, No Pulsatile Mass, Non Tender Back: Normal Inspection, No CVA Tenderness, No Vertebral Tenderness Extremity: Normal Capillary Refill, Normal Inspection, Normal Range of Motion, Non Tender, No Calf Tenderness Neurologic/Psychiatric: Alert, Oriented x3, No Motor/Sensory Deficits, Normal Mood/Affect, steam meter reader II-XII Norm as Tested Skin: Normal Color, Warm/Dry Lymphatic: No Adenopathy (GINI PAYNE) Progress/Results/Core Measures Suspected Sepsis SIRS Temperature: Pulse: 108 Respiratory Rate: 18 Blood Pressure 161 /88 Mean: 112 (GINI PAYNE) Results/Orders Lab Results Laboratory Tests Test 07/14/22 19:15 07/14/22 19:20 07/14/22 19:39 Range/Units Urine Color YELLOW Urine Clarity SL CLOUDY Urine pH 6.0 5-9 Urine Specific Egan 1.010 L 1.016-1.022 Urine Protein NEGATIVE NEGATIVE Urine Glucose (UA) NEGATIVE NEGATIVE Urine Ketones NEGATIVE NEGATIVE Urine Nitrite NEGATIVE NEGATIVE Urine Bilirubin NEGATIVE NEGATIVE Urine Urobilinogen 0.2 < = 1.0 MG/DL Urine Leukocyte Esterase TRACE H NEGATIVE Urine RBC (Auto) 2+ H NEGATIVE Urine RBC 5-10 H /HPF Urine WBC 5-10 H /HPF Urine Squamous Epithelial Cells 2-5 /HPF Urine Crystals NONE /LPF Urine Bacteria MODERATE H /HPF Urine Casts NONE /LPF Urine Mucus NEGATIVE /LPF Urine Culture Indicated YES Influenza Type A (RT-PCR) Not Detected Not Detecte Influenza Type B (RT-PCR) Not Detected Not Detecte SARS-CoV-2 RNA (RT-PCR) Not Detected Not Detecte White Blood Count 5.0 4.3-11.0 10^3/uL Red Blood Count 3.00 L 3.80-5.11 10^6/uL Hemoglobin 10.5 L 11.5-16.0 g/dL Hematocrit 32 L 35-52 % Mean Corpuscular Volume 108 H 80-99 fL Mean Corpuscular Hemoglobin 35 H 25-34 pg Mean Corpuscular Hemoglobin Concent 32 32-36 g/dL Red Cell Distribution Width 16.6 H 10.0-14.5 % Platelet Count 101 L 130-400 10^3/uL Mean Platelet Volume 10.1 9.0-12.2 fL Immature Granulocyte % (Auto) 1 % Neutrophils (%) (Auto) 74 42-75 % Lymphocytes (%) (Auto) 8 L 12-44 % Monocytes (%) (Auto) 16 H 0-12 % Eosinophils (%) (Auto) 1 0-10 % Basophils (%) (Auto) 0 0-10 % Neutrophils # (Auto) 3.7 1.8-7.8 10^3/uL Lymphocytes # (Auto) 0.4 L 1.0-4.0 10^3/uL Monocytes # (Auto) 0.8 0.0-1.0 10^3/uL Eosinophils # (Auto) 0.1 0.0-0.3 10^3/uL Basophils # (Auto) 0.0 0.0-0.1 10^3/uL Immature Granulocyte # (Auto) 0.1 0.0-0.1 10^3/uL Percent Immature Platelet Fraction 2.7 0.0-7.6 % Sodium Level 137 135-145 MMOL/L Potassium Level 3.6 3.6-5.0 MMOL/L Chloride Level 103 98-107 MMOL/L Carbon Dioxide Level 22 21-32 MMOL/L Anion Gap 12 5-14 MMOL/L Blood Urea Nitrogen 15 7-18 MG/DL Creatinine 0.74 0.60-1.30 MG/DL Estimat Glomerular Filtration Rate 86 BUN/Creatinine Ratio 20 Glucose Level 102 70-105 MG/DL Calcium Level 10.0 8.5-10.1 MG/DL Corrected Calcium 10.3 H 8.5-10.1 MG/DL Total Bilirubin 0.4 0.1-1.0 MG/DL Aspartate Amino Transf (AST/SGOT) 18 5-34 U/L Alanine Aminotransferase (ALT/SGPT) 19 0-55 U/L Alkaline Phosphatase 71 40-136 U/L C-Reactive Protein High Sensitivity 0.86 H 0.00-0.50 MG/DL Total Protein 6.6 6.4-8.2 GM/DL Albumin 3.6 3.2-4.5 GM/DL (SHAI LAM MD) My Orders Orders - SHAI LAM MD Ua Culture If Indicated (07/14/22 19:09) Cbc With Automated Diff (07/14/22 19:17) Comprehensive Metabolic Panel (07/14/22 19:17) Hs C Reactive Protein (07/14/22 19:17) Ed Iv/Invasive Line Start (07/14/22 19:17) Covid 19 Inhouse Test (07/14/22 19:18) Influenza A And B By Pcr (07/14/22 19:18) Urine Culture (07/14/22 19:15) Lactated Ringers (Lr 1000 Ml Iv Solution (07/14/22 20:30) (SHAI LAM MD) Vital Signs/I&O 07/14/22 19:00 Temp 36.7 Pulse 108 Resp 18 B/P (MAP) 161/88 (112) Pulse Ox 97 O2 Delivery Room Air (SHAI LAM MD) Vital Signs/I&O Capillary Refill : Less Than 3 Seconds (GINI PAYNE) Blood Pressure Mean: 112 Progress Note : Time: 20:37 Progress Note Patient was interviewed and examined along with MS 3. She was relatively asymptomatic except for a fever noted at home earlier. She has been afebrile here. Work-up was relatively unremarkable. Urinalysis demonstrated subtle possibility of pyuria. However, urinalysis may simply reflect recent mechanical irritation from stent removal. Patient is presently on antibiotics as she took her last dose of Levaquin today. No additional antibiotics are being administered at this time. Due to her GI issues and recent urologic procedure, there is benefit to some IV hydration. We are running a liter of LR before she is discharged. We will provide her with return precautions including a low threshold for returning to care if she has recurrent fevers. (SHAI LAM MD) Departure Impression Primary Impression: Postoperative fever Disposition: 01 HOME, SELF-CARE Condition: Improved Departure-Patient Inst. Decision time for Depature: 20:39 (SHAI LAM MD) Referrals: MIQUEL WISEMAN DO (PCP) Primary Care Physician HERB MEJIA MD (Family) Primary Care Physician Patient Instructions: Fever, Adult ED Add. Discharge Instructions: There was no significant evidence of bacterial infection on your laboratory work-up today. However, because of your risk factors with recent procedures, cancer and diabetes, you should return to care if you continue to have fevers or develop other symptoms of acute illness such as chills, vomiting, cough, etc. If you have recurrent fever over 100.3, please return to the emergency room or promptly visit one of your providers. Do not delay care if you feel you are becoming sicker. Drink plenty of clear liquids to stay well-hydrated. Follow-up with your primary care provider or urologist by phone after 48 hours to review your urine culture results. Call with questions or concerns and return to care if you are having any other urgent healthcare issues. Medical Student Attestation and Attending Note: I have personally interviewed and examined this patient along with Gini Payne, MS 3. I have reviewed student documentation including history, physical, and assessments. I agree with the documentation except where otherwise noted. Exam: General: Alert, oriented, no acute distress, well developed HEENT: Normocephalic and atraumatic, mucous membranes moist Heart: Minimal tachycardia with regular rhythm without murmur Lungs: Clear to auscultation bilaterally with normal effort Abdomen: Soft, nontender, nondistended, normal bowel sounds Neuropsych: Alert, oriented, no focal deficits Skin: Warm and dry without rashes (SHAI LAM MD) Copy Copies To 1: MIQUEL WISEMAN ANISHA T Jul 14, 2022 19:38 SHAI LAM MD Jul 14, 2022 20:48
[2022-07-14 19:54] LABS: BASOPHILS % (AUTO) 0 % (0-10); EOSINOPHILS # (AUTO) 0.1 10^3/uL (0.0-0.3); EOSINOPHILS % (AUTO) 1 % (0-10); NEUTROPHILS % (AUTO) 74 % (42-75)
[2022-07-14 19:56] LABS: HEMATOCRIT 32 % (35-52); HEMOGLOBIN 10.5 g/dL (11.5-16.0); LYMPHOCYTES # (AUTO) 0.4 10^3/uL (1.0-4.0); LYMPHOCYTES % (AUTO) 8 % (12-44); MEAN CORPUSCULAR HEMOGLOBIN 35 pg (25-34); MEAN CORPUSCULAR HGB CONC 32 g/dL (32-36); MEAN CORPUSCULAR VOLUME 108 fL (80-99); MEAN PLATELET VOLUME 10.1 fL (9.0-12.2); MONOCYTES # (AUTO) 0.8 10^3/uL (0.0-1.0); MONOCYTES % (AUTO) 16 % (0-12); NEUTROPHILS # (AUTO) 3.7 10^3/uL (1.8-7.8); PLATELET COUNT 101 10^3/uL (130-400)
[2022-07-14 20:18] LABS: ALBUMIN 3.6 GM/DL (3.2-4.5); BILIRUBIN,TOTAL 0.4 MG/DL (0.1-1.0); CREATININE SERUM 0.74 MG/DL (0.60-1.30); TOTAL PROTEIN 6.6 GM/DL (6.4-8.2)
[2022-07-14 20:24] LABS: POTASSIUM 3.6 MMOL/L (3.6-5.0)
[2022-07-14] MEDS ORDERED: LACTATED RINGERS 1,000 ML IV ONE (20:30)
[2022-07-14 21:38] VITALS: BP 158/73
== END 2022-07-14 21:38 | disposition home or self-care (01) ==
LOC: EDUNIT# 18:52 → ER 18:54
DX: R50.82 Postprocedural fever (principal); Z87.891 Personal history of nicotine dependence; Z20.822 Contact with and (suspected) exposure to COVID-19; Z87.442 Personal history of urinary calculi
CPT/HCPCS: 36415; 80053; 81000; 85025; 86141; 87088; 87636; 99283

== ENCOUNTER 2022-07-20 08:46 | Observation (INO) | payer MEDICARE, BC ==
[~2022-07-20] VITALS: Ht 162.5 cm; Wt 56.0 kg
--- NOTE | 2022-07-20 08:59 | ED Chest Pain ---
General Chief Complaint: Chest Pain Stated Complaint: CHEST PAIN History of Present Illness Date Seen by Provider: Jul 20, 2022 Time Seen by Provider: 08:51 Initial Comments Patient is a 71-year-old female who presents to the emergency department with a chief complaint of sharp lower midsternal chest pain. She has a history of Takotsubo syndrome and coronary artery disease with bypass in 2018. Her atmospheric chemist is Dr. Calvillo at [facility] in [facility]. She states that the pain at its onset was severe approximately 6 AM. It woke her from sleep. Its been intermittent since. She has a history of bile duct cancer, followed by Dr. Carnes. She has had severe gastroesophageal reflux the last 3 or 4 days. No oral intake really for 2 days. She believes that she has been started on Prilosec. She is experiencing severe "heartburn" right now as well. She has been nauseous. No shortness of breath. No swelling. No fevers, chills, productive cough. Pain that woke her from sleep currently is gone. She still little nauseous. She did take 1 baby aspirin prior to arrival. All other review of systems reviewed and negative except as stated. Timing/Duration: 1-3 hours Severity/Quality: severe, sharp Location: substernal, central Radiation: neck Activities at Onset: sleep Prior CP/Workup: heart attack (with CABG) NTG [employer]: No Associated Symptoms: heartburn, nausea/vomiting Allergies and Home Medications Allergies Coded Allergies: amlodipine (Verified Allergy, Severe, EDEMA LOWER EXTREMITIES, 02/26/22) Cephalosporins (Verified Allergy, Mild, ITCHING, 02/26/22) Penicillins (Verified Allergy, Mild, HIVES, 02/26/22) Sulfa (Sulfonamide Antibiotics) (Verified Allergy, Mild, ITCHING, 02/26/22) Patient Home Medication List Home Medication List Reviewed: Yes Ascorbic Acid (Vitamin C) 1,000 Mg Tablet, 1,000 MG PO DAILY, (Reported) Entered as Reported by: JO OH on 03/29/18 1341 Atorvastatin Calcium (Atorvastatin Calcium) 10 Mg Tablet, 10 MG PO HS, (Reported) Entered as Reported by: JO OH on 03/29/18 1341 Calcium Carbonate/Vitamin D3 (Calcium 600 + Vit D Caplet) 1 Each Tablet, 1 EACH PO DAILY, (Reported) Entered as Reported by: ANTONY OSBORNE on 02/27/20 1047 Chlordiazepoxide HCl (Chlordiazepoxide HCl) 10 Mg Capsule, 10 MG PO Q6H PRN for ANXIETY, (Reported) Entered as Reported by: JONNY PRYOR on 03/27/20 1419 Cyanocobalamin/Folic Acid (Vitamin S43-Qpdja Acid Tablet) 500 Mcg-400 Mcg Tablet, 1 EACH PO, (Reported) Entered as Reported by: OSIEL LAZARO on 02/06/22 1546 Digoxin (Digoxin) 125 Mcg Tablet, 125 MCG PO DAILY, (Reported) Entered as Reported by: JO OH on 03/29/18 1341 Diltiazem HCl (Cardizem Cd) 300 Mg Cap.er.24h, 300 MG PO DAILY, (Reported) Entered as Reported by: OSIEL LAZARO on 02/06/22 1546 Diphenhydramine HCl (Benadryl Allergy) 25 Mg Tablet, 25-50 MG PO HS PRN for ALLERGY SYMPTOMS, (Reported) Entered as Reported by: ANTONY OSBORNE on 02/27/20 1047 Enalapril Maleate (Enalapril Maleate) 20 Mg Tablet, 20 MG PO BID, (Reported) Entered as Reported by: JO OH on 03/29/18 1341 Famotidine (Acid Well Head Pumper (FAMOTIDINE)) 10 Mg Tablet, 20 MG PO EVENING, (Reported) Entered as Reported by: ANTONY OSBORNE on 02/27/20 1047 Famotidine (Pepcid) 20 Mg Tablet, 20 MG PO BID Prescribed by: JHON ARIAS on 07/20/22 1311 Fexofenadine HCl (Fexofenadine HCl) 180 Mg Tablet, 180 MG PO DAILY PRN for ALLERGY SYMPTOMS, (Reported) Entered as Reported by: JO OH on 03/29/18 1341 Fexofenadine HCl (Susanne Allergy) Unknown Strength Tablet, Unknown Dose PO, (Reported) Entered as Reported by: OSIEL LAZARO on 02/06/22 1546 Fluconazole (Diflucan) 200 Mg Tablet, 200 MG PO DAILY Prescribed by: JHON ARIAS on 07/20/22 1310 Fluticasone Propionate (Fluticasone Propionate) 16 Gm Foley.susp, 1 SPRAYS NS HS, (Reported) Entered as Reported by: JO OH on 03/29/18 134 Furosemide (Furosemide) 40 Mg Tablet, 40 MG PO DAILY, (Reported) Entered as Reported by: JO OH on 03/29/18 134 Hydroxyzine HCl (Hydroxyzine HCl) 50 Mg Tablet, 50 MG PO UD, (Reported) Entered as Reported by: OSIEL LAZARO on 02/06/22 154 Ketorolac Tromethamine (Ketorolac Tromethamine) 10 Mg Tablet, 10 MG PO Q6H Prescribed by: SALOME DAMIAN on 02/11/22 114 Liraglutide (Victoza 3-Kendall) 0.6 Mg/0.1 Ml Pen.injctr, 1.8 MG INJ DAILY, (Reported) Entered as Reported by: ANTONY OSBORNE on 02/27/20 104 Lutein (Lutein) 20 Mg Capsule, 20 MG PO HS, (Reported) Entered as Reported by: JO OH on 03/29/18 134 Metformin HCl (Metformin HCl) 500 Mg Tablet, 500 MG PO BID WITH MEALS, (Reported) Entered as Reported by: JO OH on 03/29/18 134 Metformin HCl (Metformin HCl) 1,000 Mg Tablet, PO DAILY, (Reported) Entered as Reported by: OSIEL LAZARO on 02/06/22 154 Nitrofurantoin Monohyd/M-Cryst (Macrobid 100 mg Capsule) 100 Mg Capsule, 1 TAB PO BID WITH MEALS Prescribed by: SALOME DAMIAN on 02/11/22 114 Potassium Chloride (Klor-Con 10) 10 Meq Tablet.er, 10 MEQ PO DAILY, (Reported) Entered as Reported by: ANTONY OSBORNE on 02/27/20 104 Prazosin HCl (Minipress) 1 Mg Capsule, 1 MG PO HS, (Reported) Entered as Reported by: OSIEL LAZARO on 02/06/22 154 Sotalol HCl (Sotalol) 120 Mg Tablet, 60 MG PO BID, (Reported) Entered as Reported by: ANTONY OSBORNE on 02/27/20 104 Tamsulosin HCl (Flomax) 0.4 Mg Cap, 0.4 MG PO DAILY Prescribed by: MAITE MATA on 03/28/20 1235 Tamsulosin HCl (Flomax) 0.4 Mg Cap, 0.4 MG PO DAILY Prescribed by: SALOME DAMIAN on 02/11/22 1146 Review of Systems Review of Systems Constitutional: see HPI EENTM: No Symptoms Reported Respiratory: No Symptoms Reported Cardiovascular: Chest Pain Gastrointestinal: Nausea, Other (heartburn) Genitourinary: No Symptoms Reported Skin: no symptoms reported Psychiatric/Neurological: No Symptoms Reported All Other Systems Reviewed Negative Unless Noted: Yes Past Oqxkbgs-Axdati-Mlbeav Hx Immunizations Up To Date First/Initial COVID19 Vaccinat: 08/24/2020 Second COVID19 Vaccination Italo: 09/21/2020 Third COVID19 Vaccination Date: 06/19/2021 Seasonal Allergies Seasonal Allergies: Yes Past Medical History Surgery/Hospitalization HX: CABG, CHOLECYSTECTOMY, C-SECT, LAMINECTOMY, DISKECTOMY, LIVER BX, HEART CATH, ESWL X2 NIDDM, CAD, HTN, P.E., AFIB, RENAL STONES, 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, RT SIDE LITHOTRIPSY Surgeries: Yes (D&C, DISCECTOMY, MARSHALL L5-S1, ESWL,LIVER BX) Cardiac, CABG, Section, Gallbladder, Orthopedic Respiratory: Yes (PE AT 22YRS OLD CLIP ON VENA CAVA) Pulmonary Embolism Currently Using CPAP: No Currently Using BIPAP: No Cardiac: Yes (BROKEN HEART SYNDROME, 2018 ROCHE THEN CABG) Atrial Fibrillation, Heart Attack, High Cholesterol, Hypertension Neurological: No Reproductive Disorders: Yes (D&C IN EARLY ) Female Reproductive Disorders: Denies Sexually Transmitted Disease: No HIV/AIDS: No Genitourinary: Yes Kidney Stones, UTI-Chronic Gastrointestinal: Yes Gastroesophageal Reflux, Diverticulosis, Pancreatitis, Gall Bladder Disease Musculoskeletal: Yes (5TH METATARSAL) Degenerate Disk Disease, Arthritis, Chronic Back Pain, Fractures Endocrine: Yes Diabetes, Non-Insulin dep HEENT: Yes Cataract Cancer: Yes (LIVER ) Did You Recieve Any Treatments: No Psychosocial: No Integumentary: Yes Eczema Blood Disorders: No Adverse Reaction/Blood Tranf: No (N/A) Family Medical History Cardiovascular disease 19 FATHER 19 MOTHER Myocardial infarction 19 FATHER Physical Exam Vital Signs Capillary Refill : Height, Weight, BMI Height: 5'4.00" Weight: 160lbs. 6.4oz. 72.268405lg; 22.00 BMI Method: General Appearance: No Apparent Distress, WD/WN, Thin HEENT: PERRL/EOMI Neck: Normal Inspection Respiratory: Lungs Clear, Normal Breath Sounds, No Accessory Muscle Use, No Respiratory Distress Cardiovascular: Regular Rate, Rhythm, Normal Peripheral Pulses Gastrointestinal: Non Tender, Soft Extremity: Normal Inspection, Normal Range of Motion, Non Tender, No Pedal Edema Neurologic/Psychiatric: Alert, Oriented x3, No Motor/Sensory Deficits, Normal Mood/Affect, boiler/chiller operator II-XII Norm as Tested Skin: Normal Color, Warm/Dry Progress/Results/Core Measures Results/Orders Lab Results Laboratory Tests Test 07/20/22 09:00 Range/Units White Blood Count 5.0 4.3-11.0 10^3/uL Red Blood Count 3.05 L 3.80-5.11 10^6/uL Hemoglobin 10.7 L 11.5-16.0 g/dL Hematocrit 32 L 35-52 % Mean Corpuscular Volume 106 H 80-99 fL Mean Corpuscular Hemoglobin 35 H 25-34 pg Mean Corpuscular Hemoglobin Concent 33 32-36 g/dL Red Cell Distribution Width 15.6 H 10.0-14.5 % Platelet Count 76 L 130-400 10^3/uL Mean Platelet Volume 9.8 9.0-12.2 fL Immature Granulocyte % (Auto) 1 % Neutrophils (%) (Auto) 79 H 42-75 % Lymphocytes (%) (Auto) 11 L 12-44 % Monocytes (%) (Auto) 7 0-12 % Eosinophils (%) (Auto) 2 0-10 % Basophils (%) (Auto) 0 0-10 % Neutrophils # (Auto) 3.9 1.8-7.8 10^3/uL Lymphocytes # (Auto) 0.6 L 1.0-4.0 10^3/uL Monocytes # (Auto) 0.4 0.0-1.0 10^3/uL Eosinophils # (Auto) 0.1 0.0-0.3 10^3/uL Basophils # (Auto) 0.0 0.0-0.1 10^3/uL Immature Granulocyte # (Auto) 0.0 0.0-0.1 10^3/uL Percent Immature Platelet Fraction 2.2 0.0-7.6 % Prothrombin Time 13.1 12.2-14.7 SEC INR Comment 0.9 0.8-1.4 Activated Partial Thromboplast Time 29 24-35 SEC Sodium Level 142 135-145 MMOL/L Potassium Level 3.8 3.6-5.0 MMOL/L Chloride Level 107 98-107 MMOL/L Carbon Dioxide Level 24 21-32 MMOL/L Anion Gap 11 5-14 MMOL/L Blood Urea Nitrogen 10 7-18 MG/DL Creatinine 0.72 0.60-1.30 MG/DL Estimat Glomerular Filtration Rate 89 BUN/Creatinine Ratio 14 Glucose Level 138 H 70-105 MG/DL Calcium Level 9.1 8.5-10.1 MG/DL Corrected Calcium 9.7 8.5-10.1 MG/DL Magnesium Level 1.9 1.6-2.4 MG/DL Total Bilirubin 0.4 0.1-1.0 MG/DL Aspartate Amino Transf (AST/SGOT) 20 5-34 U/L Alanine Aminotransferase (ALT/SGPT) 17 0-55 U/L Alkaline Phosphatase 78 40-136 U/L Myoglobin 26.3 10.0-92.0 NG/ML Troponin I < 0.028 <0.028 NG/ML Total Protein 6.2 L 6.4-8.2 GM/DL Albumin 3.3 3.2-4.5 GM/DL My Orders Orders - JHON ARIAS MD Ekg Tracing (07/20/22 08:49) Cbc With Automated Diff (07/20/22 08:57) Magnesium (07/20/22 08:57) Chest 1 View, Ap/Pa Only (07/20/22 08:57) Comprehensive Metabolic Panel (07/20/22 08:57) Myoglobin Serum (07/20/22 08:57) Protime With Inr (07/20/22 08:57) Partial Thromboplastin Time (07/20/22 08:57) O2 (07/20/22 08:57) Monitor-Rhythm Ecg Trace Only (07/20/22 08:57) Lipid Panel (07/21/22 06:00) Ed Iv/Invasive Line Start (07/20/22 08:57) Troponin I Kamran (07/20/22 08:57) Ondansetron Injection (Zofran Injectio (07/20/22 09:15) Aspirin Chewable Tablet (Baby Aspirin Ch (07/20/22 09:15) Lidocaine 2% Viscous 15 Ml (Xylocaine Vi (07/20/22 09:15) Antacid Suspension (Mylanta Suspension (07/20/22 09:15) Sucralfate Tablet (Carafate Tablet) (07/20/22 09:15) Benzocaine Extension Tube (Hurricaine Ex (07/20/22 10:15) Ct Chest W (07/20/22 11:09) Ns Iv 1000 Ml (Sodium Chloride 0.9%) (07/20/22 11:11) Pantoprazole Injection (Protonix Injecti (07/20/22 11:15) Famotidine Injection (Pepcid Injection) (07/20/22 11:15) Iohexol Injection (Omnipaque 350 Mg/Ml 1 (07/20/22 11:30) Received Contrast (Hold Metformin- Contr (07/20/22 11:30) Ns (Ivpb) (Sodium Chloride 0.9% Ivpb Bag (07/20/22 11:30) Barium Suspension 2.1% (Vanilla Silq) (07/20/22 12:00) Fluconazole Tablet (Diflucan Tablet) (07/20/22 12:45) Hyoscyamine Sl Tablet (Levsin Sl Tablet) (07/20/22 13:00) Troponin I Kamran (07/20/22 13:09) Pantoprazole Injection (Protonix Injecti (07/20/22 14:30) Medications Given in ED Current Medications Medications Dose Ordered Sig/Tanner Route Start Time Stop Time Status Last Admin Dose Admin Al Hydrox/Mg Hydrox/Simethicone 30 ml ONCE ONCE PO 07/20/22 09:15 07/20/22 09:16 DC 07/20/22 09:20 30 ML Aspirin 243 mg ONCE ONCE PO 07/20/22 09:15 07/20/22 09:16 DC 07/20/22 11:13 243 MG Barium Sulfate 125 ml ONCE ONCE PO 07/20/22 12:00 07/20/22 12:01 DC 07/20/22 11:56 15 ML Benzocaine 1 ea ONCE ONCE XX 07/20/22 10:15 07/20/22 10:16 DC 07/20/22 10:18 1 EA Famotidine 20 mg ONCE ONCE IVP 07/20/22 11:15 07/20/22 11:16 DC 07/20/22 11:24 20 MG Iohexol 100 ml ONCE ONCE IV 07/20/22 11:30 07/20/22 11:31 DC 07/20/22 11:49 70 ML Lidocaine HCl 5 ml ONCE ONCE PO 07/20/22 09:15 07/20/22 09:16 DC 07/20/22 09:20 5 ML Ondansetron HCl 4 mg ONCE ONCE IVP 07/20/22 09:15 07/20/22 09:16 DC 07/20/22 11:10 4 MG Pantoprazole 40 mg ONCE ONCE IV 07/20/22 11:15 07/20/22 11:16 DC 07/20/22 11:24 40 MG Sodium Chloride 100 ml ONCE ONCE IV 07/20/22 11:30 07/20/22 11:31 DC 07/20/22 11:49 80 ML Sucralfate 1 gm ONCE ONCE PO 07/20/22 09:15 07/20/22 09:16 DC 07/20/22 09:20 1 GM Progress Progress Note : Time: 14:30 Progress Note Patient re-evaluated, still with significant pain and inability to swallow. Treated with HurriCaine spray, viscous lidocaine, Maalox and Carafate. Every time she takes anything by mouth she continues to vomit a portion or all of it up. She has a fairly normal laboratory evaluation, hemoglobin of 10, normal white blood cell count. Chemistry is unremarkable. EKG shows no evidence of STEMI. Chest x-ray is reassuring. I discussed the case with Dr. Cervantes who recommended CT chest with oral contrast and IV contrast. CT shows severe distal wall esophageal thickening with periesophageal fluid as well as inflammation in the stomach. He recommended 80 of Protonix as well as Pepcid. Also suggested Diflucan. Patient continues to have spasms. She requests admission in order to receive IV fluids so that she does not get dehydrated, she lives alone. I spoke with Dr. Culp about the admission and she accepts. Initial ECG Impression Date: Jul 20, 2022 Initial ECG Impression Time: 08:54 Initial ECG Rate: 102 Initial ECG Rhythm: Normal Sinus Initial ECG Intervals MI interval 172 QRS 132 QTC 442 Comment Right bundle branch block, no ST segment elevation or depression, nonspecific ST-T wave changes V1, V2, V3 Diagnostic Imaging Diagonstic Imaging: Xray Plain Films/CT/US/NM/MRI: chest Comments [facility] [place] NAME: BAKARI AVILA [facility] REC#: [id number] PT STATUS: REG ER : 1950 PHYSICIAN: JHON ARIAS MD ADMIT DATE: 07/20/22/ER Signed Date of Exam:07/20/22 CHEST 1 VIEW, AP/PA ONLY EXAMINATION: Chest 1 view HISTORY: Chest pain COMPARISON: 06/08/2022 FINDINGS: The lungs are clear without edema or pneumonia. No pleural effusion or pneumothorax. Heart size is normal. Right port catheter tip terminates in the superior vena cava. Median sternotomy wires are aligned. IMPRESSION: 1. Clear lungs. Dictated by: Dictated on workstation # [id number] Dict: 07/20/22921 Trans: 07/20/22 0932 [facility] [id number] Interpreted by: URIEL ROJAS MD Electronically signed by: URIEL ROJAS MD 07/20/22 0932 Diagonstic Imaging: CT Plain Films/CT/US/NM/MRI: chest Comments [facility] [place] NAME: BAKARI AVILA [facility] REC#: [id number] PT STATUS: REG ER : 1950 PHYSICIAN: JHON ARIAS MD ADMIT DATE: 07/20/22/ER Signed Date of Exam:07/20/22 CT CHEST W EXAMINATION: CT chest with intravenous contrast. TECHNIQUE: Multiple contiguous axial images were obtained through the chest after the uneventful administration of intravenous contrast. All CT scans use one or more of the following dose optimizing techniques: automated exposure control, MA and/or KvP adjustment based on patient size and exam type or iterative reconstruction. HISTORY: Chest pain COMPARISON: None available. FINDINGS: There is no edema or pneumonia. There is a small left pleural effusion. No pneumothorax. No suspicious nodules. There is no axillary or supraclavicular lymphadenopathy. There is no mediastinal lymphadenopathy. Right-sided port catheter is present. There is severe wall thickening of the distal esophagus. There is gastric wall thickening. There is mucosal hyperenhancement. There is periesophageal fluid. Heart size is normal. There are severe coronary artery calcifications. No pericardial effusion. Aorta is normal in caliber. There has been coronary artery bypass grafting. Limited views of the upper abdomen there is a liver mass measuring 4.2 x 2.5 cm at the confluence of the hepatic veins. Opening has decreased in size from prior CT of the abdomen and pelvis. There is unchanged biliary ductal dilation. There are no suspicious osseus lesions. IMPRESSION: 1. Severe wall thickening of the distal esophagus and gastric wall thickening with mucosal hyperenhancement. Findings likely represent gastroesophagitis. 2. Liver mass is decreased in size from prior exam. Dictated by: Dictated on workstation # [id number] Dict: 07/20/22 1152 Trans: 07/20/22 1424 AC [id number] Interpreted by: URIEL ROJAS MD Electronically signed by: URIEL ROJAS MD 07/20/22 1424 Departure Communication (Admissions) Time/Spoke to Admitting Phy: 14:[address] Culp Time/Spoke to Consulting Phy: 12:[address] Cervantes Impression Primary Impression: Chest pain Qualified Codes: R07.9 - Chest pain, unspecified Additional Impressions: Esophagitis History of bile duct cancer Diabetes Qualified Codes: E11.69 - Type 2 diabetes mellitus with other specified complication History of coronary artery disease Disposition: ADMITTED INPATIENT Condition: Stable Admissions Decision to Admit Reason: Admit from ER (General) Decision to Admit/Date: Jul 20, 2022 Time/Decision to Admit Time: 14:30 Departure-Patient Inst. Referrals: MIQUEL WISEMAN DO (PCP) Primary Care Physician HERB MEJIA MD (Family) Primary Care Physician PUNEET RAPHAEL MD, BRETT D DO Patient Instructions: Esophagitis Add. Discharge Instructions: Scripts Famotidine (Pepcid) 20 Mg Tablet 20 MG PO BID, #60 TAB Prov: JHON ARIAS MD 07/20/22 Fluconazole (Diflucan) 200 Mg Tablet 200 MG PO DAILY for 14 Days, #14 TAB Prov: JHON ARIAS MD 1/1/23 Copy Copies To 1: MIQUEL WISEMAN DO Copies To 2: PUNEET RAPHAEL MD; REGGIE CERVANTES DO; JASON CARNES KATHRYN M MD Jul 20, 2022 08:59
[2022-07-20 09:15] LABS: BASOPHILS % (AUTO) 0 % (0-10); HEMOGLOBIN 10.7 g/dL (11.5-16.0); NEUTROPHILS % (AUTO) 79 % (42-75); PLATELET COUNT 76 10^3/uL (130-400)
[2022-07-20] MEDS ORDERED: SUCRALFATE 1 GM (CARAFATE) TAB PO ONE (09:15)
[2022-07-20] MEDS ORDERED: ONDANSETRON 4 MG/2 ML (SDV) Z0FRAN IVP ONE (09:15)
[2022-07-20] MEDS ORDERED: LIDOCAINE 2% VISCOUS 15 ML UDC PO ONE (09:15)
[2022-07-20] MEDS ORDERED: ANTACID SUSP 30 ML UDC (MYLANTA) PO ONE (09:15)
[2022-07-20] MEDS ORDERED: ASPIRIN 81 MG CHEW (CHILDREN'S ASA) PO ONE (09:15)
[2022-07-20 09:16] LABS: EOSINOPHILS # (AUTO) 0.1 10^3/uL (0.0-0.3); EOSINOPHILS % (AUTO) 2 % (0-10); HEMATOCRIT 32 % (35-52); LYMPHOCYTES # (AUTO) 0.6 10^3/uL (1.0-4.0); LYMPHOCYTES % (AUTO) 11 % (12-44); MEAN CORPUSCULAR HEMOGLOBIN 35 pg (25-34); MEAN CORPUSCULAR HGB CONC 33 g/dL (32-36); MEAN CORPUSCULAR VOLUME 106 fL (80-99); MEAN PLATELET VOLUME 9.8 fL (9.0-12.2); MONOCYTES # (AUTO) 0.4 10^3/uL (0.0-1.0); MONOCYTES % (AUTO) 7 % (0-12); NEUTROPHILS # (AUTO) 3.9 10^3/uL (1.8-7.8)
--- NOTE | 2022-07-20 09:24 | Diagnostic Imaging Report ---
EXAMINATION: Chest 1 view HISTORY: Chest pain COMPARISON: 06/08/2022 FINDINGS: The lungs are clear without edema or pneumonia. No pleural effusion or pneumothorax. Heart size is normal. Right port catheter tip terminates in the superior vena cava. Median sternotomy wires are aligned. IMPRESSION: 1. Clear lungs. Dictated by: Dictated on workstation # [id number]
[2022-07-20 09:26] LABS: ALBUMIN 3.3 GM/DL (3.2-4.5); POTASSIUM 3.8 MMOL/L (3.6-5.0)
[2022-07-20 09:28] LABS: CALCIUM 9.1 MG/DL (8.5-10.1)
[2022-07-20 09:29] LABS: INR 0.9 (0.8-1.4); PROTHROMBIN TIME PATIENT 13.1 SEC (12.2-14.7); TOTAL PROTEIN 6.2 GM/DL (6.4-8.2)
[2022-07-20 09:31] LABS: BILIRUBIN,TOTAL 0.4 MG/DL (0.1-1.0)
[2022-07-20 09:32] LABS: CREATININE SERUM 0.72 MG/DL (0.60-1.30)
[2022-07-20 09:35] LABS: MAGNESIUM 1.9 MG/DL (1.6-2.4)
[2022-07-20] MEDS ORDERED: HURRICAINE EXT TUBE (BENZOCAINE) XX ONE (10:15)
[2022-07-20] MEDS ORDERED: NS IV 1000 ML 1,000 ML IV STA (11:11)
[2022-07-20] MEDS ORDERED: PANTOPRAZOLE 40 MG (PROTONIX) VIAL IV ONE ×2 (11:15→14:30)
[2022-07-20] MEDS ORDERED: FAMOTIDINE 20MG/2ML IV (PEPCID) IVP ONE (11:15)
[2022-07-20] MEDS ORDERED: NS 100 ML (IVPB) BAG IV ONE (11:30)
[2022-07-20] MEDS ORDERED: IOHEXOL 350 MG/ML 100 ML (OMNIPAQUE 350) VIAL IV ONE (11:30)
[2022-07-20] MEDS ORDERED: HOLD METFORMIN - RECEIVED CONTRAST 20 ML VIAL IV SCH (11:30)
--- NOTE | 2022-07-20 11:59 | Diagnostic Imaging Report ---
EXAMINATION: CT chest with intravenous contrast. TECHNIQUE: Multiple contiguous axial images were obtained through the chest after the uneventful administration of intravenous contrast. All CT scans use one or more of the following dose optimizing techniques: automated exposure control, MA and/or KvP adjustment based on patient size and exam type or iterative reconstruction. HISTORY: Chest pain COMPARISON: None available. FINDINGS: There is no edema or pneumonia. There is a small left pleural effusion. No pneumothorax. No suspicious nodules. There is no axillary or supraclavicular lymphadenopathy. There is no mediastinal lymphadenopathy. Right-sided port catheter is present. There is severe wall thickening of the distal esophagus. There is gastric wall thickening. There is mucosal hyperenhancement. There is periesophageal fluid. Heart size is normal. There are severe coronary artery calcifications. No pericardial effusion. Aorta is normal in caliber. There has been coronary artery bypass grafting. Limited views of the upper abdomen there is a liver mass measuring 4.2 x 2.5 cm at the confluence of the hepatic veins. Opening has decreased in size from prior CT of the abdomen and pelvis. There is unchanged biliary ductal dilation. There are no suspicious osseus lesions. IMPRESSION: 1. Severe wall thickening of the distal esophagus and gastric wall thickening with mucosal hyperenhancement. Findings likely represent gastroesophagitis. 2. Liver mass is decreased in size from prior exam. Dictated by: Dictated on workstation # [id number]
[2022-07-20] MEDS ORDERED: BARIUM SUSPENSION 2.1% (VANILLA SILQ) 450 ML PO ONE (12:00)
[2022-07-20] MEDS ORDERED: fluCOnazole (DIFLUCAN) 100 MG TAB PO ONE (12:45)
[2022-07-20] MEDS ORDERED: HYOSCYAMINE 0.125 MG (LEVSIN) TAB PO ONE (13:00)
[2022-07-20] MEDS ORDERED: FLUC200T PO (13:10)
[2022-07-20] MEDS ORDERED: FAMO-119 PO (13:11)
[2022-07-20 16:00] VITALS: BP 183/84
[2022-07-20] MEDS ORDERED: ASPI-999 PO (17:08)
[2022-07-20] MEDS ORDERED: HYDR-3924 PO (17:08)
[2022-07-20] MEDS ORDERED: METF-397 PO (17:08)
[2022-07-20] MEDS ORDERED: fentaNYL INJ 100 MCG/2 ML AMP IVP PRN (18:15)
[2022-07-20] MEDS ORDERED: hydrALAZINE (APESOLINE) 20 MG/ML VIAL IV PRN ×2 (18:15→21:15)
[2022-07-20 18:16] VITALS: BP 186/81
[2022-07-20] MEDS ORDERED: hydrALAZINE (APESOLINE) 20 MG/ML VIAL ONE (18:22)
[2022-07-20] MEDS: NS IV 1000 ML 1,000 ML IV SCH ×2 (18:38→23:20)
[2022-07-20 19:09] VITALS: BP 178/75
[2022-07-20] MEDS: FAMOTIDINE 20MG/2ML IV (PEPCID) IV SCH (20:45)
[2022-07-20] MEDS ORDERED: SOTALOL HCL 60 MG PO SCH (21:15)
[2022-07-20] MEDS: FAMOTIDINE 20 MG (PEPCID) TABLET PO SCH (21:15)
[2022-07-20 23:52] VITALS: BP 171/80
[2022-07-21] MEDS: NS IV 1000 ML 1,000 ML IV SCH ×2 (02:50→10:54)
[2022-07-21 03:27] VITALS: BP 169/71
[2022-07-21 06:53] LABS: CHOLESTEROL 151 MG/DL (< 200); HDL CHOLESTEROL 36 MG/DL (40-60); TRIGLYCERIDES 209 MG/DL (<150); VLDL CHOLESTEROL 42 MG/DL (5-40)
[2022-07-21 08:20] VITALS: BP 175/72
[2022-07-21] MEDS: FAMOTIDINE 20 MG (PEPCID) TABLET PO SCH ×2 (08:26→08:35)
[2022-07-21] MEDS: FAMOTIDINE 20MG/2ML IV (PEPCID) IV SCH (08:29)
[2022-07-21] MEDS ORDERED: ENALAPRIL 10 MG (VASOTEC) TAB PO SCH (09:00)
[2022-07-21] MEDS ORDERED: fluCOnazole (DIFLUCAN) 100 MG TAB PO SCH (09:00)
[2022-07-21] MEDS ORDERED: DIGOXIN 0.125 MG (LANOXIN) TAB PO SCH (09:00)
[2022-07-21] MEDS ORDERED: PANTOPRAZOLE 40 MG (PROTONIX) VIAL IV SCH (09:00)
[2022-07-21 11:26] VITALS: BP 177/83
[2022-07-21 11:30] VITALS: BP 182/88
[2022-07-21] MEDS ORDERED: SUCR1TAB PO (12:26)
[2022-07-21] MEDS ORDERED: PANT40TA52 PO (12:26)
[2022-07-21 13:45] VITALS: BP 182/88
--- NOTE | 2022-07-21 16:25 | Short Stay Summary-Hospitalist ---
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 She denies shortness of breath. She denies nausea and vomiting. She denies diaphoresis. She does report acid reflux. She takes over the counter Pepcid. Upon my exam, her chest pain has resolved. Source: patient Exam Limitations: no limitations Date Seen 07/21/22 Time Seen by a Provider: 12:00 Attending Physician Donato Estrella DO PCP Admitting Physician: Nita Culp MD Attending Physician: Amairani Sommers MD Referring Physician Date of Admission Jul 20, 2022 at 14:06 Home Medications & Allergies Home Medications Reviewed patient Home Medication Reconciliation performed by pharmacy medication reconciliations it telecom technician and/or nursing. Patients Allergies have been reviewed. Allergies Allergies Coded Allergies amlodipine (Verified Allergy, Severe, EDEMA LOWER EXTREMITIES, 02/26/22) Cephalosporins (Verified Allergy, Mild, ITCHING, 02/26/22) Penicillins (Verified Allergy, Mild, HIVES, 02/26/22) Sulfa (Sulfonamide Antibiotics) (Verified Allergy, Mild, ITCHING, 02/26/22) Past Kfaihkf-Fiyigk-Lowbsl Hx Patient Social History Tobacco Use?: No Use of E-Cig and/or Vaping dev: No Substance use?: No Alcohol Use?: No Pt feels they are or have been: No Immunizations Up To Date Date of Influenza Vaccine: Mar 23, 2020 First/Initial COVID19 Vaccinat: 08/24/2020 Second COVID19 Vaccination Italo: 09/21/2020 Tetanus Booster (TDap): Less Than 5 Years Date of Pneumonia Vaccine: Apr 28, 2013 Seasonal Allergies Seasonal Allergies: Yes Current Status Advance Directives: No Primary Language: Sinhala Implanted or Applied Medical D: Port-a-cath Past Medical History Surgeries: Cardiac, CABG, Section, Gallbladder, Orthopedic Pulmonary Embolism Currently Using CPAP: No Currently Using BIPAP: No Atrial Fibrillation, Heart Attack, High Cholesterol, Hypertension Sexually Transmitted Disease: No HIV/AIDS: No Kidney Stones, UTI-Chronic Gastroesophageal Reflux, Diverticulosis, Pancreatitis, Gall Bladder Disease Degenerate Disk Disease, Arthritis, Chronic Back Pain, Fractures Diabetes, Non-Insulin dep Cataract Did You Recieve Any Treatments: No Eczema Blood Disorders: No Adverse Reaction/Blood Tranf: No (N/A) Family Medical History Cardiovascular disease 19 FATHER 19 MOTHER Myocardial infarction 19 FATHER Review of Systems Constitutional: no symptoms reported EENTM: no symptoms reported Respiratory: no symptoms reported Cardiovascular: chest pain Gastrointestinal: heartburn Physical Exam Physical Exam Vital Signs Vital Signs - First Documented 07/20/22 07/20/22 15:44 16:00 Temp 36.1 Pulse 90 Resp 12 B/P (MAP) 173/83 Pulse Ox 97 O2 Delivery Room Air Capillary Refill : Less Than 3 Seconds Height, Weight, BMI Height: 5'4.00" Weight: 160lbs. 6.4oz. 72.779292zk; 21.20 BMI Method: General Appearance: No Apparent Distress, WD/WN, Thin HEENT: PERRL/EOMI, Pharynx Normal Neck: Normal Inspection, Supple Respiratory: Lungs Clear, Normal Breath Sounds, No Respiratory Distress Cardiovascular: Regular Rate, Rhythm, Normal Peripheral Pulses Gastrointestinal: Normal Bowel Sounds, Non Tender, Soft Extremity: Normal Inspection, Non Tender, No Pedal Edema Neurologic/Psychiatric: Alert, Oriented x3, No Motor/Sensory Deficits, Normal Mood/Affect Skin: Normal Color, Warm/Dry Results Results/Procedures Labs Laboratory Tests 07/20/22 09:00 Patient resulted labs reviewed. Imaging: Reviewed Imaging Report Short Stay Diagnosis Discharge Diagnosis-Short Stay Admission Diagnosis Chest pain Final Discharge Diagnosis GERD with esophagitis Conclusion Plan GERD with esophagitis PPI Sucralfate Diagnosis/Problems Diagnosis/Problems (1) GERD with esophagitis Status: Acute Qualifiers: Qualified Codes: K21.00 - Gastro-esophageal reflux disease with esophagitis, without bleeding (2) Cholangiocarcinoma Status: Chronic Clinical Quality Measures AMI/AHF: ASA po Prior to arrival: Yes (81MG) AMAIRANI SOMMERS MD Jul 21, 2022 16:25
[2022-07-21] MEDS ORDERED: FLUTICASONE NASAL SPRAY (FLONASE) 16 GM BTL NS SCH (21:00)
[2022-07-21] MEDS ORDERED: PRAZOSIN 1 MG CAPSULE (MINIPRESS) NON-FORMULARY PO SCH (21:00)
[2022-07-21] MEDS ORDERED: AtorvaSTATin TABLET 10 MG TABLET PO SCH (21:00)
== END 2022-07-21 12:26 | disposition home or self-care (01) ==
LOC: EDUNIT# 08:46 → ER 08:48 → 4TH 14:06 → UNDOADMOB 14:06 → 4TH 15:55 → UNDODISOB 07-21 12:26
PROVIDERS: ADMIT Family Medicine; ATTEND Internal Medicine
DX: K21.00 Gastro-esophageal reflux disease with esophagitis, without bleeding (principal); C22.1 Intrahepatic bile duct carcinoma; E11.9 Type 2 diabetes mellitus without complications; I25.10 Atherosclerotic heart disease of native coronary artery without angina pectoris; Z79.84 Long term (current) use of oral hypoglycemic drugs
CPT/HCPCS: 36415; 71045; 71260; 80053; 80061; 83735; 83874; 84484; 85025; 85610; 85730; 93005; 93041; 96361; 96375; 96376; G0378

== ENCOUNTER 2022-09-19 15:41 | Emergency (ER) | payer MEDICARE, BC ==
[~2022-09-19] VITALS: Ht 162.5 cm; Wt 55.7 kg
[~2022-09-19 15:41] MED LIST changes: +FAMO-119 PO; +FLUC200T PO; +HYDR-3924 PO; +PANT40TA52 PO; +SUCR1TAB PO
[2022-09-19 16:25] LABS: WHITE BLOOD COUNT 3.7 10^3/uL (4.3-11.0)
[2022-09-19 16:28] LABS: POTASSIUM 3.2 MMOL/L (3.6-5.0)
[2022-09-19 16:30] LABS: CALCIUM 9.4 MG/DL (8.5-10.1)
[2022-09-19] MEDS ORDERED: NS IV 500 ML 500 ML IV ONE (16:30)
[2022-09-19 16:31] LABS: HEMOGLOBIN 6.9 g/dL (11.5-16.0)
[2022-09-19 16:34] LABS: CREATININE SERUM 0.75 MG/DL (0.60-1.30)
[2022-09-19 16:36] LABS: MAGNESIUM 1.7 MG/DL (1.6-2.4)
--- NOTE | 2022-09-19 16:56 | ED General ---
General Chief Complaint: General Problems/Pain Stated Complaint: LOW HEMOGLOBIN Nursing Triage Note: PT AMB TO [facility] 4 WITH COMPLAINT OF LOW HGB. WAS SENT OVER BY [facility] FOR HGB OF 7. STATES YESTERDAY IT WAS 7.6. AT HOME SHE SAID HER BLOOD PRESSURE HAD BEEN LOWER, SO SHE CUT HER ENALAPRIL IN HALF. STATES SHE IS SOA ON EXERTION. 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 Her oncologist is Dr. Carnes at the [facility] across the street. She has recently been treated with chemotherapy with her last treatment 2 weeks ago. She is also received high intensity radiation therapy by Dr. Lund in [place]. She has been struggling with anemia and thrombocytopenia secondary to chemotherapy. She denies any known source of blood loss. She was referred to the emergency room for a transfusion of PRBC. She is symptomatic with fatigue, shortness of breath, and weakness. Yesterday she felt terrible and just curled up under a blanket to rest. She has been holding her Lasix and blood pressure medication as she has been having drops in blood pressure related to her anemia and cancer treatments. Dr. Estrella is her primary care provider. She has required platelet transfusions in the past as well. Documents from the clinic including her lab results and her progress notes with health history were reviewed by me. Allergies and Home Medications Allergies Coded Allergies: amlodipine (Verified Allergy, Severe, EDEMA LOWER EXTREMITIES, 02/26/22) Cephalosporins (Verified Allergy, Mild, ITCHING, 02/26/22) Penicillins (Verified Allergy, Mild, HIVES, 02/26/22) Sulfa (Sulfonamide Antibiotics) (Verified Allergy, Mild, ITCHING, 02/26/22) Patient Home Medication List Home Medication List Reviewed: Yes Ascorbic Acid (Vitamin C) 1,000 Mg Tablet, 1,000 MG PO DAILY, (Reported) Entered as Reported by: JO OH on 03/29/18 1341 Aspirin (Aspirin) 81 Mg Tab.chew, 81 MG PO DAILY, (Reported) Entered as Reported by: RENATA KIRK on 07/20/22 1708 Atorvastatin Calcium (Atorvastatin Calcium) 10 Mg Tablet, 10 MG PO HS, (Reported) Entered as Reported by: JO OH on 03/29/18 1341 Calcium Carbonate/Vitamin D3 (Calcium 600 + Vit D Caplet) 1 Each Tablet, 1 EACH PO DAILY, (Reported) Entered as Reported by: ANTONY OSBORNE on 02/27/20 1047 Chlordiazepoxide HCl (Chlordiazepoxide HCl) 10 Mg Capsule, 10 MG PO Q6H PRN for ANXIETY, (Reported) Entered as Reported by: JONNY PRYOR on 03/27/20 1419 Cyanocobalamin/Folic Acid (Vitamin R93-Mbuij Acid Tablet) 500 Mcg-400 Mcg Tablet, 1 EACH PO, (Reported) Entered as Reported by: OSIEL LAZARO on 02/06/22 1546 Digoxin (Digoxin) 125 Mcg Tablet, 125 MCG PO DAILY, (Reported) Entered as Reported by: JO OH on 03/29/18 134 Diltiazem HCl (Cardizem Cd) 300 Mg Cap.er.24h, 300 MG PO DAILY, (Reported) Entered as Reported by: OSIEL LAZARO on 02/06/22 1546 Diphenhydramine HCl (Benadryl Allergy) 25 Mg Tablet, 25-50 MG PO HS PRN for ALLERGY SYMPTOMS, (Reported) Entered as Reported by: ANTONY OSBORNE on 02/27/20 1047 Enalapril Maleate (Enalapril Maleate) 20 Mg Tablet, 20 MG PO BID, (Reported) Entered as Reported by: JO OH on 03/29/18 1341 Famotidine (Acid Plate Maker (FAMOTIDINE)) 10 Mg Tablet, 20 MG PO EVENING, (Reported) Entered as Reported by: ANTONY OSBORNE on 02/27/20 1047 Fexofenadine HCl (Fexofenadine HCl) 180 Mg Tablet, 180 MG PO DAILY PRN for ALLERGY SYMPTOMS, (Reported) Entered as Reported by: JO OH on 03/29/18 1341 Fexofenadine HCl (Susanne Allergy) Unknown Strength Tablet, Unknown Dose PO, (Reported) Entered as Reported by: OSIEL LAZARO on 02/06/22 1546 Fluconazole (Diflucan) 200 Mg Tablet, 200 MG PO DAILY Prescribed by: JHON ARIAS on 07/20/22 1310 Fluticasone Propionate (Fluticasone Propionate) 16 Gm [place].susp, 1 SPRAYS NS HS, (Reported) Entered as Reported by: JO OH on 03/29/18 1341 Furosemide (Furosemide) 40 Mg Tablet, 40 MG PO DAILY, (Reported) Entered as Reported by: JO OH on 03/29/18 1341 Hydralazine HCl (Hydralazine HCl) 50 Mg Tablet, 50 MG PO QID, (Reported) Entered as Reported by: RENATA KIRK on 07/20/22 1708 Liraglutide (Victoza 3-Kendall) 0.6 Mg/0.1 Ml Pen.injctr, 1.8 MG INJ DAILY, (Reported) Entered as Reported by: ANTONY OSBORNE on 02/27/20 1047 Lutein (Lutein) 20 Mg Capsule, 20 MG PO HS, (Reported) Entered as Reported by: JO OH on 03/29/18 1341 Metformin HCl (Metformin HCl) 1,000 Mg Tablet, PO DAILY, (Reported) Entered as Reported by: OSIEL LAZARO on 02/06/22 1546 Metformin HCl (Metformin HCl) 500 Mg Tablet, 500 MG PO PC, (Reported) Entered as Reported by: RENATA KIRK on 07/20/22 1708 Nitrofurantoin Monohyd/M-Cryst (Macrobid 100 mg Capsule) 100 Mg Capsule, 1 TAB PO BID Prescribed by: SHAI LAWSON on 09/19/22 1848 Pantoprazole Sodium (Pantoprazole Sodium) 40 Mg Tablet.dr, 40 MG PO BID Prescribed by: AMAIRANI SOMMERS on 07/21/22 1226 Potassium Chloride (Klor-Con 10) 10 Meq Tablet.er, 10 MEQ PO DAILY, (Reported) Entered as Reported by: ANTONY OSBORNE on 02/27/20 1047 Prazosin HCl (Minipress) 1 Mg Capsule, 1 MG PO HS, (Reported) Entered as Reported by: OSIEL LAZARO on 02/06/22 1546 Sotalol HCl (Sotalol) 120 Mg Tablet, 60 MG PO BID, (Reported) Entered as Reported by: ANTONY OSBORNE on 02/27/20 1047 Sucralfate (Sucralfate) 1 Gram Tablet, 1 GM PO ACHS PRN for INDIGESTION Prescribed by: AMAIRANI SOMMERS on 07/21/22 1226 Review of Systems Review of Systems Constitutional: see HPI EENTM: no symptoms reported Respiratory: see HPI Cardiovascular: see HPI Gastrointestinal: no symptoms reported Genitourinary: no symptoms reported : No Musculoskeletal: no symptoms reported Skin: no symptoms reported Psychiatric/Neurological: No Symptoms Reported Hematologic/Lymphatic: See HPI Immunological/Allergic: no symptoms reported Past Cjmekam-Eyjvhq-Fcoczv Hx Patient Social History Tobacco Use?: No Use of E-Cig and/or Vaping dev: No Substance use?: No Alcohol Use?: No Pt feels they are or have been: No Immunizations Up To Date First/Initial COVID19 Vaccinat: 08/24/2020 Second COVID19 Vaccination [place]: 09/21/2020 Third COVID19 Vaccination Date: 06/19/2021 Seasonal Allergies Seasonal Allergies: Yes Past Medical History Surgery/Hospitalization HX: CABG, CHOLECYSTECTOMY, C-SECT, LAMINECTOMY, DISKECTOMY, LIVER BX, HEART CATH, ESWL X2 NIDDM, CAD, HTN, P.E., AFIB, RENAL STONES, 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, RT SIDE LITHOTRIPSY Surgeries: Yes (D&C, DISCECTOMY, MARSHALL L5-S1, ESWL,LIVER BX) Abdominal (Liver biopsy), Cardiac (MAZE procedure), CABG, Section, Gallbladder, Orthopedic (Laminectomy), Renal (ESWL, ureteral stent), Vascular Surgery ([place] clip) Respiratory: Yes (PE AT 22YRS OLD CLIP ON VENA CAVA) Pulmonary Embolism Currently Using CPAP: No Currently Using BIPAP: No Cardiac: Yes (BROKEN HEART SYNDROME, 2018 [place] THEN CABG) Atrial Fibrillation, Coronary Artery Disease, Heart Attack, High Cholesterol, Hypertension Neurological: No Reproductive Disorders: Yes (D&C IN EARLY S) Female Reproductive Disorders: Denies Sexually Transmitted Disease: No HIV/AIDS: No Genitourinary: Yes Kidney Stones, UTI-Chronic Gastrointestinal: Yes Gastroesophageal Reflux, Diverticulosis, Pancreatitis, Gall Bladder Disease Musculoskeletal: Yes (5TH METATARSAL) Degenerate Disk Disease, Arthritis, Chronic Back Pain, Fractures Endocrine: Yes (thyroid nodules) Diabetes, Non-Insulin dep HEENT: Yes Cataract Cancer: Yes (LIVER ) Did You Recieve Any Treatments: No Psychosocial: No Integumentary: Yes Eczema Blood Disorders: No Adverse Reaction/Blood Tranf: No (N/A) Family Medical History Cardiovascular disease 19 FATHER 19 MOTHER Myocardial infarction 19 FATHER Physical Exam Vital Signs Vital Signs - First Documented 09/19/22 09/19/22 15:57 18:00 Temp 35.9 Pulse 76 Resp 17 B/P (MAP) 143/60 (87) Pulse Ox 98 O2 Delivery Room Air Capillary Refill : Less Than 3 Seconds Height, Weight, BMI Height: 5'4.00" Weight: 160lbs. 6.4oz. [id number]; 21.00 BMI Method: General Appearance: No Apparent Distress, WD/WN, Thin HEENT: PERRL/EOMI, Normal ENT Inspection Neck: Normal Inspection; No JVD Respiratory: Lungs Clear, Normal Breath Sounds, No Accessory Muscle Use Cardiovascular: No Edema, No Murmur, Irregularly Irregular Gastrointestinal: Non Tender, Soft; No Distended Extremity: Normal Inspection, No Pedal Edema Neurologic/Psychiatric: Alert, Oriented x3, No Motor/Sensory Deficits, Normal Mood/Affect Skin: Normal Color, Warm/Dry Progress/Results/Core Measures Suspected Sepsis SIRS Temperature: Pulse: 76 Respiratory Rate: 17 Laboratory Tests 09/19/22 16:02: White Blood Count 3.7L Blood Pressure 143 /60 Mean: 87 Laboratory Tests 09/19/22 16:02: Creatinine 0.75, Platelet Count 36*L Results/Orders Lab Results Laboratory Tests Test 09/19/22 16:02 09/19/22 17:29 Range/Units White Blood Count 3.7 L 4.3-11.0 10^3/uL Red Blood Count 1.96 L 3.80-5.11 10^6/uL Hemoglobin 6.9 *L 11.5-16.0 g/dL Hematocrit 21 L 35-52 % Mean Corpuscular Volume 107 H 80-99 fL Mean Corpuscular Hemoglobin 35 H 25-34 pg Mean Corpuscular Hemoglobin Concent 33 32-36 g/dL Red Cell Distribution Width 17.1 H 10.0-14.5 % Platelet Count 36 *L 130-400 10^3/uL Mean Platelet Volume 11.0 9.0-12.2 fL Percent Immature Platelet Fraction 6.9 0.0-7.6 % Sodium Level 142 135-145 MMOL/L Potassium Level 3.2 L 3.6-5.0 MMOL/L Chloride Level 108 H 98-107 MMOL/L Carbon Dioxide Level 24 21-32 MMOL/L Anion Gap 10 5-14 MMOL/L Blood Urea Nitrogen 12 7-18 MG/DL Creatinine 0.75 0.60-1.30 MG/DL Estimat Glomerular Filtration Rate 84 BUN/Creatinine Ratio 16 Glucose Level 106 H 70-105 MG/DL Calcium Level 9.4 8.5-10.1 MG/DL Magnesium Level 1.7 1.6-2.4 MG/DL Urine Color YELLOW Urine Clarity CLEAR Urine pH 7.0 5-9 Urine Specific [place] 1.010 L 1.016-1.022 Urine Protein NEGATIVE NEGATIVE Urine Glucose (UA) NEGATIVE NEGATIVE Urine Ketones NEGATIVE NEGATIVE Urine Nitrite NEGATIVE NEGATIVE Urine Bilirubin NEGATIVE NEGATIVE Urine Urobilinogen 1.0 < = 1.0 MG/DL Urine Leukocyte Esterase 2+ H NEGATIVE Urine RBC (Auto) NEGATIVE NEGATIVE Urine RBC NONE /HPF Urine WBC 10-25 H /HPF Urine Squamous Epithelial Cells 0-2 /HPF Urine Crystals NONE /LPF Urine Bacteria TRACE /HPF Urine Casts NONE /LPF Urine Mucus NEGATIVE /LPF Urine Culture Indicated YES My Orders Orders - SHAI LAM MD Cbc No Diff (09/19/22 16:16) Basic Metabolic Panel (09/19/22 16:16) Magnesium (09/19/22 16:16) Red Cells Leukocytes Reduced (09/19/22 16:16) Type And Screen (09/19/22 16:16) Ns Iv 500 Ml (Sodium Chloride 0.9%) (09/19/22 16:30) Implanted Port: Access (09/19/22 16:22) Potassium Chloride (Tablet) (Klor Con Ta (09/19/22 17:15) Ua Culture If Indicated (09/19/22 18:10) Urine Culture (09/19/22 17:29) Nitrofurantoin Capsule,Macro (Macrobid C (09/19/22 19:00) Fluconazole Tablet (Ed Only) (Diflucan T (09/19/22 19:00) Medications Given in ED Current Medications Medications Dose Ordered Sig/Tanner Route Start Time Stop Time Status Last Admin Dose Admin Fluconazole 150 mg ONCE ONCE PO 09/19/22 19:00 09/19/22 19:01 DC 09/19/22 19:01 150 MG Nitrofurantoin Macrocrystals 100 mg ONCE ONCE PO 09/19/22 19:00 09/19/22 19:01 DC 09/19/22 19:01 100 MG Potassium Chloride 20 meq ONCE ONCE PO 09/19/22 17:15 09/19/22 17:16 DC 09/19/22 17:56 20 MEQ Sodium Chloride 500 ml @ 0 mls/hr Q0M ONCE IV 09/19/22 16:30 09/19/22 16:31 DC 09/19/22 17:56 0 MLS/HR Vital Signs/I&O 09/19/22 09/19/22 09/19/22 09/19/22 15:57 18:00 18:23 19:00 Temp 35.9 36.2 36.0 Pulse 76 73 71 76 Resp 17 16 18 16 B/P (MAP) 143/60 (87) 128/49 135/56 147/61 Pulse Ox 98 96 97 97 O2 Delivery Room Air Room Air Room Air 09/19/22 09/19/22 09/19/22 19:30 19:53 20:04 Temp 36.1 36.0 36.0 Pulse 74 74 74 Resp 16 14 14 B/P (MAP) 150/71 153/68 159/69 Pulse Ox 98 99 O2 Delivery Room Air Room Air Room Air Capillary Refill : Less Than 3 Seconds Blood Pressure Mean: 87 Progress Note #1: Time: 17:02 Progress Note Patient was interviewed and examined. Documentation from the [facility] was reviewed. Severe anemia was confirmed on our CBC. A unit of PRBC will be transfused when crossmatch is complete. BMP was unremarkable except for mild hypokalemia which is being replaced orally. Progress Note #2: Progress Note Patient received 1 unit of PRBC. Urinalysis suggested urinary tract infection. Prior cultures were reviewed. Her last UTI grew yeast. She was treated with Diflucan 150 mg in the ER and Macrobid 100 mg. A prescription for Macrobid was provided. See discharge instructions for further discussion. Departure Impression Primary Impression: Severe anemia Additional Impressions: Cholangiocarcinoma Hypokalemia Urinary tract infection Qualified Codes: N39.0 - Urinary tract infection, site not specified Disposition: 01 HOME, SELF-CARE Condition: Improved Departure-Patient Inst. Decision time for Depature: 17:04 Referrals: MIQUEL ESTRELLA DO (PCP/Family) Primary Care Physician Patient Instructions: Anemia of Inflammation (Anemia of Chronic Disease), Hypokalemia, Urinary Tract Infection, Adult ED Add. Discharge Instructions: Drink plenty of clear liquids. Consume a diet with foods and beverages high in potassium as your potassium was slightly low today. Follow-up with your oncology team and primary care provider next week to continue monitoring your hemoglobin and potassium levels. Complete your antibiotic as prescribed and follow-up on urine culture results with either your oncology team or primary care team on Thursday. Return to the ER if you have any worsening of condition that warrants prompt attention. All discharge instructions reviewed with patient and/or family. Voiced understanding. Scripts Nitrofurantoin Monohyd/M-Cryst (Macrobid 100 mg Capsule) 100 Mg Capsule 1 TAB PO BID, #14 CAP Prov: SHAI LAM MD 09/19/22 Copy Copies To 1: JASON CANRES Copies To 2: MIQUEL ESTRELLA JOSHUA T MD Sep 19, 2022 16:56
[2022-09-19] MEDS ORDERED: KCL 10 MEQ TAB (MICRO K) PO ONE (17:15)
[2022-09-19 18:00] VITALS: BP 128/49
[2022-09-19 18:15] LABS: BILIRUBIN,URINE NEGATIVE (NEGATIVE); CLARITY,URINE CLEAR; COLOR,URINE YELLOW; GLUCOSE, URINE (UA) NEGATIVE (NEGATIVE); KETONES,URINE NEGATIVE (NEGATIVE); LEUKOCYTE ESTERASE ,URINE 2+ (NEGATIVE); NITRITE,URINE NEGATIVE (NEGATIVE); PROTEIN,URINE NEGATIVE (NEGATIVE)
[2022-09-19 18:23] VITALS: BP 135/56
[2022-09-19 18:27] LABS: BACTERIA,URINE TRACE /HPF; SQUAMOUS EPITHELIAL CELL,UR 0-2 /HPF
[2022-09-19] MEDS ORDERED: NITR-65 PO (18:48)
[2022-09-19 19:00] VITALS: BP 147/61
[2022-09-19] MEDS ORDERED: FLUCONAZOLE 150 MG TABLET (ED ONLY) PO ONE (19:00)
[2022-09-19] MEDS ORDERED: NITROFURANTOIN 100 MG (MACROBID) CAPSULE PO ONE (19:00)
[2022-09-19 19:30] VITALS: BP 150/71
[2022-09-19 19:53] VITALS: BP 153/68
[2022-09-19 20:04] VITALS: BP 159/69
== END 2022-09-19 20:06 | disposition home or self-care (01) ==
LOC: EDUNIT# 15:41 → ER 15:42
DX: D64.9 Anemia, unspecified (principal); N39.0 Urinary tract infection, site not specified; C22.1 Intrahepatic bile duct carcinoma; E87.6 Hypokalemia; I10 Essential (primary) hypertension; Z88.0 Allergy status to penicillin; Z88.2 Allergy status to sulfonamides
CPT/HCPCS: 80048; 81000; 83735; 85027; 86850; 86900; 86901; 86920; 87088; 99283; P9016; 36415

== ENCOUNTER 2022-12-16 10:38 | Outpatient (RCR) | payer MEDICARE, BC ==
[~2022-12-16 10:38] MED LIST changes: +ENAL-70 PO; -ENAL20TA16 PO
== END 2022-12-17 | disposition home or self-care (01) ==
PROVIDERS: ATTEND Nurse Practitioner
DX: C22.1 Intrahepatic bile duct carcinoma (principal); R53.1 Weakness; R53.83 Other fatigue; I11.9 Hypertensive heart disease without heart failure; E11.9 Type 2 diabetes mellitus without complications

== ENCOUNTER 2023-01-05 21:24 | Emergency (ER) | payer MEDICARE, BC ==
[~2023-01-05] VITALS: Ht 162.6 cm; Wt 49.4 kg
--- NOTE | 2023-01-05 21:48 | ED General ---
General Chief Complaint: Abdominal/GI Problems Stated Complaint: BACK PAIN/NAUSEA Nursing Triage Note: PT AMB TO RM 2 W C/O FLUID IN RIGHT LUNG, PAIN, FEVER, NAUSEA, AND DECREASED APPETITE THAT BEGAN TONIGHT. PT SCHEUDLED FOR THORACENTESIS THURSDAY AT [facility]. Source of Information: Patient Exam Limitations: No Limitations History of Present Illness Date Seen by Provider: Jan 05, 2023 Time Seen by Provider: 21:39 Initial Comments 72-year-old female presents emergency department today for right flank pain and elevated temperature at home. She states Tmax 99.4 at home and taken orally. 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 She states the "tumor is ." She has recently been diagnosed with a pleural effusion causing pain in her right flank region. She is scheduled to have a thoracentesis at [facility] on Thursday. She has had some nausea and some decreased appetite that started tonight. She has decreased bowel movements chronically but no changes in this currently. No urinary symptoms. No cough or chest pain. All other systems reviewed and negative except documented per HPI. Voice recognition software was used to help create this chart Allergies and Home Medications Allergies Coded Allergies: amlodipine (Verified Allergy, Severe, EDEMA LOWER EXTREMITIES, 02/26/22) Cephalosporins (Verified Allergy, Mild, ITCHING, 02/26/22) Penicillins (Verified Allergy, Mild, HIVES, 02/26/22) Sulfa (Sulfonamide Antibiotics) (Verified Allergy, Mild, ITCHING, 02/26/22) Patient Home Medication List Home Medication List Reviewed: Yes Ascorbic Acid (Vitamin C) 1,000 Mg Tablet, 1,000 MG PO DAILY, (Reported) Entered as Reported by: JO OH on 03/29/18 1341 Aspirin (Aspirin) 81 Mg Tab.chew, 81 MG PO DAILY, (Reported) Entered as Reported by: RENATA KIRK on 07/20/22 1708 Atorvastatin Calcium (Atorvastatin Calcium) 10 Mg Tablet, 10 MG PO HS, (Reported) Entered as Reported by: JO OH on 03/29/18 1341 Calcium Carbonate/Vitamin D3 (Calcium 600 + Vit D Caplet) 1 Each Tablet, 1 EACH PO DAILY, (Reported) Entered as Reported by: ANTONY OSBORNE on 02/27/20 1047 Chlordiazepoxide HCl (Chlordiazepoxide HCl) 10 Mg Capsule, 10 MG PO Q6H PRN for ANXIETY, (Reported) Entered as Reported by: JONNY PRYOR on 03/27/20 1419 Ciprofloxacin HCl (Ciprofloxacin HCl) 500 Mg Tablet, 500 MG PO BID Prescribed by: MAXINE WILLIS MD on 01/05/23 6668 Cyanocobalamin/Folic Acid (Vitamin I34-Oundj Acid Tablet) 500 Mcg-400 Mcg Tablet, 1 EACH PO, (Reported) Entered as Reported by: OSIEL LAZARO on 02/06/22 1546 Digoxin (Digoxin) 125 Mcg Tablet, 125 MCG PO DAILY, (Reported) Entered as Reported by: JO OH on 03/29/18 1341 Diltiazem HCl (Cardizem Cd) 300 Mg Cap.er.24h, 300 MG PO DAILY, (Reported) Entered as Reported by: OSIEL LAZARO on 02/06/22 1546 Diphenhydramine HCl (Benadryl Allergy) 25 Mg Tablet, 25-50 MG PO HS PRN for ALLERGY SYMPTOMS, (Reported) Entered as Reported by: ANTONY OSBORNE on 02/27/20 1047 Enalapril Maleate (Enalapril Maleate) 20 Mg Tablet, 20 MG PO BID, (Reported) Entered as Reported by: JO OH on 03/29/18 1341 Famotidine (Acid Digital Intern (FAMOTIDINE)) 10 Mg Tablet, 20 MG PO EVENING, (Repo rted) Entered as Reported by: ANTONY OSBORNE on 02/27/20 1047 Fexofenadine HCl (Fexofenadine HCl) 180 Mg Tablet, 180 MG PO DAILY PRN for ALLERGY SYMPTOMS, (Reported) Entered as Reported by: JO OH on 03/29/18 1341 Fexofenadine HCl (Susanne Allergy) Unknown Strength Tablet, Unknown Dose PO, (Reported) Entered as Reported by: OSIEL LAZARO on 02/06/22 1546 Fluconazole (Diflucan) 200 Mg Tablet, 200 MG PO DAILY Prescribed by: JHON ARIAS on 07/20/22 1310 Fluticasone Propionate (Fluticasone Propionate) 16 Gm [place].susp, 1 SPRAYS NS HS, (Reported) Entered as Reported by: JO OH on 03/29/18 1341 Furosemide (Furosemide) 40 Mg Tablet, 40 MG PO DAILY, (Reported) Entered as Reported by: JO OH on 03/29/18 1341 Hydralazine HCl (Hydralazine HCl) 50 Mg Tablet, 50 MG PO QID, (Reported) Entered as Reported by: RENATA KIRK on 07/20/22 1708 Liraglutide (Victoza 3-Kendall) 0.6 Mg/0.1 Ml Pen.injctr, 1.8 MG INJ DAILY, (Reported) Entered as Reported by: ANTONY OSBORNE on 02/27/20 1047 Lutein (Lutein) 20 Mg Capsule, 20 MG PO HS, (Reported) Entered as Reported by: JO OH on 03/29/18 134 Metformin HCl (Metformin HCl) 1,000 Mg Tablet, PO DAILY, (Reported) Entered as Reported by: OSIEL LAZARO on 02/06/22 1546 Metformin HCl (Metformin HCl) 500 Mg Tablet, 500 MG PO PC, (Reported) Entered as Reported by: RENATA KIRK on 07/20/22 170 Nitrofurantoin Monohyd/M-Cryst (Macrobid 100 mg Capsule) 100 Mg Capsule, 1 TAB PO BID Prescribed by: SHAI LAWSON on 09/19/22 1848 Pantoprazole Sodium (Pantoprazole Sodium) 40 Mg Tablet.dr, 40 MG PO BID Prescribed by: AMAIRANI SOMMERS on 07/21/22 122 Potassium Chloride (Klor-Con 10) 10 Meq Tablet.er, 10 MEQ PO DAILY, (Reported) Entered as Reported by: ANTONY OSBORNE on 02/27/20 1047 Prazosin HCl (Minipress) 1 Mg Capsule, 1 MG PO HS, (Reported) Entered as Reported by: OSIEL LAZARO on 02/06/22 1546 Sotalol HCl (Sotalol) 120 Mg Tablet, 60 MG PO BID, (Reported) Entered as Reported by: ANTONY OSBORNE on 02/27/20 104 Sucralfate (Sucralfate) 1 Gram Tablet, 1 GM PO ACHS PRN for INDIGESTION Prescribed by: AMAIRANI SOMMERS on 07/21/22 1226 Review of Systems Review of Systems Constitutional: see HPI Past Aipmlti-Qqqffp-Ismkij Hx Patient Social History Tobacco Use?: No Use of E-Cig and/or Vaping dev: No Substance use?: No Alcohol Use?: No Immunizations Up To Date First/Initial COVID19 Vaccinat: 08/24/2020 Second COVID19 Vaccination Italo: 09/21/2020 Third COVID19 Vaccination Date: 06/19/2021 Seasonal Allergies Seasonal Allergies: Yes Past Medical History Surgery/Hospitalization HX: CABG, CHOLECYSTECTOMY, C-SECT, LAMINECTOMY, DISKECTOMY, LIVER BX, HEART CATH, ESWL X2 NIDDM, CAD, HTN, P.E., AFIB, RENAL STONES, 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, RT SIDE LITHOTRIPSY Surgeries: Yes (D&C, DISCECTOMY, MARSHALL L5-S1, ESWL,LIVER BX) Abdominal, Cardiac, CABG, Section, Gallbladder, Orthopedic, Renal, Vascular Surgery Respiratory: Yes (PE AT 22YRS OLD CLIP ON VENA CAVA) Pulmonary Embolism Currently Using CPAP: No Currently Using BIPAP: No Cardiac: Yes (BROKEN HEART SYNDROME, 2018 [place] THEN CABG) Atrial Fibrillation, Coronary Artery Disease, Heart Attack, High Cholesterol, Hypertension Neurological: No Reproductive Disorders: Yes (D&C IN EARLY ) Female Reproductive Disorders: Denies Sexually Transmitted Disease: No HIV/AIDS: No Genitourinary: Yes Kidney Stones, UTI-Chronic Gastrointestinal: Yes Gastroesophageal Reflux, Diverticulosis, Pancreatitis, Gall Bladder Disease Musculoskeletal: Yes (5TH METATARSAL) Degenerate Disk Disease, Arthritis, Chronic Back Pain, Fractures Endocrine: Yes (thyroid nodules) Diabetes, Non-Insulin dep HEENT: Yes Cataract Cancer: Yes (LIVER ) Did You Recieve Any Treatments: No Psychosocial: No Integumentary: Yes Eczema Blood Disorders: No Adverse Reaction/Blood Tranf: No (N/A) Family Medical History Cardiovascular disease 19 FATHER 19 MOTHER Myocardial infarction 19 FATHER Physical Exam Vital Signs Vital Signs - First Documented 01/05/23 21:35 Temp 36.6 Pulse 87 Resp 18 B/P (MAP) 126/68 (87) Pulse Ox 97 O2 Delivery Room Air Capillary Refill : Less Than 3 Seconds Height, Weight, BMI Height: 5'4.00" Weight: 160lbs. 6.4oz. [id number]; 18.00 BMI Method: General Appearance: No Apparent Distress, WD/WN HEENT: Normal ENT Inspection, Pharynx Normal Neck: Full Range of Motion, Normal Inspection, Non Tender, Supple Respiratory: Chest Non Tender, Lungs Clear, Normal Breath Sounds, No Accessory Muscle Use, No Respiratory Distress Cardiovascular: Regular Rate, Rhythm, No Murmur, Normal Peripheral Pulses Gastrointestinal: Normal Bowel Sounds, No Organomegaly, Non Tender, Soft Back: Normal Inspection, CVA Tenderness (R) Extremity: Normal Capillary Refill, Normal Inspection, Non Tender, No Calf Tenderness Neurologic/Psychiatric: Alert, Oriented x3, No Motor/Sensory Deficits Skin: Normal Color, Warm/Dry Focused Exam Lactate Level 01/05/23 21:53: Lactic Acid Level 2.18*H Lactic Acid Level Laboratory Tests Test 01/05/23 21:53 Lactic Acid Level 2.18 MMOL/L (0.50-2.00) *H Progress/Results/Core Measures Suspected Sepsis SIRS Temperature: Pulse: 87 Respiratory Rate: 18 Laboratory Tests 01/05/23 21:53: White Blood Count 11.2H Blood Pressure 126 /68 Mean: 87 01/05/23 21:53: Lactic Acid Level 2.18*H Laboratory Tests 01/05/23 21:53: Creatinine 0.81, Platelet Count 200, Total Bilirubin 0.6 Results/Orders Lab Results Laboratory Tests Test 01/05/23 21:53 01/05/23 23:05 Range/Units White Blood Count 11.2 H 4.3-11.0 10^3/uL Red Blood Count 3.50 L 3.80-5.11 10^6/uL Hemoglobin 11.4 L 11.5-16.0 g/dL Hematocrit 36 35-52 % Mean Corpuscular Volume 102 H 80-99 fL Mean Corpuscular Hemoglobin 33 25-34 pg Mean Corpuscular Hemoglobin Concent 32 32-36 g/dL Red Cell Distribution Width 15.8 H 10.0-14.5 % Platelet Count 200 130-400 10^3/uL Mean Platelet Volume 9.2 9.0-12.2 fL Immature Granulocyte % (Auto) 0 % Neutrophils (%) (Auto) 75 42-75 % Lymphocytes (%) (Auto) 13 12-44 % Monocytes (%) (Auto) 9 0-12 % Eosinophils (%) (Auto) 4 0-10 % Basophils (%) (Auto) 0 0-10 % Neutrophils # (Auto) 8.4 H 1.8-7.8 10^3/uL Lymphocytes # (Auto) 1.4 1.0-4.0 10^3/uL Monocytes # (Auto) 1.0 0.0-1.0 10^3/uL Eosinophils # (Auto) 0.4 H 0.0-0.3 10^3/uL Basophils # (Auto) 0.0 0.0-0.1 10^3/uL Immature Granulocyte # (Auto) 0.1 0.0-0.1 10^3/uL Sodium Level 139 135-145 MMOL/L Potassium Level 4.4 3.6-5.0 MMOL/L Chloride Level 109 H 98-107 MMOL/L Carbon Dioxide Level 21 21-32 MMOL/L Anion Gap 9 5-14 MMOL/L Blood Urea Nitrogen 17 7-18 MG/DL Creatinine 0.81 0.60-1.30 MG/DL Estimat Glomerular Filtration Rate 77 BUN/Creatinine Ratio 21 Glucose Level 106 H 70-105 MG/DL Lactic Acid Level 2.18 *H 0.50-2.00 MMOL/L Calcium Level 10.5 H 8.5-10.1 MG/DL Corrected Calcium 11.0 H 8.5-10.1 MG/DL Total Bilirubin 0.6 0.1-1.0 MG/DL Aspartate Amino Transf (AST/SGOT) 74 H 5-34 U/L Alanine Aminotransferase (ALT/SGPT) 63 H 0-55 U/L Alkaline Phosphatase 656 H 40-136 U/L Total Protein 7.0 6.4-8.2 GM/DL Albumin 3.4 3.2-4.5 GM/DL Urine Color YELLOW Urine Clarity CLEAR Urine pH 5.5 5-9 Urine Specific [place] >=1.030 1.016-1.022 Urine Protein NEGATIVE NEGATIVE Urine Glucose (UA) NEGATIVE NEGATIVE Urine Ketones NEGATIVE NEGATIVE Urine Nitrite NEGATIVE NEGATIVE Urine Bilirubin NEGATIVE NEGATIVE Urine Urobilinogen 1.0 < = 1.0 MG/DL Urine Leukocyte Esterase NEGATIVE NEGATIVE Urine RBC (Auto) NEGATIVE NEGATIVE Urine RBC NONE /HPF Urine WBC 2-5 /HPF Urine Squamous Epithelial Cells 0-2 /HPF Urine Crystals PRESENT H /LPF Urine Calcium Oxalate Crystals FEW H /LPF Urine Bacteria MODERATE H /HPF Urine Casts NONE /LPF Urine Mucus SMALL H /LPF Urine Culture Indicated CULTURE PENDING Micro Results Microbiology 6/19/23 Urine Culture - Final, Complete NO GROWTH 01/05/23 Blood Culture - Preliminary, Resulted No growth 01/05/23 Blood Culture - Preliminary, Resulted No growth My Orders Orders - MAXINE WILLIS DO Cbc With Automated Diff (01/05/23 21:45) Comprehensive Metabolic Panel (01/05/23 21:45) Blood Culture (01/05/23 21:45) Urinalysis (01/05/23 21:45) Urine Culture (01/05/23 21:45) Chest 1 View, Ap/Pa Only (01/05/23 21:45) Ed Iv/Invasive Line Start (01/05/23 21:45) Vital Signs Adult Sepsis Patie Q15M (01/05/23 21:45) Lactic Acid Analyzer (01/05/23 21:45) Ns Iv 500 Ml (Sodium Chloride 0.9%) (01/05/23 23:08) Ciprofloxacin Tablet (Cipro Tablet) (01/05/23 23:53) Vital Signs/I&O 01/05/23 01/06/23 21:35 00:03 Temp 36.6 Pulse 87 78 Resp 18 18 B/P (MAP) 126/68 (87) 124/59 Pulse Ox 97 97 O2 Delivery Room Air Room Air Capillary Refill : Less Than 3 Seconds Blood Pressure Mean: 87 Departure Communication (Admissions) Patient is hemodynamically stable. She has evidence for sepsis and certainly in septic shock at this time. She does have what may be a mild urinary tract infection. This is questionable however she is immunocompromised and has had sepsis with UTI in the past. Recommended that she take antibiotics as prescribed. Culture is pending. She is afebrile and nontoxic. She will be dis charged home with antibiotics. Impression Primary Impression: Urinary tract infection Qualified Codes: N30.00 - Acute cystitis without hematuria Disposition: HOME, SELF-CARE Condition: Stable Departure-Patient Inst. Referrals: MIQUEL WISEMAN DO (PCP/Family) Primary Care Physician Patient Instructions: Urinary tract infections in adults Add. Discharge Instructions: Take the antibiotics as prescribed until they are gone. Increase your fluids at home and rest. Return to the emergency department for any severe concerns. Follow-up with your primary doctor for any nonemergent needs. All discharge instructions reviewed with patient and/or family. Voiced understanding. Scripts Ciprofloxacin HCl (Ciprofloxacin HCl) 500 Mg Tablet 500 MG PO BID for 7 Days, #21 TAB Prov: MAXINE WILLIS DO 01/05/23 MAXINE WILLIS DO Jan 05, 2023 21:48
[2023-01-05 22:14] LABS: BASOPHILS % (AUTO) 0 % (0-10); EOSINOPHILS # (AUTO) 0.4 10^3/uL (0.0-0.3); EOSINOPHILS % (AUTO) 4 % (0-10); HEMATOCRIT 36 % (35-52); HEMOGLOBIN 11.4 g/dL (11.5-16.0); LYMPHOCYTES # (AUTO) 1.4 10^3/uL (1.0-4.0); LYMPHOCYTES % (AUTO) 13 % (12-44); MEAN CORPUSCULAR HEMOGLOBIN 33 pg (25-34); MEAN CORPUSCULAR HGB CONC 32 g/dL (32-36); MEAN CORPUSCULAR VOLUME 102 fL (80-99); MEAN PLATELET VOLUME 9.2 fL (9.0-12.2); MONOCYTES % (AUTO) 9 % (0-12); NEUTROPHILS # (AUTO) 8.4 10^3/uL (1.8-7.8); NEUTROPHILS % (AUTO) 75 % (42-75); PLATELET COUNT 200 10^3/uL (130-400); WHITE BLOOD COUNT 11.2 10^3/uL (4.3-11.0)
[2023-01-05 22:29] LABS: ALBUMIN 3.4 GM/DL (3.2-4.5); BILIRUBIN,TOTAL 0.6 MG/DL (0.1-1.0); CALCIUM 10.5 MG/DL (8.5-10.1); CREATININE SERUM 0.81 MG/DL (0.60-1.30); POTASSIUM 4.4 MMOL/L (3.6-5.0)
[2023-01-05] MEDS ORDERED: NS IV 500 ML 500 ML IV STA (23:08)
[2023-01-05 23:23] LABS: BILIRUBIN,URINE NEGATIVE (NEGATIVE); CLARITY,URINE CLEAR; COLOR,URINE YELLOW; GLUCOSE, URINE (UA) NEGATIVE (NEGATIVE); KETONES,URINE NEGATIVE (NEGATIVE); LEUKOCYTE ESTERASE ,URINE NEGATIVE (NEGATIVE); NITRITE,URINE NEGATIVE (NEGATIVE); PH,URINE 5.5 (5-9); PROTEIN,URINE NEGATIVE (NEGATIVE)
[2023-01-05 23:49] LABS: BACTERIA,URINE MODERATE /HPF; CALCIUM OXALATE CRYSTALS,UR FEW /LPF; SQUAMOUS EPITHELIAL CELL,UR 0-2 /HPF
[2023-01-05] MEDS ORDERED: CIPROFLOXACIN 500 MG (CIPRO) TABLET PO STA (23:53)
[2023-01-05] MEDS ORDERED: CIPR500T5 PO (23:54)
[2023-01-06 00:03] VITALS: BP 124/59
--- NOTE | 2023-01-06 06:06 | Diagnostic Imaging Report ---
EXAMINATION: Chest 1 view HISTORY: R CP, pleural effusion COMPARISON: 07/20/2022 FINDINGS: Heart size and pulmonary vasculature are normal. Mild opacification of the medial right lower lung. No blunting of the costophrenic angle. No pneumothorax. Surgical changes from median sternotomy and CABG. Right side port catheter is present. IMPRESSION: 1. Medial right lower lung opacities which can be seen with mild amount of pleural fluid versus atelectasis or consolidation. Dictated by: Dictated on workstation # [id number]
== END 2023-01-06 00:03 | disposition home or self-care (01) ==
LOC: EDUNIT# 21:24 → ER 21:27
DX: N39.0 Urinary tract infection, site not specified (principal); A41.9 Sepsis, unspecified organism; R65.21 Severe sepsis with septic shock; Z90.49 Acquired absence of other specified parts of digestive tract; Z88.0 Allergy status to penicillin; Z88.2 Allergy status to sulfonamides
CPT/HCPCS: 36415; 71045; 80053; 81000; 83605; 85025; 87040; 87088

== ENCOUNTER → 2023-01-16 | Outpatient (RCR) | payer MEDICARE, BC ==
[~2023-01-16] MED LIST changes: +CIPR500T5 PO
== END | disposition home or self-care (01) ==
PROVIDERS: ATTEND Nurse Practitioner
DX: C22.1 Intrahepatic bile duct carcinoma (principal); R53.1 Weakness; I11.9 Hypertensive heart disease without heart failure; E11.9 Type 2 diabetes mellitus without complications

== ENCOUNTER 2023-01-23 13:21 | Outpatient (RCR) | payer MEDICARE, BC | END 2023-02-16 | disposition home or self-care (01) | PROVIDERS: ATTEND Nurse Practitioner | DX: C22.1 Intrahepatic bile duct carcinoma (principal); R53.1 Weakness; I11.9 Hypertensive heart disease without heart failure; E11.9 Type 2 diabetes mellitus without complications ==

== ENCOUNTER → 2023-01-27 | Outpatient (CLI) | payer MEDICARE, BC ==
--- NOTE | 2023-01-27 16:04 | Diagnostic Imaging Report ---
Examination: Chest sonogram. HISTORY: Pleural effusion. COMPARISON: None available. FINDINGS: There is a moderate right pleural effusion. No left-sided pleural effusion is seen. IMPRESSION: 1. Moderate right pleural effusion. Dictated by: Dictated on workstation # [id number]
== END ==
LOC: RAD 13:40
PROVIDERS: ATTEND Internal Medicine Hematology & Oncology
DX: J90 Pleural effusion, not elsewhere classified (principal)
CPT/HCPCS: 76604

== ENCOUNTER → 2023-01-28 | Outpatient (CLI) | payer MEDICARE, BC ==
[~2023-01-28] VITALS: Ht 162 cm; Wt 49.4 kg
[~2023-01-28] MED LIST changes: +LIDOCAINE 1% INJ 10 ML VIAL INJ ONE
--- NOTE | 2023-01-28 14:14 | Diagnostic Imaging Report ---
INDICATION: Status post thoracentesis. Time of Exam: 1:30 PM Right chest wall port has tip overlying SVC. There are changes of median sternotomy. No pneumothorax is identified status post right-sided thoracentesis. Lungs are clear. No effusion is identified. IMPRESSION: No evidence of pneumothorax, status post right-sided thoracentesis. Dictated by: Dictated on workstation # [id number]
--- NOTE | 2023-01-28 14:26 | Diagnostic Imaging Report ---
INDICATION: Right-sided pleural effusion. Patient presents for ultrasound-guided thoracentesis. DETAILS OF THE PROCEDURE: The patient was brought to the procedure room and placed on the bed in a sitting upright position. Ultrasound imaging of the right posterior thorax was performed to evaluate for an appropriate entry site. The right posterior thorax was then prepped and draped in the usual sterile fashion. A small amount of 1% lidocaine was utilized for local anesthesia. A thoracentesis catheter was advanced and placed in the posterior pleural space on the right. Approximately 500 mL of fluid was removed. The catheter was withdrawn and hemostasis was obtained. The patient tolerated the procedure well and was sent for a post procedure chest x-ray in satisfactory condition. IMPRESSION: Successful ultrasound-guided right-sided thoracentesis obtaining 500 mL of fluid. Dictated by: Dictated on workstation # [id number]
[2023-01-28 15:05] LABS: BODY FLUID RBC COUNT 0.002 10^6/uL
[2023-01-28 15:06] LABS: BODY FLUID COLOR PALE YELLOW
[2023-01-28 15:07] LABS: BODY FLUID APPEARENCE SLT CLDY
[2023-01-28 15:22] LABS: GLUCOSE,BODY FLUID 151 MG/DL; LDH,BODY FLUID 80 U/L; TOTAL PROTEIN,BODY FLUID 3.7 G/DL
[2023-01-28 15:29] LABS: BODY FLUID SOURCE THORACEN
== END ==
LOC: RAD 12:42
PROVIDERS: ATTEND Internal Medicine Hematology & Oncology
DX: J90 Pleural effusion, not elsewhere classified (principal); Z98.890 Other specified postprocedural states
CPT/HCPCS: 32555; 71045; 82945; 83615; 84157; 87070; 87075; 87205; 89051; A7048

== ENCOUNTER 2023-03-16 13:19 | Outpatient (RCR) | payer MEDICARE, BC ==
[~2023-03-16 13:19] MED LIST changes: -LIDOCAINE 1% INJ 10 ML VIAL INJ ONE
== END 2023-03-19 | disposition home or self-care (01) ==
PROVIDERS: ATTEND Nurse Practitioner
DX: C22.1 Intrahepatic bile duct carcinoma (principal); R53.1 Weakness; R53.83 Other fatigue

== ENCOUNTER 2023-04-10 14:23 | Outpatient (RCR) | payer MEDICARE, BC | END 2023-04-18 | disposition home or self-care (01) | PROVIDERS: ATTEND Nurse Practitioner | DX: C22.1 Intrahepatic bile duct carcinoma (principal); R53.1 Weakness; R53.83 Other fatigue ==

== ENCOUNTER 2023-05-15 13:38 | Outpatient (RCR) | payer MEDICARE, BC ==
[~2023-05-15 13:38] MED LIST changes: -FLUT16SP22 NS; +FLUT16SP22 NSEACH; +HYDR15SO11 PO; -HYDR15SO8 PO
[2023-05-19] MEDS ORDERED: CYAN500T8 PO (15:31)
[2023-05-19] MEDS ORDERED: ACET-2267 PO (15:31)
[2023-05-19] MEDS ORDERED: ATOR20TA66 PO (15:31)
[2023-05-19] MEDS ORDERED: HYDR-3817 PO (15:31)
[2023-05-19] MEDS ORDERED: POTA-177 PO (15:31)
[2023-05-19] MEDS ORDERED: DILT300C52 PO (15:31)
[2023-05-19] MEDS ORDERED: PANT40TA52 PO (15:31)
[2023-05-19] MEDS ORDERED: METF-397 PO (15:31)
[2023-05-20] MEDS ORDERED: APIX5TAB PO (09:42)
[2023-05-20] MEDS ORDERED: SOTA120T PO (09:43)
[2023-05-20] MEDS ORDERED: DIGO125T3 PO (09:44)
== END 2023-05-19 | disposition home or self-care (01) ==
PROVIDERS: ATTEND Nurse Practitioner
DX: C22.1 Intrahepatic bile duct carcinoma (principal); R53.1 Weakness; R53.83 Other fatigue

== ENCOUNTER 2023-05-18 19:11 | Inpatient (IN) | payer MEDICARE, BC ==
[~2023-05-18] VITALS: Ht 162.5 cm; Wt 47.3 kg
[~2023-05-18 19:11] MED LIST changes: -HYDR15SO11 PO; +HYDR15SO8 PO
--- NOTE | 2023-05-18 19:24 | ED Cardiac General ---
History of Present Illness General Source: patient (LIMITED HISTORIAN), old records History of Present Illness Date Seen by Provider: May 18, 2023 Time Seen by Provider: 19:15 Initial Comments PT ARRIVES VIA POV FROM HOME--NEEDS WHEELCHAIR AND 2 PERSON ASSIST PT STATES SHE HAS ATRIAL FIBRILLATION AND IS ON SOTALOL 120 MG TABLET--TAKES 1/2 PILL BID. SHE IS ALSO ON DIGOXIN--SHE HAS HELD IT FOR THE LAST COUPLE OF DAYS BECAUSE HER HEART RATE HAS BEEN AROUND 60 OR BELOW. SHE STARTED FEELING AN IRREGULAR HEART BEAT, SO SHE TOOK AN "EXTRA" HALF OF A SOTALOL PILL AT 1800 TONIGHT, BUT LATER STATES SHE HAS NOT HAD HER EVENING DOSE YET, AND TAKES BID NORMALLY. SHE STATES SHE HAS NOT HAD ANY PROBLEMS WITH ATRIAL FIBRILLATION "FOR A LONG TIME" BEGAN HAVING SOME TINGLING IN HER LEFT HAND AT HOME NO CHEST PAIN NO SHORTNESS OF BREATH NO NAUSEA/VOMITING NO SYNCOPE HAS GENERALIZED WEAKNESS. PT NEEDS TO HAVE A BM LITERALLY SOON SHE IS ASSISTED OUT OF VEHICLE. IN ADDITION TO AFIB, SHE HAS CAD WITH DC AND PRIOR CABG AND MAZE PROCEDURE 2017, SHE ALSO HAS HISTORY OF P.E. SHE ALSO HAS KNOWN BILE DUCT CANCER WITH LIVER METS. SHE HAS HAD CHEMO AND R ADIATION AND IS NOW ON IMMUNOTHERAPY. HX OF ANEMIA WITH BLOOD TRANSFUSIONS SHE ALSO HAS HTN AND NIDDM SHE HAS AN APPOINTMENT WITH DR. LOWRY, HER ADMITTING REPRESENTATIVE, THIS THURSDAY SHE HAS AN APPOINTMENT WITH DR. MIGUEL, HER ONCOLOGIST, THIS THURSDAY, AND IS TO HAVE CT SCAN TOMORROW FOR HER CANCER. SHE IS NOT ON ASPIRIN OR ANY BLOOD THINNERS PCP: DR. WISEMAN ADMITTING REPRESENTATIVE: DR. LOWRY AT [facility] Allergies and Home Medications Allergies Coded Allergies: amlodipine (Verified Allergy, Severe, EDEMA LOWER EXTREMITIES, 02/26/22) Cephalosporins (Verified Allergy, Mild, ITCHING, 02/26/22) Penicillins (Verified Allergy, Mild, HIVES, 02/26/22) Sulfa (Sulfonamide Antibiotics) (Verified Allergy, Mild, ITCHING, 02/26/22) Patient Home Medication List Home Medication List Reviewed: Yes Ascorbic Acid (Vitamin C) 1,000 Mg Tablet, 1,000 MG PO DAILY, (Reported) Entered as Reported by: JO OH on 03/29/18 1341 Aspirin (Aspirin) 81 Mg Tab.chew, 81 MG PO DAILY, (Reported) Entered as Reported by: RENATA KIRK on 07/20/22 1708 Atorvastatin Calcium (Atorvastatin Calcium) 10 Mg Tablet, 10 MG PO HS, (Reported) Entered as Reported by: JO OH on 03/29/18 1341 Calcium Carbonate/Vitamin D3 (Calcium 600 + Vit D Caplet) 1 Each Tablet, 1 EACH PO DAILY, (Reported) Entered as Reported by: ANTONY OSBORNE on 02/27/20 1047 Chlordiazepoxide HCl (Chlordiazepoxide HCl) 10 Mg Capsule, 10 MG PO Q6H PRN for ANXIETY, (Reported) Entered as Reported by: JONNY PRYOR on 03/27/20 1419 Ciprofloxacin HCl (Ciprofloxacin HCl) 500 Mg Tablet, 500 MG PO BID Prescribed by: MAXINE WILLIS MD on 01/05/23 5674 Cyanocobalamin/Folic Acid (Vitamin D38-Hgfro Acid Tablet) 500 Mcg-400 Mcg Tablet, 1 EACH PO, (Reported) Entered as Reported by: OSIEL LAZARO on 02/06/22 1546 Digoxin (Digoxin) 125 Mcg Tablet, 125 MCG PO DAILY, (Reported) Entered as Reported by: JO OH on 03/29/18 1341 Diltiazem HCl (Cardizem Cd) 300 Mg Cap.er.24h, 300 MG PO DAILY, (Reported) Entered as Reported by: OSIEL LAZARO on 02/06/22 1546 Diphenhydramine HCl (Benadryl Allergy) 25 Mg Tablet, 25-50 MG PO HS PRN for ALLERGY SYMPTOMS, (Reported) Entered as Reported by: ANTONY OSBORNE on 02/27/20 1047 Enalapril Maleate (Enalapril Maleate) 20 Mg Tablet, 20 MG PO BID, (Reported) Entered as Reported by: JO OH on 03/29/18 1341 Famotidine (Acid Trim Technician (FAMOTIDINE)) 10 Mg Tablet, 20 MG PO EVENING, (Reported) Entered as Reported by: ANTONY OSBORNE on 02/27/20 1047 Fexofenadine HCl (Fexofenadine HCl) 180 Mg Tablet, 180 MG PO DAILY PRN for ALLERGY SYMPTOMS, (Reported) Entered as Reported by: JO OH on 03/29/18 1341 Fexofenadine HCl (Susanne Allergy) Unknown Strength Tablet, Unknown Dose PO, (Reported) Entered as Reported by: OSIEL LAZARO on 02/06/22 1546 Fluconazole (Diflucan) 200 Mg Tablet, 200 MG PO DAILY Prescribed by: JHON ARIAS on 07/20/22 1310 Fluticasone Propionate (Fluticasone Propionate) 16 Gm [place].susp, 1 SPRAYS NS HS, (Reported) Entered as Reported by: JO OH on 03/29/18 1341 Furosemide (Furosemide) 40 Mg Tablet, 40 MG PO DAILY, (Reported) Entered as Reported by: JO OH on 03/29/18 1341 Hydralazine HCl (Hydralazine HCl) 50 Mg Tablet, 50 MG PO QID, (Reported) Entered as Reported by: RENATA KIRK on 07/20/22 1708 Liraglutide (Victoza 3-Kendall) 0.6 Mg/0.1 Ml Pen.injctr, 1.8 MG INJ DAILY, (Reported) Entered as Reported by: ANTONY OSBORNE on 02/27/20 1047 Lutein (Lutein) 20 Mg Capsule, 20 MG PO HS, (Reported) Entered as Reported by: JO OH on 03/29/18 1341 Metformin HCl (Metformin HCl) 1,000 Mg Tablet, PO DAILY, (Reported) Entered as Reported by: OSIEL LAZARO on 02/06/22 1546 Metformin HCl (Metformin HCl) 500 Mg Tablet, 500 MG PO PC, (Reported) Entered as Reported by: RENATA KIRK on 07/20/22 1708 Nitrofurantoin Monohyd/M-Cryst (Macrobid 100 mg Capsule) 100 Mg Capsule, 1 TAB PO BID Prescribed by: SHAI LAWSON on 09/19/22 1848 Pantoprazole Sodium (Pantoprazole Sodium) 40 Mg Tablet.dr, 40 MG PO BID Prescribed by: AMAIRANI SOMMERS on 07/21/22 1226 Potassium Chloride (Klor-Con 10) 10 Meq Tablet.er, 10 MEQ PO DAILY, (Reported) Entered as Reported by: ANTONY OSBORNE on 02/27/20 1047 Prazosin HCl (Minipress) 1 Mg Capsule, 1 MG PO HS, (Reported) Entered as Reported by: OSIEL LAZARO on 02/06/22 1546 Sotalol HCl (Sotalol) 120 Mg Tablet, 60 MG PO BID, (Reported) Entered as Reported by: ANTONY OSBORNE on 02/27/20 1047 Sucralfate (Sucralfate) 1 Gram Tablet, 1 GM PO ACHS PRN for INDIGESTION Prescribed by: AMAIRANI SOMMERS on 07/21/22 1226 Review of Systems Review of Systems Constitutional: see HPI, malaise, weakness Respiratory: No Symptoms Reported Cardiovascular: See HPI; Denies Chest Pain, Denies Edema; Irregular Heart Rate, Lightheadedness, Palpitations; Denies Syncope Gastrointestinal: No Symptoms Reported Genitourinary: No Symptoms Reported Musculoskeletal: no symptoms reported Skin: no symptoms reported Psychiatric/Neurological: See HPI Endocrine: No Symptoms Reported Hematologic/Lymphatic: No Symptoms Reported Past Lqelcdl-Npjyca-Jvslcf Hx Patient Social History Tobacco Use?: No Substance use?: No Alcohol Use?: No Immunizations Up To Date First/Initial COVID19 Vaccinat: 08/24/2020 Second COVID19 Vaccination Italo: 09/21/2020 Third COVID19 Vaccination Date: 06/19/2021 Seasonal Allergies Seasonal Allergies: Yes Past Medical History Surgery/Hospitalization HX: CABG AND MAZE PROCEDURE, CHOLECYSTECTOMY, C-SECT, LAMINECTOMY, DISKECTOMY, LIVER BX, HEART CATH, ESWL X2 PORT NIDDM, CAD, HTN, P.E., AFIB, RENAL STONES, 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, RT SIDE LITHOTRIPSY Surgeries: Yes (D&C, DISCECTOMY, MARSHALL L5-S1, ESWL,LIVER BX) Abdominal, Cardiac, CABG, Section, Gallbladder, Orthopedic, Renal, Vascular Surgery Respiratory: Yes (PE AT 22YRS OLD CLIP ON VENA CAVA) Pulmonary Embolism Currently Using CPAP: No Currently Using BIPAP: No Cardiac: Yes (BROKEN HEART SYNDROME, 2018 DC THEN CABG AND MAZE PROCEDURE) Atrial Fibrillation, Coronary Artery Disease, Heart Attack, High Cholesterol, Hypertension, Irregular Heartbeat Neurological: No Reproductive Disorders: Yes (D&C IN EARLY ) Female Reproductive Disorders: Denies Sexually Transmitted Disease: No HIV/AIDS: No Genitourinary: Yes Kidney Stones, UTI-Chronic Gastrointestinal: Yes (BILE DUCT CANCER WITH LIVER METS) Gastroesophageal Reflux, Diverticulosis, Pancreatitis, Gall Bladder Disease Musculoskeletal: Yes (5TH METATARSAL) Degenerate Disk Disease, Arthritis, Chronic Back Pain, Fractures Endocrine: Yes (thyroid nodules) Diabetes, Non-Insulin dep HEENT: Yes Cataract Cancer: Yes (LIVER ) Did You Recieve Any Treatments: No Psychosocial: No Integumentary: Yes Eczema Blood Disorders: No Adverse Reaction/Blood Tranf: No (N/A) Family Medical History Cardiovascular disease 19 FATHER 19 MOTHER Myocardial infarction 19 FATHER Physical Exam Vital Signs Vital Signs - First Documented 05/18/23 19:19 Pulse 37 Resp 16 B/P (MAP) 124/50 (74) Pulse Ox 99 O2 Delivery Room Air Capillary Refill : Height, Weight, BMI Height: 5'4.00" Weight: 160lbs. 6.4oz. 72.124840oz; 18.82 BMI Method: General Appearance: Chronically ill, Cachetic, Other (LETHARGIC) HEENT: PERRL/EOMI, Pale Conjunctivae (L), Pale Conjunctivae (R) Neck: Normal Inspection Respiratory: Normal Breath Sounds, No Accessory Muscle Use, No Respiratory Distress Cardiovascular: No JVD, No Murmur, Bradycardia, Irregularly Irregular Gastrointestinal: Non Tender, Soft Extremity: Normal Capillary Refill, No Pedal Edema Neurologic/Psychiatric: Alert, Oriented x3, No Motor/Sensory Deficits, Other (LETHARGIC ) Skin: Warm/Dry, Pallor Progress/Results/Core Measures Results/Orders Lab Results Laboratory Tests Test 05/18/23 19:22 05/18/23 19:46 Range/Units White Blood Count 13.0 H 4.3-11.0 10^3/uL Red Blood Count 3.31 L 3.80-5.11 10^6/uL Hemoglobin 11.3 L 11.5-16.0 g/dL Hematocrit 36 35-52 % Mean Corpuscular Volume 109 H 80-99 fL Mean Corpuscular Hemoglobin 34 25-34 pg Mean Corpuscular Hemoglobin Concent 31 L 32-36 g/dL Red Cell Distribution Width 14.6 H 10.0-14.5 % Platelet Count 266 130-400 10^3/uL Mean Platelet Volume 9.5 9.0-12.2 fL Immature Granulocyte % (Auto) 1 % Neutrophils (%) (Auto) 71 42-75 % Lymphocytes (%) (Auto) 19 12-44 % Monocytes (%) (Auto) 8 0-12 % Eosinophils (%) (Auto) 1 0-10 % Basophils (%) (Auto) 0 0-10 % Neutrophils # (Auto) 9.2 H 1.8-7.8 10^3/uL Lymphocytes # (Auto) 2.5 1.0-4.0 10^3/uL Monocytes # (Auto) 1.1 H 0.0-1.0 10^3/uL Eosinophils # (Auto) 0.2 0.0-0.3 10^3/uL Basophils # (Auto) 0.1 0.0-0.1 10^3/uL Immature Granulocyte # (Auto) 0.1 0.0-0.1 10^3/uL Prothrombin Time 13.5 12.2-14.7 SEC INR Comment 1.0 0.8-1.4 Activated Partial Thromboplast Time 29 24-35 SEC Sodium Level 140 135-145 MMOL/L Potassium Level 4.7 3.6-5.0 MMOL/L Chloride Level 109 H 98-107 MMOL/L Carbon Dioxide Level 17 L 21-32 MMOL/L Anion Gap 14 5-14 MMOL/L Blood Urea Nitrogen 16 7-18 MG/DL Creatinine 0.78 0.60-1.30 MG/DL Estimat Glomerular Filtration Rate 80 BUN/Creatinine Ratio 21 Glucose Level 162 H 70-105 MG/DL Calcium Level 9.8 8.5-10.1 MG/DL Corrected Calcium 10.6 H 8.5-10.1 MG/DL Magnesium Level 1.9 1.6-2.4 MG/DL Total Bilirubin 0.7 0.1-1.0 MG/DL Aspartate Amino Transf (AST/SGOT) 49 H 5-34 U/L Alanine Aminotransferase (ALT/SGPT) 32 0-55 U/L Alkaline Phosphatase 893 H 40-136 U/L Total Creatine Kinase 17 L 29-168 U/L Creatine Kinase MB 0.3 <6.6 NG/ML Myoglobin 21.0 10.0-92.0 NG/ML Troponin I < 0.028 <0.028 NG/ML B-Type Natriuretic Peptide 262.2 H <100.0 PG/ML Total Protein 6.4 6.4-8.2 GM/DL Albumin 3.0 L 3.2-4.5 GM/DL TSH Evans Testing 2.92 0.35-4.94 UIU/ML Digoxin Level 0.46 L 0.80-2.00 NG/ML Smear Scan YES Glucometer 177 H 70-110 MG/DL My Orders Orders - JOSSY BALDWIN DO Accucheck Stat ONCE (05/18/23 19:17) Ed Iv/Invasive Line Start (05/18/23 19:17) Ekg Tracing (05/18/23 19:17) O2 (05/18/23 19:17) Monitor-Rhythm Ecg Trace Only (05/18/23 19:17) Chest 1 View, Ap/Pa Only (05/18/23 19:17) Bnp [place] (05/18/23 19:17) Cbc And Automated Diff (05/18/23:17) Comprehensive Metabolic Panel (05/18/23 19:17) Creatine Kinase (05/18/23 19:17) Creatine Kinase Mb (05/18/23 19:17) Magnesium (05/18/23 19:17) Protime With Inr (05/18/23 19:17) Partial Thromboplastin Time (05/18/23 19:17) Thyroid Analyzer (05/18/23 19:17) Myoglobin Serum (05/18/23 19:17) Troponin I [place] (05/18/23 19:17) Ed Iv/Invasive Line Start (05/18/23 19:17) Lactated Ringers 1,000 Ml (Lactated Ring (05/18/23 19:30) Catheter(Urinary) Insert & Ass 03,15 (05/18/23 19:27) Lidocaine 2% (Urojet) (Lidocaine 2% (Uro (05/18/23 19:30) Digoxin (05/18/23 19:31) Fentanyl Injection (Fentanyl Injection (05/18/23 19:55) Aspirin Chewable Tablet (Aspirin Chewabl (05/18/23 20:00) Nitroglycerin Ointment (Nitroglycerin (05/18/23 20:15) Ed Iv/Invasive Line Start (05/18/23 20:04) Lactated Ringers 1,000 Ml (Lactated Ring (05/18/23 20:15) Enoxaparin Injection (Enoxaparin Injecti (05/18/23 20:15) Medications Given in ED Current Medications Medications Dose Ordered Sig/Tanner Route Start Time Stop Time Status Last Admin Dose Admin Aspirin 324 mg ONCE ONCE PO 05/18/23 20:00 05/18/23 20:01 DC 05/18/23 20:00 324 MG Enoxaparin Sodium 40 mg ONCE ONCE SC 05/18/23 20:15 05/18/23 20:16 DC 05/18/23 20:08 40 MG Lactated Ringer's 1,000 ml @ 0 mls/hr Q0M ONCE IV 05/18/23 19:30 05/18/23 19:31 DC 05/18/23 19:29 999 MLS/HR Lactated Ringer's 1,000 ml @ 0 mls/hr Q0M ONCE IV 05/18/23 20:15 05/18/23 20:16 DC 05/18/23 20:08 999 MLS/HR Nitroglycerin 0.5 inch ONCE ONCE TOP 05/18/23 20:15 05/18/23 20:16 DC 05/18/23 20:08 0.5 INCH Vital Signs/I&O 05/18/23 05/18/23 19:19 20:30 Pulse 37 27 Resp 16 16 B/P (MAP) 124/50 (74) 102/61 Pulse Ox 99 100 O2 Delivery Room Air Room Air Progress Progress Note : Progress Note VITALS ON ARRIVAL: TEMP HR 37-40, RR 23, BP 124/50, O2 SAT 100% ON ROOM AIR GIVEN: -IV FLUIDS -LOVENOX -ASPIRIN -FENTANYL -NITROPASTE 1954--PT C/O CHEST HEAVINESS--RATES PAIN 5/10--FENTANYL + NITROPASTE ORDERED, AFTER DISCUSSING WITH DR. MELO. LABS: -CBC WITH WBC 13.0, HGB 11.3, PLT 266,000 -CMP WITH NA 140, K 4.7, CL 109, CO2 17, ANION GAP 14, BUN 16, CR 0.78, GLU 162, CORRECTED CALCIUM 10.6, BILI 0.7, AST 49, ALT 32, ALK PHOS 893, ALB 3.0 -MG 1.9 -CK, CK-MB, MYOGLOBIN NORMAL -TROPONIN NEGATIVE -BNP 262.2 -PT/PTT/INR NORMAL -TSH 2.92 -DIG 0.46 EKG WITH AFIB WITH SEVERE BRADYCARDIA AND ST DEPRESSION AND T WAVE INVERSION. CXR UNREMARKABLE PAIN RESOLVED WITH FENTANYL AND NITROPASTE BP REMAINS STABLE IN 100'S TO 110'S SYSTOLIC HR REMAINS IN 30'S O2 SATS REMAIN IN UPPER 90'S NO DETERIORATION IN PT'S CONDITION DURING ER STAY DISCUSSED TEST RESULTS, NEED FOR ADMIT AND PT IS AGREEABLE TO PLAN PT WISHES TO BE A FULL CODE REVIEWED PRIOR RECORDS INCLUDING ER VISITS, ADMITS/H&P'S/CONSULTS/DISCHARGE SUMMARIES, TESTS/PROCEDURES Initial ECG Impression Date: May 18, 2023 Initial ECG Impression Time: 19:31 Initial ECG Rate: 35 Initial ECG Intervals NE -N/A QRS 125 QT/QTC 552/450 Comment AFIB WITH BRADYCARDIA RBBB LAFB DIFFUSE T WAVE INVERSION AND ST DEPRESSION INFERIORLY AND LATERALLY INTERPRETED BY ME Diagnostic Imaging Comments CXR--PER RADIOLOGIST REPORT AT 2024 FINDINGS: Right-sided Port-A-Cath is again identified and stable. Postsurgical changes of a CABG. Surgical clips are noted within the right upper abdomen. Additional catheter seen overlying the right upper abdomen. The cardiac silhouette is within normal limits in size. No significant pulmonary vascular congestion. The lungs are clear of focal pulmonary opacity. No pleural effusion. No pneumothorax. No acute osseous abnormality. IMPRESSION: No acute cardiopulmonary abnormality with postsurgical changes and lines and tubes as above. Reviewed: Reviewed by Me Departure Communication (Admissions) 1957--SPOKE WITH DR. MELO, ADMITTING REPRESENTATIVE, ORDERS NOTED 2011--SPOKE WITH DR. RAPHAEL, HOSPITALIST, ACCEPTS PT FOR ADMIT 2022--CALLED E-ICU, PHYSICIAN CURRENTLY UNAVAILABLE TO TAKE CALL Impression Primary Impression: SEVERE BRADYCARDIA Additional Impressions: Atrial fibrillation with slow ventricular response Chest pain NIDDM HX OF CAD WITH CABG BILIARY CANCER Emaciation Disposition: ADMITTED INPATIENT Condition: Stable Admissions Decision to Admit Reason: Admit from ER (General) Decision to Admit/Date: May 18, 2023 Time/Decision to Admit Time: 20:00 Departure-Patient Inst. Referrals: PEDRO VARGAS APRN (PCP/Family) Primary Care Physician JOSSY BALDWIN DO May 18, 2023 19:24
[2023-05-18] MEDS ORDERED: LIDOCAINE UROJET 2% GEL 10 ML PKG TOP ONE (19:30)
[2023-05-18] MEDS ORDERED: LACTATED RINGERS 1,000 ML 1,000 ML IV ONE ×2 (19:30→20:15)
[2023-05-18 19:35] LABS: BASOPHILS # (AUTO) 0.1 10^3/uL (0.0-0.1); BASOPHILS % (AUTO) 0 % (0-10); EOSINOPHILS # (AUTO) 0.2 10^3/uL (0.0-0.3); EOSINOPHILS % (AUTO) 1 % (0-10); HEMATOCRIT 36 % (35-52); HEMOGLOBIN 11.3 g/dL (11.5-16.0); LYMPHOCYTES # (AUTO) 2.5 10^3/uL (1.0-4.0); LYMPHOCYTES % (AUTO) 19 % (12-44); MEAN CORPUSCULAR HEMOGLOBIN 34 pg (25-34); MEAN CORPUSCULAR HGB CONC 31 g/dL (32-36); MEAN CORPUSCULAR VOLUME 109 fL (80-99); MEAN PLATELET VOLUME 9.5 fL (9.0-12.2); MONOCYTES # (AUTO) 1.1 10^3/uL (0.0-1.0); MONOCYTES % (AUTO) 8 % (0-12); NEUTROPHILS # (AUTO) 9.2 10^3/uL (1.8-7.8); NEUTROPHILS % (AUTO) 71 % (42-75); PLATELET COUNT 266 10^3/uL (130-400)
[2023-05-18 19:39] LABS: SMEAR SCAN COMMENT YES
[2023-05-18 19:43] LABS: PROTHROMBIN TIME PATIENT 13.5 SEC (12.2-14.7)
[2023-05-18 19:44] LABS: CHLORIDE 109 MMOL/L (98-107); POTASSIUM 4.7 MMOL/L (3.6-5.0); SODIUM 140 MMOL/L (135-145)
[2023-05-18 19:45] LABS: CALCIUM 9.8 MG/DL (8.5-10.1)
[2023-05-18 19:46] LABS: GLUCOSE 162 MG/DL (70-105); TOTAL PROTEIN 6.4 GM/DL (6.4-8.2)
[2023-05-18 19:47] LABS: CARBON DIOXIDE 17 MMOL/L (21-32)
[2023-05-18 19:48] LABS: BILIRUBIN,TOTAL 0.7 MG/DL (0.1-1.0)
[2023-05-18 19:49] LABS: ALKALINE PHOSPHATASE 893 U/L (40-136)
[2023-05-18 19:50] LABS: CREATININE SERUM 0.78 MG/DL (0.60-1.30); GFR ESTIMATED 80
[2023-05-18 19:51] LABS: BUN/CREATININE RATIO 21
[2023-05-18 19:52] LABS: MAGNESIUM 1.9 MG/DL (1.6-2.4)
[2023-05-18 19:53] LABS: ALANINE AMINOTRANSFERASE 32 U/L (0-55); CREATINE KINASE 17 U/L (29-168)
[2023-05-18] MEDS ORDERED: fentaNYL INJECTION 100 MCG/2 ML VIAL IVP STA (19:55)
[2023-05-18 20:00] LABS: CREATINE KINASE MB 0.3 NG/ML (<6.6)
[2023-05-18] MEDS ORDERED: ASPIRIN 81 MG CHEWABLE TABLET PO ONE (20:00)
[2023-05-18 20:12] LABS: TSH (THYROID ANALYZER) 2.92 UIU/ML (0.35-4.94)
[2023-05-18] MEDS ORDERED: NITROGLYCERIN 2% OINT 1 GM UNIT DOSE PACKET TOP ONE (20:15)
[2023-05-18] MEDS ORDERED: ENOXAPARIN 40 MG/0.4 ML SYRINGE SC ONE (20:15)
--- NOTE | 2023-05-18 20:17 | Diagnostic Imaging Report ---
INDICATION: Arrhythmia, weakness COMPARISON: 01/28/2023. TECHNIQUE: Single radiograph of the chest dated 05/18/2023. FINDINGS: Right-sided Port-A-Cath is again identified and stable. Postsurgical changes of a CABG. Surgical clips are noted within the right upper abdomen. Additional catheter seen overlying the right upper abdomen. The cardiac silhouette is within normal limits in size. No significant pulmonary vascular congestion. The lungs are clear of focal pulmonary opacity. No pleural effusion. No pneumothorax. No acute osseous abnormality. IMPRESSION: No acute cardiopulmonary abnormality with postsurgical changes and lines and tubes as above. Dictated by: Dictated on workstation # [id number]
[2023-05-18] MEDS ORDERED: 1/2 NS + KCL 20 MEQ/L 1,000 ML 1,000 ML IV ONE (21:24)
--- NOTE | 2023-05-18 21:41 | Tele-ICU Progress Note ---
Progress Note 72F wutg h/o afib on sotalol and digoxin, s/p MAZE in 2018, CAD with prior UT s/p CABG, prior PE, bile duct cancer with liver mets s/p chemo and xrt, now on immunotherapy admitted with symptomatic bradycardia. She has been holding her digoxin for a couple of days due to heart rates in the 60s. Some questions of whether she has missed her PM sotalol dose, or whether she actually took and extra half after feeling some palpitations. - bradycardia: Unclear etiology. Has been on stable doses of sotalol and digoxin for several years. No DEE DEE that would increase levels. No new medications that might potentiate meds. BP has been stable in the 100s-110s. ---ICU monitoring ---ischemia eval ongoing. Initial troponin negative ---dopamine only if develops hypotension ---maintain electrolytes ---hold sotalol and digoxin - Chest Pain ---ischemia eval ongoing ---nitro paste in place ---CP resolved Update: immediately after intial eval, BP 79/55 with HR 28-35. Remains asymptomatic. Will start dopamine now. Nitropaste already wiped off. Patient evaluated via real time audiovisual communication system. CCT 12 min Focused Exam Height, Weight, BMI Height: 5'4.00" Weight: 160lbs. 6.4oz. 72.878154kf; 18.21 BMI Method: EZ TONG MD May 18, 2023 21:41
[2023-05-18] MEDS ORDERED: DOPamine DRIP PRE-MIX 250 ML IV ONE (21:44)
[2023-05-18] MEDS: DOPamine DRIP PRE-MIX 250 ML IV SCH (21:45)
[2023-05-18] MEDS ORDERED: NS IV 500 ML 500 ML IV PRN (22:15)
[2023-05-18] MEDS ORDERED: fentaNYL INJECTION 100 MCG/2 ML VIAL IV PRN (23:00)
[2023-05-18] MEDS ORDERED: ONDANSETRON INJECTION 4 MG/2 ML (SDV) IV PRN (23:00)
[2023-05-18] MEDS: 1/2 NS IV SCH (23:07)
[2023-05-18] MEDS: KCL IV SCH (23:07)
[2023-05-19] MEDS: NITROGLYCERIN 2% OINT 1 GM UNIT DOSE PACKET TOP SCH ×4 (02:00→19:13)
[2023-05-19 03:30] VITALS: BP 122/83
[2023-05-19 03:47] LABS: BASOPHILS % (AUTO) 0 % (0-10); EOSINOPHILS % (AUTO) 0 % (0-10); HEMATOCRIT 32 % (35-52); HEMOGLOBIN 10.2 g/dL (11.5-16.0); LYMPHOCYTES # (AUTO) 1.3 10^3/uL (1.0-4.0); LYMPHOCYTES % (AUTO) 13 % (12-44); MEAN CORPUSCULAR HEMOGLOBIN 34 pg (25-34); MEAN CORPUSCULAR HGB CONC 32 g/dL (32-36); MEAN CORPUSCULAR VOLUME 106 fL (80-99); MEAN PLATELET VOLUME 9.6 fL (9.0-12.2); MONOCYTES # (AUTO) 0.6 10^3/uL (0.0-1.0); MONOCYTES % (AUTO) 7 % (0-12); NEUTROPHILS # (AUTO) 7.6 10^3/uL (1.8-7.8); NEUTROPHILS % (AUTO) 79 % (42-75); PLATELET COUNT 190 10^3/uL (130-400); WHITE BLOOD COUNT 9.6 10^3/uL (4.3-11.0)
[2023-05-19 04:09] LABS: ALBUMIN 2.8 GM/DL (3.2-4.5); BILIRUBIN,TOTAL 0.7 MG/DL (0.1-1.0); CALCIUM 9.7 MG/DL (8.5-10.1); CREATININE SERUM 0.64 MG/DL (0.60-1.30); MAGNESIUM 1.7 MG/DL (1.6-2.4); PHOSPHORUS 3.5 MG/DL (2.3-4.7); POTASSIUM 4.6 MMOL/L (3.6-5.0); TOTAL PROTEIN 5.8 GM/DL (6.4-8.2)
[2023-05-19] MEDS: POTASSIUM CHLORIDE 20 MEQ TABLET PO SCH (04:10)
[2023-05-19] MEDS: inSUlin ASPART 1 UNIT/0.01 ML (PER UNIT) SC SCH ×4 (04:11→20:21)
[2023-05-19] MEDS: POTASSIUM CL 10MEQ/50ML IVPB 50 ML IV SCH (04:11)
[2023-05-19] MEDS: MAGNESIUM 1 GM/100 ML IVPB 100 ML IV SCH ×4 (04:11→07:21)
[2023-05-19] MEDS ORDERED: FLU HIGH DOSE (65+ YOA) 240 MCG/0.7 ML 2023-24 (FLUZONE) IM ONE (07:00)
--- NOTE | 2023-05-19 08:29 | Diagnostic Imaging Report ---
HISTORY: Severe bradycardia, chest pain. COMPARISON: 05/18/2023 TECHNIQUE: Frontal view of the chest. FINDINGS: There is mild elevation of the right hemidiaphragm. Lung volumes are normal. No consolidation is seen. There is no pleural effusion or pneumothorax. The cardiac silhouette is normal in size. Sternotomy wires and CABG changes are seen. The right Port-A-Cath tip projects over the SVC. IMPRESSION: 1. No acute pulmonary abnormality. Dictated by: Dictated on workstation # [id number]
--- NOTE | 2023-05-19 08:36 | Tele-ICU Progress Note ---
Subjective Date Seen by a Provider: May 19, 2023 Time Seen by a Provider: 08:33 Subjective/Events-last exam (Tele-ICU Physician , Progress Note ) Service provided via interactive audio and video telecommunications E-CARE system to a patient admitted to ICU bed in [facility]. Patient is seen today due to persistent need of ICU care Available chart/ vitals / labs / Images reviewed Video assessment done using teleICU camera, rest of exam as per RN Discussed with RN Events overnight : hypotensive , Hb stable , s/p 1 u PRBC 05/17 Afebrile hemodynamically stable Respiratory - ra I/O = 72 yo F admitted with symptomatic bradycardia, has been on sotalol- took 2 doses close together, had episode of syncope, was on IV dopamine, off since 3 am On digoxin, digoxin level 0.46, last HR 77, 161/75 Hx of bile duct Ca with liver mets, s/p chemo/RT, had stent No CP no further syncope, no SOB, no abd pain Has MAZE procedure, s/p CABG Sepsis Event Evaluation Height, Weight, BMI Height: 5'4.00" Weight: 160lbs. 6.4oz. 72.916719cj; 18.51 BMI Method: Exam Exam Patient acknowledged, consented, and participated in this virtual visit which was conducted using real time audio/video Vital Signs Date Time Temp Pulse Resp B/P (MAP) Pulse Ox O2 Delivery O2 Flow Rate FiO2 05/19/23 06:00 77 10 161/75 (101) 100 Nasal Cannula 2.00 05/19/23 05:00 72 11 129/63 (89) 100 Nasal Cannula 2.00 05/19/23 04:00 75 11 148/70 (98) 100 Nasal Cannula 2.00 05/19/23 03:30 100 Nasal Cannula 2.00 05/19/23 03:30 36.0 77 16 152/68 (96) 100 Nasal Cannula 2.00 05/19/23 03:30 79 122/83 05/19/23 03:00 75 13 125/61 (83) 100 Nasal Cannula 2.00 05/19/23 02:00 73 122/58 (86) 100 Nasal Cannula 2.00 05/19/23 01:24 71 118/53 05/19/23 01:00 66 33 118/53 (82) 100 Nasal Cannula 2.00 05/19/23 01:00 66 05/19/23 00:00 100 Nasal Cannula 2.00 05/19/23 00:00 36.2 52 18 107/45 (65) 100 Nasal Cannula 2.00 05/18/23 23:45 40 15 93/42 (58) 100 Nasal Cannula 2.00 05/18/23 23:30 42 15 93/39 (55) 100 Nasal Cannula 2.00 05/18/23 23:15 39 15 95/39 (56) 100 Nasal Cannula 2.00 05/18/23 23:00 40 15 97/40 (62) 100 Nasal Cannula 2.00 05/18/23 22:45 44 96/39 (59) 100 Nasal Cannula 2.00 05/18/23 22:30 41 19 90/41 (63) 100 Nasal Cannula 2.00 05/18/23 22:18 30 90/45 05/18/23 22:15 32 13 90/45 (64) 100 Nasal Cannula 2.00 05/18/23 22:00 31 18 104/60 (76) 100 Nasal Cannula 2.00 05/18/23 21:49 98 Nasal Cannula 2.00 05/18/23 21:45 34 79/55 05/18/23 21:45 34 17 149/122 (130) 100 Nasal Cannula 2.00 05/18/23 21:30 32 14 79/55 (66) 100 Nasal Cannula 2.00 05/18/23 21:15 28 17 83/70 (76) 100 Nasal Cannula 2.00 05/18/23 21:05 31 21 116/93 (96) 100 Nasal Cannula 2.00 05/18/23 21:00 27 24 62/41 (49) 100 Nasal Cannula 2.00 05/18/23 20:50 35 11 84/52 (62) 100 Nasal Cannula 2.00 05/18/23 20:45 28 05/18/23 20:44 35.7 27 15 111/57 (75) 98 Nasal Cannula 2.00 05/18/23 20:30 27 16 102/61 100 Room Air 05/18/23 19:19 37 16 124/50 (74) 99 Room Air I & O 05/19/23 07:00 Intake Total 2400 ml Output Total 1380 ml Balance 1020 ml Height & Weight Height: 5'4.00" Weight: 160lbs. 6.4oz. 72.346830qg; 18.51 BMI Method: General Appearance: Chronically ill, Cachetic, Other (LETHARGIC) HEENT: PERRL/EOMI, Pale Conjunctivae (L), Pale Conjunctivae (R) Neck: Normal Inspection Respiratory: Lungs Clear, Normal Breath Sounds, No Accessory Muscle Use, No Respiratory Distress Cardiovascular: Regular Rate, Rhythm, No JVD, No Murmur, Bradycardia, Irregularly Irregular, Other (brief episode of a fib yesterdat) Capillary Refill: Less Than 3 Seconds Extremity: Normal Capillary Refill, No Pedal Edema Neurologic/Psychiatric: Alert, Oriented x3, No Motor/Sensory Deficits, Other (LETHARGIC ) Skin: Warm/Dry, Pallor Results Lab Laboratory Tests 05/18/23 19:22 05/19/23 03:35 Assessment/Plan Assessment/Plan Symptomatic bradycardia now resolved, to be watched overnight and then released Critical Care: Critically Ill Patient Time spent with patient (mins): 20 ALICIA LOERA MD May 19, 2023 08:36
--- NOTE | 2023-05-19 08:37 | Consultation-Cardiology ---
HPI-Cardiology Cardiology Consultation Date of Consultation 05/19/23 Date of Admission Time Seen by Provider: 08:32 Indication: Atrial fibrillation HPI 72-year-old lady with history of coronary artery disease, history of paroxysmal atrial fibrillation, had history of CABG and maze procedure has been doing well and maintained on sotalol 60 mg twice daily. She started to have palpitation and felt irregular heartbeat, took her evening dose of sotalol a little early and came into the emergency room for evaluation. In the emergency room she was noted to be in atrial fibrillation with a bradycardia and a heart rate in the 30s. She denied any syncope but had some chest pain responded to sublingual nitroglycerin. Overnight she became hypotensive and required dopamine drip. Converted back to sinus rhythm. Currently feeling better. Denied any active chest pain. No palpitation. No syncope or near syncopal episodes. Home Medications & Allergies Allergies: Coded Allergies: amlodipine (Verified Allergy, Severe, EDEMA LOWER EXTREMITIES, 02/26/22) Cephalosporins (Verified Allergy, Mild, ITCHING, 02/26/22) Penicillins (Verified Allergy, Mild, HIVES, 02/26/22) Sulfa (Sulfonamide Antibiotics) (Verified Allergy, Mild, ITCHING, 02/26/22) Home Medication List Reviewed: Yes BKN-Tzzhcl-Tnyzky Hx Patient Social History Marital Status: Employed/Student: retired Smoking Status: Former Smoker Type Used: Cigarettes 2nd Hand Smoke Exposure: No Recent Hopitalizations: Yes (OCTOBER 21 NUC TEST AND HEART CATH - NEG/CLEAN) Alcohol Use?: No Immunizations Up To Date Date of Pneumonia Vaccine: Apr 28, 2013 Date of Influenza Vaccine: Mar 23, 2020 Past Medical History Discussed below Family Medical History Significant Family History: No Pertinent Family Hx Family History: Cardiovascular disease 19 FATHER 19 MOTHER Myocardial infarction 19 FATHER Review of Systems-General Review of Systems Constitutional: see HPI, malaise, weakness EENTM: see HPI, no symptoms reported Respiratory: no symptoms reported, see HPI Cardiovascular: see HPI, palpitations Gastrointestinal: no symptoms reported, see HPI Genitourinary: no symptoms reported, see HPI Musculoskeletal: no symptoms reported Skin: no symptoms reported Psychiatric/Neurological: See HPI Reviewed Test Results Reviewed Test Results Lab Laboratory Tests Test 05/18/23 19:22 05/18/23 19:46 05/18/23 22:30 05/19/23 01:30 Range/Units White Blood Count 13.0 H 4.3-11.0 10^3/uL Red Blood Count 3.31 L 3.80-5.11 10^6/uL Hemoglobin 11.3 L 11.5-16.0 g/dL Hematocrit 36 35-52 % Mean Corpuscular Volume 109 H 80-99 fL Mean Corpuscular Hemoglobin 34 25-34 pg Mean Corpuscular Hemoglobin Concent 31 L 32-36 g/dL Red Cell Distribution Width 14.6 H 10.0-14.5 % Platelet Count 266 130-400 10^3/uL Mean Platelet Volume 9.5 9.0-12.2 fL Immature Granulocyte % (Auto) 1 % Neutrophils (%) (Auto) 71 42-75 % Lymphocytes (%) (Auto) 19 12-44 % Monocytes (%) (Auto) 8 0-12 % Eosinophils (%) (Auto) 1 0-10 % Basophils (%) (Auto) 0 0-10 % Neutrophils # (Auto) 9.2 H 1.8-7.8 10^3/uL Lymphocytes # (Auto) 2.5 1.0-4.0 10^3/uL Monocytes # (Auto) 1.1 H 0.0-1.0 10^3/uL Eosinophils # (Auto) 0.2 0.0-0.3 10^3/uL Basophils # (Auto) 0.1 0.0-0.1 10^3/uL Immature Granulocyte # (Auto) 0.1 0.0-0.1 10^3/uL Prothrombin Time 13.5 12.2-14.7 SEC INR Comment 1.0 0.8-1.4 Activated Partial Thromboplast Time 29 24-35 SEC Sodium Level 140 135-145 MMOL/L Potassium Level 4.7 3.6-5.0 MMOL/L Chloride Level 109 H 98-107 MMOL/L Carbon Dioxide Level 17 L 21-32 MMOL/L Anion Gap 14 5-14 MMOL/L Blood Urea Nitrogen 16 7-18 MG/DL Creatinine 0.78 0.60-1.30 MG/DL Estimat Glomerular Filtration Rate 80 BUN/Creatinine Ratio 21 Glucose Level 162 H 70-105 MG/DL Calcium Level 9.8 8.5-10.1 MG/DL Corrected Calcium 10.6 H 8.5-10.1 MG/DL Magnesium Level 1.9 1.6-2.4 MG/DL Total Bilirubin 0.7 0.1-1.0 MG/DL Aspartate Amino Transf (AST/SGOT) 49 H 5-34 U/L Alanine Aminotransferase (ALT/SGPT) 32 0-55 U/L Alkaline Phosphatase 893 H 40-136 U/L Total Creatine Kinase 17 L 29-168 U/L Creatine Kinase MB 0.3 <6.6 NG/ML Myoglobin 21.0 10.0-92.0 NG/ML Troponin I < 0.028 < 0.028 < 0.028 <0.028 NG/ML B-Type Natriuretic Peptide 262.2 H <100.0 PG/ML Total Protein 6.4 6.4-8.2 GM/DL Albumin 3.0 L 3.2-4.5 GM/DL TSH [place] Testing 2.92 0.35-4.94 UIU/ML Digoxin Level 0.46 L 0.80-2.00 NG/ML Smear Scan YES Glucometer 177 H 70-110 MG/DL Test 05/19/23 03:35 Range/Units White Blood Count 9.6 4.3-11.0 10^3/uL Red Blood Count 3.01 L 3.80-5.11 10^6/uL Hemoglobin 10.2 L 11.5-16.0 g/dL Hematocrit 32 L 35-52 % Mean Corpuscular Volume 106 H 80-99 fL Mean Corpuscular Hemoglobin 34 25-34 pg Mean Corpuscular Hemoglobin Concent 32 32-36 g/dL Red Cell Distribution Width 14.6 H 10.0-14.5 % Platelet Count 190 130-400 10^3/uL Mean Platelet Volume 9.6 9.0-12.2 fL Immature Granulocyte % (Auto) 1 % Neutrophils (%) (Auto) 79 H 42-75 % Lymphocytes (%) (Auto) 13 12-44 % Monocytes (%) (Auto) 7 0-12 % Eosinophils (%) (Auto) 0 0-10 % Basophils (%) (Auto) 0 0-10 % Neutrophils # (Auto) 7.6 1.8-7.8 10^3/uL Lymphocytes # (Auto) 1.3 1.0-4.0 10^3/uL Monocytes # (Auto) 0.6 0.0-1.0 10^3/uL Eosinophils # (Auto) 0.0 0.0-0.3 10^3/uL Basophils # (Auto) 0.0 0.0-0.1 10^3/uL Immature Granulocyte # (Auto) 0.1 0.0-0.1 10^3/uL Sodium Level 139 135-145 MMOL/L Potassium Level 4.6 3.6-5.0 MMOL/L Chloride Level 107 98-107 MMOL/L Carbon Dioxide Level 23 21-32 MMOL/L Anion Gap 9 5-14 MMOL/L Blood Urea Nitrogen 14 7-18 MG/DL Creatinine 0.64 0.60-1.30 MG/DL Estimat Glomerular Filtration Rate 93 BUN/Creatinine Ratio 22 Glucose Level 112 H 70-105 MG/DL Calcium Level 9.7 8.5-10.1 MG/DL Corrected Calcium 10.7 H 8.5-10.1 MG/DL Phosphorus Level 3.5 2.3-4.7 MG/DL Magnesium Level 1.7 1.6-2.4 MG/DL Total Bilirubin 0.7 0.1-1.0 MG/DL Aspartate Amino Transf (AST/SGOT) 54 H 5-34 U/L Alanine Aminotransferase (ALT/SGPT) 35 0-55 U/L Alkaline Phosphatase 860 H 40-136 U/L Total Protein 5.8 L 6.4-8.2 GM/DL Albumin 2.8 L 3.2-4.5 GM/DL Triglycerides Level 95 <150 MG/DL Cholesterol Level 131 < 200 MG/DL LDL Cholesterol Direct 76 1-129 MG/DL VLDL Cholesterol 19 5-40 MG/DL HDL Cholesterol 37 L 40-60 MG/DL Physical Exam Physical Exam Vital Signs Vital Signs - First Documented 05/18/23 05/18/23 19:19 20:44 Temp 35.7 Pulse 37 Resp 16 B/P (MAP) 124/50 (74) Pulse Ox 99 O2 Delivery Room Air O2 Flow Rate 2.00 Capillary Refill : Less Than 3 Seconds Height, Weight, BMI Height: 5'4.00" Weight: 160lbs. 6.4oz. [id number]; 18.51 BMI Method: General Appearance: Chronically ill, Cachetic, Other (LETHARGIC) Eyes: Bilateral Eye Normal Inspection, Bilateral Eye PERRL, Bilateral Eye EOMI HEENT: PERRL/EOMI, Pale Conjunctivae (L), Pale Conjunctivae (R) Neck: Normal Inspection Respiratory: Normal Breath Sounds, No Accessory Muscle Use, No Respiratory Distress Cardiovascular: No JVD, No Murmur, Bradycardia, Irregularly Irregular Gastrointestinal: Non Tender, Soft Back: Normal Inspection, No CVA Tenderness, No Vertebral Tenderness Extremity: Normal Capillary Refill, No Pedal Edema Neurologic/Psychiatric: Alert, Oriented x3, No Motor/Sensory Deficits, Other (LETHARGIC ) Skin: Warm/Dry, Pallor Lymphatic: No Adenopathy A/P-Cardiology Admission Diagnosis Paroxysmal atrial fibrillation Bradycardia Chest pain Coronary artery disease Assessment/Plan Paroxysmal atrial fibrillation with severe bradycardia, sinus node dysfunction Has been maintained on sotalol 60 mg twice daily I will discontinue sotalol and monitor Severe bradycardia while in atrial fibrillation on sotalol She may require a pacemaker in the near future Discussed evaluating event recorder with her primary biologics specialist as an outpatient Coronary artery disease status post non-ST elevation myocardial infarction, had a cardiac catheterization done at [facility] and reported to have complex lesion in the LAD, had CABG [address] Luther Palmer using HUMPHREYS to LAD and vein graft to the diagonal artery and recovering well. Reporting that she had a cardiac catheterization done in October [address] Dixon. Continue to monitor Chest pain, resolved after sublingual nitroglycerin. Continue to monitor History of cholangiocarcinoma, following with [facility], has an appointment next week [id number] score of 4, yearly risk of stroke without oral anticoagulation is 4 percent, patient has been maintained without oral anticoagulation, I recommend starting Eliquis 5 mg twice daily Hypertension, restart home medication Discontinue sotalol and monitor blood pressure Hyperlipidemia, monitor lipids Degenerative joint disease History of back surgery History of pulmonary embolism, not maintained on oral anticoagulation LAW MELO MD May 19, 2023 08:37
[2023-05-19] MEDS ORDERED: PANTOPRAZOLE 40 MG TABLET PO SCH (09:00)
[2023-05-19] MEDS ORDERED: ENOXAPARIN 40 MG/0.4 ML SYRINGE SC SCH (09:00)
[2023-05-19] MEDS: ASPIRIN enteric coated 81MG TABLET PO SCH (09:01)
[2023-05-19] MEDS: APIXABAN 5 MG TABLET PO SCH ×2 (09:06→20:27)
[2023-05-19] MEDS: 1/2 NS IV SCH ×2 (09:07→19:12)
[2023-05-19] MEDS: KCL IV SCH ×2 (09:07→19:12)
--- NOTE | 2023-05-19 09:19 | History & Physical-Hospitalist ---
History of Present Illness HPI/Chief Complaint Is a 72-year-old female with past medical history of atrial fibrillation, coronary artery disease status post CABG, cholangiocarcinoma who presented to the ER due to bradycardia and weakness. She reports she was doing well member to [facility] for a follow-up visit. She returned home and after family member off and admitted and started to feel unwell around 5 PM. This continued to progress and she thought that her heart rate was irregular. She was told by Dr. Dixon that she could take an extra half tab of sotalol if that were the case so she did and then she started to feel worse. She thought that her heart rate was slowing down. She called her family to bring her to the emergency department. She believes she became unconscious in the car but does think that she remembers everything. On arrival to the ER she was found to be quite bradycardic with heart rate in the 30s. She also had a very large bowel movement upon arrival. She states she thought she was going to . She was admitted to the ICU and placed on a dopamine drip and now feels much better. She has never had anything like this happen before. Heart rate is in the 80s and she has been weaned off of dopamine. Does report that she was to have scans today to follow-up on her cancer with Dr. Zhu and has an appointment with Dr. Dixon on May 21. Source: patient Date Seen 05/19/23 Time Seen by a Provider: 09:16 Attending Physician Donato Estrella DO PCP Admitting Physician: Donato Estrella DO Attending Physician: Fredo Culp MD Referring Physician Date of Admission May 18, 2023 at 20:38 Home Medications & Allergies Home Medications Reviewed patient Home Medication Reconciliation performed by pharmacy medication reconciliations tube test technician and/or nursing. Patients Allergies have been reviewed. Allergies Allergies Coded Allergies amlodipine (Verified Allergy, Severe, EDEMA LOWER EXTREMITIES, 02/26/22) Cephalosporins (Verified Allergy, Mild, ITCHING, 02/26/22) Penicillins (Verified Allergy, Mild, HIVES, 02/26/22) Sulfa (Sulfonamide Antibiotics) (Verified Allergy, Mild, ITCHING, 02/26/22) Past Kznnsuf-Plqfue-Kyckwh Hx Patient Social History Marrital Status: Employed/Student: retired Tobacco Use?: No Smoking Status: Former Smoker Use of E-Cig and/or Vaping dev: No Substance use?: No Alcohol Use?: No Pt feels they are or have been: No Immunizations Up To Date Date of Influenza Vaccine: Mar 23, 2020 First/Initial COVID19 Vaccinat: 08/24/2020 Second COVID19 Vaccination [place]: 09/21/2020 Tetanus Booster (TDap): Less Than 5 Years Hepatitis A: No Hepatitis B: No Date of Pneumonia Vaccine: Apr 28, 2013 Seasonal Allergies Seasonal Allergies: Yes Current Status status: No status: No Advance Directives: No Communicates: Verbally Primary Language: Armenian Preferred Spoken Language: Armenian Is interpretation needed?: No Implanted or Applied Medical D: Port-a-cath Past Medical History Surgeries: Abdominal, Cardiac, CABG, Section, Gallbladder, Orthopedic, Renal, Vascular Surgery Pulmonary Embolism Currently Using CPAP: No Currently Using BIPAP: No Atrial Fibrillation, Coronary Artery Disease, Heart Attack, High Cholesterol, Hypertension, Irregular Heartbeat Sexually Transmitted Disease: No HIV/AIDS: No Kidney Stones, UTI-Chronic Gastroesophageal Reflux, Diverticulosis, Pancreatitis, Gall Bladder Disease Degenerate Disk Disease, Arthritis, Chronic Back Pain, Fractures Diabetes, Non-Insulin dep Cataract Did You Recieve Any Treatments: No Eczema Blood Disorders: No Adverse Reaction/Blood Tranf: No (N/A) Family Medical History Cardiovascular disease 19 FATHER 19 MOTHER Myocardial infarction 19 FATHER No Pertinent Family Hx Review of Systems Constitutional: see HPI Physical Exam Physical Exam Vital Signs Vital Signs - First Documented 05/18/23 05/18/23 19:19 20:44 Temp 35.7 Pulse 37 Resp 16 B/P (MAP) 124/50 (74) Pulse Ox 99 O2 Delivery Room Air O2 Flow Rate 2.00 Capillary Refill : Less Than 3 Seconds Height, Weight, BMI Height: 5'4.00" Weight: 160lbs. 6.4oz. [id number]; 18.51 BMI Method: General Appearance: No Apparent Distress, Thin Respiratory: Lungs Clear, No Respiratory Distress Cardiovascular: Regular Rate, Rhythm, No Murmur Gastrointestinal: Normal Bowel Sounds, Soft Neurologic/Psychiatric: Alert, Oriented x3, Normal Mood/Affect Results Results/Procedures Labs Laboratory Tests 05/18/23 19:22 05/19/23 03:35 Patient resulted labs reviewed. Imaging: Reviewed Imaging Report [email or web address] [place], [place] NAME: BAKARI AVILA [facility] REC#: [id number] PT STATUS: ADM IN : 1950 PHYSICIAN: JOSSY BALDWIN DO ADMIT DATE: 05/18/23/ICU Signed Date of Exam:05/18/23 CHEST 1 VIEW, AP/PA ONLY INDICATION: Arrhythmia, weakness COMPARISON: 01/28/2023. TECHNIQUE: Single radiograph of the chest dated 05/18/2023. FINDINGS: Right-sided Port-A-Cath is again identified and stable. Postsurgical changes of a CABG. Surgical clips are noted within the right upper abdomen. Additional catheter seen overlying the right upper abdomen. The cardiac silhouette is within normal limits in size. No significant pulmonary vascular congestion. The lungs are clear of focal pulmonary opacity. No pleural effusion. No pneumothorax. No acute osseous abnormality. IMPRESSION: No acute cardiopulmonary abnormality with postsurgical changes and lines and tubes as above. Dictated by: Dictated on workstation # [id number] Dict: 05/18/232012 Trans: 05/18/232101 [facility] [id number] Interpreted by: BAM GALDAMEZ MD Electronically signed by: BAM GALDAMEZ MD 05/18/232101 Assessment/Plan Admission Diagnosis Bradycardai Admission Status: Inpatient Order (span 2 midnights) Reason for Inpatient Admission: see below Assessment and Plan A fib with Bradycardia with hypotension CAD s/p CABG Responded to dopamine Was weaned off overnight HR now in the 80s Cardiology consulted, appreciate recs Echo ordered Monitor on telemetry PT/OT Eliquis for stroke ppx Cholangiocarcinoma Follows with Dr Carnes and [facility] Was to get imaging today so will get here Updated Dr Carnes Has follow up next week Completed radiation and chemo DM BS well controlled A1c 5 DVT ppx: Already on Eliquis Diagnosis/Problems Diagnosis/Problems (1) Atrial fibrillation with slow ventricular response Status: Acute (2) Cholangiocarcinoma Status: Chronic (3) History of coronary artery disease Status: Acute (4) Diabetes Status: Acute FREDO CULP MD May 19, 2023 09:19
[2023-05-19] MEDS ORDERED: IOHEXOL 350 MG/ML 100 ML (OMNIPAQUE 350) VIAL IV ONE (12:00)
[2023-05-19] MEDS ORDERED: NS 100 ML (IVPB) BAG IV ONE (12:00)
[2023-05-19] MEDS ORDERED: HOLD METFORMIN - RECEIVED CONTRAST 20 ML VIAL IV SCH (12:00)
--- NOTE | 2023-05-19 12:29 | Diagnostic Imaging Report ---
PROCEDURE: CT chest, abdomen, and pelvis with contrast. TECHNIQUE: Multiple contiguous axial images were obtained through the chest, abdomen, and pelvis after the administration of intravenous contrast. Auto Exposure Controls were utilized during the CT exam to meet ALARA standards for radiation dose reduction. INDICATION: Liver mass, cancer. COMPARISON: 07/20/2022 and 12/11/2021. FINDINGS: CT CHEST: No abnormality in the trachea. There is no pneumonia or edema. A small amount of relaxation atelectasis is present in the right lower lobe. Small right pleural effusion. No left-sided pleural effusion. There is no pneumothorax. No supraclavicular or axillary lymphadenopathy. Right IJ Port-A-Cath is in stable position. Heart is normal in size without pericardial effusion. Severe coronary artery calcifications of the [place] coronary arteries with CABG are noted. Normal-caliber thoracic aorta. No lytic or blastic skeletal lesions have developed. CT ABDOMEN AND PELVIS: No free intraperitoneal air or loculated fluid collection. Trace amount of free fluid is present in the pelvis and right upper quadrant. The low-attenuation mass centrally located in segment VII of the liver measures 3.4 x 2.6 cm (previously 4.7 x 2.6 cm). Multiple tandem metallic clips within the liver are stable and likely related to treatment. Internal biliary drain is in place with the distal tip coiled in the second portion of the duodenum. No intrahepatic biliary duct dilatation. The spleen and pancreas are normal. No adrenal mass has developed. No renal mass or obstructive uropathy. Urinary bladder is normal. Uterus and ovaries are normal. No bowel obstruction or pericolonic inflammatory change. Normal-caliber abdominal aorta without dissection. No worrisome focal osseous lesions have developed. No abdominal or pelvic lymphadenopathy. Stable calcification within the central mesentery may represent treated lymph nodes. IMPRESSION: 1. The mass within the central aspect of the liver continues to decrease in size. 2. New small right pleural effusion with a small amount of adjacent atelectasis. 3. No new lesions within the chest, abdomen, or pelvis that would suggest worsening of neoplastic process. Dictated by: Dictated on workstation # [id number]
[2023-05-19] MEDS ORDERED: PANT40TA52 PO (15:31)
[2023-05-19] MEDS ORDERED: POTA-177 PO (15:31)
[2023-05-19] MEDS ORDERED: DILT300C52 PO (15:31)
[2023-05-19] MEDS ORDERED: ATOR20TA66 PO (15:31)
[2023-05-19] MEDS ORDERED: HYDR-3817 PO (15:31)
[2023-05-19] MEDS ORDERED: CYAN500T8 PO (15:31)
[2023-05-19] MEDS ORDERED: ACET-2267 PO (15:31)
[2023-05-19] MEDS ORDERED: METF-397 PO (15:31)
[2023-05-19] MEDS: DOPamine DRIP PRE-MIX 250 ML IV SCH (20:13)
[2023-05-19] MEDS: PANTOPRAZOLE 40 MG TABLET PO SCH (20:27)
[2023-05-19] MEDS ORDERED: FLUTICASONE NASAL SPRAY (120 SPRAYS) NS SCH (21:00)
[2023-05-20] MEDS: 1/2 NS IV SCH (00:57)
[2023-05-20] MEDS: KCL IV SCH (00:57)
[2023-05-20] MEDS: NITROGLYCERIN 2% OINT 1 GM UNIT DOSE PACKET TOP SCH ×2 (00:58→08:05)
[2023-05-20] MEDS ORDERED: ACETAMINOPHEN 325 MG TABLET PO PRN (03:45)
[2023-05-20 03:51] LABS: BASOPHILS % (AUTO) 0 % (0-10); EOSINOPHILS # (AUTO) 0.1 10^3/uL (0.0-0.3); EOSINOPHILS % (AUTO) 2 % (0-10); HEMATOCRIT 32 % (35-52); HEMOGLOBIN 10.5 g/dL (11.5-16.0); LYMPHOCYTES # (AUTO) 1.4 10^3/uL (1.0-4.0); LYMPHOCYTES % (AUTO) 21 % (12-44); MEAN CORPUSCULAR HEMOGLOBIN 34 pg (25-34); MEAN CORPUSCULAR HGB CONC 32 g/dL (32-36); MEAN CORPUSCULAR VOLUME 105 fL (80-99); MEAN PLATELET VOLUME 9.6 fL (9.0-12.2); MONOCYTES # (AUTO) 0.7 10^3/uL (0.0-1.0); MONOCYTES % (AUTO) 10 % (0-12); NEUTROPHILS # (AUTO) 4.4 10^3/uL (1.8-7.8); NEUTROPHILS % (AUTO) 66 % (42-75); PLATELET COUNT 181 10^3/uL (130-400); WHITE BLOOD COUNT 6.6 10^3/uL (4.3-11.0)
[2023-05-20 04:05] LABS: ALBUMIN 2.8 GM/DL (3.2-4.5); BILIRUBIN,TOTAL 0.6 MG/DL (0.1-1.0); CALCIUM 9.3 MG/DL (8.5-10.1); CREATININE SERUM 0.58 MG/DL (0.60-1.30); MAGNESIUM 2.1 MG/DL (1.6-2.4); POTASSIUM 4.4 MMOL/L (3.6-5.0); TOTAL PROTEIN 5.8 GM/DL (6.4-8.2)
[2023-05-20] MEDS: POTASSIUM CL 10MEQ/50ML IVPB 50 ML IV SCH (04:10)
[2023-05-20] MEDS: MAGNESIUM 1 GM/100 ML IVPB 100 ML IV SCH (04:11)
[2023-05-20] MEDS: inSUlin ASPART 1 UNIT/0.01 ML (PER UNIT) SC SCH (04:11)
[2023-05-20] MEDS: POTASSIUM CHLORIDE 20 MEQ TABLET PO SCH (04:11)
[2023-05-20] MEDS ORDERED: CYANOCOBALAMIN 1,000 MCG TABLET PO SCH (07:00)
[2023-05-20] MEDS: ASPIRIN enteric coated 81MG TABLET PO SCH (08:20)
[2023-05-20] MEDS: PANTOPRAZOLE 40 MG TABLET PO SCH (08:20)
[2023-05-20] MEDS: APIXABAN 5 MG TABLET PO SCH (08:20)
[2023-05-20] MEDS ORDERED: NON-FORMULARY MEDICATION 1 EA EA (Cyanocobalamin (Vitamin B-12) (Vitamin B-12) 500 MCG) PO SCH (09:00)
[2023-05-20] MEDS ORDERED: ENALAPRIL 10 MG TABLET PO SCH (09:00)
[2023-05-20] MEDS ORDERED: NON-FORMULARY MEDICATION 1 EA EA (Enalapril Maleate 10 MG) PO SCH (09:00)
--- NOTE | 2023-05-20 09:27 | Cardiology Progress Note ---
Subjective Date Seen by Provider: May 20, 2023 Time Seen by Provider: 09:25 Subjective/Events-last exam Patient was seen at bedside, laying down comfortably, feeling well Currently in sinus tachycardia. Denied any chest pain No further episodes of atrial fibrillation Objective-Cardiology Exam Last Set of Vital Signs Vital Signs 05/19/23 05/20/23 05/20/23 15:00 06:00 08:06 Temp 36.5 Pulse 78 Resp 12 B/P (MAP) 148/74 (98) Pulse Ox 97 O2 Delivery Room Air O2 Flow Rate 2.00 I&O Intake and Output 05/20/23 00:00 Intake Total 2305 ml Output Total 4400 ml Balance -2095 ml Intake Oral 1105 ml IV Total 1200 ml Output Urine Total 3900 ml Post Void Residual 500 ml General: Alert, Oriented X3, Cooperative HEENT: Atraumatic, PERRLA Neck: Supple, No JVD, No Thyromegaly Lungs: Clear to Auscultation, Normal Air Movement Heart: Regular Rate, Normal S1, Normal S2, No Murmurs Abdomen: Normal Bowel Sounds, Soft, No Tenderness, No Hepatosplenomegaly, No Masses Extremities: No Clubbing, No Cyanosis, No Edema, Normal Pulses, No Tenderness/Swelling Skin: No Rashes, No Breakdown, No Significant Lesion Neuro: Normal Gait, Normal Speech, Strength at 5/5 X4 Ext, Normal Tone, Sensation Intact Psych/Mental Status: Mental Status NL, Mood NL Results Lab Laboratory Tests 05/20/23 03:27 A/P-Cardiology Admission Diagnosis Paroxysmal atrial fibrillation Bradycardia Chest pain Coronary artery disease Assessment/Plan Paroxysmal atrial fibrillation with severe bradycardia, sinus node dysfunction I visited and discussed in length with the patient regarding the management plan I recommended discontinuation of the digoxin and the sotalol 60 mg Continue on Cardizem CD 300 mg daily Okay for discharge and follow-up with her primary commission associate in the morning Severe bradycardia while in atrial fibrillation Secondary to meds Patient was on sotalol 60 mg twice daily, digoxin and Cardizem CD3 100 mg daily, was able to tolerate the medication well until this admission She may require a pacemaker in the near future I recommend evaluating an event recorder as an outpatient Coronary artery disease status post non-ST elevation myocardial infarction, had a cardiac catheterization done at [facility] and reported to have complex lesion in the LAD, had CABG [address] Luther Palmer using HUMPHREYS to LAD and vein graft to the diagonal artery and recovering well. Reporting that she had a cardiac catheterization done in October [address] Dixon. Continue to monitor Chest pain, resolved after sublingual nitroglycerin. Continue to monitor History of cholangiocarcinoma, following with [facility], has an appointment next week [id number] score of 4, yearly risk of stroke without oral anticoagulation is 4 percent, patient has been maintained without oral anticoagulation, I recommend starting Eliquis 5 mg twice daily Hypertension, restart home medication Discontinue sotalol and monitor blood pressure Hyperlipidemia, monitor lipids Degenerative joint disease History of back surgery History of pulmonary embolism, not maintained on oral anticoagulation LAW MELO MD May 20, 2023 09:27
--- NOTE | 2023-05-20 09:39 | Discharge Summary ---
Diagnosis/Chief Complaint Date of Admission May 18, 2023 at 20:38 Date of Discharge Admission Diagnosis Bradycardai [facility] SameerDonato Amarilys DO Discharge Diagnosis (1) Atrial fibrillation with slow ventricular response Status: Acute (2) Cholangiocarcinoma Status: Chronic (3) History of coronary artery disease Status: Acute (4) Diabetes Status: Acute Discharge Summary Discharge Physical Exam Allergies: Coded Allergies: amlodipine (Verified Allergy, Severe, EDEMA LOWER EXTREMITIES, 02/26/22) Cephalosporins (Verified Allergy, Mild, ITCHING, 02/26/22) Penicillins (Verified Allergy, Mild, HIVES, 02/26/22) Sulfa (Sulfonamide Antibiotics) (Verified Allergy, Mild, ITCHING, 02/26/22) Vitals & I&Os Vital Signs Date Time Temp Pulse Resp B/P (MAP) Pulse Ox O2 Delivery O2 Flow Rate FiO2 05/20/23 08:06 36.5 05/20/23 06:00 78 12 97 Room Air 05/19/23 15:00 2.00 Hospital Course Labs (last 24 hrs) Laboratory Tests 05/19/23 10:23: Glucometer 75 05/19/23 15:44: Glucometer 122H 05/19/23 20:20: Glucometer 112H 05/20/23 03:27: White Blood Count 6.6, Red Blood Count 3.09L, Hemoglobin 10.5L, Hematocrit 32L, Mean Corpuscular Volume 105H, Mean Corpuscular Hemoglobin 34, Mean Corpuscular Hemoglobin Concent 32, Red Cell Distribution Width 14.3, Platelet Count 181, Mean Platelet Volume 9.6, Immature Granulocyte % (Auto) 1, Neutrophils (%) (Auto) 66, Lymphocytes (%) (Auto) 21, Monocytes (%) (Auto) 10, Eosinophils (%) (Auto) 2, Basophils (%) (Auto) 0, Neutrophils # (Auto) 4.4, Lymphocytes # (Auto) 1.4, Monocytes # (Auto) 0.7, Eosinophils # (Auto) 0.1, Basophils # (Auto) 0.0, Immature Granulocyte # (Auto) 0.0, Sodium Level 140, Potassium Level 4.4, Chloride Level 109H, Carbon Dioxide Level 25, Anion Gap 6, Blood Urea Nitrogen 7, Creatinine 0.58L, Estimat Glomerular Filtration Rate 95, BUN/Creatinine Ratio 12, Glucose Level 75, Calcium Level 9.3, Corrected Calcium 10.3H, Phosphorus Level 3.0, Magnesium Level 2.1, Total Bilirubin 0.6, Aspartate Amino Transf ( AST/SGOT) 52H, Alanine Aminotransferase (ALT/SGPT) 31, Alkaline Phosphatase 870H , Total Protein 5.8L, Albumin 2.8L Microbiology 05/18/23 MRSA Screen - Final, Complete MRSA not isolated Patient resulted labs reviewed. Pending Labs Laboratory Tests 05/20/23 03:27: White Blood Count 6.6, Red Blood Count 3.09, Hemoglobin 10.5, Hematocrit 32, Mean Corpuscular Volume 105, Mean Corpuscular Hemoglobin 34, Mean Corpuscular Hemoglobin Concent 32, Red Cell Distribution Width 14.3, Platelet Count 181, Mean Platelet Volume 9.6, Immature Granulocyte % (Auto) 1, Neutrophils (%) (Auto) 66, Lymphocytes (%) (Auto) 21, Monocytes (%) (Auto) 10, Eosinophils (%) (Auto) 2, Basophils (%) (Auto) 0, Neutrophils # (Auto) 4.4, Lymphocytes # (Auto) 1.4, Monocytes # (Auto) 0.7, Eosinophils # (Auto) 0.1, Basophils # (Auto) 0.0, Immature Granulocyte # (Auto) 0.0, Sodium Level 140, Potassium Level 4.4, Chloride Level 109, Carbon Dioxide Level 25, Anion Gap 6, Blood Urea Nitrogen 7, Creatinine 0.58, Estimat Glomerular Filtration Rate 95, BUN/Creatinine Ratio 12, Glucose Level 75, Calcium Level 9.3, Corrected Calcium 10.3, Phosphorus Level 3.0, Magnesium Level 2.1, Total Bilirubin 0.6, Aspartate Amino Transf (AST/SGOT) 52, Alanine Aminotransferase (ALT/SGPT) 31, Alkaline Phosphatase 870, Total Protein 5.8, Albumin 2.8 Imaging: Reviewed Imaging Report Discharge Home Medications: Active Scripts Active Reported Atorvastatin Calcium 20 Mg Tablet 20 Mg PO DAILY LAST FILLED 12-26-2022 #90/90 DAY SUPPLY Tylenol Extra Strength (Acetaminophen) 500 Mg Tablet 500-1,000 Mg PO Q8H PRN Pantoprazole Sodium 40 Mg Tablet.dr 40 Mg PO BID Potassium Chloride 10 Meq Tab.er.prt 10 Meq PO DAILY Diltiazem 24Hr ER (Diltiazem HCl) 300 Mg Cap.er.24h 300 Mg PO DAILY Hydrocodone-Acetamin 7.5-325 (Hydrocodone/Acetaminophen) 7.5 Mg-325 Mg Tablet 1- 2 Ea PO Q4 -6H PRN Metformin HCl 500 Mg Tablet 1,000 Mg PO DAILY AFTER BREAKFAST TAKES 2 (500MG) TABS Vitamin B-12 (Cyanocobalamin (Vitamin B-12)) 500 Mcg Tablet 500 Mcg PO DAILY Metformin HCl 500 Mg Tablet 500 Mg PO 1800 AFTER MEAL Benadryl Allergy (Diphenhydramine HCl) 25 Mg Tablet 25-50 Mg PO HS PRN Fexofenadine HCl 180 Mg Tablet 180 Mg PO DAILY PRN Fluticasone Propionate 50 Mcg/Actuation [place].susp 2 Sprays NSEACH HS Enalapril Maleate 20 Mg Tablet 10 Mg PO DAILY TAKES OF A 20MG Instructions to patient/family Please see electronic discharge instructions given to patient. FREDO WHYTE MD May 20, 2023 09:39
--- NOTE | 2023-05-20 09:41 | Discharge Inst-Simple/Standard ---
Discharge Inst-Standard Discharge Medications New, Converted or Re-Newed RX: Transmitted to Pharmacy Patient Instructions/Follow Up Plan of Care/Instructions/FU: Please continue to take your medications as written. Please follow up with your primary care doctor to follow up this hospital stay. Activity as Tolerated: Yes Discharge Diet: No Restrictions Return to The Hospital For: Chest pain, palpitations, shortness of breath, fever, weakness, if you feel you are getting worse. FREDO WHYTE MD May 20, 2023 09:41
[2023-05-20] MEDS ORDERED: APIX5TAB PO (09:42)
[2023-05-20] MEDS ORDERED: SOTA120T PO (09:43)
[2023-05-20] MEDS ORDERED: DIGO125T3 PO (09:44)
--- NOTE | 2023-05-20 09:48 | Physical Therapy Evaluation ---
PT Evaluation-General Medical Diagnosis Admission Date May 18, 2023 at 20:38 Medical Diagnosis: Bradycardia Onset Date: May 18, 2023 Therapy Diagnosis Therapy Diagnosis: Gait deficit Height/Weight Height (Feet): 5 Height (Inches): 4.00 Weight (Pounds): 160 Weight (Ounces): 6.4 Precautions Precautions/Isolations: Fall Prevention, Standard Precautions Weight Bear Status Right Lower Extremity: Right Full Weight Bearing Left Lower Extremity: Left Full Weight Bearing Referral Physician: Dr. Culp Reason for Referral: Evaluation/Treatment Medical History Pertinent Medical History: Atrial Fib, DM, HTN Social History Home: Single Level Current Living Status: Alone Entry Into Home: Ramp, Stairs With Railing PT Steps Into Home: 2 Prior Prior Level of Function SCALE: Activities may be completed with or without assistive devices. 3-Onwbdmqzkd-iyxjtft completes the activity by him/herself with no assistance from a helper. 5-Set-up or Clean-up Assistance-helper sets up or cleans up; patient completes activity. [place] assists only prior to or following the activity. 4-Supervision or Touching Assistance-helper provides verbal cues and/or touching/steadying and/or contact guard assistance as patient completes activity. Assistance may be provided throughout the activity or intermittently. 3-Partial/Moderate Assistance-helper does LESS THAN HALF the effort. [place] lifts, holds or supports trunk or limbs, but provides less than half the effort. 2-Substantial/Maximal Assistance-helper does MORE THAN HALF the effort. [place] lifts or holds trunk or limbs and provides more than half the effort. 4-Jrvgorynx-cdbeix does ALL the effort. Patient does none of the effort to complete the activity. Or, the assistance of 2 or more helpers is required for the patient to complete the activity. If activity was not attempted, code reason: 7-Patient Refused. 9-Not Applicable-not attempted and the patient did not perform the activity before the current illness, exacerbation or injury. 10-Not Attempted due to Environmental Limitations-(lack of equipment, weather restraints, etc.). 88-Not Attempted due to Medical Conditions or Safety Concerns. Bed Mobility: 6 Transfers (B,C,W/C): 6 Gait: 6 Stairs: 6 Indoor Mobility (Ambulation): Independent Stairs: Independent Prior Devices Use: None PT Evaluation-Current Subjective Patient lying supine in bed upon PT arrival, agreeable to treatment. Objective Patient Orientation: Person, Place, Time, Situation ROM/Strength ROM Lower Extremities WFLs BLEs all planes Strength Lower Extremities 5/5 BLEs all planes Sensory Vision: Functional Hearing: Functional Sensation Right Lower Extremit: Intact Sensation Left Lower Extremity: Intact Transfers Roll Left to Right (QC): 6 Sit to Lying (QC): 6 Lying to Sitting/Side of Bed(Q: 6 Sit to Stand (QC): 6 Chair/Iyz-qd-Evpyf Xfer(QC): 6 Gait Gait Assistive Device: None Balance Sitting Static: Normal Sitting Dynamic: Normal Standing Static: Normal Standing Dynamic: Normal Assessment/Needs Patient as baseline. No further PT needed at this time. Rehab Potential: Good PT Plan Treatment/Plan Treatment Plan: Discontinue PT Treatment Duration: May 21, 2023 Frequency: Time Time In: 910 Time Out: 927 DATE: May 20, 2023 Total Billed Treatment Time: 17 Total Billed Treatment Visit, URIEL HUANG PT May 20, 2023 09:48
[2023-05-20] MEDS ORDERED: dilTIAZem ER 300 MG CAPSULE PO SCH (11:30)
== END 2023-05-20 12:20 | disposition home or self-care (01) | DRG 309 ==
LOC: EDUNIT# 19:11 → ER 19:13 → ICU 20:38
PROVIDERS: ADMIT Internal Medicine; ATTEND Family Medicine
DX: I48.0 Paroxysmal atrial fibrillation (principal); C78.7 Secondary malignant neoplasm of liver and intrahepatic bile duct; Z68.1 Body mass index [BMI] 19.9 or less, adult; I49.5 Sick sinus syndrome; E88.A Wasting disease (syndrome) due to underlying condition; I95.9 Hypotension, unspecified; I25.10 Atherosclerotic heart disease of native coronary artery without angina pectoris; E11.9 Type 2 diabetes mellitus without complications; I10 Essential (primary) hypertension; M19.90 Unspecified osteoarthritis, unspecified site; I25.2 Old myocardial infarction; Z85.89 Personal history of malignant neoplasm of other organs and systems; Z95.1 Presence of aortocoronary bypass graft; Z87.891 Personal history of nicotine dependence; Z86.711 Personal history of pulmonary embolism; Z79.899 Other long term (current) drug therapy; Z79.82 Long term (current) use of aspirin; Z79.85 Long-term (current) use of injectable non-insulin antidiabetic drugs; Z79.84 Long term (current) use of oral hypoglycemic drugs; Z88.1 Allergy status to other antibiotic agents; Z88.0 Allergy status to penicillin; Z88.2 Allergy status to sulfonamides; Z91.09 Other allergy status, other than to drugs and biological substances; Z23 Encounter for immunization
CPT/HCPCS: 36415; 71045; 71260; 74177; 80053; 80061; 80162; 82550; 82553; 82947; 83735; 83874; 83880; 84100; 84443; 84484; 85025; 85610; 85730; 87081; 90662; 93005; 93041; 96361; 96372; 96374

== ENCOUNTER → 2023-06-18 | Outpatient (RCR) | payer MEDICARE, BC ==
[~2023-06-18] MED LIST changes: +ACET-2267 PO; +APIX5TAB PO; +ATOR20TA66 PO; +CYAN500T8 PO; +DILT300C52 PO; +HYDR-3817 PO; +HYDR15SO11 PO; -HYDR15SO8 PO; +POTA-177 PO
== END | disposition home or self-care (01) ==
PROVIDERS: ATTEND Nurse Practitioner
DX: C22.1 Intrahepatic bile duct carcinoma (principal); R53.1 Weakness; R53.83 Other fatigue